=== PATIENT | female | born 1945 | race Caucasian/White ===

== ENCOUNTER → 2016-10-09 | Outpatient (CLI) | payer BC ==
[~2016-10-09] MED LIST: ALBINS NEB; ALBU1AER9 INH; ASPEC81 PO; ASPI81TA28 PO; ATEN-175 PO; ATOR-26 PO; CALC500C73 PO; CHLO10CA7 PO; CHN/1 PO; CHOL1000 PO; CLC100 PO; CLOP1TAB54 PO; DOCU100C31 PO; FLNIN/; FSM70 PO; FURO-85 PO; IPRA0.03 ND; IPRASOL4 INH; LISI-725 PO; LPT40 PO; LVQ750 PO; MCRK20 PO; METO50TA16 PO; MISC-573; MISCCAP80 PO; MOMLX PO; MRLP17X PO; NIFE1TAB55 PO; NIFE60TA57 PO; OXGN; PANT40TA PO; PLV75 PO; POTA20TA16 PO; PRD10 PO; PRED10TA PO; PRT40 PO; SIMV40TA2 PO; SYMIN/8045 INH; SYMIN8045 INH; VNTHFA/IN INH; ZNTT/150 PO
[2016-10-09 17:24] LABS: BASO % 0.1 %; BASO ABS # 0.01 K/uL (0-0.2); COMPLETE YES; EOS % 0.5 %; HEMATOCRIT 39.9 % (37-47); IG% 0.2 %; LYMPH % 18.6 %; LYMPH ABS # 2.31 K/uL (1.2-3.4); MEAN CORPUSCULAR HEMOGLOBIN 32.2 pg (25-34); MEAN CORPUSCULAR HGB CONC 32.8 g/dl (32-36); MEAN PLATELET VOLUME 10.7 fL (7.4-10.4); MONO % 6.2 %; NEUT % 74.4 %; PLATELET COUNT 282 K/uL (130-400); RED BLOOD COUNT 4.07 M/uL (4.2-5.4); WHITE BLOOD COUNT 12.44 K/uL (4.8-10.8)
[2016-10-09 17:39] LABS: ALT/SGPT 28 U/L (12-78); AST/SGOT 16 U/L (15-37); BLOOD UREA NITROGEN 20 mg/dl (7-18); BUN/CREATININE RATIO 18.4 (10-20); CALCIUM 9.7 mg/dl (8.5-10.1); CARBON DIOXIDE 24 mmol/L (21-32); CHLORIDE 102 mmol/L (98-107); CHOLESTEROL 166 mg/dl (0-200); GLUCOSE 81 mg/dl (70-99); POTASSIUM 3.9 mmol/L (3.5-5.1); SODIUM 139 mmol/L (136-145)
[2016-10-09 17:49] LABS: ALB/GLOB RATIO 1.1 (0.9-2); ALKALINE PHOSPHATASE 63 U/L (45-117); CHOLESTEROL/HDL RATIO 2.8; HDL CHOLESTEROL 59 mg/dl; LDL CHOLESTEROL CALCULATED 76 mg/dl; THYROID STIMULATING HORMONE 0.509 uIu/ml (0.300-4.500); TRIGLYCERIDES 154 mg/dl (0-150); VERY LOW DENSITY LIPOPROT CALC 31 mg/dl
[2016-10-10 06:14] LABS: ESTIMATED AVERAGE GLUCOSE 131 mg/dl; HA1C FLAG Normal (Normal)
== END | disposition home or self-care (01) ==
LOC: C.LABBFT 13:57
PROVIDERS: ATTEND Internal Medicine
DX: E78.00 Pure hypercholesterolemia, unspecified (principal); I10 Essential (primary) hypertension; J44.9 Chronic obstructive pulmonary disease, unspecified; R73.01 Impaired fasting glucose

== ENCOUNTER → 2016-11-07 | Outpatient (CLI) | payer BC ==
--- NOTE | 2016-11-07 12:15 | DIAGNOSTIC IMAGING REPORT ---
CHEST CT WITHOUT CONTRAST CT DOSE: 294.07 mGycm HISTORY: Lung nodule R91.8 Lung [id number] TECHNIQUE: Multiaxial CT images of the chest were performed without contrast. COMPARISON: 07/30/2016 FINDINGS: No change in the prior study. Groundglass nodules in the left upper lobe as well as an 11 mm nodule left lower lobe are unchanged in size or configuration. There are no new or interval findings. Considerable abscess chronic change of the thoracic aorta is again noted. There is no significant mediastinal or hilar adenopathy. IMPRESSION: Stable evaluation of the chest. No change in the parenchymal nodularity previously described Electronically signed by: Kirt Wade M.D. 11/07/2016 12:14 PM Dictated Date/Time: 11/07/2016 12:10 PM
== END | disposition home or self-care (01) ==
LOC: C.CTS 11:48
PROVIDERS: ATTEND Surgery
DX: R91.8 Other nonspecific abnormal finding of lung field (principal)

== ENCOUNTER → 2017-01-16 | Outpatient (CLI) | payer BC ==
--- NOTE | 2017-01-16 16:45 | MAMMOGRAPHY REPORT ---
BILATERAL DIGITAL SCREENING MAMMOGRAM TOMOSYNTHESIS WITH CAD: 01/16/2017 CLINICAL HISTORY: Routine screening. Patient has no complaints. TECHNIQUE: Breast tomosynthesis in addition to standard 2D mammography was performed. Current study was also evaluated with a Computer Aided Detection (CAD) system. COMPARISON: Comparison is made to exams dated: 01/12/2015 mammogram, 01/11/2014 mammogram, 01/05/2013 m ammogram, 12/31/2011 mammogram, 12/28/2010 mammogram, and 01/16/2016 mammogram - [facility]. BREAST COMPOSITION: There are scattered areas of fibroglandular density in both breasts. FINDINGS: No suspicious masses, calcifications, or areas of architectural distortion are noted in e ither breast. There has been no significant interval change compared to prior exams. There are stab le post surgical changes in the left breast from prior lumpectomy. Bilateral benign-appearing calci fications are not significantly changed. IMPRESSION: ACR BI-RADS CATEGORY 2: BENIGN There is no mammographic evidence of malignancy. A 1 year screening mammogram is recommended. The p atient will receive written notification of the results. Approximately 10% of breast cancers are not detected with mammography. A negative mammographic repor t should not delay biopsy if a clinically suggestive mass is present. Izabella Armas M.D. /:01/16/2017 15:41:21 Rn Surgery: Virginia DAVENPORT(Katy)(M), [facility] letter sent: Normal 1/2 BI-RADS Code: ACR BI-RADS Category 2: Benign
== END | disposition home or self-care (01) ==
LOC: C.MAMM 10:48
PROVIDERS: ATTEND Internal Medicine
DX: Z12.31 Encounter for screening mammogram for malignant neoplasm of breast (principal); Z85.3 Personal history of malignant neoplasm of breast

== ENCOUNTER 2017-02-08 19:58 | Inpatient (IN) | payer BC, OTHER ==
[~2017-02-08] VITALS: Ht 157.5 cm; Wt 69.8 kg
[~2017-02-08 19:58] MED LIST changes: -ASPEC81 PO; -ATOR-26 PO; -CALC500C73 PO; -CHOL1000 PO; -CLC100 PO; -DOCU100C31 PO; -FLNIN/; -FSM70 PO; -FURO-85 PO; -IPRA0.03 ND; -IPRASOL4 INH; -LISI-725 PO; -LPT40 PO; -LVQ750 PO; -MCRK20 PO; -METO50TA16 PO; -MISCCAP80 PO; -MOMLX PO; -MRLP17X PO; -NIFE1TAB55 PO; -PANT40TA PO; -PLV75 PO; -POTA20TA16 PO; -PRD10 PO; -PRED10TA PO; -PRT40 PO; -SYMIN/8045 INH; -VNTHFA/IN INH; -ZNTT/150 PO
[2017-02-08 20:41] LABS: HEMATOCRIT 44.3 % (37-47); MEAN CORPUSCULAR HEMOGLOBIN 31.2 pg (25-34); MEAN CORPUSCULAR HGB CONC 31.8 g/dl (32-36); MEAN PLATELET VOLUME 10.6 fL (7.4-10.4); PLATELET COUNT 264 K/uL (130-400); RED BLOOD COUNT 4.52 M/uL (4.2-5.4); WHITE BLOOD COUNT 13.68 K/uL (4.8-10.8)
[2017-02-08 20:51] LABS: INR 0.9 (0.9-1.1); PARTIAL THROMBOPLASTIN RATIO 0.9
[2017-02-08] MEDS ORDERED: VNTHFA/IN INH (20:56)
[2017-02-08 20:57] LABS: BUN/CREATININE RATIO 23.4 (10-20); CALCIUM 9.2 mg/dl (8.5-10.1); CREATININE 1.2 mg/dl (0.60-1.20); POTASSIUM 4.8 mmol/L (3.5-5.1)
[2017-02-08 21:02] LABS: ALB/GLOB RATIO 1.1 (0.9-2); CKMB/CK RATIO 11.2 (0-3.0)
[2017-02-08] MEDS ORDERED: ALBUT/IPRATROP 3MG/0.5MG NEB 3 ML VIAL INH STA (21:04)
[2017-02-08] MEDS ORDERED: ASPIRIN 81 MG CHEW PO STA (21:04)
--- NOTE | 2017-02-08 21:09 | EMERGENCY ROOM VISIT NOTE ---
History Report prepared by Roseline: Kyle Gilbert Under the Supervision of: Dr. Boris Trujillo D.O. First contact with patient: 20:49 Chief Complaint: CHEST PAIN Stated Complaint: FALL,SOB,CHEST PAIN,DIARRHEA Nursing Triage Summary: pt reports " I had a spell" which includes cp and dizziness and then I collapsed and my bowels let loose. denies cp or dizziness at this time pt reports hx of congested cough with mucus production History of Present Illness The patient is a 71 year old female who presents to the Emergency Room with complaints of completely resolved chest pain that began today at 1600, 5 hours prior to arrival. The patient describes her prior chest pain as a "pressure" and notes that there was associated shortness of breath. She denies any radiation of the pain, but claims that she also came significantly diaphoretic. Her pain is completely resolved at this time. The patient has had one similar episode in the past when she lost control of her bowels. She tried to juan to the restroom when her pain onset today, but she fell and lose control of her bowels once again. The pain has a history of COPD and notes that her breathing is worse than usual today. She has never had a heart catheterization in the past. 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 A total of 10 systems reviewed and were otherwise negative. Past Medical & Surgical Medical Problems: (1) Asthma (2) Bronchitis (3) COPD (chronic obstructive pulmonary disease) (4) COPD exacerbation (5) Hypertension (6) Hypoxia (7) Pneumonia (8) STEMI (ST elevation myocardial infarction) (9) Syncope Family History Cancer Diabetes mellitus FHx: gallbladder disease Heart disease Hypertension Kidney disease Kidney stones Lung disease Social History Smoking Status: Former Smoker Alcohol Use: none Drug Use: none Marital Status: Housing Status: lives alone Occupation Status: retired Current/Historical Medications Scheduled Albuterol Hfa (Ventolin Hfa), 2-4 PUFFS INH Q6H Alendronate Sodium (Alendronate Sodium), 70 MG PO WK Aspirin (Aspirin Ec), 81 MG PO QPM Atenolol (Tenormin), 100 MG PO QAM Budesonide/Formoterol Fumarate (Symbicort 80-4.5 Mcg/Act), 2 PUFFS INH BID Clopidogrel Bisulfate (Plavix), 75 MG PO QPM Fluticasone Propionate (Fluticasone Propionate), 1 SPRAY NA DIRECTED Home O2 Therapy (Oxygen), 3 LITER NA ALL TIME Nifedipine Ext Rel (Procardia Xl Ext Rel), 60 MG PO QAM Probiotic Product (Probiotic), 1 CAP PO QAM Ranitidine (Zantac), 150 MG PO BID Simvastatin (Zocor), 40 MG PO QPM Scheduled PRN Albuterol Sulf (Albuterol Sulfate), 3 ML NEB QID PRN for SOB/Wheezing Chlordiazepoxide (Librium), 10 MG PO TID PRN for PRN Durable Medical Equipment Misc. Devices (Roller Walker), UNIT Allergies Coded Allergies: Penicillins (Verified Allergy, Unknown, ANCEF OK PER DR RENDON, 02/08/17) Physical Exam Vital Signs Date Time Temp Pulse Resp B/P (MAP) Pulse Ox O2 Delivery O2 Flow Rate FiO2 02/08/17 22:04 73 28 91/53 96 Nasal Cannula 3.0 02/08/17 21:24 73 24 102/61 97 Nasal Cannula 3.0 02/08/17 20:36 98 Nasal Cannula 3.0 02/08/17 20:36 98 Nasal Cannula 3.0 02/08/17 20:26 71 22 112/67 99 Nasal Cannula 3.0 02/08/17 20:21 80 02/08/17 20:02 36.4 74 20 99/66 94 Room Air Physical Exam GENERAL: Patient is awake, alert, and in no acute distress. Patient is resting comfortably and showing no signs of anxiety EYES: The conjunctivae are clear. The pupils are round and reactive. EARS, NOSE, MOUTH AND THROAT: The nose is without any evidence of any deformity. Mucous membranes are moist tongue is midline NECK: The neck is nontender and supple. RESPIRATORY: Breath sounds are diminished throughout, with expiratory wheezing in all bishop. Tachypnea present, no conversational dyspnea to on exam. Normal respiratory effort is noted there is no evidence of wheezing rhonchi or rales CARDIOVASCULAR: Regular rate and rhythm noted there no murmurs rubs or gallops normal S1 normal S2 GASTROINTESTINAL: The abdomen is soft. Bowel sounds are present in all quadrants. Abdomen is nontender MUSCULOSKELETAL/EXTREMITIES: There is no evidence of gross deformity full range of motion is noted in the hips and shoulders SKIN: There is no obvious evidence of any rash. There are no petechiae, pallor or cyanosis noted. NEUROLOGIC: Patient is awake alert and oriented x3 Medical Decision & Procedures ER Provider Diagnostic Interpretation: Radiology results as stated below per my review and radiologist interpretation: CHEST ONE VIEW PORTABLE CLINICAL HISTORY: Chest pain, trauma, shortness of breath. Diarrhea. COMPARISON STUDY: 08/20/2016 FINDINGS: There is no pneumothorax. The heart is mildly enlarged. There is no lobar consolidation. There are no pleural effusions. Increased markings within the right infrahilar region, likely represent a summation. No mass was identified in this region on the most recent CT scan dated 11/07/2016. No pneumothorax is visualized. There are left apical fiducial markings. There is a calcified right upper lobe granuloma.[ IMPRESSION: 1. Increased right infrahilar markings, likely representing a summation as no mass was identified in this area on a recent chest CT 2. No evidence of failure 3. No evidence of lobar consolidation 4. No evidence of pneumothorax Electronically signed by: Ronald Bradley M.D. 02/08/2017 9:19 PM Dictated Date/Time: 02/08/2017 9:15 PM Laboratory Results 02/08/17 20:25 02/08/17 20:25 Test 02/08/17 20:25 02/08/17 20:36 Red Blood Count 4.52 M/uL (4.2-5.4) Mean Corpuscular Volume 98.0 fL (80-100) Mean Corpuscular Hemoglobin 31.2 pg (25-34) Mean Corpuscular Hemoglobin Concent 31.8 g/dl (32-36) RDW Standard Deviation 51.8 fL (36.4-46.3) RDW Coefficient of Variation 14.5 % (11.5-14.5) Mean Platelet Volume 10.6 fL (7.4-10.4) Prothrombin Time 10.0 SECONDS (9.0-12.0) Prothromb Time International Ratio 0.9 (0.9-1.1) Activated Partial Thromboplast Time 22.3 SECONDS (21.0-31.0) Partial Thromboplastin Ratio 0.9 Anion Gap 9.0 mmol/L (3-11) Est Creatinine Clear Calc Drug Dose 40.8 ml/min Estimated GFR () 51.9 Estimated GFR (Non- 44.8 BUN/Creatinine Ratio 23.4 (10-20) Calcium Level 9.2 mg/dl (8.5-10.1) Total Bilirubin 0.2 mg/dl (0.2-1) Aspartate Amino Transf (AST/SGOT) 52 U/L (15-37) Alanine Aminotransferase (ALT/SGPT) 60 U/L (12-78) Alkaline Phosphatase 72 U/L (45-117) Total Creatine Kinase 215 U/L (26-192) Creatine Kinase MB 24.1 ng/ml (0.5-3.6) Creatine Kinase MB Ratio 11.2 (0-3.0) Total Protein 6.8 gm/dl (6.4-8.2) Albumin 3.5 gm/dl (3.4-5.0) Globulin 3.3 gm/dl (2.5-4.0) Albumin/Globulin Ratio 1.1 (0.9-2) Bedside Troponin I 3.430 ng/ml (0-0.045) Laboratory results per my review. Medications Administered Medications (Trade) Dose Ordered Sig/Jessi Route Start Time Stop Time Status Last Admin Dose Admin Aspirin (Aspirin Chew) 324 mg NOW STAT PO 02/08/17 21:04 02/08/17 21:05 DC 02/08/17 21:12 324 MG Albuterol/ Ipratropium (Duoneb) 3 ml NOW STAT INH 02/08/17 21:04 02/08/17 21:05 DC 02/08/17 21:11 3 ML Heparin Sodium (Porcine) (Heparin Sq 5000 Unit/0.5ml) 5,000 unit STK-MED ONCE .ROUTE 02/08/17 22:09 02/08/17 22:10 DC 02/08/17 22:17 5,000 UNIT Heparin Sodium/ Dextrose (Heparin 25,000 Unit/500ml D5W) 25,000 unit STK-MED ONCE .ROUTE 02/08/17 22:10 02/08/17 22:11 DC 02/08/17 22:16 25,000 UNIT ECG Indication: chest pain Rate (beats per minute): 75 Rhythm: normal sinus Findings: RBBB, ST elevation (In apical and low lateral leads), other (ECG worrisome for acute ischemia) Comparison ECG Date: 06/13/2016 Change: Changes are present, but increased from previous. ED Course 2058: The patient was evaluated in room C12. A complete history and physical examination were performed. 2103: Ordered Duoneb 3 mL INH, Aspirin 324 mg PO. 2134: I discussed the case with Dr. Dang WILLIAMSON Hospitalist. He will evaluate the patient for further treatment. 2141: Ordered Heparin Sodium/Dextrose 1. 2202: I discussed the case with Dr. Jaylin WILLIAMSON Cardiology at this time. Medical Decision Medication Reconciliation: I attest that I have personally reviewed the patient' s current medications list. Differential diagnosis: Etiologies such as cardiac ischemia, aortic dissection, pulmonary embolism, pneumonia, pneumothorax, musculoskeletal, infections, pericarditis, myocarditis , esophageal rupture, gastrointestinal, as well as others were entertained. Nursing notes reviewed. Additional history is obtained from the patient's family members. The patient is a 71-year-old female who presented to the emergency department for an evaluation of chest discomfort. The patient had an episode earlier today where she had chest discomfort associated with diaphoresis and shortness of breath. The patient states that this time she does not have any chest pain. She continues to have shortness of breath but feels that this is consistent with her COPD. The patient's initial EKG did appear to show ST segment abnormalities in the apical and low lateral leads however she had previous EKGs that showed similar changes. She does have a bundle branch block pattern as well. Her troponin was found to be elevated. The patient was started on IV heparin in the emergency department. She was also given aspirin. I discussed the patient's laboratory and radiographic studies with her and her family member. It does appear that she's having a myocardial infarction at this time. I discussed her case with the on-call battery plate assembler. I also discussed his case with the on-call julien Alexandra hospitalist. They've agreed to evaluate the patient for further management and disposition. Consults Time Called: 2114 Consulting Physician: Dr. Dang WILLIAMSON Hospitalist Returned Call: 2134 I discussed the case with Dr. Dang WILLIAMSON Hospitalist. He will evaluate the patient for further treatment. Additional Consults: Time Called: 2114 Consulted Physician: Dr. Zoda - [facility] Returned Call: 2202 Additional Comments: I discussed the case with Dr. Mosqueda - [facility] [place] Cardiology at this time. Impression Primary Impression: NSTEMI (non-ST elevated myocardial infarction) Additional Impressions: Chest pain COPD exacerbation Abnormal EKG Critical Care I have personally spent greater than 40 minutes of critical care time in the direct management of this patient. This includes bedside care, interpretation of diagnostic studies, and testing, discussion with consultants, patient, and family members, and other required patient management activities. This 40 minutes is in excess of all separately billable procedures. Scribe Attestation The scribe's documentation has been prepared under my direction and personally reviewed by me in its entirety. I confirm that the note above accurately reflects all work, treatment, procedures, and medical decision making performed by me. Departure Information Dispostion Being Evaluated By Hospitalist Referrals Marcello Conde M.D. (PCP) Patient Instructions My [facility] Problem Qualifiers Additional Impressions: Chest pain Chest pain type: unspecified Qualified Codes: R07.9 - Chest pain, unspecified
--- NOTE | 2017-02-08 21:20 | DIAGNOSTIC IMAGING REPORT ---
CHEST ONE VIEW PORTABLE CLINICAL HISTORY: Chest pain, trauma, shortness of breath. Diarrhea. COMPARISON STUDY: 08/20/2016 FINDINGS: There is no pneumothorax. The heart is mildly enlarged. There is no lobar consolidation. There are no pleural effusions. Increased markings within the right infrahilar region, likely represent a summation. No mass was identified in this region on the most recent CT scan dated 11/07/2016. No pneumothorax is visualized. There are left apical fiducial markings. There is a calcified right upper lobe granuloma.[ IMPRESSION: 1. Increased right infrahilar markings, likely representing a summation as no mass was identified in this area on a recent chest CT 2. No evidence of failure 3. No evidence of lobar consolidation 4. No evidence of pneumothorax Electronically signed by: Ronald Bradley M.D. 02/08/2017 9:19 PM Dictated Date/Time: 02/08/2017 9:15 PM
[2017-02-08] MEDS ORDERED: HEPARIN SOD 5000 UNIT/0.5 ML CARP ONE (22:09)
[2017-02-08] MEDS ORDERED: HEPARIN 25000 UNIT/500 ML D5W ONE (22:10)
[2017-02-09] VITALS (13 sets, daily range): BP systolic 105–125; BP diastolic 55–75; PULSE 60–77; TEMP 36.4–36.8; O2SAT 91–99; Ht 157.5 cm; Wt 69.8 kg
--- NOTE | 2017-02-09 00:48 | History and Physical ---
History & Physical Date & Time of Service: Feb 09, 2017 at 00:48 Chief Complaint: Fall,Sob,Chest Pain,Diarrhea Primary Care Physician: Marcello Conde M.D. 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 Presents following an episode of severe central CP which lasted approximately 30 min. The pain was accompanied by SOB, lightheadedness and diaphoresis. At one point she was ambulating with the ongoing pain and she became light headed, collapsed on the floor without LOC and lost control of her bowels. On arrival to the ER she is asymptomatic however her troponin is markedly elevated. The pt had a troponin elevation following a syncopal episode 06/17. She had borderline ST elevations at that time but did not have echo findings consistent with acute ischemia. She did not have a cardiac catheterization as the troponin elevation was presumed due to a COPD exacerbation, volume depletion and resultant demand ischemia. Her echo prior to DC showed a normal EF without significant wall motion abnormalities. Past Medical/Surgical History PAST MEDICAL HISTORY: 1. COPD, dependent on 3 liters O2. 2. Anxiety. 3. The patient has a 13 mm pulmonary nodule in her left upper lobe which was biopsied and deemed noncancerous. She was recently placed on daily prednisone and states that her nodule has been shrinking as a result. 4. Hypertension. 5. Hyperlipidemia. 6. CAD. She has a distant history of catheterization with stent placement. 7. Admitted with syncope and a troponin elevation 06/17 Family History Cancer Diabetes mellitus FHx: gallbladder disease Heart disease Hypertension Kidney disease Kidney stones Lung disease Social History Smoking Status: Former Smoker Drug Use: none Marital Status: Housing status: lives alone Occupational Status: retired Immunizations History of Influenza Vaccine: Yes Influenza Vaccine Date: Aug 17, 2008 History of Tetanus Vaccine?: Unknown History of Pneumococcal: Yes Pneumococcal Date: Nov 20, 2009 History of Hepatitis B Vaccine: Unknown Multi-Drug Resistant Organisms History of MDRO: No Allergies Coded Allergies: Penicillins (Verified Allergy, Unknown, ANCEF OK PER DR RENDON, 02/08/17) Home Medications Scheduled Albuterol Hfa (Ventolin Hfa), 2-4 PUFFS INH Q6H Alendronate Sodium (Alendronate Sodium), 70 MG PO WK Aspirin (Aspirin Ec), 81 MG PO QPM Atenolol (Tenormin), 100 MG PO QAM Budesonide/Formoterol Fumarate (Symbicort 80-4.5 Mcg/Act), 2 PUFFS INH BID Clopidogrel Bisulfate (Plavix), 75 MG PO QPM Fluticasone Propionate (Fluticasone Propionate), 1 SPRAY NA DIRECTED Home O2 Therapy (Oxygen), 3 LITER NA ALL TIME Nifedipine Ext Rel (Procardia Xl Ext Rel), 60 MG PO QAM Probiotic Product (Probiotic), 1 CAP PO QAM Ranitidine (Zantac), 150 MG PO BID Simvastatin (Zocor), 40 MG PO QPM Scheduled PRN Albuterol Sulf (Albuterol Sulfate), 3 ML NEB QID PRN for SOB/Wheezing Chlordiazepoxide (Librium), 10 MG PO TID PRN for PRN Review of Systems Constitutional: + problem reported (diaphoresis with CP), No fever, No chills, No sweats Eyes: No worsening of vision, No eye pain ENT: No hearing loss, No unusual epistaxis, No nasal symptoms Respiratory: + wheezing, + shortness of breath (chronic - no change), No cough , No sputum Cardiovascular: + chest pain, No orthopnea, No PND, No palpitations Abdomen: No pain, No nausea Musculoskeletal: No joint pain, No muscle pain Genitourinary - Female: No dysuria, No urinary frequency, No urinary urgency Neurologic: No memory loss, No paralysis, No weakness Psychiatric: No depression symptoms Endocrine: No fatigue Hematologic / Lymphatic: No abnormal bleeding/bruising Integumentary: No rash Allergic / Immunologic: No environmental allergies Physical Exam Vital Signs Date Time Temp Pulse Resp B/P (MAP) Pulse Ox O2 Delivery O2 Flow Rate FiO2 02/09/17 00:00 67 20 106/73 96 02/08/17 22:04 73 28 91/53 96 Nasal Cannula 3.0 02/08/17 21:24 73 24 102/61 97 Nasal Cannula 3.0 02/08/17 20:36 98 Nasal Cannula 3.0 02/08/17 20:36 98 Nasal Cannula 3.0 02/08/17 20:26 71 22 112/67 99 Nasal Cannula 3.0 02/08/17 20:21 80 02/08/17 20:02 36.4 74 20 99/66 94 Room Air General Appearance: WD/WN, no apparent distress, + pertinent finding (Pleasant elderly female in good spirits - no distress) Head: normocephalic, atraumatic Eyes: normal inspection, PERRL, EOMI ENT: normal ENT inspection, pharynx normal Neck: supple, no adenopathy, thyroid normal, no JVD Respiratory/Chest: chest non-tender, + decreased breath sounds, + wheezing ( mild end expiratory) Cardiovascular: regular rate, rhythm, no edema, no gallop, no JVD, normal peripheral pulses, + systolic murmur Abdomen/GI: normal bowel sounds, non tender, soft Back: normal inspection, no CVA tenderness, no muscle spasm, normal range of motion Extremities/Musculoskelatal: normal inspection, no calf tenderness, normal capillary refill, normal range of motion, + pedal edema (minimal B/L LE edema ) Neurologic/Psych: outsole skiver II-XII nml as tested, no motor/sensory deficits, alert, normal mood/affect, normal reflexes, oriented x 3 Skin: normal color, warm/dry, no rash Diagnostics Laboratory Results Results Past 24 Hours Test 02/08/17 20:25 02/08/17 20:36 Range/Units White Blood Count 13.68 4.8-10.8 K/uL Red Blood Count 4.52 4.2-5.4 M/uL Hemoglobin 14.1 12.0-16.0 g/dL Hematocrit 44.3 37-47 % Mean Corpuscular Volume 98.0 80-100 fL Mean Corpuscular Hemoglobin 31.2 25-34 pg Mean Corpuscular Hemoglobin Concent 31.8 32-36 g/dl RDW Standard Deviation 51.8 36.4-46.3 fL RDW Coefficient of Variation 14.5 11.5-14.5 % Platelet Count 264 130-400 K/uL Mean Platelet Volume 10.6 7.4-10.4 fL Prothrombin Time 10.0 9.0-12.0 SECONDS Prothromb Time International Ratio 0.9 0.9-1.1 Activated Partial Thromboplast Time 22.3 21.0-31.0 SECONDS Partial Thromboplastin Ratio 0.9 Sodium Level 142 136-145 mmol/L Potassium Level 4.8 3.5-5.1 mmol/L Chloride Level 106 98-107 mmol/L Carbon Dioxide Level 27 21-32 mmol/L Anion Gap 9.0 3-11 mmol/L Blood Urea Nitrogen 28 7-18 mg/dl Creatinine 1.20 0.60-1.20 mg/dl Est Creatinine Clear Calc Drug Dose 40.8 ml/min Estimated GFR () 51.9 Estimated GFR (Non- 44.8 BUN/Creatinine Ratio 23.4 10-20 Random Glucose 122 70-99 mg/dl Calcium Level 9.2 8.5-10.1 mg/dl Total Bilirubin 0.2 0.2-1 mg/dl Aspartate Amino Transf (AST/SGOT) 52 15-37 U/L Alanine Aminotransferase (ALT/SGPT) 60 12-78 U/L Alkaline Phosphatase 72 45-117 U/L Total Creatine Kinase 215 26-192 U/L Creatine Kinase MB 24.1 0.5-3.6 ng/ml Creatine Kinase MB Ratio 11.2 0-3.0 Total Protein 6.8 6.4-8.2 gm/dl Albumin 3.5 3.4-5.0 gm/dl Globulin 3.3 2.5-4.0 gm/dl Albumin/Globulin Ratio 1.1 0.9-2 Bedside Troponin I 3.430 0-0.045 ng/ml EKG Sinus 75BPM, normal axis, RBBB Impression Assessment and Plan 71 y/o F 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 Presents following an episode of severe central CP which lasted approximately 30 min. The pain was accompanied by SOB, lightheadedness and diaphoresis. At one point she was ambulating with the ongoing pain and she became light headed, collapsed on the floor without LOC and lost control of her bowels. On arrival to the ER she is asymptomatic however her troponin is markedly elevated. 1) NSTEMI - pt placed on higher dose Statin, ASA, Plavix and full dose Heparin. She will be evaluated by cardiology AM - we will obtain serial enzymes and monitor on telemetry. As she does not have an alternative etiology for her troponin elevation this admission, I informed her that she may merit a catheterization and the final determination will be made by the mounter clarinets. 2) COPD - no current exacerbation - cont inhalers, prednisone, 02 protocol 3) HTN - cont Nifedipine, Atenolol Full code - Heparin prophylaxis Total time for this admit including review of labs, meds, EKG, records - discussion with pt and ER attending - 38 min Level of Care Telemetry Resuscitation Status FULL RESUSCITATION VTE Prophylaxis Given or contraindicated: Other Anticoagulation
[2017-02-09] MEDS ORDERED: ACETAMINOPHEN 325 MG TAB PO PRN (01:00)
[2017-02-09] MEDS ORDERED: MoRPHine SULFATE 2 MG/ML CARP IV PRN (01:00)
[2017-02-09] MEDS ORDERED: NITROGLYCERIN 0.4 MG SL PER TAB CHARGE SL PRN (01:30)
[2017-02-09] MEDS ORDERED: MAGNESIUM HYDROXIDE SUSP 30 ML UDC PO PRN (01:30)
[2017-02-09] MEDS ORDERED: ALUMINUM/MAGNESIUM/SIMETH (MAALOX MAX) 30 ML UDC PO PRN (01:30)
[2017-02-09] MEDS ORDERED: ONDANSETRON INJ 2 MG/ML 2 ML VIAL IV PRN (01:30)
[2017-02-09] MEDS ORDERED: POLYETHYLENE (MIRALAX) 17 GM PACK PO PRN (01:30)
[2017-02-09 04:29] LABS: HEMATOCRIT 39.9 % (37-47); MEAN CELL VOLUME 95.9 fL (80-100); MEAN CORPUSCULAR HEMOGLOBIN 30.5 pg (25-34); MEAN CORPUSCULAR HGB CONC 31.8 g/dl (32-36); PLATELET COUNT 235 K/uL (130-400); RED BLOOD COUNT 4.16 M/uL (4.2-5.4); WHITE BLOOD COUNT 11.71 K/uL (4.8-10.8)
[2017-02-09 04:49] LABS: BUN/CREATININE RATIO 27.6 (10-20); CALCIUM 8.6 mg/dl (8.5-10.1); CREATININE 1.2 mg/dl (0.60-1.20); MAGNESIUM 2.1 mg/dl (1.8-2.4); POTASSIUM 4.6 mmol/L (3.5-5.1)
[2017-02-09] MEDS: ALBUTEROL 0.083% NEBU SOLN 3 ML VIAL INH PRN ×4 (06:44→18:58)
[2017-02-09 07:49] LABS: PARTIAL THROMBOPLASTIN RATIO 3.8
[2017-02-09] MEDS ORDERED: NON-FORMULARY MEDICATION (Probiotic Product (Probiotic) 1 CAP) PO SCH (09:00)
[2017-02-09] MEDS: HEPARIN 25,000 UNIT/500ML D5W 500 ML IV PRN (09:00)
[2017-02-09] MEDS ORDERED: ATORVASTATIN 40 MG TAB PO SCH (09:00)
[2017-02-09] MEDS: RANITIDINE HCL 150 MG TAB PO SCH ×2 (12:00→20:25)
[2017-02-09] MEDS: NIFEdipine 30 MG CR TAB PO SCH (12:00)
[2017-02-09] MEDS: FLUTICASONE PROPIONATE NA SPR 16 GM BTL SCH (12:01)
[2017-02-09] MEDS: BUDESONIDE/FORMOTEROL FUMARATE 80/4.5 60 PUFFS/INHALER INH SCH ×2 (12:01→20:23)
--- NOTE | 2017-02-09 13:12 | CARDIOLOGY CONSULTATION ---
DATE OF CONSULTATION: 02/09/2017 PRIMARY PHYSICIAN: Marcello Conde MD REFERRING PHYSICIAN: Ace Leong MD CONSULTING PHYSICIAN: Ivan Mosqueda MD HISTORY OF PRESENT ILLNESS: The patient is a 71-year-old white female. She has a history of severe chronic obstructive pulmonary disease, pulmonary nodules (followed by Dr. Raheem Ch), hypertension, dyslipidemia, and peripheral arterial disease. She is status post bilateral common iliac artery stent procedures in August 2008. The procedure was performed at [facility]. She was admitted on 06/12/2016 to [facility] with a COPD exacerbation and mildly elevated troponin I. She also had evidence of intravascular volume depletion which was felt to be secondary to her chronic diuretic therapy. She had had a near syncopal episode prior to that admission. Because of her underlying severe chronic obstructive pulmonary disease a conservative medical management of her presumed underlying coronary artery disease was recommended. She underwent an echocardiogram during the admission, which revealed LV ejection fraction 65%-70%. Flattened septum consistent with RV pressure volume overload. Mild pulmonary hypertension. Moderate right ventricular dilatation. Mild to moderate right ventricular hypertrophy. Moderate right ventricular systolic dysfunction. No segmental wall motion abnormalities of the left ventricle. Mild tricuspid regurgitation. No significant mitral regurgitation noted. Mild aortic regurgitation. No significant pulmonic regurgitation. The patient was discharged on 06/18/2016. Her discharge diagnosis was COPD exacerbation. The patient states that since then she has had no further hospitalizations until this current hospitalization. She has been followed closely by Dr. Conde. She is now on steroids chronically for control of her severe COPD. She and her family stated she always wheezes. The family states that this is her baseline. She denies any dyspnea at rest. With minimal activity she has stable dyspnea. No orthopnea, sleeping with 1 pillow. She does wake up feeling short of breath and having increased wheezing. This improves with use of the nebulizer. She has a chronic cough productive of yellowish sputum. She states that since her hospitalization in June, she has had no exertionally precipitated chest pain. Approximately 1 time a week she does have a pressure like retrosternal pain that occurs independent of activity. It can last for 3-4 hours at a time. It then spontaneously resolves. She denies any such discomfort with exertion. On 02/08/2017, she developed a chest pain in her retrosternal region. She describes this as a sharp to aching pain. She had associated diaphoresis and dyspnea. No radiation of the discomfort. It lasted for approximately 3 hours and then resolved. She then felt better. Approximately 2 hours later she had an episode of diaphoresis, nausea, lightheadedness, and near syncope. Her family found her to be conscious, but slightly disoriented. They drove her to the Emergency Department for evaluation. Since the resolution of the chest discomfort yesterday afternoon at approximately 3:00 p.m. she has had no further complaints of any chest discomfort. While being monitored in the Emergency Department, she had a 5.8 second pause noted on her monitor. She does not recall feeling lightheaded or having syncope while in the Emergency Department. She was subsequently admitted to the telemetry unit. She has had no further lightheadedness, nausea, or near syncope. No further chest discomfort. She states that her respiratory status is currently at its baseline. She denies any dyspnea at rest. No lightheadedness sitting up at her bedside. She does continue to have a cough. This is her chronic cough. She denies any peripheral edema currently or recently. In the past, she has had edema with higher doses of prednisone. No complaints of any leg pain. No fevers or chills. She denies any bleeding complaints. No GI or urinary complaints. No cerebrovascular complaints. No peripheral vascular complaints suggestive of arterial insufficiency. As stated above, her activities are limited by her severe dyspnea. She does wear oxygen chronically. This is 24 hours a day. PAST MEDICAL HISTORY: 1. Severe COPD. 2. History of breast cancer. 3. Chronic respiratory failure. Chronic nasal cannula oxygen. Flow rate ranges from 3-5 liters per minute. 4. GE reflux disease. 5. Dyslipidemia. 6. Hypertension. 7. Impaired glucose tolerance. 8. Peripheral arterial disease. 9. Pulmonary nodules. Followed by Dr. Raheem Ch. She has undergone navigational bronchoscopy. Biopsy revealed no evidence of malignancy. The patient reports that her nodules are decreasing in size. PAST SURGICAL HISTORY: 1. Left breast lumpectomy in the past. Followed by external radiation therapy for breast cancer. 2. Status TOM. 3. Status post tonsillectomy. 4. Status post bilateral common iliac artery stents 2007. 5. Status post tonsillectomy. ALLERGIES: PENICILLIN. SOCIAL HISTORY: Longstanding history of cigarette smoking. She lives alone. She is a . Her children live nearby. FAMILY HISTORY: Multiple illnesses including diabetes mellitus, heart disease, hypertension, and cancer. MEDICATIONS: At time of admission include albuterol 2-4 puffs inhaler q.i.d. alendronate 70 mg weekly, aspirin 81 mg daily, atenolol 100 mg daily, Symbicort 2 puffs b.i.d., clopidogrel 75 mg daily, fluticasone 1 spray daily, nifedipine 60 mg daily, ranitidine 150 mg b.i.d., simvastatin 40 mg daily, probiotic 1 daily, chlordiazepoxide 10 mg t.i.d. p.r.n., albuterol nebulizer p.r.n., and prednisone as directed. The patient states that recently she has been taking prednisone on a daily basis. REVIEW OF SYSTEMS: As above. PHYSICAL EXAMINATION: GENERAL: The patient is sitting up at her bedside. She is in no distress. She does have audible wheezing just sitting next to her. Monitor at this time reveals sinus rhythm. Rate is in the 70s. She did have an episode of sinus bradycardia this morning with rates in the 30s. VITAL SIGNS: At 7:20 a.m. show oral temperature is 36.8, pulse 73, blood pressure 113/70, pulse oximetry 93% on 4 liters per nasal cannula oxygen. HEAD: Normal. EYES: Pupils are equal and round. Anicteric. Conjunctivae normal. No xanthelasma. NECK: No jugular venous distention. Carotids 1/2 bilaterally. No bruits. No transmitted murmur. Normal upstroke. LUNGS: Decreased breath sounds in all lung bishop. Diffuse mild rhonchi and expiratory wheezes. HEART: PMI normal. No lifts or heaves. Distant heart sounds. Regular rate and rhythm. No murmur, gallop, or rub. ABDOMEN: Soft. Normal bowel sounds. No bruits. No palpable masses or organomegaly. EXTREMITIES: No cyanosis or clubbing. No pretibial edema. No calf tenderness. PULSES: Radial pulses palpable bilaterally. Dorsalis pedis and posterior tibia pulses not palpable. NEUROLOGIC: Alert and oriented x3. Motor grossly intact. PSYCHIATRIC: Affect is normal. DATA: Electrocardiogram performed on February 08 at 20:32 revealed normal sinus rhythm with sinus arrhythmia, slight concave ST segment elevation in V3-V6. Compared to an electrocardiogram of 06/13/2016 no interval change. Electrocardiogram performed this morning and also reviewed by me shows sinus rhythm with PACs. Right bundle-branch block. Continued slight concave ST segment elevations in the anterior leads. No significant change compared to yesterday's electrocardiogram other than the presence of the premature supraventricular beats. Chest x-ray performed on February 08 and reviewed by me reveals no evidence of congestive heart failure. No infiltrate. LABS TODAY: WBC 11.71, hemoglobin 12.7, hematocrit 39.9, platelet count 235. Baseline INR yesterday was 0.9. PTT today on intravenous heparin is 99.8. Troponin I's have been 8.940 and then 7.270. Her CK and CK-MB in the Emergency Department last evening were 215/24.1. Metabolic profile today was sodium 141, potassium 4.6, chloride 106, carbon dioxide 30, BUN 33, creatinine 1.20, random glucose 124. Magnesium 2.1. ADDENDUM TO HISTORY: CURRENT MEDICATIONS: Atorvastatin 40 mg daily, aspirin 81 mg daily, clopidogrel 75 mg daily, Symbicort 2 puffs b.i.d., Flonase 2 sprays daily, ranitidine 150 mg b.i.d., prednisone 20 mg daily, nifedipine 60 mg daily, intravenous heparin by weight based protocol, and several p.r.n. medications. ASSESSMENT: 1. Prolonged episode of chest discomfort early yesterday afternoon. Duration approximately 3 hours. Her electrocardiogram on presentation to the Emergency Department last evening showed no acute changes compared to June electrocardiogram. Her CK total and CK-MB were already elevated last evening. This was on arrival to the Emergency Department. It takes several hours for CK and CK-MB to become elevated after myocardial infarction. This would be consistent with her sustaining a myocardial injury early yesterday afternoon when she had the complaints of chest pain. She has had no chest pain since approximately 3:00 p.m. yesterday. Currently, no anginal type pains. Clearly, she has risk factors for coronary artery disease. She has dyslipidemia, glucose intolerance, hypertension, prior smoking history, and peripheral arterial disease. Currently, no anginal type symptoms. 2. No evidence of congestive heart failure on chest x-ray. 3. Severe chronic obstructive pulmonary disease. Oxygen dependent. She has chronic wheezing. Her activities are markedly limited by her chronic obstructive pulmonary disease. Minimal exertion causes her to have dyspnea. 4. Peripheral arterial disease. Status post common iliac artery stents approximately 9 years ago. No claudication type symptoms. She does have diminished pulses in her ankles and feet. She also has diminished carotid pulses. No history of carotid artery disease. 5. Significant sinus pause yesterday evening. At that time, she was on beta-jalen therapy. This could certainly be contributory. Cannot exclude an effect of a myocardial infarction. Cannot exclude that she had ischemia to the sinus node. 6. Blood pressure well controlled. PLAN AND RECOMMENDATIONS: 1. From a pure cardiac standpoint cardiac catheterization would be indicated. However, the patient would clearly be at increased risk for any invasive procedures secondary to her underlying pulmonary disease. Certainly, at this time there is no indication for an urgent or emergent cardiac catheterization. She is stable. She has no current anginal symptoms. Her cardiac enzymes are decreasing. Her infarction by enzymes and her history was early yesterday afternoon. Certainly need to consider performing an elective cardiac catheterization. 2. Check echocardiogram today. Reassess left ventricular systolic function and wall motion. Compared to June 2016 echo. 3. Check carotid ultrasound. She has diminished carotid pulses. Also, she is at risk for cerebrovascular disease. 4. Continue aspirin, clopidogrel, intravenous heparin. 5. Hold atenolol. Continue to monitor her heart rhythm closely. Keep on monitor. Would not have her go off the unit. If she did go off the unit, she needs to be monitored. 6. I will discuss her sinus pause with electrophysiology mining consultant. 7. Consider adding an BRITTANY inhibitor to her medical regimen. Will await results of her echo. Continuing the nifedipine would give her some treatment for myocardial ischemia. 8. Continued maximum management of her COPD. Thank you for asking us to see this patient in cardiology consultation.
[2017-02-09] MEDS ORDERED: PERFLUTREN LIPID MICROSPHERE (DEFINITY) IV ONE (13:31)
--- NOTE | 2017-02-09 14:15 | ECHOCARDIOGRAM REPORT ---
*NOTICE TO RECEIVING [employer] This information is strictly Confidential and protected under [place] law. [place] law prohibits you from making any further disclosure of this information unless further disclosure is expressly permitted by the written consent of the person to whom it pertains or is authorized by law. A general authorization for the release of medical or other information is not sufficient for this purpose. Hospital accepts no responsibility if the information is made available to any other person, INCLUDING THE PATIENT. Interpretation Summary * Name: FIOR WILSON Study Date: 02/09/2017 01:11 PM BP: 113/70 mmHg * Patient Location: C.2T\S\E216\S\1 HR: 73 * : 1945 (M/d/yyyy) Gender: Female Height: 62 in * Age: 71 yrs Ethnicity: CA Weight: 151 lb * Ordering Physician: Ivan Mosqueda MD, [facility] * Performed By: Julieth Fuentes * * Reason For Study: AMI * BSA: 1.7 m2 * -- Conclusions -- * Left ventricular systolic function is normal. * Grade I diastolic dysfunction, (abnormal relaxation pattern). * The left ventricular wall motion is normal. * The right ventricle is mild to moderately dilated. * The right ventricular systolic function is moderately reduced. * The right atrium is mildly dilated. * Compared to a study from 06/2016, the septum is not flattened, otherwise little change. Pulmonary pressures were not measured on this study Procedure Details * A complete two-dimensional transthoracic echocardiogram was performed (2D, M-mode, Doppler and color flow Doppler). * The study was technically difficult. * There were technical limitations due to patient'sPoor acoustic windows secondary to severe lung disease. * A contrast injection of Definity was performed to improve assessment of LV function. * Contrast was injected into an intravenous site in the left arm. * One vial of Definity ultrasound contrast was diluted in normal saline to a total volume of 10 ml. A total of '3' ml of solution was administered during imaging. * Lot # [id number] of Definity utilized for procedure. * Expiration date 02/17. * The attending nurse who injected the contrast agent was ANA GIBBS RN. Left Ventricle * The left ventricle is normal in size. * There is normal left ventricular wall thickness. * Ejection Fraction = 65-70%. * Left ventricular systolic function is normal. * Grade I diastolic dysfunction, (abnormal relaxation pattern). * The left ventricular wall motion is normal. Right Ventricle * The right ventricle is mild to moderately dilated. * The right ventricular systolic function is moderately reduced. Atria * The left atrial size is normal. * The right atrium is mildly dilated. Mitral Valve * The mitral valve is grossly normal. * Significant mitral regurgitation is absent. Tricuspid Valve * The tricuspid valve is not well visualized. * There is trace tricuspid regurgitation. Aortic Valve * The aortic valve is not well visualized. * No hemodynamically significant valvular aortic stenosis. * There is no significant aortic regurgitation. Pericardium/Pleural * There is no pericardial effusion. Great Vessels * Normal inferior vena cava diameter and respiratory variation suggests normal central venous pressure. MMode 2D Measurements and Calculations IVSd 0.71 cm IVSs 1.4 cm LVIDd 3.9 cm LVIDs 2.4 cm LVPWd 1.1 cm LVPWs 1.7 cm IVS/LVPW 0.67 FS 37.0 % EDV(Teich) 65.4 ml ESV(Teich) 21.2 ml EF(Teich) 67.6 % EDV(cubed) 58.7 ml ESV(cubed) 14.7 ml EF(cubed) 75.0 % % IVS thick 94.4 % % LVPW thick 62.7 % LV mass(C)d 101.5 grams LV mass(C)dI 59.8 grams/m\S\2 LV mass(C)s 129.5 grams LV mass(C)sI 76.3 grams/m\S\2 SV(Teich) 44.2 ml SI(Teich) 26.0 ml/m\S\2 SV(cubed) 44.0 ml SI(cubed) 26.0 ml/m\S\2 ACS 1.5 cm asc Aorta Diam 3.2 cm LVAd ap4 26.1 cm\S\2 LVLd ap4 7.0 cm EDV(MOD-sp4) 81.0 ml EDV(sp4-el) 83.0 ml LVAs ap4 12.6 cm\S\2 LVLs ap4 5.4 cm ESV(MOD-sp4) 26.2 ml ESV(sp4-el) 25.1 ml EF(MOD-sp4) 67.7 % EF(sp4-el) 69.8 % LVAd ap2 20.2 cm\S\2 LVLd ap2 6.5 cm EDV(MOD-sp2) 51.9 ml EDV(sp2-el) 53.2 ml LVAs ap2 10.3 cm\S\2 LVLs ap2 5.2 cm ESV(MOD-sp2) 16.8 ml ESV(sp2-el) 17.3 ml EF(MOD-sp2) 67.7 % EF(sp2-el) 67.5 % LVLd %diff -7.12 % EDV(MOD-bp) 66.9 ml LVLs %diff -3.01 % ESV(MOD-bp) 20.8 ml EF(MOD-bp) 68.9 % SV(MOD-sp4) 54.9 ml SI(MOD-sp4) 32.3 ml/m\S\2 SV(MOD-sp2) 35.1 ml SI(MOD-sp2) 20.7 ml/m\S\2 SV(MOD-bp) 46.1 ml SI(MOD-bp) 27.2 ml/m\S\2 SV(sp4-el) 57.9 ml SI(sp4-el) 34.1 ml/m\S\2 SV(sp2-el) 36.0 ml SI(sp2-el) 21.2 ml/m\S\2 Doppler Measurements and Calculations MV E max arelis 64.2 cm/sec MV A max arelis 95.9 cm/sec MV E/A 0.67 MV dec time 0.19 sec Ao V2 max 124.8 cm/sec Ao max PG 6.2 mmHg Ao max PG (full) 3.6 mmHg AI max arelis 271.8 cm/sec AI max PG 29.5 mmHg AI dec slope 167.3 cm/sec\S\2 AI P1/2t 475.7 msec LV V1 max PG 2.7 mmHg LV V1 max 81.5 cm/sec PA V2 max 76.0 cm/sec PA max PG 2.3 mmHg
--- NOTE | 2017-02-09 14:51 | Progress Note ---
Subjective Date of Service: Feb 09, 2017. Subjective Pt evaluation today including: conversation w/ patient, conversation w/ family , physical exam, chart review, lab review, review of studies, conversation w/ merchandising consultant, review of inpatient medication list Pain: no pain reported PO Intake: excellent Po intake Voiding: no voiding problems pt is seen and examined by me. pt denies chest pain since yesterday 3pm. Pt denies SOB at rest, palpitation , dizziness and LOC. Pt denies any syncope episode. Pt denies blurry vision and headache. Problem List Medical Problems: (1) Abnormal EKG Status: Acute (2) Abnormal EKG Status: Acute (3) Chest pain Status: Acute (4) COPD exacerbation Status: Acute (5) Diarrhea Status: Acute (6) Elevated troponin Status: Acute (7) Hypokalemia Status: Acute (8) Hypotension Status: Acute (9) Hypoxemia Status: Acute (10) NSTEMI (non-ST elevated myocardial infarction) Status: Acute (11) Precordial chest pain Status: Acute Review of Systems All Other Systems: Reviewed and Negative Medications Medications (Trade) Dose Ordered Sig/Jessi Route Start Time Stop Time Status Last Admin Dose Admin Aspirin (Aspirin Chew) 324 mg NOW STAT PO 02/08/17 21:04 02/08/17 21:05 DC 02/08/17 21:12 324 MG Albuterol/ Ipratropium (Duoneb) 3 ml NOW STAT INH 02/08/17 21:04 02/08/17 21:05 DC 02/08/17 21:11 3 ML Heparin Sodium (Porcine) (Heparin Sq 5000 Unit/0.5ml) 5,000 unit STK-MED ONCE .ROUTE 02/08/17 22:09 02/08/17 22:10 DC 02/08/17 22:17 5,000 UNIT Heparin Sodium/ Dextrose (Heparin 25,000 Unit/500ml D5W) 25,000 unit STK-MED ONCE .ROUTE 02/08/17 22:10 02/08/17 22:11 DC 02/08/17 22:16 25,000 UNIT Budesonide/ Formoterol Fumarate (Symbicort 80/ 4.5 Inh) 2 puffs BID INH 02/09/17 09:00 03/11/17 08:59 02/09/17 12:01 2 PUFFS Fluticasone Propionate (Flonase Nasal Sharon) 2 sprays DAILY NA 02/09/17 09:00 03/11/17 08:59 02/09/17 12:01 2 SPRAYS Ranitidine HCl (zANTac TAB) 150 mg BID PO 02/09/17 09:00 03/11/17 08:59 02/09/17 12:00 150 MG Prednisone (PredniSONE TAB) 20 mg DAILY PO 02/09/17 09:00 03/11/17 08:59 02/09/17 12:00 20 MG Albuterol Sulfate (Ventolin 0.083% 2.5MG/3ML Neb) 2.5 mg Q4H PRN INH 02/09/17 01:00 03/11/17 00:59 02/09/17 11:10 2.5 MG Nifedipine (Procardia Xl Tab) 60 mg QAM PO 02/09/17 09:00 03/11/17 08:59 02/09/17 12:00 60 MG Perflutren Lipid Microsphere (Definity) 2 ml ONE ONCE IV 02/09/17 13:31 02/09/17 13:32 DC 02/09/17 13:31 2 ML Objective Vital Signs Date Time Temp Pulse Resp B/P (MAP) Pulse Ox O2 Delivery O2 Flow Rate FiO2 02/09/17 12:00 Nasal Cannula 4.0 02/09/17 11:36 36.8 60 16 110/64 (79) 97 Nasal Cannula 3.0 02/09/17 11:10 64 22 99 Nasal Cannula 4.0 02/09/17 08:00 Nasal Cannula 4.0 02/09/17 07:20 36.8 73 24 113/70 (84) 93 Nasal Cannula 4.0 02/09/17 06:44 73 22 93 Nasal Cannula 4.0 02/09/17 04:00 Nasal Cannula 4.0 02/09/17 04:00 36.4 65 20 106/63 (77) 97 Nasal Cannula 3.0 02/09/17 02:31 36.4 71 26 125/75 Nasal Cannula 4.0 02/09/17 01:45 68 20 122/71 94 Nasal Cannula 3.0 02/09/17 01:02 79 20 118/69 98 02/09/17 00:00 67 20 106/73 96 02/08/17 22:04 73 28 91/53 96 Nasal Cannula 3.0 02/08/17 21:24 73 24 102/61 97 Nasal Cannula 3.0 02/08/17 20:36 98 Nasal Cannula 3.0 02/08/17 20:36 98 Nasal Cannula 3.0 02/08/17 20:26 71 22 112/67 99 Nasal Cannula 3.0 02/08/17 20:21 80 02/08/17 20:02 36.4 74 20 99/66 94 Room Air Physical Exam General Appearance: WD/WN, no apparent distress Respiratory/Chest: chest non-tender, no respiratory distress, no accessory muscle use, + wheezing Cardiovascular: regular rate, rhythm, no edema, no JVD, no murmur Abdomen: normal bowel sounds, non tender, soft Extremities: normal range of motion, non-tender, normal inspection, no pedal edema, no calf tenderness Neurologic/Psychiatric: 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 nml as tested, alert, normal mood/affect, oriented x 3 Skin: no rash Lymphatic: no adenopathy Laboratory Results Last 24 Hours Test 02/08/17 20:25 02/08/17 20:36 02/09/17 04:18 02/09/17 07:20 White Blood Count 13.68 K/uL 11.71 K/uL Red Blood Count 4.52 M/uL 4.16 M/uL Hemoglobin 14.1 g/dL 12.7 g/dL Hematocrit 44.3 % 39.9 % Mean Corpuscular Volume 98.0 fL 95.9 fL Mean Corpuscular Hemoglobin 31.2 pg 30.5 pg Mean Corpuscular Hemoglobin Concent 31.8 g/dl 31.8 g/dl RDW Standard Deviation 51.8 fL 50.5 fL RDW Coefficient of Variation 14.5 % 14.4 % Platelet Count 264 K/uL 235 K/uL Mean Platelet Volume 10.6 fL 10.0 fL Prothrombin Time 10.0 SECONDS Prothromb Time International Ratio 0.9 Activated Partial Thromboplast Time 22.3 SECONDS 99.8 SECONDS Partial Thromboplastin Ratio 0.9 3.8 Sodium Level 142 mmol/L 141 mmol/L Potassium Level 4.8 mmol/L 4.6 mmol/L Chloride Level 106 mmol/L 106 mmol/L Carbon Dioxide Level 27 mmol/L 30 mmol/L Anion Gap 9.0 mmol/L 5.0 mmol/L Blood Urea Nitrogen 28 mg/dl 33 mg/dl Creatinine 1.20 mg/dl 1.20 mg/dl Est Creatinine Clear Calc Drug Dose 40.8 ml/min 38.0 ml/min Estimated GFR () 51.9 51.9 Estimated GFR (Non- 44.8 44.8 BUN/Creatinine Ratio 23.4 27.6 Random Glucose 122 mg/dl 124 mg/dl Calcium Level 9.2 mg/dl 8.6 mg/dl Total Bilirubin 0.2 mg/dl Aspartate Amino Transf (AST/SGOT) 52 U/L Alanine Aminotransferase (ALT/SGPT) 60 U/L Alkaline Phosphatase 72 U/L Total Creatine Kinase 215 U/L Creatine Kinase MB 24.1 ng/ml Creatine Kinase MB Ratio 11.2 Total Protein 6.8 gm/dl Albumin 3.5 gm/dl Globulin 3.3 gm/dl Albumin/Globulin Ratio 1.1 Bedside Troponin I 3.430 ng/ml Magnesium Level 2.1 mg/dl Troponin I 8.940 ng/ml Test 02/09/17 09:11 Troponin I 7.270 ng/ml Assessment and Plan 71 y/o F 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 Presents following an episode of severe central CP which lasted approximately 30 min. The pain was accompanied by SOB, lightheadedness and diaphoresis. At one point she was ambulating with the ongoing pain and she became light headed, collapsed on the floor without LOC and lost control of her bowels. On arrival to the ER she is asymptomatic however her troponin is markedly elevated. 1) NSTEMI - - cardiology Dr Mosqueda on case, No need for emergent cardiac cath, cont to monitor for now, Cont IV heparin, aspirin, plavix and statins. - Echo 02/09/17. * Left ventricular systolic function is normal. * Grade I diastolic dysfunction, (abnormal relaxation pattern). * The left ventricular wall motion is normal. * The right ventricle is mild to moderately dilated. * The right ventricular systolic function is moderately reduced. * The right atrium is mildly dilated. - Per Cardiology, Pt is stable. She has no current anginal symptoms. Her cardiac enzymes are decreasing. Her infarction by enzymes and her history was early yesterday afternoon. Certainly need to consider performing an elective cardiac catheterization. 2) COPD - no current exacerbation - cont inhalers, prednisone, 02 sat% 97 on 3LNC. 3) HTN - cont Nifedipine, Atenolol held as per cardio 4) Pulmonary nodules. Followed by Dr. Raheem Ch. She has undergone navigational bronchoscopy. Biopsy revealed no evidence of malignancy. The patient reports that her nodules are decreasing in size. Full code - Heparin prophylaxis Continued [facility] stay due to: multiple IV medications needed Discharge planning: uncertain
[2017-02-09 15:42] LABS: PARTIAL THROMBOPLASTIN RATIO 2.2
[2017-02-09] MEDS: ASPIRIN 81 MG ECTAB PO SCH (20:24)
[2017-02-09] MEDS: CLOPIDOGREL BISULFATE 75 MG TAB PO SCH (20:24)
[2017-02-09] MEDS: ACETAMINOPHEN 325 MG TAB PO PRN (20:35)
[2017-02-09] MEDS ORDERED: SIMVASTATIN 40 MG TAB PO SCH (21:00)
[2017-02-10] VITALS (14 sets, daily range): BP systolic 114–137; BP diastolic 56–76; PULSE 72–102; TEMP 36.4–36.6; O2SAT 91–97
[2017-02-10] MEDS: ALBUTEROL 0.083% NEBU SOLN 3 ML VIAL INH PRN ×5 (03:25→18:57)
[2017-02-10 06:12] LABS: HEMATOCRIT 36.4 % (37-47); MEAN CELL VOLUME 97.3 fL (80-100); MEAN CORPUSCULAR HEMOGLOBIN 31.8 pg (25-34); MEAN CORPUSCULAR HGB CONC 32.7 g/dl (32-36); MEAN PLATELET VOLUME 10.8 fL (7.4-10.4); PLATELET COUNT 218 K/uL (130-400); RED BLOOD COUNT 3.74 M/uL (4.2-5.4); WHITE BLOOD COUNT 9.94 K/uL (4.8-10.8)
[2017-02-10 06:38] LABS: PARTIAL THROMBOPLASTIN RATIO 2.6
[2017-02-10 06:50] LABS: BUN/CREATININE RATIO 42.4 (10-20); CALCIUM 8.1 mg/dl (8.5-10.1); POTASSIUM 3.8 mmol/L (3.5-5.1)
--- NOTE | 2017-02-10 07:47 | DIAGNOSTIC IMAGING REPORT ---
ULTRASOUND OF THE CAROTID ARTERIES CLINICAL HISTORY: Peripheral arterial disease, coronary artery disease. COMPARISON STUDY: None. TECHNIQUE: Real-time, grayscale, and color Doppler sonography of the carotid arteries was performed. Imaging reviewed in the transverse and longitudinal planes. NASCET criteria was utilized for stenosis calcification. FINDINGS: There is moderate shadowing atherosclerotic plaque present at the right carotid bulb. The peak systolic velocity within the right internal carotid artery is 107 cm/sec. The systolic velocity ratio of right internal to common carotid artery is 1.6. The peak systolic velocity within the left internal carotid artery is 129 cm/sec. The systolic velocity ratio left internal to common carotid artery is 1.2. Antegrade flow is seen in the vertebral arteries. The external carotid arteries are patent. IMPRESSION: Atheromatous changes. No evidence of hemodynamically significant carotid stenosis Electronically signed by: Ronald Bradley M.D. 02/10/2017 7:46 AM Dictated Date/Time: 02/10/2017 7:45 AM
[2017-02-10] MEDS: RANITIDINE HCL 150 MG TAB PO SCH ×2 (08:10→20:08)
[2017-02-10] MEDS: ATORVASTATIN 40 MG TAB PO SCH (08:10)
[2017-02-10] MEDS: BUDESONIDE/FORMOTEROL FUMARATE 80/4.5 60 PUFFS/INHALER INH SCH ×2 (08:11→20:07)
[2017-02-10] MEDS: NIFEdipine 30 MG CR TAB PO SCH (08:11)
[2017-02-10] MEDS: FLUTICASONE PROPIONATE NA SPR 16 GM BTL SCH (08:11)
--- NOTE | 2017-02-10 12:07 | PROGRESS NOTE ---
DATE: 02/10/2017 HISTORY OF PRESENT ILLNESS: The patient was seen by me this morning in her telemetry unit room. She denies any chest pain or other anginal type pains. No dyspnea at rest. No orthopnea or PND overnight. No palpitations, lightheadedness, or syncope. No abdominal pain or nausea. No weakness. This morning, she did develop hemorrhagic appearing lesions on her lower legs. These are nontender. They are slightly raised. Nonpruritic. She denies any fevers or chills. She is agreeable to undergo a cardiac catheterization procedure. She would like me to perform it. It would tentatively be scheduled to be performed on Saturday02/12/2017 by me. CURRENT MEDICATIONS: Intravenous heparin by weight base protocol (was on hold this morning). It has now been restarted. Monitor history over the past 24 hours were reviewed by me. No further pauses or bradycardias. She did have a 13 beat run of a regular supraventricular rhythm at a rate of 187 beats per minute. Etiology cannot be determined on the rhythm strip. No well-defined P waves or flutter waves. PHYSICAL EXAMINATION: VITAL SIGNS: Oral temperature is 36.6, pulse 72, blood pressure 129/70, pulse oximetry on 4 liters per minute nasal cannula, oxygen 97%. GENERAL APPEARANCE: Shows her to be sitting at her bedside. No distress. NECK: No jugular venous distention. LUNGS: Decreased breath sounds posteriorly. No rales or wheezes posteriorly. Anteriorly expiratory wheezing is heard. HEART: Regular rate and rhythm. S1, S2 normal. No S3, or S4. Distant heart sounds. No murmur, gallop or rub. ABDOMEN: Soft. Nontender. No palpable masses or organomegaly. EXTREMITIES: Trace pretibial edema bilaterally. Scattered, nontender, small hemorrhagic lesions on the lower legs. No surrounding erythema. NEUROLOGICAL: Alert and oriented x3. Motor is grossly intact. PSYCHIATRIC: Affect is normal. DATA: Carotid ultrasound performed earlier today revealed no hemodynamically significant carotid artery disease. LABORATORY DATA: Today with hemoglobin 11.9, hematocrit 36.4, platelet count 218. PTT this morning was 53.2. Metabolic profile with sodium 141, potassium 3.8, chloride 105, carbon dioxide 27, BUN 42, creatinine 1.00, random glucose 134. Troponin I is 2.380. Peak troponin I was on February 09 when it was 8.940. Repeat troponin I later on February 09 was 7.270. CURRENT MEDICATIONS: Atorvastatin 80 mg daily, aspirin 81 mg daily, clopidogrel 75 mg daily, Symbicort 2 puffs b.i.d., Flonase 2 sprays daily, ranitidine 160 mg b.i.d., prednisone 20 mg daily, nifedipine 60 mg daily, intravenous heparin by weight based protocol and p.r.n. medications. IMAGING: Echocardiogram performed yesterday with normal left ventricular systolic function and wall motion. Moderate right ventricular dilatation with moderately reduced right ventricular systolic function. LV ejection fraction was 65-70%. The echocardiogram was reviewed by me. An electrocardiogram for today is still pending. ASSESSMENT: 1. Status post non-ST elevation myocardial infarction. No anginal type symptoms since admission. 2. Normal overall left ventricular systolic function and wall motion on echocardiogram. 3. Severe and chronic underlying pulmonary disease. Today, she has no dyspnea. Her oxygen saturation is good at rest. On exam, she has improvement compared to yesterday. There is no significant wheezing on exam today. Scant anterior wheezing. 4. Prerenal azotemia. She is not receiving diuretic therapy. 5. Rash on legs. Nonpruritic. Nontender. Her platelet count is normal. Suspect related to the heparin therapy. 6. No further sinus pauses or abnormal bradyarrhythmias. 7. A 13 beat run of a narrow complex tachycardia. A supraventricular tachycardia versus atrial flutter. It was nonsustained. It was asymptomatic. She is now off beta jalne therapy secondary to the significant pauses noted when she was in the Emergency Department on February 08. RECOMMENDATIONS: 1. Monitor rash. 2. Continue current medications. 3. Continue to monitor rhythm. Now monitoring for both the tachyarrhythmia as well as any reoccurrence of the bradycardia and sinus pauses. If she continues without any sinus pauses off of the atenolol, she may not need a permanent pacemaker. 4. Cardiac catheterization timely schedule to be performed on February 12. We will start intravenous hydration tomorrow to help decrease risk of contrast dye nephrotoxicity. [facility]
--- NOTE | 2017-02-10 12:43 | Progress Note ---
Subjective Date of Service: Feb 10, 2017. Subjective Pt evaluation today including: conversation w/ patient, physical exam, chart review, lab review, review of studies, conversation w/ health analytics consultant, review of inpatient medication list Pain: no pain reported PO Intake: good Voiding: no voiding problems, no incontinence Pt is seen and examined by me. pt denies Cp, Sob, dizziness, palpitation and LOC. Pt denies abd pain and urinary symptoms. Pt has a new rash appear on bilateral lower extremity. Rash is non itching. Problem List Medical Problems: (1) Abnormal EKG Status: Acute (2) Abnormal EKG Status: Acute (3) Chest pain Status: Acute (4) COPD exacerbation Status: Acute (5) Diarrhea Status: Acute (6) Elevated troponin Status: Acute (7) Hypokalemia Status: Acute (8) Hypotension Status: Acute (9) Hypoxemia Status: Acute (10) NSTEMI (non-ST elevated myocardial infarction) Status: Acute (11) Precordial chest pain Status: Acute Review of Systems Skin: + rash (new rash bilateral lower extre) All Other Systems: Reviewed and Negative Medications Medications (Trade) Dose Ordered Sig/Jessi Route Start Time Stop Time Status Last Admin Dose Admin Aspirin (Ecotrin Tab) 81 mg QPM PO 02/09/17 21:00 03/11/17 20:59 02/09/17 20:24 81 MG Clopidogrel Bisulfate (plAVix TAB) 75 mg QPM PO 02/09/17 21:00 03/11/17 20:59 02/09/17 20:24 75 MG Atorvastatin Calcium (Lipitor Tab) 80 mg QAM PO 02/10/17 09:00 03/11/17 08:59 02/10/17 08:10 80 MG Perflutren Lipid Microsphere (Definity) 2 ml ONE ONCE IV 02/09/17 13:31 02/09/17 13:32 DC 02/09/17 13:31 2 ML Objective Vital Signs Date Time Temp Pulse Resp B/P (MAP) Pulse Ox O2 Delivery O2 Flow Rate FiO2 02/10/17 11:35 36.6 102 16 130/68 (88) 97 4.0 02/10/17 11:16 77 20 94 Nasal Cannula 4.0 02/10/17 08:00 95 Nasal Cannula 3.0 02/10/17 07:34 36.6 72 18 129/70 (89) 97 4.0 02/10/17 06:48 78 20 93 Nasal Cannula 3.0 02/10/17 04:36 36.4 77 24 132/63 (86) 94 Nasal Cannula 3.0 02/10/17 04:00 95 Nasal Cannula 3.0 02/10/17 03:25 80 26 95 Nasal Cannula 3.0 02/09/17 23:59 95 Nasal Cannula 3.0 02/09/17 23:47 36.8 74 20 105/55 (72) 95 Nasal Cannula 2.0 02/09/17 20:00 95 Nasal Cannula 3.0 02/09/17 19:35 36.6 77 18 122/70 (87) 91 3.0 02/09/17 18:58 76 16 95 Nasal Cannula 4.0 02/09/17 16:00 Nasal Cannula 4.0 02/09/17 15:55 70 20 97 Nasal Cannula 4.0 02/09/17 15:26 36.4 69 18 122/72 (89) 95 4.0 Physical Exam General Appearance: no apparent distress Neck: supple, no adenopathy, no JVD Respiratory/Chest: chest non-tender, no respiratory distress, no accessory muscle use Cardiovascular: regular rate, rhythm, no edema, no gallop, no murmur Abdomen: normal bowel sounds, soft Extremities: normal range of motion, non-tender, normal inspection, no pedal edema, no calf tenderness Neurologic/Psychiatric: alert, normal mood/affect, oriented x 3 Skin: + pertinent finding (bilateral petechiae rash on bilateral lower extre) Laboratory Results Last Resulted CBC 02/10/17 05:35 Last Resulted BMP 02/10/17 05:35 Last 24 Hours Test 02/09/17 15:12 02/10/17 05:35 02/10/17 10:15 Activated Partial Thromboplast Time 57.1 SECONDS 66.4 SECONDS 53.2 SECONDS Partial Thromboplastin Ratio 2.2 2.6 2.0 White Blood Count 9.94 K/uL Red Blood Count 3.74 M/uL Hemoglobin 11.9 g/dL Hematocrit 36.4 % Mean Corpuscular Volume 97.3 fL Mean Corpuscular Hemoglobin 31.8 pg Mean Corpuscular Hemoglobin Concent 32.7 g/dl RDW Standard Deviation 52.0 fL RDW Coefficient of Variation 14.5 % Platelet Count 218 K/uL Mean Platelet Volume 10.8 fL Sodium Level 141 mmol/L Potassium Level 3.8 mmol/L Chloride Level 105 mmol/L Carbon Dioxide Level 27 mmol/L Anion Gap 9.0 mmol/L Blood Urea Nitrogen 42 mg/dl Creatinine 1.00 mg/dl Est Creatinine Clear Calc Drug Dose 46.1 ml/min Estimated GFR () 64.7 Estimated GFR (Non- 55.8 BUN/Creatinine Ratio 42.4 Random Glucose 134 mg/dl Calcium Level 8.1 mg/dl Troponin I 2.380 ng/ml Assessment and Plan 71 y/o F 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 Presents following an episode of severe central CP which lasted approximately 30 min. The pain was accompanied by SOB, lightheadedness and diaphoresis. At one point she was ambulating with the ongoing pain and she became light headed, collapsed on the floor without LOC and lost control of her bowels. On arrival to the ER she is asymptomatic however her troponin is markedly elevated. 1) NSTEMI - - cardiology Dr Mosqueda on case, No need for emergent cardiac cath, cont to monitor for now, Cont IV heparin, aspirin, plavix and statins. - Card cath schedule for Saturday. - Echo 02/09/17. * Left ventricular systolic function is normal. * Grade I diastolic dysfunction, (abnormal relaxation pattern). * The left ventricular wall motion is normal. * The right ventricle is mild to moderately dilated. * The right ventricular systolic function is moderately reduced. * The right atrium is mildly dilated. - Petechiae rash- appear bilateral lower extremities could be secondary to heparin, plt counts are stable. we held heparin for 1 hour, rash did not worsen and restarted.monitor closely. 2) COPD - no current exacerbation - cont inhalers, prednisone, 02 sat% 97 on 4LNC. 3) HTN - cont Nifedipine, Atenolol held as per cardio 4) Pulmonary nodules. Followed by Dr. Raheem Ch. She has undergone navigational bronchoscopy. Biopsy revealed no evidence of malignancy. The patient reports that her nodules are decreasing in size. Full code - Heparin prophylaxis Continued [facility] stay due to: multiple IV medications needed Discharge planning: home with home health
[2017-02-10 13:33] LABS: BASO % 0.2 %; BASO ABS # 0.02 K/uL (0-0.2); COMPLETE YES; EOS % 0.3 %; HEMATOCRIT 35.8 % (37-47); IG% 0.4 %; LYMPH % 6.7 %; LYMPH ABS # 0.74 K/uL (1.2-3.4); MEAN CELL VOLUME 96.2 fL (80-100); MEAN CORPUSCULAR HEMOGLOBIN 30.6 pg (25-34); MEAN CORPUSCULAR HGB CONC 31.8 g/dl (32-36); MEAN PLATELET VOLUME 10.4 fL (7.4-10.4); MONO % 1.3 %; NEUT % 91.1 %; PLATELET COUNT 241 K/uL (130-400); RED BLOOD COUNT 3.72 M/uL (4.2-5.4); WHITE BLOOD COUNT 11.01 K/uL (4.8-10.8)
[2017-02-10 13:59] LABS: BUN/CREATININE RATIO 33.3 (10-20); CREATININE 1.2 mg/dl (0.60-1.20)
[2017-02-10 18:24] LABS: PARTIAL THROMBOPLASTIN RATIO 2.1
[2017-02-10] MEDS: ASPIRIN 81 MG ECTAB PO SCH (20:07)
[2017-02-10] MEDS: CLOPIDOGREL BISULFATE 75 MG TAB PO SCH (20:08)
[2017-02-10] MEDS: ACETAMINOPHEN 325 MG TAB PO PRN (20:13)
[2017-02-11] VITALS (13 sets, daily range): BP systolic 124–158; BP diastolic 66–84; PULSE 78–93; TEMP 36.5–36.8; O2SAT 91–98
[2017-02-11] MEDS: ALBUTEROL 0.083% NEBU SOLN 3 ML VIAL INH PRN ×6 (01:31→23:20)
[2017-02-11 07:25] LABS: PARTIAL THROMBOPLASTIN RATIO 2.5
[2017-02-11] MEDS: FLUTICASONE PROPIONATE NA SPR 16 GM BTL SCH (09:01)
[2017-02-11] MEDS: BUDESONIDE/FORMOTEROL FUMARATE 80/4.5 60 PUFFS/INHALER INH SCH ×2 (09:01→20:18)
[2017-02-11] MEDS: NIFEdipine 30 MG CR TAB PO SCH (09:02)
[2017-02-11] MEDS: RANITIDINE HCL 150 MG TAB PO SCH ×2 (09:02→20:18)
[2017-02-11] MEDS: ATORVASTATIN 40 MG TAB PO SCH (09:02)
--- NOTE | 2017-02-11 09:36 | CARDIOLOGY PROGRESS NOTE ---
DATE: 02/11/2017 SUBJECTIVE: The patient was seen by me this morning in her telemetry unit room. No significant changes in her condition since I saw her yesterday. No chest pain or other anginal type pains. Dyspnea with minimal activity such as getting out of her bed and walking to the bathroom. No dyspnea at rest. No orthopnea or PND. No palpitations, lightheadedness, syncope, fevers, or chills. Her appetite is good. No bleeding complaints other than 1 episode of a small amount of bleeding from her nose overnight. This has since resolved. She states that her oxygen delivery system in the hospital did not have a humidifier bottle until yesterday. Normally, she does not have any nosebleeds despite using continuous nasal cannula oxygen at home. She does use a humidifier bottle at home. The rash in her legs has not progressed. No new lesions compared to yesterday morning. They continue to be nontender and nonpruritic. CURRENT MEDICATIONS: Intravenous heparin by weight based protocol, Symbicort 2 puffs b.i.d., ranitidine 150 mg b.i.d., Flonase 2 sprays daily, prednisone 20 mg daily, nifedipine 60 mg daily, atorvastatin 80 mg daily, aspirin 81 mg daily, clopidogrel 75 mg daily, albuterol nebulizer 2.5 mg q. 4 hours p.r.n., and several other p.r.n. medications. ALLERGIES AND ADVERSE DRUG REACTIONS: PENICILLIN. Monitor history over the past 24 hours reviewed by me. Sinus rhythm with PACs. No abnormal bradycardias. No sinus pauses. No further supraventricular arrhythmias. PHYSICAL EXAMINATION: VITAL SIGNS: This morning with oral temperature 36.6, pulse 80, blood pressure 141/66, and pulse oximetry on 3 liters per minute nasal cannula oxygen 97%. NECK: No jugular venous distention. LUNGS: Normal respiratory effort. Anterior wheezes. Posteriorly decreased breath sounds in all lung bishop. No wheezes or rhonchi heard posteriorly. HEART: Distant heart sounds. Regular rate and rhythm. No murmur, gallop, or rub. ABDOMEN: Soft. Nontender. No palpable masses or organomegaly. EXTREMITIES: Trace pretibial edema. Small hemorrhagic type lesions on the legs. Nontender. These are on the lower legs. PULSES: Radial pulses palpable bilaterally. Dorsalis pedis pulses not palpable. Posterior tibial pulses appear actually palpable. NEUROLOGICAL: Alert and oriented x3. Motor grossly intact. PSYCHIATRIC: Affect is normal. DATA: Electrocardiogram performed today with normal sinus rhythm at a rate of 81 beats per minute. Right bundle branch block. Normal ST segments and T waves. LABS TODAY: PTT of 65.5. ASSESSMENT: 1. Status post non-ST elevation myocardial infarction. She continues without anginal symptoms since admission. 2. Significant sinus pause in the Emergency Department. Since then, she has had no significant pauses in her rhythm. Her atenolol was discontinued. No significantly elevated heart rates off of the atenolol. 3. Nonsustained supraventricular rhythm yesterday. None since then. 4. Severe chronic obstructive pulmonary disease. Stable respiratory status. Oxygen saturation stable. Stable wheezing anteriorly on exam. 5. Normal LV systolic function and wall motion on echocardiogram this admission. She does have right ventricular dysfunction. 6. Prerenal azotemia yesterday. 7. Rash lower legs yesterday. This may have been related to heparin therapy. Heparin was held, but has since been restarted. There has been no worsening or increase in the rash. The lesions continue to be nonpainful. They are nonpruritic. PLAN: 1. Elective cardiac catheterization on 02/12/2017. Timely scheduled to be performed at 11:00 a.m. by pr. 2. Continue intravenous heparin. Monitor rash. 3. N.p.o. after 12:00 midnight. 4. We will start intravenous fluids this evening. 5. Check CBC and PRP in the morning. 6. Continue nebulizer treatments for her bronchospasm. She still has active bronchospasm. This is evidenced by wheezing on exam. 7. We will give a nebulizer treatment prior to her going to the optical laboratory technician for the catheterization procedure tomorrow morning. 8. Continue intravenous heparin. This can be continued until she goes down to the cardiac catheterization lab in the morning. 9. The catheterization findings will help determine whether there is a coronary predisposing factor for her to have sinus pauses. This would likely involve the right coronary artery or a dominant left circumflex coronary artery. It is also possible that the patient sinus pauses were secondary to her beta jalen therapy. Following the acquisition of results in the catheterization, we will again discuss her case with one of the beef tagger to have their opinion regarding whether she should have a permanent pacemaker implanted. Certainly if it is felt that the medications were causing the sinus pauses, then would likely hold off on implanting a permanent pacemaker. 10. The procedure, risks, benefits, and alternatives of cardiac catheterization and coronary intervention were extensively discussed with the patient. She is aware of the nature of the [facility] PCI program with ____ of cardiac surgery backup. She desires to have the procedure performed at [facility]. YAMILET
--- NOTE | 2017-02-11 09:50 | Clinical Documentation Query ---
KYUNG Moseley : CLINICAL DOCUMENTATION QUERY Patient is a 71 year old female admitted for NSTEMI. H&P documentation includes notation of chronic continuous utilization of supplemental oxygen at 3 liters/minute via nasal cannula in the setting of COPD. As appropriate, consider capture of the severity of illness as suggested below as this directly impacts DRG assignment. In your clinical opinion is this patient being managed for: ( x ) Chronic hypoxic respiratory failure ( ) Other explanation of clinical findings (Please Explain) ( ) Unable to determine (Please Define) ( ) Need to Discuss ( ) Not Agree The medical record reflects the following clinical findings, treatment, and risk factors. Clinical Indicators: As above Treatment: Ongoing oxygen supplementation Risk Factors: Age, smoking history Please clarify and document your clinical opinion in the progress notes and discharge summary. Terms such as "probable", "suspected", "likely", "questionable", "possible", or "still to be ruled out" are acceptable. IF IN AGREEMENT, YOU MUST DOCUMENT ABOVE DIAGNOSTIC STATEMENT IN DAILY PROGRESS NOTES AND DISCHARGE SUMMARY. This document is not part of the patient's record. Thank You, Nestor Hylton, JORGE ALBERTO [phone]
--- NOTE | 2017-02-11 16:44 | Progress Note ---
Subjective Date of Service: Feb 11, 2017. Subjective Pt evaluation today including: conversation w/ patient, physical exam, lab review, conversation w/ travel sales consultant, review of inpatient medication list Pain: no chest pain PO Intake: adequate Voiding: no voiding problems patient's breathing continues to be an issue, no dyspnea at rest but immediately after walking to the bathroom she gets winded no further chest pain, planning on left heart cath tomorrow per Dr. Mosqueda vitals and labs stable some occasional wheezing, responds to bronchodilators Problem List Medical Problems: (1) Abnormal EKG Status: Acute (2) Abnormal EKG Status: Acute (3) Chest pain Status: Acute (4) COPD exacerbation Status: Acute (5) Diarrhea Status: Acute (6) Elevated troponin Status: Acute (7) Hypokalemia Status: Acute (8) Hypotension Status: Acute (9) Hypoxemia Status: Acute (10) NSTEMI (non-ST elevated myocardial infarction) Status: Acute (11) Precordial chest pain Status: Acute Review of Systems Constitutional: + weakness, + fatigue Respiratory: + cough, + dyspnea on exertion Cardiac: + edema (improved) All Other Systems: Reviewed and Negative Medications Current Inpatient Medications Medications (Trade) Dose Ordered Sig/Jessi Route Start Time Stop Time Status Last Admin Dose Admin Aspirin (Ecotrin Tab) 81 mg QPM PO 02/09/17 21:00 03/11/17 20:59 02/10/17 20:07 81 MG Budesonide/ Formoterol Fumarate (Symbicort 80/ 4.5 Inh) 2 puffs BID INH 02/09/17 09:00 03/11/17 08:59 02/11/17 09:01 2 PUFFS Chlordiazepoxide (Librium Cap) 10 mg TID PRN PO 02/09/17 01:00 03/11/17 00:59 Clopidogrel Bisulfate (plAVix TAB) 75 mg QPM PO 02/09/17 21:00 03/11/17 20:59 02/10/17 20:08 75 MG Fluticasone Propionate (Flonase Nasal [place]) 2 sprays DAILY NA 02/09/17 09:00 03/11/17 08:59 02/11/17 09:01 2 SPRAYS Ranitidine HCl (zANTac TAB) 150 mg BID PO 02/09/17 09:00 7/10/17 08:59 02/11/17 09:02 150 MG Prednisone (PredniSONE TAB) 20 mg DAILY PO 02/09/17 09:00 03/11/17 08:59 02/11/17 09:02 20 MG Albuterol Sulfate (Ventolin 0.083% 2.5MG/3ML Neb) 2.5 mg Q4H PRN INH 02/09/17 01:00 03/11/17 00:59 02/11/17 15:28 2.5 MG Atenolol (Tenormin Tab) 100 mg QAM PO 02/09/17 09:00 03/11/17 08:59 Future Hold Nifedipine (Procardia Xl Tab) 60 mg QAM PO 02/09/17 09:00 03/11/17 08:59 02/11/17 09:02 60 MG Acetaminophen (Tylenol Tab) 650 mg Q4H PRN PO 02/09/17 01:30 03/11/17 01:29 02/10/17 20:13 650 MG Al Hydrox/Mg Hydrox/Simethicone (Maalox Max Susp) 15 ml Q4H PRN PO 02/09/17 01:30 03/11/17 01:29 Magnesium Hydroxide (Milk Of Magnesia Susp) 30 ml Q12H PRN PO 02/09/17 01:30 03/11/17 01:29 Ondansetron HCl (Zofran Inj) 4 mg Q6H PRN IV 02/09/17 01:30 03/11/17 01:29 Nitroglycerin (Nitrostat Tab) 0.4 mg UD PRN SL 02/09/17 01:30 03/11/17 01:29 Morphine Sulfate (MoRPHine SULFATE INJ) 2 mg Q30M PRN IV 02/09/17 01:30 02/23/17 01:29 Polyethylene (Miralax Powder Packet) 17 gm DAILY PRN PO 02/09/17 01:30 03/11/17 01:29 Heparin Sodium/ Dextrose 500 ml @ 20 mls/hr Q24H PRN IV 02/09/17 01:30 03/11/17 01:29 02/09/17 09:00 20 MLS/HR Atorvastatin Calcium (Lipitor Tab) 80 mg QAM PO 02/10/17 09:00 03/11/17 08:59 02/11/17 09:02 80 MG Sodium Chloride 1,000 ml @ 75 mls/hr [id number] IV 02/11/17 20:00 03/13/17 19:59 Objective Vital Signs Date Time Temp Pulse Resp B/P (MAP) Pulse Ox O2 Delivery O2 Flow Rate FiO2 02/11/17 15:29 80 18 95 Nasal Cannula 3.0 02/11/17 15:19 36.8 93 20 136/76 (96) 95 Nasal Cannula 3.0 Humidified Oxygen 02/11/17 12:00 Nasal Cannula 3.0 02/11/17 11:17 36.8 85 18 147/84 (105) 97 3.0 02/11/17 11:01 83 20 96 Nasal Cannula 3.0 02/11/17 08:00 Nasal Cannula 3.0 02/11/17 07:14 36.6 80 20 141/66 (91) 97 Nasal Cannula 3.0 02/11/17 06:09 78 20 96 Nasal Cannula 4.0 02/11/17 04:00 Nasal Cannula 3.0 02/11/17 03:38 36.7 91 24 158/66 (96) 97 Nasal Cannula 4.0 Humidified Oxygen 02/11/17 01:31 82 24 91 Nasal Cannula 4.0 02/11/17 00:05 36.5 83 18 129/76 (93) 91 Nasal Cannula 4.0 Humidified Oxygen 02/10/17 23:59 Nasal Cannula 3.0 02/10/17 20:10 36.5 93 20 137/76 (96) 92 Nasal Cannula 4.0 02/10/17 20:00 Nasal Cannula 3.0 02/10/17 18:57 90 20 91 Nasal Cannula 4.0 Physical Exam General Appearance: WD/WN, no apparent distress Eyes: normal inspection, EOMI ENT: normal ENT inspection, hearing grossly normal, pharynx normal Neck: supple, no adenopathy, no JVD, trachea midline Respiratory/Chest: chest non-tender, no respiratory distress, no accessory muscle use, + wheezing (more on right, posterior) Cardiovascular: regular rate, rhythm, no gallop, no JVD, no murmur Abdomen: normal bowel sounds, non tender, soft, no organomegaly Extremities: normal range of motion, non-tender, normal inspection, no calf tenderness, + pedal edema Neurologic/Psychiatric: 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 Presents following an episode of severe central CP which lasted approximately 30 min. The pain was accompanied by SOB, lightheadedness and diaphoresis. At one point she was ambulating with the ongoing pain and she became light headed, collapsed on the floor without LOC and lost control of her bowels. On arrival to the ER she is asymptomatic however her troponin is markedly elevated. 1) NSTEMI - stable currently, no chest pain, troponin trending down continue heparin, aspirin, Plavix, statin plan for [facility] tomorrow echo: EF was normal lower extremity rash - no petechiae or purpura Sinus pause: occurred once in the ED, none since, continue to hold Atenolol Non-sustained SVT: keep on tele, likely due to ischemia, holding Atenolol 2) COPD - no current exacerbation - cont inhalers, prednisone, 02 sat% 97 on 4LNC. 3) HTN - cont Nifedipine, Atenolol held as per cardio 4) Pulmonary nodules. Followed by Dr. Raheem Ch. She has undergone navigational bronchoscopy. Biopsy revealed no evidence of malignancy. The patient reports that her nodules are decreasing in size. 5) chronic respiratory failure with hypoxia: currently stable on 3L, dyspnea on exertion likely due to NSTEMI Full code - Heparin prophylaxis Continued [facility] stay due to: multiple IV medications needed Discharge planning: home with home health
[2017-02-11] MEDS: ASPIRIN 81 MG ECTAB PO SCH (20:18)
[2017-02-11] MEDS: CLOPIDOGREL BISULFATE 75 MG TAB PO SCH (20:18)
[2017-02-11] MEDS: SODIUM CHLORIDE 0.9% 1000ML 1,000 ML IV SCH (20:19)
[2017-02-11] MEDS: ACETAMINOPHEN 325 MG TAB PO PRN (23:49)
[2017-02-12] VITALS (44 sets, daily range): BP systolic 71–165; BP diastolic 44–90; PULSE 71–120; TEMP 36.3–36.6; O2SAT 69–100
[2017-02-12] MEDS: HEPARIN 25,000 UNIT/500ML D5W 500 ML IV PRN ×2 (05:03→08:17)
[2017-02-12] MEDS: ALBUTEROL 0.083% NEBU SOLN 3 ML VIAL INH PRN ×2 (06:00→11:15)
[2017-02-12 06:46] LABS: HEMATOCRIT 35.8 % (37-47); MEAN CELL VOLUME 98.4 fL (80-100); MEAN CORPUSCULAR HEMOGLOBIN 31.6 pg (25-34); MEAN CORPUSCULAR HGB CONC 32.1 g/dl (32-36); MEAN PLATELET VOLUME 10.4 fL (7.4-10.4); PLATELET COUNT 219 K/uL (130-400); RED BLOOD COUNT 3.64 M/uL (4.2-5.4); WHITE BLOOD COUNT 10.12 K/uL (4.8-10.8)
[2017-02-12 07:07] LABS: PARTIAL THROMBOPLASTIN RATIO 2.7
[2017-02-12 07:24] LABS: CREATININE 0.77 mg/dl (0.60-1.20)
[2017-02-12 07:25] LABS: BUN/CREATININE RATIO 29.2 (10-20); CALCIUM 7.8 mg/dl (8.5-10.1); POTASSIUM 4.4 mmol/L (3.5-5.1)
[2017-02-12] MEDS: NIFEdipine 30 MG CR TAB PO SCH (08:17)
[2017-02-12] MEDS: RANITIDINE HCL 150 MG TAB PO SCH ×2 (08:17→20:51)
[2017-02-12] MEDS: ATORVASTATIN 40 MG TAB PO SCH (08:17)
[2017-02-12] MEDS: FLUTICASONE PROPIONATE NA SPR 16 GM BTL SCH (08:18)
[2017-02-12] MEDS: BUDESONIDE/FORMOTEROL FUMARATE 80/4.5 60 PUFFS/INHALER INH SCH ×2 (08:18→20:44)
[2017-02-12] MEDS: SODIUM CHLORIDE 0.9% 1000ML 1,000 ML IV SCH ×3 (09:57→20:13)
[2017-02-12] MEDS ORDERED: NiCARDipine HCL INJ 2.5 MG/ML 10 ML AMP ONE (11:25)
[2017-02-12] MEDS ORDERED: HEPARIN SOD (PORCINE) 1000 UNIT/ML 10 ML VIAL ONE (11:26)
[2017-02-12] MEDS ORDERED: MIDAZOLAM HCL 1 MG/ML 2ML VIAL ONE ×3 (11:27→13:09)
[2017-02-12] MEDS ORDERED: FENTANYL CITRATE INJ 50 MCG/1 ML 2 ML VIAL ONE ×2 (11:27→13:24)
[2017-02-12] MEDS ORDERED: NITROGLYCERIN/D5W 100MCG/ML 20ML SYR ONE (11:27)
--- NOTE | 2017-02-12 11:40 | Procedure Note ---
Pre-Mod Sedation Assessment General Date of Moderate Sedation: Feb 12, 2017. Vital Signs: Vital Signs Past 12 Hours Date Time Temp Pulse Resp B/P (MAP) Pulse Ox O2 Delivery O2 Flow Rate FiO2 02/12/17 08:00 Nasal Cannula 3.0 02/12/17 07:54 36.4 79 22 155/77 (103) 99 Nasal Cannula 3.0 02/12/17 06:00 85 20 98 Nasal Cannula 3.0 02/12/17 04:00 Nasal Cannula 3.0 02/12/17 03:41 36.4 75 22 124/51 (75) 98 Nasal Cannula 3.0 02/12/17 00:00 Nasal Cannula 3.0 02/11/17 23:46 36.6 80 20 124/69 (87) 98 Nasal Cannula 3.0 Review Cardiovascular: regular rate, rhythm, no edema, no JVD, no murmur Abdomen: normal bowel sounds, non tender, soft Lungs: lungs clear Pre-Sedation Airway Assessment Oral Cavity: Dentures Able to Visualize Vocal Cords: No Short Thick Neck: No Hx of Sleep Apnea: No Smoking Status: Former Smoker Mallampati Classification: Class III Procedure Planning Contraindications-for Mod Sed: None Yes Notes The planned sedation has been discussed with the patient and consent obtained. I have identified the patient, determined the appropriateness of sedation and have assessed the patient immediately prior to the procedure. All medicine(s) and interventions are by my order.
[2017-02-12] MEDS ORDERED: EPTIFIBATIDE 0.75 MG/ML 75MG VIAL IV ONE (12:36)
[2017-02-12] MEDS ORDERED: EPTIFIBATIDE 2 MG/ML 10 ML VIAL IV ONE (12:36)
--- NOTE | 2017-02-12 13:54 | Procedure Note ---
Post-Mod Sedation Assessment General Date of Moderate Sedation Feb 12, 2017. Vital Signs: Vital Signs Past 12 Hours Date Time Temp Pulse Resp B/P (MAP) Pulse Ox O2 Delivery O2 Flow Rate FiO2 02/12/17 11:57 36.5 85 24 165/90 (115) 98 Nasal Cannula 3.0 02/12/17 11:16 83 20 97 Nasal Cannula 3.0 02/12/17 08:00 Nasal Cannula 3.0 02/12/17 07:54 36.4 79 22 155/77 (103) 99 Nasal Cannula 3.0 02/12/17 06:00 85 20 98 Nasal Cannula 3.0 02/12/17 04:00 Nasal Cannula 3.0 02/12/17 03:41 36.4 75 22 124/51 (75) 98 Nasal Cannula 3.0 Review - Discharge Criteria Vital Signs Stable: Yes Alert/Oriented/Conversant: Yes Returned to Baseline Mental St: Yes Nausea Absent/Minimal: Yes Pain/Discomfort/Absent/Minimal: No Normal/Baseline Respirations: Yes Active Bleeding?: No Pt Received D/C Instructions: N/A Specific Proced. D/C Criteria Distal Pulses Present (Cardiac: Yes Groin site assessed-Card Cath: N/A Voided Prior To Discharge: N/A Discharged Patients Adult Escort/Transportation: Yes
[2017-02-12] MEDS ORDERED: ONDANSETRON INJ 2 MG/ML 2 ML VIAL IV PRN (14:00)
[2017-02-12] MEDS: ACETAMINOPHEN 325 MG TAB PO PRN (14:34)
[2017-02-12] MEDS ORDERED: MoRPHine SULFATE 2 MG/ML CARP IV STA (14:43)
[2017-02-12] MEDS ORDERED: NITROGLYCERIN/D5W 100 MCG/ML 250 ML IV PRN (15:00)
[2017-02-12] MEDS ORDERED: ALBUT/IPRATROP 3MG/0.5MG NEB 3 ML VIAL INH STA (15:01)
[2017-02-12 15:33] LABS: ISTAT ALLEN TEST Pass; ISTAT ARTERIAL BLOOD GAS HCO3 25 meq/L (19-24); ISTAT ARTERIAL BLOOD GAS PCO2 48 mmHg (35-46); ISTAT ARTERIAL BLOOD GAS PO2 81 mmHg (80-95); ISTAT ARTERIAL BLOOD GAS pH 7.33 (7.35-7.45); ISTAT CARBON DIOXIDE 27 mEq/l (24-31); ISTAT DELIVERY SYSTEM Cannula; ISTAT SITE L Radial
--- NOTE | 2017-02-12 16:11 | Progress Note ---
Subjective Date of Service: Feb 12, 2017. Subjective Pt evaluation today including: conversation w/ patient, physical exam, lab review, conversation w/ beverage sales consultant, review of inpatient medication list Pain: no pain PO Intake: NPO for heart cath Voiding: no voiding problems patient breathing better, on home dose of oxygen at 3L plans for heart cath today, received nebulizer prior Problem List Medical Problems: (1) Abnormal EKG Status: Acute (2) Abnormal EKG Status: Acute (3) Chest pain Status: Acute (4) COPD exacerbation Status: Acute (5) Diarrhea Status: Acute (6) Elevated troponin Status: Acute (7) Hypokalemia Status: Acute (8) Hypotension Status: Acute (9) Hypoxemia Status: Acute (10) NSTEMI (non-ST elevated myocardial infarction) Status: Acute (11) Precordial chest pain Status: Acute Review of Systems Respiratory: + shortness of breath, + dyspnea on exertion All Other Systems: Reviewed and Negative Medications Current Inpatient Medications Medications (Trade) Dose Ordered Sig/Jessi Route Start Time Stop Time Status Last Admin Dose Admin Aspirin (Ecotrin Tab) 81 mg QPM PO 02/09/17 21:00 03/11/17 20:59 02/11/17 20:18 81 MG Budesonide/ Formoterol Fumarate (Symbicort 80/ 4.5 Inh) 2 puffs BID INH 02/09/17 09:00 03/11/17 08:59 02/12/17 08:18 2 PUFFS Chlordiazepoxide (Librium Cap) 10 mg TID PRN PO 02/09/17 01:00 03/11/17 00:59 Clopidogrel Bisulfate (plAVix TAB) 75 mg QPM PO 02/09/17 21:00 03/11/17 20:59 02/11/17 20:18 75 MG Fluticasone Propionate (Flonase Nasal [place]) 2 sprays DAILY NA 02/09/17 09:00 03/11/17 08:59 02/12/17 08:18 2 SPRAYS Ranitidine HCl (zANTac TAB) 150 mg BID PO 02/09/17 09:00 03/11/17 08:59 02/12/17 08:17 150 MG Prednisone (PredniSONE TAB) 20 mg DAILY PO 02/09/17 09:00 03/11/17 08:59 02/12/17 08:17 20 MG Albuterol Sulfate (Ventolin 0.083% 2.5MG/3ML Neb) 2.5 mg Q4H PRN INH 02/09/17 01:00 03/11/17 00:59 02/12/17 11:15 2.5 MG Atenolol (Tenormin Tab) 100 mg QAM PO 02/09/17 09:00 03/11/17 08:59 Future Hold Nifedipine (Procardia Xl Tab) 60 mg QAM PO 02/09/17 09:00 03/11/17 08:59 02/12/17 08:17 60 MG Acetaminophen (Tylenol Tab) 650 mg Q4H PRN PO 02/09/17 01:30 03/11/17 01:29 02/12/17 14:34 650 MG Al Hydrox/Mg Hydrox/Simethicone (Maalox Max Susp) 15 ml Q4H PRN PO 02/09/17 01:30 03/11/17 01:29 Magnesium Hydroxide (Milk Of Magnesia Susp) 30 ml Q12H PRN PO 02/09/17 01:30 03/11/17 01:29 Ondansetron HCl (Zofran Inj) 4 mg Q6H PRN IV 02/09/17 01:30 03/11/17 01:29 Nitroglycerin (Nitrostat Tab) 0.4 mg UD PRN SL 02/09/17 01:30 03/11/17 01:29 Morphine Sulfate (MoRPHine SULFATE INJ) 2 mg Q30M PRN IV 02/09/17 01:30 02/23/17 01:29 Polyethylene (Miralax Powder Packet) 17 gm DAILY PRN PO 02/09/17 01:30 03/11/17 01:29 Heparin Sodium/ Dextrose 500 ml @ 19 mls/hr Q24H PRN IV 02/09/17 01:30 03/11/17 01:29 Future Hold 02/12/17 08:17 19 MLS/HR Atorvastatin Calcium (Lipitor Tab) 80 mg QAM PO 02/10/17 09:00 03/11/17 08:59 02/12/17 08:17 80 MG Ondansetron HCl (Zofran Inj) 4 mg Q6H PRN IV 02/12/17 14:00 03/14/17 13:59 Sodium Chloride 1,000 ml @ 75 mls/hr [id number] IV 02/12/17 14:00 02/12/17 20:39 02/12/17 14:34 75 MLS/HR Nitroglycerin/ Dextrose 250 ml @ 0 mls/hr Q0M PRN IV 02/12/17 15:00 03/14/17 14:59 02/12/17 15:23 6 MLS/HR Objective Vital Signs Date Time Temp Pulse Resp B/P (MAP) Pulse Ox O2 Delivery O2 Flow Rate FiO2 02/12/17 15:34 36.6 84 25 95/68 (77) 94 Nasal Cannula 3.0 02/12/17 15:26 84 20 94 Nasal Cannula 3.0 02/12/17 15:16 80 30 127/82 (97) 100 02/12/17 15:01 75 20 129/69 (89) 94 Nasal Cannula 3.0 02/12/17 14:46 76 27 139/84 (102) 95 Nasal Cannula 3.0 02/12/17 14:40 87 26 108/76 (87) 92 Nasal Cannula 3.0 02/12/17 14:22 74 22 133/75 (94) 02/12/17 14:00 80 16 130/65 (86) 96 Nasal Cannula 4 02/12/17 13:45 99 16 143/75 (97) 96 Nasal Cannula 4 02/12/17 11:57 36.5 85 24 165/90 (115) 98 Nasal Cannula 3.0 02/12/17 11:16 83 20 97 Nasal Cannula 3.0 02/12/17 08:00 Nasal Cannula 3.0 02/12/17 07:54 36.4 79 22 155/77 (103) 99 Nasal Cannula 3.0 02/12/17 06:00 85 20 98 Nasal Cannula 3.0 02/12/17 04:00 Nasal Cannula 3.0 02/12/17 03:41 36.4 75 22 124/51 (75) 98 Nasal Cannula 3.0 02/12/17 00:00 Nasal Cannula 3.0 02/11/17 23:46 36.6 80 20 124/69 (87) 98 Nasal Cannula 3.0 02/11/17 23:20 91 20 98 Nasal Cannula 3.0 02/11/17 20:18 Nasal Cannula 3.0 02/11/17 19:36 78 18 98 Nasal Cannula 3.0 02/11/17 19:26 36.7 87 22 149/71 (97) 97 Nasal Cannula 3.0 Humidified Oxygen Physical Exam General Appearance: WD/WN, no apparent distress Eyes: normal inspection, EOMI, sclerae normal ENT: normal ENT inspection, hearing grossly normal, pharynx normal Neck: supple, no adenopathy, no JVD, trachea midline Respiratory/Chest: chest non-tender, no respiratory distress, no accessory muscle use, + decreased breath sounds, + wheezing (very faint) Cardiovascular: regular rate, rhythm, no edema, no gallop, no JVD, no murmur Abdomen: normal bowel sounds, non tender, soft, no organomegaly Extremities: normal range of motion, non-tender, normal inspection, no pedal edema, no calf tenderness Neurologic/Psychiatric: 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, no motor/sensory deficits, alert, normal mood/affect, oriented x 3 Laboratory Results Last 24 Hours Test 02/12/17 06:30 02/12/17 12:22 02/12/17 13:39 02/12/17 15:23 White Blood Count 10.12 K/uL Red Blood Count 3.64 M/uL Hemoglobin 11.5 g/dL Hematocrit 35.8 % Mean Corpuscular Volume 98.4 fL Mean Corpuscular Hemoglobin 31.6 pg Mean Corpuscular Hemoglobin Concent 32.1 g/dl RDW Standard Deviation 53.0 fL RDW Coefficient of Variation 14.8 % Platelet Count 219 K/uL Mean Platelet Volume 10.4 fL Activated Partial Thromboplast Time 70.0 SECONDS Partial Thromboplastin Ratio 2.7 Sodium Level 145 mmol/L Potassium Level 4.4 mmol/L Chloride Level 107 mmol/L Carbon Dioxide Level 30 mmol/L Anion Gap 8.0 mmol/L Blood Urea Nitrogen 22 mg/dl Creatinine 0.77 mg/dl Est Creatinine Clear Calc Drug Dose 60.0 ml/min Estimated GFR () 88.8 Estimated GFR (Non- 76.6 BUN/Creatinine Ratio 29.2 Random Glucose 87 mg/dl Calcium Level 7.8 mg/dl Kaolin Activated Coagulation Time 252 SECONDS 318 SECONDS Blood Gas Sample Site L Radial Bedside Blood Gas pH (LAB) 7.33 Bedside Blood Gas pCO2 (LAB) 48 mmHg Bedside Blood Gas pO2 (LAB) 81 mmHg Bedside Blood Gas HCO3 (LAB) 25 meq/L Bedside Blood Gas Total CO2 27 mEq/l Bedside Blood Gas Base Excess (LAB) -1.0 meq/L Bedside Blood Gas O2 Saturation 95.0 % Turner Test Pass Oxygen Delivery Device Cannula Assessment and Plan 71 y/o F 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 Presents following an episode of severe central CP which lasted approximately 30 min. The pain was accompanied by SOB, lightheadedness and diaphoresis. At one point she was ambulating with the ongoing pain and she became light headed, collapsed on the floor without LOC and lost control of her bowels. On arrival to the ER she is asymptomatic however her troponin is markedly elevated. 1) NSTEMI - stable currently, no chest pain, troponin trending down continue heparin, aspirin, Plavix, statin [facility] today, still awaiting report echo: EF was normal lower extremity rash - no petechiae or purpura Sinus pause: occurred once in the ED, none since, continue to hold Atenolol Non-sustained SVT: keep on tele, likely due to ischemia, holding Atenolol 2) COPD - no current exacerbation - cont inhalers, prednisone, 02 sat% 97 on 4LNC. 3) HTN - cont Nifedipine, Atenolol held as per cardio 4) Pulmonary nodules. Followed by Dr. Raheem Ch. She has undergone navigational bronchoscopy. Biopsy revealed no evidence of malignancy. The patient reports that her nodules are decreasing in size. 5) chronic respiratory failure with hypoxia: currently stable on 3L, dyspnea on exertion likely due to NSTEMI Full code - Heparin prophylaxis keep on tele, follow up results of LHC and cardiology recommendations Continued [facility] stay due to: multiple IV medications needed Discharge planning: home with home health
--- NOTE | 2017-02-12 16:38 | Critical Care Consultation ---
Critical Care Consultation Date of Consultation: Feb 12, 2017. Attending Physician: Cody Hawkins D.O. Reason for Consultation: STEMI History of Present Illness This is a very pleasant 71 year old female who presents to the ED for chest pain on 02/09/2017. She did have elevated troponin of 7 at that time. She did have diffuse ST elevation on admission, though these were unchanged compared to a previous EKG from 2016. Cardiology was consulted who evaluated the patient and felt a non- urgent cardiac catheterization would be indicated. Given her tenuous cardiopulmonary status, she was evaluated by carotid ultrasound, which did not reveal any significant lesions. An echocardiogram done on this admission did show a preserved EF 65-70% with grade I diastolic dysfunction and no acute RWMA. At cardiac catheterization today, there was reported difficulty retrieving the catheter wire with a retained broken fragment in the RCA. It is my understanding that the broken fragment was fixed in place with 2 overlapping stents. There was also some concern for downstream aneurysmal dilatation secondary. An echocardiogram in the cardiac laborer wrecking and salvaging was negative for pericardial effusion or tamponade. The patient was also noted to be getting more restless and not tolerating the prolonged duration of the procedure in a supine position. As such the catheterization procedure was completed and the patient was transferred to the ICU for further monitoring. It is to be noted that she did have some post-procedure chest discomfort and was brought to the ICU on a nitroglycerin infusion. However, due to systolic BPs going into the 70s, sthe nitroglycerine infusion was discontinued. It is to be noted that post-procedure EKG is remarkable for ST elevation in the inferior leads, though the patient has no active complaints of chest pain. At this time, the patient states that she is doing well. She denies chest pain, SOB, coughing, or wheezing. She does state mild orthopnea but this is her baseline. She does not leg pain or lower extremity swelling. She denies nausea , vomiting or abdominal pain. Past Medical/Surgical History Coronary Artery Disease Peripheral Arterial Disease COPD Chronic respiratory failure, 3L NC by oxygen at all times HTN Hyperlipidemia Left lower lobe, ground glass opacity Surgical History - Stents to lower extremity arteries, otherwise unspecified - EBUS 08/2016 - Navigational Bronchoscopy 08/2016 Family History Cancer Diabetes mellitus FHx: gallbladder disease Heart disease Hypertension Kidney disease Kidney stones Lung disease Social History Smoking Status: Former Smoker (20 pack year) Smokeless Tobacco Use: No Alcohol Use: none Drug Use: none Marital Status: Housing Status: lives alone Occupation Status: retired Allergies Coded Allergies: Penicillins (Verified Allergy, Unknown, ANCEF OK PER DR RENDON, 02/08/17) Home Medications Scheduled Albuterol Hfa (Ventolin Hfa), 2-4 PUFFS INH Q6H Alendronate Sodium (Alendronate Sodium), 70 MG PO WK Aspirin (Aspirin Ec), 81 MG PO QPM Atenolol (Tenormin), 100 MG PO QAM Budesonide/Formoterol Fumarate (Symbicort 80-4.5 Mcg/Act), 2 PUFFS INH BID Clopidogrel Bisulfate (Plavix), 75 MG PO QPM Fluticasone Propionate (Fluticasone Propionate), 1 SPRAY NA DIRECTED Home O2 Therapy (Oxygen), 3 LITER NA ALL TIME Nifedipine Ext Rel (Procardia Xl Ext Rel), 60 MG PO QAM Probiotic Product (Probiotic), 1 CAP PO QAM Ranitidine (Zantac), 150 MG PO BID Simvastatin (Zocor), 40 MG PO QPM Scheduled PRN Albuterol Sulf (Albuterol Sulfate), 3 ML NEB QID PRN for SOB/Wheezing Chlordiazepoxide (Librium), 10 MG PO TID PRN for PRN Current Inpatient Medications Current Inpatient Medications Medications (Trade) Dose Ordered Sig/Jessi Route Start Time Stop Time Status Last Admin Dose Admin Aspirin (Ecotrin Tab) 81 mg QPM PO 02/09/17 21:00 03/11/17 20:59 02/11/17 20:18 81 MG Budesonide/ Formoterol Fumarate (Symbicort 80/ 4.5 Inh) 2 puffs BID INH 02/09/17 09:00 03/11/17 08:59 02/12/17 08:18 2 PUFFS Chlordiazepoxide (Librium Cap) 10 mg TID PRN PO 02/09/17 01:00 03/11/17 00:59 Clopidogrel Bisulfate (plAVix TAB) 75 mg QPM PO 02/09/17 21:00 03/11/17 20:59 02/11/17 20:18 75 MG Fluticasone Propionate (Flonase Nasal [place]) 2 sprays DAILY NA 02/09/17 09:00 03/11/17 08:59 02/12/17 08:18 2 SPRAYS Ranitidine HCl (zANTac TAB) 150 mg BID PO 02/09/17 09:00 03/11/17 08:59 02/12/17 08:17 150 MG Prednisone (PredniSONE TAB) 20 mg DAILY PO 02/09/17 09:00 03/11/17 08:59 02/12/17 08:17 20 MG Albuterol Sulfate (Ventolin 0.083% 2.5MG/3ML Neb) 2.5 mg Q4H PRN INH 02/09/17 01:00 03/11/17 00:59 02/12/17 11:15 2.5 MG Atenolol (Tenormin Tab) 100 mg QAM PO 02/09/17 09:00 03/11/17 08:59 Future Hold Nifedipine (Procardia Xl Tab) 60 mg QAM PO 02/09/17 09:00 03/11/17 08:59 02/12/17 08:17 60 MG Acetaminophen (Tylenol Tab) 650 mg Q4H PRN PO 02/09/17 01:30 03/11/17 01:29 02/12/17 14:34 650 MG Al Hydrox/Mg Hydrox/Simethicone (Maalox Max Susp) 15 ml Q4H PRN PO 02/09/17 01:30 03/11/17 01:29 Magnesium Hydroxide (Milk Of Magnesia Susp) 30 ml Q12H PRN PO 02/09/17 01:30 03/11/17 01:29 Ondansetron HCl (Zofran Inj) 4 mg Q6H PRN IV 02/09/17 01:30 03/11/17 01:29 Nitroglycerin (Nitrostat Tab) 0.4 mg UD PRN SL 02/09/17 01:30 03/11/17 01:29 Morphine Sulfate (MoRPHine SULFATE INJ) 2 mg Q30M PRN IV 02/09/17 01:30 02/23/17 01:29 Polyethylene (Miralax Powder Packet) 17 gm DAILY PRN PO 02/09/17 01:30 03/11/17 01:29 Heparin Sodium/ Dextrose 500 ml @ 19 mls/hr Q24H PRN IV 02/09/17 01:30 03/11/17 01:29 Future Hold 02/12/17 08:17 19 MLS/HR Atorvastatin Calcium (Lipitor Tab) 80 mg QAM PO 02/10/17 09:00 03/11/17 08:59 02/12/17 08:17 80 MG Ondansetron HCl (Zofran Inj) 4 mg Q6H PRN IV 02/12/17 14:00 03/14/17 13:59 Sodium Chloride 1,000 ml @ 75 mls/hr [id number] IV 02/12/17 14:00 02/12/17 20:39 02/12/17 14:34 75 MLS/HR Nitroglycerin/ Dextrose 250 ml @ 0 mls/hr Q0M PRN IV 02/12/17 15:00 03/14/17 14:59 02/12/17 15:23 6 MLS/HR Review of Systems A 10 point review of systems was negative unless stated above. Physical Exam Date Time Temp Pulse Resp B/P (MAP) Pulse Ox O2 Delivery O2 Flow Rate FiO2 02/12/17 15:34 36.6 84 25 95/68 (77) 94 Nasal Cannula 3.0 02/12/17 15:26 84 20 94 Nasal Cannula 3.0 02/12/17 15:16 80 30 127/82 (97) 100 02/12/17 15:01 75 20 129/69 (89) 94 Nasal Cannula 3.0 02/12/17 14:46 76 27 139/84 (102) 95 Nasal Cannula 3.0 02/12/17 14:40 87 26 108/76 (87) 92 Nasal Cannula 3.0 02/12/17 14:22 74 22 133/75 (94) 02/12/17 14:00 80 16 130/65 (86) 96 Nasal Cannula 4 02/12/17 13:45 99 16 143/75 (97) 96 Nasal Cannula 4 02/12/17 11:57 36.5 85 24 165/90 (115) 98 Nasal Cannula 3.0 02/12/17 11:16 83 20 97 Nasal Cannula 3.0 02/12/17 08:00 Nasal Cannula 3.0 02/12/17 07:54 36.4 79 22 155/77 (103) 99 Nasal Cannula 3.0 02/12/17 06:00 85 20 98 Nasal Cannula 3.0 02/12/17 04:00 Nasal Cannula 3.0 02/12/17 03:41 36.4 75 22 124/51 (75) 98 Nasal Cannula 3.0 02/12/17 00:00 Nasal Cannula 3.0 02/11/17 23:46 36.6 80 20 124/69 (87) 98 Nasal Cannula 3.0 02/11/17 23:20 91 20 98 Nasal Cannula 3.0 02/11/17 20:18 Nasal Cannula 3.0 02/11/17 19:36 78 18 98 Nasal Cannula 3.0 02/11/17 19:26 36.7 87 22 149/71 (97) 97 Nasal Cannula 3.0 Humidified Oxygen General Appearance: well-appearing, mild distress Eyes: PERRLA, no discharge ENT: normal mouth exam, normal throat exam Neck: no tenderness, trachea midline, supple Respiratory: other (diminished bilaterally; mild expiratory wheezing, stated to be her baseline) Cardiovasular: regular rate/rhythm, normal S1S2, no murmur Abdomen: non tender, normal bowel sounds, no rebound Back: no midline tenderness, no CVA tenderness Lower Extremities: no edema, no deformity, other (petechiae bilatearlly) Neuro: alert, oriented x 3 Psychiatric: normal affect Laboratory Results Last 24 Hours Test 02/12/17 06:30 02/12/17 12:22 02/12/17 13:39 02/12/17 15:23 White Blood Count 10.12 K/uL Red Blood Count 3.64 M/uL Hemoglobin 11.5 g/dL Hematocrit 35.8 % Mean Corpuscular Volume 98.4 fL Mean Corpuscular Hemoglobin 31.6 pg Mean Corpuscular Hemoglobin Concent 32.1 g/dl RDW Standard Deviation 53.0 fL RDW Coefficient of Variation 14.8 % Platelet Count 219 K/uL Mean Platelet Volume 10.4 fL Activated Partial Thromboplast Time 70.0 SECONDS Partial Thromboplastin Ratio 2.7 Sodium Level 145 mmol/L Potassium Level 4.4 mmol/L Chloride Level 107 mmol/L Carbon Dioxide Level 30 mmol/L Anion Gap 8.0 mmol/L Blood Urea Nitrogen 22 mg/dl Creatinine 0.77 mg/dl Est Creatinine Clear Calc Drug Dose 60.0 ml/min Estimated GFR () 88.8 Estimated GFR (Non- 76.6 BUN/Creatinine Ratio 29.2 Random Glucose 87 mg/dl Calcium Level 7.8 mg/dl Kaolin Activated Coagulation Time 252 SECONDS 318 SECONDS Blood Gas Sample Site L Radial Bedside Blood Gas pH (LAB) 7.33 Bedside Blood Gas pCO2 (LAB) 48 mmHg Bedside Blood Gas pO2 (LAB) 81 mmHg Bedside Blood Gas HCO3 (LAB) 25 meq/L Bedside Blood Gas Total CO2 27 mEq/l Bedside Blood Gas Base Excess (LAB) -1.0 meq/L Bedside Blood Gas O2 Saturation 95.0 % Turner Test Pass Oxygen Delivery Device Cannula Diagnostic Results Normal sinus rhythm Right bundle branch block ST elevation consider inferior injury or acute infarct ACUTE VA / STEMI Abnormal ECG When compared with ECG of 12-FEB-2017 06:33, ST elevation now present in Inferior leads ST now depressed in Anterior leads Confirmed by MARK ALLEN ([id number]) on 02/12/2017 3:42:20 PM Assessment & Plan (1) STEMI (ST elevation myocardial infarction) (2) Coronary artery disease (3) Hyperlipidemia (4) Hypertension (5) Chronic use of steroids (6) Anxiety (7) COPD (chronic obstructive pulmonary disease) Our plan for her is as follows: NEUROLOGICAL - GCS: 15 - CAM-ICU negative - Pain regimen: Morphine 2 mg q30 minutes for pain - Anxiety: Librium CARDIOVASCULAR - BP: 120-130 systolic on arrival to the ED; Noted to drop to 70s systolic on Nitroglycerine infusion MAP: Goal MAP > 65 - Vasopressor support: Not indicated currently Will administer 500 ml NSS challenge and re-assess - IV Fluids: 500 ml NSS bolus, then NSS at 75 ml/hr Coronary Disease with Inferior Wall STEMI - Post-cath EKG showing ST elevation inferiorly possible embolization, distal to catheter fragment entrapment site - Patient denies chest pain - Continue Telemetry monitoring - Echocardiogram tomorrow - Trend troponins 8 hours until peak - Serial AM EKGs - Nitroglycerine infusion as BP tolerates - Morphine PRN for chest pain - Secondary prevention Start daily DAPT: ASA and Plavix, Atorvatatin 80 Hold Beta Maurice and ACEi due to hypotension - Cardiology following; recommendation appreciated Hypertension - Hold Atenolol and Nicardipine due to low BP RESPIRATORY - RR: 16-16 Maintaining sats on 3 L by nasal cannula Baseline home O2 need, 3 L continuous COPD - Continue Albuterol QID - Continue Symbicort - Continue Prednisone 20 mg daily - Chronically O2 dependent GASTROINTESTINAL - Diet: AHA Health Health Diet - GI Prophylaxis: Ranitidine PO BID - Bowel regimen: Most recent BM 02/11 Miralax PRN RENAL//ENDOCRINE - Cr: 0.77 - Electrolytes: No gross abnormalities - IV Fluids: NSS @ 75 ml/hr - BSG: AC/HS checks No known hx of diabetes HbA1c with morning labs - Chronic Prednisone use Continue 20 mg Prednisone HEMATOLOGY/INFECTIOUS DISEASE - Stable, no evidence of infection at this time DVT Prophylaxis - Heparin 5000 s.c TID - SCD LINES/IV ACCESS - Right forearm 18 G - Needs 2nd IV site, will attempt to insert today CODE STATUS - Full Code without intubation/ventilation DISPOSITION - OT/PT: Ordered - ICU monitoring for post-cardiac cath complications Resident Physician Supervision Note/Attending Process Architect I interviewed and examined the patient. Chart reviewed and I have been in her room multiple times since she arrive from the lab[facility] and [facility]. Care discussed with Dr. Mosqueda and Dr. Monreal. I agree with findings and plan as documented in the note. Any exceptions or clarifications are listed here: She is having an acute inferior wall myocardial infarction s/p RCA stent x2 today. Recent BP's in 70-80's and nearly finished with 1L IVF bolus. Informal bedside echo this evening with Dr. Mosqueda at bedside shows no tamponade/effusion and LV function looks ok. She has chest discomfort treated initially with morphine and nitro infusion which was stopped secondary to hypotension. SBP now 90, adequate u/o. May require vasopressor support tonight. She has significant COPD with dyspnea on exertion at baseline. ABG obtained earlier was reviewed. Continue bronchodilators and prednisone. No wheezing. She also just had a maroon bowel movement and labs are being drawn shortly. Will begin protonix BID IV, serial H/H and type transfuse as needed. Hold ASA and plavix. Critical care time 60 minutes. Documented By: Olga Dubose
[2017-02-12] MEDS ORDERED: POLYETHYLENE (MIRALAX) 17 GM PACK PO PRN (17:00)
--- NOTE | 2017-02-12 17:10 | Cardiac Catheterization ---
Procedure Note Procedure Date Feb 12, 2017. Pre-Procedure Diagnosis Non STEMI AUC Score 8 Post-Procedure Diagnosis Severe CAD, Unsuccessful PCI, Elevated Intracardiac Pressures (Mildly elevated LVEDP of 13 mm Hg) Procedure(s) Performed Coronary Angiography, Left Heart Cath, PTCA, Drug Eluting Stent, procedure ( Attempted removal of wire fracture with a snare) Serging Machine Operator Dr. Mosqueda Director Of Career Resources(s) Portia Llanes,RTR Estimated Blood Loss 35 ml Medication(s) Fentanyl, Heparin, Integrilin, Nicardipine (Intra-arterial and intracoronary1), Versed, Lidocaine 1% Intravenous Zofran Summary of Findings Clinical indications: Non ST elevation myocardial infarction in patient with severe underlying COPD, hypertension, dyslipidemia, and prior longstanding smoking history. Resting echocardiogram with normal LV systolic function. Sinus pauses of up to 6 seconds noted at the time of admission. Resolution with discontinuation of beta-jalen therapy. Catheterization site: 6 Cuban Slender glide sheath right radial artery. Diagnostic catheter: 5 Cuban brachial 3.5 diagnostic catheter. A 6 Cuban JR4 guide catheter was used to perform left heart catheterization. Interventional equipment: Initially a 6 Cuban JR4 guide catheter was used. Provided inadequate backup to advance a guidewire through the RCA. Was exchanged for a 6 Cuban a ALR 1-2 guide catheter. This did not adequately cannulate the RCA. This was then exchanged for a 6 Cuban AR 2 guide catheter which provided excellent engagement of the right coronary ostia and backup. [place] and Whisper guidewires. Medtronic Sprinter 2 x 12 millimeter balloon dilatation catheter. Medtronic Resolute 2.5 x 22 millimeter and 2.5 x 30 millimeter drug-eluting stents.Merit En Snare 2-4 mm catheter and snare wire. Protocol: Intravenous heparin and Integrilin were administered. Therapeutic activated clotting time was documented. The 6 Cuban JR4 guide catheter was 1st used in attempts at advancing the [place] guidewire into the distal LAD. It would not traverse the severe mid RCA stenosis. This was despite use of the balloon dilatation catheter for backup. There was inadequate coronary guide catheter backup. this system was 1 withdrawn. Ultimately good backup was obtained with the AR2 guide catheter. Despite this improved backup the [place] wire would still not advance past the mid RCA stenosis. The wire was then exchanged for the Whisper guidewire. With great difficulty this wire was advanced across the mid RCA stenosis. When the wire tip entered the distal RCA it formed a long loop. The loop tip was advanced into the proximal PDA. For balloon inflations were then performed throughout the mid and early distal RCA with the sprinter balloon to maximum pressure of 14 atmospheres and maximum duration of 20 seconds. Following these balloon inflations there was reduced flow into the PDA and posterolateral branches arising from the distal RCA. FIDELINA 1 flow into the PDA. FIDELINA 1 flow into the posterolateral. the balloon dilatation catheter was removed. The 2.5 x 22 millimeter stent was then advanced into the distal RCA. However, the guidewire still had an extensive loop. Its tip extended back into the early distal RCA at the site of the stent. the stent delivery catheter was advanced further into the distal RCA. Was then attempted to withdrawal the guidewire to straighten out the loop. There was marked resistance to this. The loop could not be withdrawn. The stent delivery balloon catheter was then withdrawn with its tip into the mid RCA. The guidewire was then again freely mobile. the guidewire was able to be withdrawn with the loop until it reached the early distal RCA. The opaque portion of the distal wire which is of 30 millimeters length then fractured from the remainder of the wire. This wire tip fracture was present in the mid RCA. There was also then evidence of an extensive dissection in the distal RCA and PDA. The patient was hemodynamically stable. The stent delivery catheter and stent had already been withdrawn. A [place] wire was able to be advanced into the distal RCA. This wire also performed a large loop. The loop would not advanced past the origin of the PDA. The snare catheter was then advanced over the guidewire into the distal RCA. The snare wire was then exchanged for the [place] wire. It briefly grasped the fractured wire tip. It straightened out the wire tip fracture. However, the fractured wire tip could not be withdrawn into the snare catheter. the patient remained hemodynamically stable. Her rhythm was stable. She had developed ST segment elevations on the monitored leads. She was also complaining of increased dyspnea. She complains of a burning chest pain. She was becoming more agitated despite sedation. An echocardiogram was then performed to assess for evidence of a pericardial effusion. No pericardial effusion was evident. The overall left ventricular systolic function was normal. There was only mild inferior and posterior lateral hypokinesis. It was felt best to then proceed with deployment of stents in the mid to early distal RCA. The plan was to trap the fractured wire tip with the stents. The 2.5 x 22 millimeter stent was deployed in the mid to early distal RCA at a pressure of 16 atmospheres for duration of 30 seconds. The 2.5 by 30 millimeter stent was then deployed proximal to the 1st stent in an overlapping fashion. Deployed at 16 atmospheres for 30 seconds. It was then attempted to advance the guidewire tip into the PDA. These attempts were unsuccessful. The patient was continuing to become more agitated. Developed nausea treated with intravenous Zofran. She was alert and oriented x3. She remained hemodynamically stable. During the procedure she had transient 2-1 AV block. This spontaneously resolved. She had no ventricular arrhythmias. Was felt that further attempts at advancing a guidewire into the PDA would be of greater risk than benefit. There was already evidence of an extensive dissection at this site. This dissection was caused by a wire loop and not the tip of the guidewire. Was felt best to discontinue the Integrilin infusion and to give no further heparin. The procedure was then terminated. The patient was transferred following the procedure to the intensive care unit. Hemostasis: Terumo TR band. Complications: Guidewire tip fracture with retained fragment in mid RCA. Acute closure of right posterior descending and posterolateral arteries. Mediated by coronary artery dissection . Findings and results: Fluoroscopy revealed extensive coronary calcifications in both the right and left coronary arteries. The left main coronary artery was a large caliber vessel without obstructive disease. It gave rise to medium to large caliber left anterior descending and a medium caliber left circumflex coronary artery. The proximal LAD had a 20 percent stenosis. The LAD then gave rise to a small caliber 1st diagonal artery which had a 20 percent mid segment stenosis. The mid LAD had a 30 percent stenosis. The distal LAD wrapped around the apex of the left ventricle. It supplies the distal inferior apical aspect of the left ventricle. Ostial left circumflex in the proximal left circumflex had 30 percent stenoses. The mid circumflex had a 30 percent stenosis. The mid circumflex gave rise to a long small caliber marginal artery. Marginal had a 10 percent proximal stenosis and 20 percent mid stenosis. Distal circumflex gave rise to a small caliber 2nd marginal artery which had a 10 percent proximal stenosis. Distal circumflex had a 20 percent stenosis. The distal circumflex gave rise to 2 very small caliber and short posterolateral branches. The right coronary artery was extensively calcified small to medium caliber vessel. The early mid RCA had an eccentric 90 percent stenosis. The mid RCA then had a 30 percent stenosis followed by an eccentric subtotal 95-99 percent stenosis. The early distal RCA had an eccentric 90 percent stenosis. The distal RCA gave rise to a very small caliber posterior descending artery and a small-caliber posterolateral artery. The mid PDA had diffuse atherosclerotic disease with 30-50 percent luminal diameter narrowing. FIDELINA 2 flow was present into the PDA and posterior lateral branches. Following PTCA to the mid and early distal RCA FIDELINA 1 flow was present in the posterior descending and posterior lateral arteries. There is then evidence of an extensive dissection at the bifurcation of the distal RCA into the PDA and posterolateral branches. There was the presence of the fractured wire tip in the mid RCA. FIDELINA 1 flow remained into the PDA and posterolateral branches. This then progressed to FIDELINA 0 flow. Following deployment of the stents in the mid RCA in early distal RCA residual stenosis at the more proximal stent was 0- 10 percent. In the 2nd more distal stent the residual stenosis was diffusely 10 -30 percent. There remained FIDELINA 0 flow into the PDA and posterior lateral branches of the distal RCA. There remained evidence of extensive dissection at this site. Plan: The patient has severe underlying pulmonary disease. She has oxygen- dependent severe COPD. She would be a very poor candidate for CABG surgery because of her severe underlying lung disease. Transfer to a tertiary institution for emergency CABG surgery would likely be of little benefit to her overall cardiac status. It would clearly be complicated by increased risk of pulmonary complications. The plan is for the patient to be admitted to the intensive care unit. She will be closely monitored for arrhythmia, heart failure, or mechanical complications. She will receive analgesics and intravenous nitroglycerin for anginal discomfort. She will remain on aspirin and clopidogrel. Intravenous Integrilin was discontinued at the completion of the procedure. Afterload reduction with an BRITTANY inhibitor or angiotensin receptor jalen is indicated. Beta-jalen therapy is contraindicated because of her significant florina dysrhythmias during this admission. An echocardiogram will be repeated on February 13. Serial electrocardiograms, cardiac enzymes, and labs post procedure. The results of the procedure and the complications during the procedure were extensively discussed by me with the patient, her 2 sons, and the intensivists covering the ICU. The patient and her 2 sons express a clear understanding of the events which have occurred. Hemodynamics Rest Ao: 178/82/127 mm Hg Final Ao: 145/69/106 mm Hg LV: 120/13 mm Hg Recommendations Medical therapy and/or Counseling, PCI without planned CABG Specimens None Radiation Exposure (mGy) 3324 Contrast (mls) 240 ml Visipaque Fluids (cc crystalloids) 225 Drains None Anesthesia Intravenous Versed and fentanyl. Lidocaine 1 percent for local anesthesia. Procedural Complication(s) Guidewire tip fracture in right coronary artery. Acute closure of right posterior descending and posterolateral arteries. Disposition ICU ACC Data Cardiac Status Clinical evaluation leading to the procedure CAD Presntation: Non STEMI Anginal Classification: CCS IV Heart Failure: No Cardiogenic Shock w/in 24Hrs: No Cardiac Arrest w/in 24Hrs: Yes Imaging studies past 6 months: No Stress studies past 6 months: No Standard Exercise Stress Test: No Stress Echocardiogram: No Stress Testing w/SPECT MPI: No Cardiac CTA: No Coronary Anatomy Dominant: Right Left Main (% Stenosis): Normal LAD (% Stenosis): Proximal (20), Mid (30) D1 (% Stenosis): Mid (20) Circumflex (% Stenosis): Ostial (30), Proximal (30), Mid (30) OM1 (% Stenosis): Proximal (10), Mid (20) OM2 (% Stenosis): Proximal (10) RCA (% Stenosis): Mid (90,30,95-99), Distal (90) R PDA (% Stenosis): Mid (30-50) R PL1 (% Stenosis): Mid (20) Left Ventricular Angiography EF (%): NA Diagnostic Physician's Name: Ivan Mosqueda M.D. Status: Elective Closure Device Percutaneous Entry Location: Radial Closure Device: Radial Band Recommendations: Medical therapy and/or Counseling, PCI without planned CABG PCI Indication: PCI for high risk Non-STEMI Lesion Segment Name: Mid and distal RCA Culprit Artery: Yes Stenosis Prior to Rx (%): 90,99,90 Chronic Total Occlusion: No IVUS: No FFR: No Pre-Procedure FIDELINA Flow: 3 Previously Treated Lesion: No Lesion Complexity: High/C Lesion Length (mm): 43( measured digitally) Thrombus Present: No Bifurcation Lesion: No Guidewire Across Lesion: Yes Guidewire: Stenosis Post-Procedure (%): 0-10,10-30 Post-Procedure FIDELINA Flow: 0 (FIDELINA 0 into very distal RCA,PDA,PL) Type of Device(s): Medtronic Resolute 2.5 x 22 millimeter and 2.5 x 30 millimeter drug-eluting stents Intraprocedure Events Significant Dissection: Yes Perforation: No
[2017-02-12 18:46] LABS: HEMATOCRIT 30.1 % (37-47); MEAN CELL VOLUME 98.4 fL (80-100); MEAN CORPUSCULAR HEMOGLOBIN 31.7 pg (25-34); MEAN CORPUSCULAR HGB CONC 32.2 g/dl (32-36); MEAN PLATELET VOLUME 10.2 fL (7.4-10.4); PLATELET COUNT 212 K/uL (130-400); RED BLOOD COUNT 3.06 M/uL (4.2-5.4); WHITE BLOOD COUNT 14.22 K/uL (4.8-10.8)
--- NOTE | 2017-02-12 18:51 | ECHOCARDIOGRAM REPORT ---
*NOTICE TO RECEIVING CONSTITUTION PARTY AGENCY This information is strictly Confidential and protected under [place] law. [place] law prohibits you from making any further disclosure of this information unless further disclosure is expressly permitted by the written consent of the person to whom it pertains or is authorized by law. A general authorization for the release of medical or other information is not sufficient for this purpose. Hospital accepts no responsibility if the information is made available to any other person, INCLUDING THE PATIENT. Interpretation Summary * Name: FIOR WILSON Study Date: 02/12/2017 01:30 PM BP: 95/68 mmHg * Patient Location: [facility] HR: 84 * : 1945 (M/d/yyyy) Gender: Female * Age: 71 yrs Ethnicity: [place] * Ordering Physician: Ivan Mosqueda MD, [facility] * Performed By: Julieth Fuentes * * Reason For Study: CHEST PAIN * This was a very limited 2 D study. * Normal overall left ventricular systolic function. * Normal wall motion of left ventricle on the limited views obtained. * No evidence of cardiac tamponade. * No pericardial effusion. * Normal right ventricular systolic function. Procedure Details * Left Ventricle The left ventricle is normal in size. There is mild concentric left ventricular hypertrophy. Left ventricular systolic function is normal. Ejection Fraction = 60-65%. Normal wall motion on the limited views obtained. * Right Ventricle The right ventricle is normal in size and function. * Pericardium/Pleural There is no pericardial effusion. There are no echocardiographic indications of cardiac tamponade. *
--- NOTE | 2017-02-12 19:48 | Procedure Note ---
Procedure Note Date of Service Feb 12, 2017. (Yordan Monreal MD) Procedure Note Procedure: Central Venous Catheter Placement Pre-Procedure Diagnosis: STEMI, Hypotension, GI Bleeding Post-Procedure Diagnosis: Same Performing Physician: Dr. Yordan Monreal MD PGY2 Family Medicine Attending/Supervising Physician: Dr. Olga Dubose MD Critical Care Indication: Need for Vasoactive Medications Consent: Detailed explanation of the procedure, treatment options, risks including but not limited to infection and bleeding, and benefits were explained to the patient. A verbal consent was obtained as the procedure needed to be done under semi-urgent conditions. The patient retrospectively signed consent forms and placed the chart. Technique: The right neck was prepped with 2% chlorhexidine and draped with a full length sterile sheet in the usual fashion. 1% lidocaine was administered subcutaneously for local anesthesia. The right internal jugular vein was accessed under ultrasound guidance with an 18 gauge thin wall needle. Flash of blood return was achieved and a guidewire was inserted into the IJ at a depth of 30 cm. The needle was removed and the position of the guidewire in the right IJ was confirmed by ultrasound. A triple lumen catheter was inserted via the Seldinger technique. Blood was withdrawn from all lumens and flushed with normal saline. The catheter was sutured in place and a sterile dressing was applied over the site prior to removal of drapes. The patient tolerated the procedure well and there were no complications. Chest x ray is pending at this time. EBL: 2 cc Complication: None (Yordan Monreal MD) Attending Garage Door Hanger Addendum: I was present and at the bedside for the entire procedure from start to finish. No complications. Patient tolerated the procedure well. (Olga Dubose MD)
[2017-02-12 19:59] LABS: HEMATOCRIT 28.8 % (37-47)
[2017-02-12] MEDS: ALBUT/IPRATROP 3MG/0.5MG NEB 3 ML VIAL INH SCH ×2 (20:00→22:29)
--- NOTE | 2017-02-12 20:03 | PROGRESS NOTE ---
DATE: 02/12/2017 HISTORY OF PRESENT ILLNESS: The patient was initially seen by me this morning in our telemetry unit room. She was then seen by me extensively while she was in the cardiac catheterization lab and before, during and following her cardiac catheterization/PCI procedure. She was then evaluated by me twice in the intensive care unit. This morning, she was feeling well. She denied any chest pain. She states that her pulmonary status was actually better yesterday and today than usual. No complaints of wheezing this morning. No dyspnea at rest. She had no orthopnea or PND overnight. No palpitations, lightheadedness or syncope. No abdominal pain. Good appetite. No leg pain. The patient was then brought to the cardiac catheterization laboratory for diagnostic coronary angiography and intervention if indicated. The procedure was performed via a 6-Angolan sheath in the right radial artery. Fluoroscopy revealed extensive right and left coronary artery calcifications. The coronary circulation was right dominant. The LAD, left circumflex and left circumflex marginals had only mild atherosclerotic disease. The right coronary artery was a small diffusely calcified vessel. There was an early mid, eccentric 90% stenosis. The mid RCA then had an eccentric 95-99% subtotal occlusion. The early distal RCA had a 90% eccentric stenosis. The distal RCA gave rise to small caliber and short posterior descending artery and a small caliber posterolateral artery. FIDELINA 2 flow into these vessels. Intervention was then performed to the RCA. It was first attempted to pass a [place] guidewire past the mid RCA stenoses. It would not cross the subtotal mid RCA stenosis. A Whisper guidewire was then able to be advanced through a balloon dilatation catheter across the mid RCA stenosis. In the distal segment, a loop at the tip of the guidewire formed. This loop was able to be advanced into the proximal PDA. Balloon intervention was then performed to the mid and early distal RCA. Following balloon inflations, there was FIDELINA 1 flow into the PDA and posterolateral branches. It was then planned to deploy stents in the mid and early distal RCA. A stent was advanced into the distal RCA. However, the loop of the guidewire extended past the stent. It was then attempted to withdraw the guidewire. There was resistance. The guidewire would not withdraw into the stent delivery balloon catheter. The stent was withdrawn into the mid segment of the RCA. The guidewire was then freely mobile. As it was being withdrawn into the mid RCA, the distal segment of the guidewire fractured. The fractured tip was located in the mid RCA into early distal RCA. The length of this fractured segment was approximately 35 mm. The stent delivery system was then withdrawn. A snare wire was then inserted into the RCA. The fractured wire was able to be grasped by the snare wire. However, it could not be completely withdrawn from the RCA. The snare wire then lost the guidewire. Meanwhile, angiography had revealed an extensive dissection in the distal RCA involving the bifurcation into the PDA and posterolateral branches. It was felt best then to abandon the attempt to withdrawing the fractured wire tip. It was planned to deploy stents in the mid to early distal RCA and trap the fractured wire tip. A 2.5 x 22 mm and 2.5 x 30 mm drug-eluting stents were then deployed from the mid into early distal RCA. This trapped the fractured guidewire fragment. Despite the stent deployment, there is now FIDELINA 0 flow into the PDA and posterolateral branches. It was attempted to advance the guidewire tip into the PDA. There was marked resistance. The area of dissection appeared to be extensive. During the procedure, the patient had developed ST segment elevations. She remained hemodynamically stable. She had an episode of 2:1 atrioventricular block, this spontaneously resolved. No further bradycardias. There were no ventricular arrhythmias. Despite receiving sedation, she was becoming agitated lying on the catheterization table. It was felt best to terminate the procedure and to not attempt further guidewire manipulation into the PDA. Prior to intervention, the patient had received intravenous heparin and Integrilin. A therapeutic activated clotting time was documented. At the completion of procedure, the Integrilin infusion was discontinued. During the procedure, an echocardiogram was performed to exclude the presence of a pericardial effusion in the event the coronary dissection had caused a perforation. The echo performed in the gold leaf laborer revealed no evidence of pericardial effusion or cardiac tamponade. There was normal overall left ventricular systolic function, normal right ventricular systolic function, mild inferior and posterolateral hypokinesis. The patient was then transferred from the cardiac catheterization lab to the intensive care unit. The findings, results and complication of the procedure were extensively discussed by me with the patient's 2 sons and her [id number]. They expressed understanding of the events. The findings were also discussed with the patient in the gold leaf laborer. In the gold leaf laborer, she acknowledged understanding of the events. However, later in the ICU she did not remember what I had told her. It was again discussed with her the findings, results and the complications of the procedure. It was felt that this memory loss was secondary to administration of benzodiazepines during the procedure. In the intensive care unit, she initially had dyspnea and sensation of chest burning. After receiving nebulizer therapy, her dyspnea resolved. When she was seen again later by me, she had no further complaints of chest burning. However, it was seen that her systolic blood pressures were in the 70s. She was given a bolus of normal saline. Her blood pressure remained low. She had been treated with intravenous nitroglycerin earlier this afternoon. This had been discontinued approximately 1 hour prior to my visit with her. It was discontinued because of hypotension. Another echocardiogram was performed at her bedside. This again revealed no evidence of the pericardial effusion. There was no evidence of cardiac tamponade. Normal overall left ventricular systolic function and normal right ventricular systolic function. It was felt that her hypotension was secondary to increased parasympathetic tone. In addition to the low blood pressure, her heart rate was in the 70s-80s. This morning, her heart rate had been in the 90s to low 100s. The patient's case was extensively discussed with Dr. Olga Dubose and Dr. Yordan Monreal. CURRENT MEDICATIONS: SubQ heparin 5000 units q. 8 hours, nitroglycerin as tolerated by blood pressure, intravenous Zofran, normal saline, atorvastatin 80 mg daily, aspirin 81 mg daily, clopidogrel 75 mg daily, Symbicort 2 puffs b.i.d., Flonase 2 sprays daily, ranitidine 150 mg b.i.d., prednisone 20 mg daily and several p.r.n. medications. ALLERGIES AND ADVERSE DRUG REACTIONS: PENICILLIN. PHYSICAL EXAMINATION: GENERAL: This afternoon, the patient is lying in her bed. She does not appear to be in any distress. VITAL SIGNS: Current heart rate is 76, systolic blood pressures ranging from the upper 70s to mid 80s. At 5:01 p.m., her blood pressure was 91/51. This is with the blood pressure taken on her right leg. Pulse oximetry at 5:01 p.m. was 95% on 3 liters per minute nasal cannula oxygen. NECK: No jugular venous distention. LUNGS: Normal respiratory effort. No rales, rhonchi or wheezes anterolaterally. HEART: Regular rate and rhythm. Distant heart sounds. No murmur, rub or S3 heard. ABDOMEN: Soft. Nontender. No palpable masses or organomegaly. EXTREMITIES: She persists with hemorrhagic type lesions on her legs. These are the same as those present yesterday. They are nontender. Trace pretibial edema. NEUROLOGIC: Alert and oriented x3. Motor grossly intact. In the ICU this afternoon, there was some small amount of bleeding under her Terumo TR band. An additional 4 mL of air was introduced into the band. With this there is no evidence of any active bleeding from the radial arterial site. Electrocardiogram post-procedure shows normal sinus rhythm; right bundle branch block; ST segment elevations in leads 2, 3, and aVF; ST depressions in leads V1-V3. Electrocardiogram consistent with acute inferior and posterior injury. Labs this afternoon are pending. ASSESSMENT: 1. Admission with non-ST elevation myocardial infarction. 2. Severe mid right coronary artery and early distal right coronary artery stenoses noted on diagnostic angiography today. 3. Unsuccessful attempts at coronary intervention to the right coronary artery. Despite deployment of 2 stents in the mid and early distal right coronary artery, she developed FIDELINA 0 flow into the posterior descending artery and posterolateral branches of the right coronary artery. This was likely secondary to a combination of embolization of either thrombus or plaque into the branches and the creation of significant dissection. The dissection was caused by a guidewire loop. The procedure was also complicated by fracture of guidewire tip in the right coronary artery. Unsuccessful attempts at removing this guidewire fracture. The fractured wire was "trapped" by the stents. 4. Hypotension post-procedure. Likely secondary to increased parasympathetic tone from her inferior myocardial infarction. Of note is that her heart rate is also less than it had been this morning. There was no evidence of significant left ventricular systolic dysfunction on echocardiogram just performed. The overall left ventricular systolic function was actually normal. Normal right ventricular systolic function. No evidence of cardiac tamponade. No evidence of pericardial effusion. 5. No ventricular arrhythmias noted thus far. 6. Bradyarrhythmias; she was noted to have a 6-second pause on initial evaluation in the Emergency Department on February 08. She had sinus bradycardia on the morning of February 09. A 2:1 atrioventricular block noted today. I suspect that her bradyarrhythmias were secondary to ischemia. Her beta jalen was discontinued 3 days ago. PLAN AND RECOMMENDATIONS: 1. Intravenous fluids. 2. Alpha agonist as needed to maintain adequate blood pressure. 3. Serial electrocardiograms, cardiac enzymes, CBCs and PRPs. 4. Repeat echocardiogram in the morning. 5. Once her blood pressure improves, institute in afterload reduction therapy with BRITTANY inhibitor or angiotensin receptor jalen. 6. Discontinue Procardia. She had been on this preprocedure. 7. We ultimately may be able to reinstitute beta jalen therapy. At this time, would hold off on any beta jalen therapy. The assessment and recommendations have been discussed by me with the ICU physician and staff. The results, findings and complications of the catheterization and PCI procedure were extensively discussed by me with the patient's 2 sons, her [id number] and the patient herself. YAMILET
--- NOTE | 2017-02-12 20:07 | DIAGNOSTIC IMAGING REPORT ---
CHEST ONE VIEW PORTABLE CLINICAL HISTORY: right triple lumen IJ catheter insertion, confirm position COMPARISON STUDY: 02/08/2017 FINDINGS: The heart remains enlarged. There is been interval insertion of a right internal jugular central venous catheter. The tip projects at superior vena cava. There is no pneumothorax. Fiducial markings are visualized in left upper lobe. There is mild central vascular prominence. There is no lobar consolidation.[ IMPRESSION: 1. No evidence of pneumothorax status post placement of a right internal jugular central venous catheter. The tip projects over the superior vena cava. Electronically signed by: Ronald Bradley M.D. 02/12/2017 8:06 PM Dictated Date/Time: 02/12/2017 8:05 PM
[2017-02-12 20:11] LABS: PARTIAL THROMBOPLASTIN RATIO 1.1; PROTHROMBIN TIME (PATIENT) 10.4 SECONDS (9.0-12.0)
[2017-02-12 20:22] LABS: BUN/CREATININE RATIO 26.8 (10-20); CREATININE 0.84 mg/dl (0.60-1.20); MAGNESIUM 1.7 mg/dl (1.8-2.4); PHOSPHORUS 3.2 mg/dl (2.5-4.9)
[2017-02-12 20:38] LABS: CALCIUM 6.5 mg/dl (8.5-10.1); POTASSIUM 5.2 mmol/L (3.5-5.1)
[2017-02-12] MEDS: PANTOprazole INJ 40 MG in DEXTROSE 5% 100ML IV SCH (20:44)
[2017-02-12] MEDS ORDERED: PANTOprazole INJ 80 MG in DEXTROSE 5% 100ML IV SCH (20:45)
[2017-02-12] MEDS: MAGNESIUM SULFATE 1GM / D5W 1 GM in PREMIXED IN D5W 100 ML IV SCH ×2 (21:00→21:01)
[2017-02-12] MEDS ORDERED: HEPARIN SOD 5000 UNIT/0.5 ML CARP SQ SCH (22:00)
[2017-02-12] MEDS: MoRPHine SULFATE 2 MG/ML CARP IV PRN (22:12)
[2017-02-13] VITALS (29 sets, daily range): BP systolic 80–157; BP diastolic 63–88; PULSE 76–103; TEMP 36.3–36.9; O2SAT 91–100
[2017-02-13] MEDS ORDERED: NURSING DECISION MEDICATION ORDER SCH
[2017-02-13] MEDS ORDERED: ACETAMINOPHEN IV 1000MG/100ML IV STA (00:07)
[2017-02-13] MEDS: CHLORDIAZEPOXIDE 10 MG CAP PO PRN (00:09)
[2017-02-13] MEDS: CALCIUM CARBONATE 500 MG CHEWABLE PO PRN ×3 (00:12→06:02)
[2017-02-13] MEDS: PANTOprazole INJ 40 MG in DEXTROSE 5% 100ML IV SCH ×5 (00:13→22:17)
[2017-02-13] MEDS: ALBUT/IPRATROP 3MG/0.5MG NEB 3 ML VIAL INH SCH ×6 (03:00→22:45)
[2017-02-13 05:38] LABS: BASO % 0.2 %; BASO ABS # 0.02 K/uL (0-0.2); COMPLETE YES; EOS % 0.2 %; HEMATOCRIT 35.2 % (37-47); IG% 0.4 %; LYMPH ABS # 1.47 K/uL (1.2-3.4); MEAN CELL VOLUME 95.9 fL (80-100); MEAN CORPUSCULAR HEMOGLOBIN 32.2 pg (25-34); MEAN CORPUSCULAR HGB CONC 33.5 g/dl (32-36); MEAN PLATELET VOLUME 10.5 fL (7.4-10.4); MONO % 10.1 %; NEUT % 77.1 %; PLATELET COUNT 174 K/uL (130-400); RED BLOOD COUNT 3.67 M/uL (4.2-5.4); WHITE BLOOD COUNT 12.21 K/uL (4.8-10.8)
[2017-02-13 05:51] LABS: PARTIAL THROMBOPLASTIN RATIO 0.9
[2017-02-13 06:10] LABS: BUN/CREATININE RATIO 25.6 (10-20); CALCIUM 6.7 mg/dl (8.5-10.1); CREATININE 1.1 mg/dl (0.60-1.20); MAGNESIUM 2.8 mg/dl (1.8-2.4); POTASSIUM 5.4 mmol/L (3.5-5.1)
[2017-02-13 06:19] LABS: PHOSPHORUS 3.5 mg/dl (2.5-4.9)
[2017-02-13 07:00] LABS: ESTIMATED AVERAGE GLUCOSE 123 mg/dl; HA1C FLAG Normal (Normal)
[2017-02-13] MEDS ORDERED: SODIUM POLYST. SULF SUSP 15G/60ML PO STA (07:33)
--- NOTE | 2017-02-13 07:44 | DIAGNOSTIC IMAGING REPORT ---
CHEST ONE VIEW PORTABLE CLINICAL HISTORY: COPD, s/p cath, IJ triple lumen insertion, COMPARISON STUDY: Chest radiograph February 12, 2017. FINDINGS: There is no pneumothorax. The tip of the right internal jugular catheter projects over the superior vena cava. There is no evidence of pulmonary edema. There is no consolidation to suggest pneumonia. Borderline enlargement of the cardiac silhouette is unchanged. Linear right basilar opacity is suggestive of atelectasis. IMPRESSION: No acute cardiopulmonary findings. No pneumothorax. Electronically signed by: Brandan Moses M.D. 02/13/2017 7:43 AM Dictated Date/Time: 02/13/2017 7:41 AM
[2017-02-13] MEDS: ATORVASTATIN 40 MG TAB PO SCH (09:12)
[2017-02-13] MEDS: BUDESONIDE/FORMOTEROL FUMARATE 80/4.5 60 PUFFS/INHALER INH SCH ×2 (09:13→21:25)
[2017-02-13] MEDS: FLUTICASONE PROPIONATE NA SPR 16 GM BTL SCH (09:13)
[2017-02-13] MEDS: MoRPHine SULFATE 2 MG/ML CARP IV PRN (09:13)
[2017-02-13] MEDS ORDERED: NURSING VERBAL MED ORDER ONE ×3 (09:15→14:15)
[2017-02-13] MEDS ORDERED: GI COCKTAIL PO PRN (09:30)
[2017-02-13 10:13] LABS: HEMATOCRIT 35.8 % (37-47)
[2017-02-13 10:57] LABS: POTASSIUM 4.9 mmol/L (3.5-5.1)
[2017-02-13] MEDS: ALUMINUM/MAGNESIUM SUSP 72 ML, LIDOCAINE HCL 2% VISCOUS SOLN 24 ML, BARCODE IDENTIFIER ... PO PRN ×4 (11:09→18:20)
--- NOTE | 2017-02-13 11:35 | Critical Care Progress Note ---
Critical Care Progress Note Date of Service Feb 13, 2017. ICU Day ICU Day Number: [address] Olga Dubose Subjective Complains of chest burning today that is persistent. No radiation to jaw or arms. Notes that she get it at home, relieved with Zantac As interval history fo my last noted: Patient did have an episode of alex colored stool x 2. Denied any history of previous GI bleed. Cardiology was in ICU and aware. All antiplatelets and anticoagulation was held Patient had acute Hb drop to 9, hypotension. Coag and type and screen done Central line was placed urgently Patient was transfused 2 units overnight. Ultimately, BP recovered without vasopressor support No BM since yesterday; no abdominal pain, nausea or vomiting. Objective Constitutional: Vital signs as above were reviewed. Patient has somewhat dusky complexion but this is noted to be her baseline Eyes: Pupils equal, round, and reactive to light. Extraocular muscles are intact. No proptosis. No photophobia. ENT: Mucous membranes are moist. Oropharynx is clear. No sinus tenderness. TMs are clear bilaterally. Central Venous Catheter Placement Cardiovascular: Heart with a regular rate and rhythm. Pulses are palpable and symmetric in all 4 extremities. No pedal edema appreciated. Audible but reduced heart sounds; same as prior examination No JVD No chest wall tenderness Respiratory: Lungs clear to auscultation bilaterally. No wheezes, rales, or rhonchi appreciated. No accessory muscle use. No retractions. No increased work of breathing. Diminished breath sounds with faint end-expiratory wheezing GI: Abdomen soft, nontender, nondistended. Normal active bowel sounds. No abdominal hernias appreciated. No rebound. No guarding. : No CVA tenderness appreciated. Musculoskeletal: No midline cervical or vertebral tenderness. No gross deformities. No bony tenderness. No calf swelling or tenderness. Integumentary: Warm, dry Bruising on upper extremity Right radial artery catheter size clean, without bleeding; dressing in place Neurological: Patient awake, alert, and oriented x 3. Cranial nerves two through 12 grossly intact. CAM-ICU negative Lymph: No cervical lymphadenopathy appreciated. Current SOFA Score SOFA Score Response (Comments) Value Platelets (x10) > 150 0 Bilirubin (mg/dL) < 1.2 0 [place]ima Coma Score 15 0 Level of Hypotension No Hypotension 0 Creatinine (mg/dL) < 1.2 0 Total 0 Assessment & Plan (1) Acute GI bleeding (2) STEMI (ST elevation myocardial infarction) (3) NSTEMI (non-ST elevated myocardial infarction) (4) Coronary artery disease (5) Hyperlipidemia (6) Hypertension (7) Chronic use of steroids (8) Anxiety (9) COPD (chronic obstructive pulmonary disease) Our plan for her is as follows: NEUROLOGICAL - GCS: 15 - CAM-ICU negative - Pain regimen: Morphine 2 mg q30 minutes for pain - Anxiety: Continue Librium TID, which is a chronic home regimen CARDIOVASCULAR Hypotension - BP: 120-130 systolic on arrival to the ED; Noted to drop to 70s systolic on arrival to the ICU from cardiac cath tech; could not tolerate Nitroglycerine infusion Minimal improvement with 500 ml fluid bolus challenges x 2 Concern for possible tamponade but bedside echocardiogram was negative Right IJ triple lumen with anticipated need for vasopressors - Currently maintaining MAP 80-90 Admitted for NSTEMI; currently evolving STEMI - Inferior ST elevation post-catheterization; consistent with sit of catheter fragmentation, with likely distal plaque embolization - EKG shows persistent but improving ST elevations - Patient does not describe classic anginal or cardiac chest pain ssx - Continue Telemetry monitoring - Complete echo today - Most recent troponin 35; continue to trend until peak - Serial AM EKGs - Nitroglycerine infusion as tolerated for chest pain OR Morphine PRN for chest pain if concerns for hypotension - Secondary prevention DAPT on hold due to acute GI bleed Atorvastatin 80 mg daily Continue to hold Beta-Maurice and ACEi - Cardiology following; recommendation appreciated Hypertension - Hold Atenolol; may be changed over to alternative beta maurice - Per cardiology, Nifedipine can be stopped permanently at this point RESPIRATORY - RR: 20-22 Maintaining sats on 3 L by nasal cannula (her baseline) COPD - Continue Albuterol QID - Continue Symbicort - Continue Prednisone 20 mg daily; she is on this dose chronically - Chronically O2 dependent GASTROINTESTINAL - Diet: Do not anticipate intervention at this time Will do clear liquid diet today - GI Prophylaxis: Protonix Infusion due to acute GI bleeding Given complaints of heartburn, will order GI cocktail - Bowel regimen: Most recent BM 02/11 Miralax PRN Acute GI bleeding - Monitoring H&H q 6 - 4 units on hold; 2 units already transfused - Protonix infusion - Goal to transfuse in the setting of STEMI; < 9.0 RENAL//ENDOCRINE Mild ESTEFANIA - Cr: Increased to 1.1 Possibly mild ESTEFANIA due to period of hypotension yesterday - Hold ACEi initiation for now - Electrolytes: Borderline hyperkalemia: K 5.4 this morning Continue to monitor; no acute EKG changes related to hyperkalemia - BSG: AC/HS checks, q6h when fasting No known hx of diabetes HbA1c 5.9 - Chronic Prednisone use for COPD Continue 20 mg Prednisone HEMATOLOGY/INFECTIOUS DISEASE - Afebrile with mild resolving leukocytosis: No evidence of infection at this time Acute Blood Loss Anemia - Hb prior to ICU arrival was 11 - 2 episode of alex colored stool; Hb drop to 6 - Trend Hb/Hct q6 hours - Hold all anticoagulants/antiplatelets - Goal to transfuse is Hb < 9 (due to concurrent STEMI); 2 units on hold in blood bank DVT Prophylaxis - SCD - Pharmacological anticoagulation contra-indicated LINES/IV ACCESS - Right forearm 18 G - Right IJ CVC inserted 02/12/2017 CODE STATUS - Full Code without intubation/ventilation DISPOSITION - OT/PT: Ordered - ICU monitoring for post-cardiac cath complications Resident Physician Supervision Note/Sample Collector I interviewed and examined the patient. I have reviewed the VS, I/O, notes, meds , labs, imaging and other reports. Her care was discussed in detail on multidisciplinary rounds and I also discussed with Dr. Monreal. I agree with his exam and plan as documented in the note. Any exceptions or clarifications are listed here: She has done relatively well overnight and is s/p 2 units PRBC's after Hb dropped to 9.0. No further GI bleeding and she remains on Protonix infusion. Consider starting clear liquids later today. EGD would be high risk for EGD in face of severity of COPD and AMI. Chest burning was relieved by GI cocktail. No hypotension since last night just before midnight - has recently become hypertensive. Had some NSVT last night - none noted today so far. EKG's reviewed - acute inferior wall myocardial infarction is evolving. Holding on any beta maurice due to pauses earlier in admission and IWMI. Potassium has been mildly elevated - no gordo inhibitor for now. COPD is likely still at baseline but she is at risk for volume overload. Echo from today is pending. Continue supportive care. Discussed with Dr. Mosqueda and family updated at bedside. Documented By: Olga Dubose Consults & Procedures Consultants: Cardiology Intensive Care Unit Procedures: Triple Lumen CVC placement in the right IJ Data Medications: Current Inpatient Medications Medications (Trade) Dose Ordered Sig/Jessi Route Start Time Stop Time Status Last Admin Dose Admin Aspirin (Ecotrin Tab) 81 mg QPM PO 02/09/17 21:00 03/11/17 20:59 Future Hold 02/11/17 20:18 81 MG Budesonide/ Formoterol Fumarate (Symbicort 80/ 4.5 Inh) 2 puffs BID INH 02/09/17 09:00 03/11/17 08:59 02/13/17 09:13 2 PUFFS Chlordiazepoxide (Librium Cap) 10 mg TID PRN PO 02/09/17 01:00 03/11/17 00:59 02/13/17 00:09 10 MG Clopidogrel Bisulfate (plAVix TAB) 75 mg QPM PO 02/09/17 21:00 03/11/17 20:59 Future Hold 02/11/17 20:18 75 MG Fluticasone Propionate (Flonase Nasal [place]) 2 sprays DAILY NA 02/09/17 09:00 03/11/17 08:59 02/13/17 09:13 2 SPRAYS Ranitidine HCl (zANTac TAB) 150 mg BID PO 02/09/17 09:00 03/11/17 08:59 Future Hold 02/12/17 20:51 150 MG Prednisone (PredniSONE TAB) 20 mg DAILY PO 02/09/17 09:00 03/11/17 08:59 02/13/17 09:12 20 MG Atenolol (Tenormin Tab) 100 mg QAM PO 02/09/17 09:00 03/11/17 08:59 Future Hold Nifedipine (Procardia Xl Tab) 60 mg QAM PO 02/09/17 09:00 03/11/17 08:59 Future Hold 02/12/17 08:17 60 MG Acetaminophen (Tylenol Tab) 650 mg Q4H PRN PO 02/09/17 01:30 03/11/17 01:29 02/12/17 14:34 650 MG Al Hydrox/Mg Hydrox/Simethicone (Maalox Max Susp) 15 ml Q4H PRN PO 02/09/17 01:30 03/11/17 01:29 Magnesium Hydroxide (Milk Of Magnesia Susp) 30 ml Q12H PRN PO 02/09/17 01:30 03/11/17 01:29 Ondansetron HCl (Zofran Inj) 4 mg Q6H PRN IV 02/09/17 01:30 03/11/17 01:29 02/12/17 19:31 4 MG Nitroglycerin (Nitrostat Tab) 0.4 mg UD PRN SL 02/09/17 01:30 03/11/17 01:29 Morphine Sulfate (MoRPHine SULFATE INJ) 2 mg Q30M PRN IV 02/09/17 01:30 02/23/17 01:29 02/13/17 09:13 2 MG Polyethylene (Miralax Powder Packet) 17 gm DAILY PRN PO 02/09/17 01:30 03/11/17 01:29 Heparin Sodium/ Dextrose 500 ml @ 19 mls/hr Q24H PRN IV 02/09/17 01:30 03/11/17 01:29 Future Hold 02/12/17 08:17 19 MLS/HR Atorvastatin Calcium (Lipitor Tab) 80 mg QAM PO 02/10/17 09:00 03/11/17 08:59 02/13/17 09:12 80 MG Ondansetron HCl (Zofran Inj) 4 mg Q6H PRN IV 02/12/17 14:00 03/14/17 13:59 Albuterol/ Ipratropium (Duoneb) 3 ml Q4R INH 02/12/17 20:00 03/14/17 19:59 02/13/17 07:33 3 ML Pantoprazole Sodium 40 mg/ Dextrose 100 ml @ 20 mls/hr Q5H IV 02/12/17 21:00 03/14/17 20:59 02/13/17 06:02 20 MLS/HR Calcium Carbonate (Tums Chew Tab) 500 mg PRN PRN PO 02/13/17 00:15 03/15/17 00:14 02/13/17 06:02 500 MG Heparin Sodium (Porcine) (Heparin 10 Unit/ ml 5 ml Flush) 5 ml PRN PRN FLUSH 02/13/17 01:30 03/15/17 01:29 Al Hydroxide/Mg Hydroxide/ Lidocaine HCl/ Barcode BID PRN PO 02/13/17 09:45 03/15/17 09:44 Vital Signs: Date Time Temp Pulse Resp B/P (MAP) Pulse Ox O2 Delivery O2 Flow Rate FiO2 02/13/17 10:00 94 18 133/83 (100) 96 Nasal Cannula 4.0 02/13/17 08:00 Nasal Cannula 4.0 02/13/17 08:00 87 18 142/73 (96) 93 Nasal Cannula 4.0 02/13/17 07:33 85 18 93 Nasal Cannula 3.0 02/13/17 06:16 82 20 132/78 (96) 91 02/13/17 06:01 87 22 120/81 (94) 92 02/13/17 05:31 88 22 114/79 (91) 93 02/13/17 05:16 85 32 126/64 (84) 92 02/13/17 05:01 36.9 86 20 117/74 (88) 92 02/13/17 04:00 36.6 83 19 127/68 92 02/13/17 04:00 96 Nasal Cannula 4.0 02/13/17 03:30 36.6 83 19 122/66 93 3.0 02/13/17 03:00 82 18 96 Nasal Cannula 4.0 02/13/17 03:00 36.3 89 26 118/75 93 3.0 02/13/17 02:30 36.9 88 25 85/70 97 4.0 02/13/17 02:15 36.9 85 20 122/79 (93) 98 Nasal Cannula 4.0 02/13/17 01:30 36.6 82 19 136/79 98 4.0 02/13/17 01:00 36.6 82 25 107/86 100 4.0 02/13/17 00:30 36.6 79 20 97/72 98 4.0 02/13/17 00:01 36.6 76 24 97/66 96 4.0 02/12/17 23:59 96 Nasal Cannula 4.0 02/12/17 23:45 36.6 84 26 96/57 95 4.0 02/12/17 23:30 36.6 82 22 82/61 96 02/12/17 22:29 80 18 90 Nasal Cannula 4.0 02/12/17 21:46 90 30 104/84 (91) 95 02/12/17 21:31 88 29 121/73 (89) 94 02/12/17 21:16 84 24 106/73 (84) 94 02/12/17 21:01 89 31 104/62 (76) 94 02/12/17 20:46 90 26 118/60 (79) 94 02/12/17 20:31 85 24 95/54 (68) 92 02/12/17 20:17 90 24 92/58 (69) 89 02/12/17 20:01 100 33 109/83 (92) 93 02/12/17 20:00 96 Nasal Cannula 4.0 02/12/17 19:46 113 36 100/64 (76) 69 02/12/17 19:42 36.3 104 36 120/82 (95) 94 02/12/17 19:36 110 34 95/84 (88) 94 02/12/17 19:31 120 40 130/82 (98) 96 02/12/17 19:26 86 24 91/60 (70) 95 02/12/17 19:23 89 25 92/72 (79) 96 02/12/17 19:01 76 23 93/44 (60) 93 02/12/17 18:21 78 27 71/62 (65) 95 3.0 02/12/17 18:11 73 23 78/66 (70) 93 3.0 02/12/17 18:08 76 22 90/49 (63) 96 3.0 02/12/17 17:51 71 25 90/52 (65) 02/12/17 17:36 74 25 78/49 (59) 92 3.0 02/12/17 17:32 71 25 84/48 (60) 93 3.0 02/12/17 17:22 72 23 80/48 (59) 95 3.0 02/12/17 17:17 76 26 77/52 (60) 95 3.0 02/12/17 17:01 73 23 91/51 (64) 95 Nasal Cannula 3.0 02/12/17 16:31 76 20 98/62 (74) 91 Nasal Cannula 3.0 02/12/17 16:16 75 20 78/61 (67) 91 Nasal Cannula 3.0 02/12/17 16:05 74 21 86/56 (66) 91 Nasal Cannula 3.0 02/12/17 16:00 Nasal Cannula 3.0 02/12/17 15:34 36.6 84 25 95/68 (77) 94 Nasal Cannula 3.0 02/12/17 15:26 84 20 94 Nasal Cannula 3.0 02/12/17 15:16 80 30 127/82 (97) 100 02/12/17 15:01 75 20 129/69 (89) 94 Nasal Cannula 3.0 02/12/17 14:46 76 27 139/84 (102) 95 Nasal Cannula 3.0 02/12/17 14:40 87 26 108/76 (87) 92 Nasal Cannula 3.0 02/12/17 14:22 74 22 133/75 (94) 02/12/17 14:00 80 16 130/65 (86) 96 Nasal Cannula 4 02/12/17 13:45 99 16 143/75 (97) 96 Nasal Cannula 4 02/12/17 11:57 36.5 85 24 165/90 (115) 98 Nasal Cannula 3.0 02/12/17 11:16 83 20 97 Nasal Cannula 3.0 Laboratory Results: Last 24 Hours Test 02/12/17 12:22 02/12/17 13:39 02/12/17 15:23 02/12/17 17:25 Kaolin Activated Coagulation Time 252 SECONDS 318 SECONDS Blood Gas Sample Site L Radial Bedside Blood Gas pH (LAB) 7.33 Bedside Blood Gas pCO2 (LAB) 48 mmHg Bedside Blood Gas pO2 (LAB) 81 mmHg Bedside Blood Gas HCO3 (LAB) 25 meq/L Bedside Blood Gas Total CO2 27 mEq/l Bedside Blood Gas Base Excess (LAB) -1.0 meq/L Bedside Blood Gas O2 Saturation 95.0 % Turner Test Pass Oxygen Delivery Device Cannula Bedside Glucose 157 mg/dl Test 02/12/17 18:33 02/12/17 19:50 02/12/17 22:00 02/13/17 05:24 White Blood Count 14.22 K/uL 12.21 K/uL Red Blood Count 3.06 M/uL 3.67 M/uL Hemoglobin 9.7 g/dL 9.5 g/dL 9.0 g/dL 11.8 g/dL Hematocrit 30.1 % 28.8 % 28.0 % 35.2 % Mean Corpuscular Volume 98.4 fL 95.9 fL Mean Corpuscular Hemoglobin 31.7 pg 32.2 pg Mean Corpuscular Hemoglobin Concent 32.2 g/dl 33.5 g/dl RDW Standard Deviation 54.7 fL 59.4 fL RDW Coefficient of Variation 15.3 % 16.9 % Platelet Count 212 K/uL 174 K/uL Mean Platelet Volume 10.2 fL 10.5 fL Prothrombin Time 10.4 SECONDS Prothromb Time International Ratio 1.0 Activated Partial Thromboplast Time 27.5 SECONDS 22.4 SECONDS Partial Thromboplastin Ratio 1.1 0.9 Sodium Level 144 mmol/L 141 mmol/L Potassium Level 5.2 mmol/L 5.2 mmol/L 5.4 mmol/L Chloride Level 114 mmol/L 109 mmol/L Carbon Dioxide Level 23 mmol/L 24 mmol/L Anion Gap 7.0 mmol/L 8.0 mmol/L Blood Urea Nitrogen 23 mg/dl 28 mg/dl Creatinine 0.84 mg/dl 1.10 mg/dl Est Creatinine Clear Calc Drug Dose 55.0 ml/min 42.0 ml/min Estimated GFR () 79.9 57.7 Estimated GFR (Non- 69.0 49.8 BUN/Creatinine Ratio 26.8 25.6 Random Glucose 133 mg/dl 117 mg/dl Lactic Acid Level 2.3 mmol/L 1.0 mmol/L Calcium Level 6.5 mg/dl 6.7 mg/dl Phosphorus Level 3.2 mg/dl 3.5 mg/dl Magnesium Level 1.7 mg/dl 2.8 mg/dl Troponin I 5.310 ng/ml 37.400 ng/ml Neutrophils (%) (Auto) 77.1 % Lymphocytes (%) (Auto) 12.0 % Monocytes (%) (Auto) 10.1 % Eosinophils (%) (Auto) 0.2 % Basophils (%) (Auto) 0.2 % Neutrophils # (Auto) 9.41 K/uL Lymphocytes # (Auto) 1.47 K/uL Monocytes # (Auto) 1.23 K/uL Eosinophils # (Auto) 0.03 K/uL Basophils # (Auto) 0.02 K/uL Immature Granulocyte % (Auto) 0.4 % Immature Granulocyte # (Auto) 0.05 K/uL Estimated Average Glucose 123 mg/dl Hemoglobin A1c 5.9 % Total Bilirubin 0.7 mg/dl Aspartate Amino Transf (AST/SGOT) 163 U/L Alanine Aminotransferase (ALT/SGPT) 60 U/L Alkaline Phosphatase 49 U/L Total Protein 5.5 gm/dl Albumin 2.8 gm/dl Globulin 2.7 gm/dl Albumin/Globulin Ratio 1.0 Test 02/13/17 10:02 Hemoglobin 11.6 g/dL Hematocrit 35.8 %
--- NOTE | 2017-02-13 11:42 | CARDIOLOGY PROGRESS NOTE ---
DATE: 02/13/2017 SUBJECTIVE: The patient was seen by me this morning in her ICU room. Since yesterday evening, she complains of a persist lower retrosternal burning discomfort. No change with movement. No change with inspiration. She had drunk several sips of cold water while I was examining her. She states that drinking water helped decrease the discomfort. No lower abdominal pain. No nausea. She has had no further episodes of bloody bowel movement since last evening. She has no dyspnea lying in bed. No orthopnea or PND overnight. She denies palpitations, lightheadedness, syncope, or leg pain. No cerebrovascular complaints. No urinary complaints. She has a Rodrigez catheter in place. CURRENT MEDICATIONS: Calcium carbonate 500 mg p.o. p.r.n., pantoprazole 40 mg IV q. 5 hours, DuoNeb 3 mL q. 4 hours, Zofran 4 mg IV q. 6 hours p.r.n., atorvastatin 80 mg daily, Symbicort 2 puffs b.i.d., Flonase 2 sprays daily, prednisone 20 mg daily, and several p.r.n. medications. Nifedipine, atenolol, ranitidine, clopidogrel, and aspirin are on hold. Last evening, after I had visited with the patient, she had a bloody bowel movement. She was promptly evaluated by Dr. Dubose and Dr. Monreal. She subsequently received transfusion of 2 units of packed red blood cells. After the transfusion, her blood pressure has improved. Monitor history overnight reveals an 8-beat run of nonsustained ventricular tachycardia. Rare ventricular couplets. One ventricular triplet. Currently, on monitor, she is in sinus rhythm without ectopy. Intake and output yesterday 3822/1575. This has been in the intensive care unit. Today 1180/200. OBJECTIVE: VITAL SIGNS: Most recent vital signs with blood pressure 133/83, pulse 93, and pulse oximetry 95%. GENERAL APPEARANCE: Shows her to be in no distress. She does have a better color today than last evening. NECK: No jugular venous distention. LUNGS: Normal respiratory effort. Diffuse mild end expiratory wheezing throughout the posterior lung bishop. HEART: Distant heart sounds. Regular rate and rhythm. No murmur, S3, or rub. ABDOMEN: Normal bowel sounds. Soft. Nontender. No palpable masses or organomegaly. No bruits. EXTREMITIES: No pretibial edema. Right radial catheterization site without bleeding or tenderness. Right radial pulse strongly palpable. No evidence of arterial insufficiency in the right hand. NEUROLOGIC: Alert and oriented x3. Motor grossly intact. PSYCHIATRIC: Affect is normal. DATA: Electrocardiogram performed this morning reveals normal sinus rhythm, right bundle branch block, and evolving inferior WI. Compared to the electrocardiogram performed last night, the inferior ST segment elevations are decreasing. ST segment elevations are not present in leads V3 through V6. The electrocardiogram last night at 11:35 p.m. revealed sinus rhythm, inferior ST segment elevations, ST depression in V1 and V2, and ST elevations in V3-V5. Electrocardiogram yesterday at 02:35 p.m. revealed sinus rhythm, right bundle branch block, inferior ST elevations, and ST depressions in V1 and V2. Also, slight in V3. LABORATORY DATA: Today with WBC 12.21, hemoglobin 11.8, hematocrit 35.3, and platelet count 174. Metabolic profile with sodium 141, potassium 5.4, chloride 109, carbon dioxide 24, BUN 28, creatinine 1.10, and random glucose 117. Troponin I is 137.400. ALT 60 and AST 163. Magnesium 2.8. Total bilirubin 0.7. ASSESSMENT: 1. Admission originally with non-ST elevation myocardial infarction. This has been appreciated by a prolonged episode of chest discomfort. CK and CK total were elevated on arrival to the Emergency Department. In the Emergency Department, she had a significant sinus pause of over 6 second duration. It was asymptomatic. Since then, she has had no further such pauses. Her atenolol was discontinued after I saw her in initial consultation on February 09. 2. Echocardiogram performed on February 09 revealed no segmental wall motion abnormalities of the left ventricle. Normal LV ejection fraction of approximately 65%-70%. 3. Status post cardiac catheterization on February 12. Performed via right radial artery. This revealed only mild atherosclerotic disease in the LAD and left circumflex coronary arteries. No left main disease. The right coronary artery had severe stenoses in its mid and early LAD distal segment. 90%, 99%, and 90% stenoses. The vessel was heavily calcified. Intervention was performed to the mid and early distal RCA stenoses with balloon angioplasty followed by deployment of 2 long 2.5-mm diameter drug-eluting stents. The procedure was complicated by a fracture of the guidewire tip in the right coronary artery. Unsuccessful attempts at removal of the guidewire with a snare wire. The stents were deployed over the fractured wire tip. It is located in the mid RCA. The procedure was also complicated by initially no reflow in the PDA and posterolateral branches arising from the distal RCA. There was then evidence of significant dissection in the distal RCA, where bifurcated into the PDA and posterolateral branches. Unsuccessful attempts at passing a guidewire across this site. 4. Acute inferolateral myocardial infarction secondary to the acute closure of the distal RCA and its PDA and posterolateral branches. 5. Echocardiogram performed in the laboratory phlebotomist and also last evening revealed normal overall LV systolic function. No evidence of pericardial effusion. No evidence of cardiac tamponade. Normal right ventricular systolic function. On the limited views obtained last evening, there were no segmental wall motion abnormalities noted. 6. Significant GI bleed yesterday evening. She had markedly bloody stools last evening. Suspect esophagitis, gastritis, or upper GI ulceration as a bleeding source. She has been on oral prednisone. She is clearly under increased physical stress over the past several days. No further bloody bowel movements since last evening. Her hemoglobin has improved with transfusion of 2 units of packed red blood cells. 7. Hypertension last evening. Initially this was felt to be related to her acute myocardial infarction. However, in light of the significant GI bleeding and anemia, it was likely secondary to intravascular volume depletion from the acute bleed. 8. Persistent burning discomfort. It improved after she drank cold water. Suspect it could be secondary to an esophageal source. She states that she has had difficulty in swallowing her oral medications recently. 9. Severe chronic obstructive pulmonary disease. Today, she again has wheezing. Yesterday was actually the only day that I did not hear any significant wheezing on her during this admission. Her oxygen saturation is normal with supplemental nasal cannula oxygen. The patient at baseline usually has chronic wheezing. 10. No evidence of vascular complications at the right radial catheterization site. 11. Creatinine stable. BUN is mildly elevated. Elevated BUN is likely secondary to combination of intravascular volume depletion as well as the blood in the GI tract. 12. Nonsustained ventricular tachycardia last night. This would not be unexpected. This is in light of the myocardial injury occurring yesterday. RECOMMENDATIONS: 1. Agree with holding antiplatelet agents. Although, she had stents deployed in the RCA yesterday, there was no significant outflow into the PDA and posterolateral branches of the RCA. The risk of antiplatelet therapy at this time outweighs any benefit. 2. Continue to monitor for any further GI bleeding. Monitor hemoglobin. 3. Treat for upper GI source of bleeding with pantoprazole. This is being done. 4. She would not be a good candidate for EGD secondary to her recent WI as well as her severe underlying chronic obstructive pulmonary disease. Would reserve performing an EGD unless she had evidence of life threatening upper GI bleeding. 5. Echocardiogram today to reassess ventricular function, intracardiac pressures, and valvular function. 6. Continue to get serial daily a.m. electrocardiograms. 7. Continue trending troponin I until peak has been observed. 8. Ultimately, may consider afterload reduction with an angiotensin receptor jalen or an BRITTANY inhibitor. However, use now would be contraindicated because of her hyperkalemia and recent hemodynamic instability. 9. At this time, we will continue to hold beta jalen in light of the significant pauses noted at time of evaluation in the Emergency Department. May consider restarting beta jalen at a low dose. This could be initiated with metoprolol succinate ER 12.5 mg daily. At the time of admission, she was on Atenolol 100 mg daily. 10. Keep in ICU today for continued monitoring. 11. Trial of GI cocktail to see if it helps decrease her chest burning. This is based upon the fact that drinking ice cold water help to decrease the intensity of discomfort. The above assessment and recommendations have been discussed with the intensive care unit physician and nursing staff. Discussed with the patient and her family. The events of yesterday including the catheterization findings, procedure results, and procedure complications were again extensively discussed by me with the patient and her family today. This discussion including the fractured wire tip as well as the dissection in the right coronary artery.
--- NOTE | 2017-02-13 12:16 | Progress Note ---
Subjective Date of Service: Feb 13, 2017. Subjective Pt evaluation today including: conversation w/ patient, physical exam, lab review, review of studies, conversation w/ energy sales consultant, review of inpatient medication list Pain: no pain currently PO Intake: improving Voiding: del castillo catheter in place patient doing reasonably well after yesterday's events reviewed the notes from the cardiac catheterization discussed the case with Dr. Mosqueda and Dr. Dubose in the ICU patient had LHC yesterday, complicated by guide wire loop becoming dislodged in RCA stents placed in the region experienced distal emboli, possible dissection in distal branch of RCA troponin elevated today, EKG changes consistent with NSTEMI was hypotensive after procedure, echo showed no tamponade, normal EF, normal RV function patient then developed melena, was transfused 2 units and BP normalized, Hb up to 11.6 today Problem List Medical Problems: (1) Abnormal EKG Status: Acute (2) Abnormal EKG Status: Acute (3) Chest pain Status: Acute (4) COPD exacerbation Status: Acute (5) Diarrhea Status: Acute (6) Elevated troponin Status: Acute (7) Hypokalemia Status: Acute (8) Hypotension Status: Acute (9) Hypoxemia Status: Acute (10) NSTEMI (non-ST elevated myocardial infarction) Status: Acute (11) Precordial chest pain Status: Acute Review of Systems Constitutional: + weakness, + fatigue Respiratory: + cough, + dyspnea on exertion Abdomen: + GI bleeding (melena last night, none since) Neurologic: + weakness All Other Systems: Reviewed and Negative Medications Current Inpatient Medications Medications (Trade) Dose Ordered Sig/Jessi Route Start Time Stop Time Status Last Admin Dose Admin Aspirin (Ecotrin Tab) 81 mg QPM PO 02/09/17 21:00 03/11/17 20:59 Future Hold 02/11/17 20:18 81 MG Budesonide/ Formoterol Fumarate (Symbicort 80/ 4.5 Inh) 2 puffs BID INH 02/09/17 09:00 03/11/17 08:59 02/13/17 09:13 2 PUFFS Chlordiazepoxide (Librium Cap) 10 mg TID PRN PO 02/09/17 01:00 03/11/17 00:59 02/13/17 00:09 10 MG Clopidogrel Bisulfate (plAVix TAB) 75 mg QPM PO 02/09/17 21:00 03/11/17 20:59 Future Hold 02/11/17 20:18 75 MG Fluticasone Propionate (Flonase Nasal [place]) 2 sprays DAILY NA 02/09/17 09:00 03/11/17 08:59 02/13/17 09:13 2 SPRAYS Ranitidine HCl (zANTac TAB) 150 mg BID PO 02/09/17 09:00 03/11/17 08:59 Future Hold 02/12/17 20:51 150 MG Prednisone (PredniSONE TAB) 20 mg DAILY PO 02/09/17 09:00 03/11/17 08:59 02/13/17 09:12 20 MG Atenolol (Tenormin Tab) 100 mg QAM PO 02/09/17 09:00 03/11/17 08:59 Future Hold Nifedipine (Procardia Xl Tab) 60 mg QAM PO 02/09/17 09:00 03/11/17 08:59 Future Hold 02/12/17 08:17 60 MG Acetaminophen (Tylenol Tab) 650 mg Q4H PRN PO 02/09/17 01:30 03/11/17 01:29 02/12/17 14:34 650 MG Al Hydrox/Mg Hydrox/Simethicone (Maalox Max Susp) 15 ml Q4H PRN PO 02/09/17 01:30 03/11/17 01:29 Magnesium Hydroxide (Milk Of Magnesia Susp) 30 ml Q12H PRN PO 02/09/17 01:30 03/11/17 01:29 Ondansetron HCl (Zofran Inj) 4 mg Q6H PRN IV 02/09/17 01:30 03/11/17 01:29 02/12/17 19:31 4 MG Nitroglycerin (Nitrostat Tab) 0.4 mg UD PRN SL 02/09/17 01:30 03/11/17 01:29 Morphine Sulfate (MoRPHine SULFATE INJ) 2 mg Q30M PRN IV 02/09/17 01:30 02/23/17 01:29 02/13/17 09:13 2 MG Polyethylene (Miralax Powder Packet) 17 gm DAILY PRN PO 02/09/17 01:30 03/11/17 01:29 Heparin Sodium/ Dextrose 500 ml @ 19 mls/hr Q24H PRN IV 02/09/17 01:30 03/11/17 01:29 Future Hold 02/12/17 08:17 19 MLS/HR Atorvastatin Calcium (Lipitor Tab) 80 mg QAM PO 02/10/17 09:00 03/11/17 08:59 02/13/17 09:12 80 MG Ondansetron HCl (Zofran Inj) 4 mg Q6H PRN IV 02/12/17 14:00 03/14/17 13:59 Albuterol/ Ipratropium (Duoneb) 3 ml Q4R INH 02/12/17 20:00 03/14/17 19:59 02/13/17 11:19 3 ML Pantoprazole Sodium 40 mg/ Dextrose 100 ml @ 20 mls/hr Q5H IV 02/12/17 21:00 03/14/17 20:59 02/13/17 06:02 20 MLS/HR Calcium Carbonate (Tums Chew Tab) 500 mg PRN PRN PO 02/13/17 00:15 03/15/17 00:14 02/13/17 06:02 500 MG Heparin Sodium (Porcine) (Heparin 10 Unit/ ml 5 ml Flush) 5 ml PRN PRN FLUSH 02/13/17 01:30 03/15/17 01:29 Al Hydroxide/Mg Hydroxide/ Lidocaine HCl/ Barcode BID PRN PO 02/13/17 09:45 03/15/17 09:44 02/13/17 11:09 24 ML Objective Vital Signs Date Time Temp Pulse Resp B/P (MAP) Pulse Ox O2 Delivery O2 Flow Rate FiO2 02/13/17 12:00 103 20 150/87 (108) 95 Nasal Cannula 4.0 02/13/17 12:00 Nasal Cannula 4.0 02/13/17 11:20 88 18 97 Nasal Cannula 3.0 02/13/17 10:00 94 18 133/83 (100) 96 Nasal Cannula 4.0 02/13/17 08:00 Nasal Cannula 4.0 02/13/17 08:00 87 18 142/73 (96) 93 Nasal Cannula 4.0 02/13/17 07:33 85 18 93 Nasal Cannula 3.0 02/13/17 06:16 82 20 132/78 (96) 91 02/13/17 06:01 87 22 120/81 (94) 92 02/13/17 05:31 88 22 114/79 (91) 93 02/13/17 05:16 85 32 126/64 (84) 92 02/13/17 05:01 36.9 86 20 117/74 (88) 92 02/13/17 04:00 36.6 83 19 127/68 92 02/13/17 04:00 96 Nasal Cannula 4.0 02/13/17 03:30 36.6 83 19 122/66 93 3.0 02/13/17 03:00 82 18 96 Nasal Cannula 4.0 02/13/17 03:00 36.3 89 26 118/75 93 3.0 02/13/17 02:30 36.9 88 25 85/70 97 4.0 02/13/17 02:15 36.9 85 20 122/79 (93) 98 Nasal Cannula 4.0 02/13/17 01:30 36.6 82 19 136/79 98 4.0 02/13/17 01:00 36.6 82 25 107/86 100 4.0 02/13/17 00:30 36.6 79 20 97/72 98 4.0 02/13/17 00:01 36.6 76 24 97/66 96 4.0 02/12/17 23:59 96 Nasal Cannula 4.0 02/12/17 23:45 36.6 84 26 96/57 95 4.0 02/12/17 23:30 36.6 82 22 82/61 96 02/12/17 22:29 80 18 90 Nasal Cannula 4.0 02/12/17 21:46 90 30 104/84 (91) 95 02/12/17 21:31 88 29 121/73 (89) 94 02/12/17 21:16 84 24 106/73 (84) 94 02/12/17 21:01 89 31 104/62 (76) 94 02/12/17 20:46 90 26 118/60 (79) 94 02/12/17 20:31 85 24 95/54 (68) 92 02/12/17 20:17 90 24 92/58 (69) 89 02/12/17 20:01 100 33 109/83 (92) 93 02/12/17 20:00 96 Nasal Cannula 4.0 02/12/17 19:46 113 36 100/64 (76) 69 02/12/17 19:42 36.3 104 36 120/82 (95) 94 02/12/17 19:36 110 34 95/84 (88) 94 02/12/17 19:31 120 40 130/82 (98) 96 02/12/17 19:26 86 24 91/60 (70) 95 02/12/17 19:23 89 25 92/72 (79) 96 02/12/17 19:01 76 23 93/44 (60) 93 02/12/17 18:21 78 27 71/62 (65) 95 3.0 02/12/17 18:11 73 23 78/66 (70) 93 3.0 02/12/17 18:08 76 22 90/49 (63) 96 3.0 02/12/17 17:51 71 25 90/52 (65) 02/12/17 17:36 74 25 78/49 (59) 92 3.0 02/12/17 17:32 71 25 84/48 (60) 93 3.0 02/12/17 17:22 72 23 80/48 (59) 95 3.0 02/12/17 17:17 76 26 77/52 (60) 95 3.0 02/12/17 17:01 73 23 91/51 (64) 95 Nasal Cannula 3.0 02/12/17 16:31 76 20 98/62 (74) 91 Nasal Cannula 3.0 02/12/17 16:16 75 20 78/61 (67) 91 Nasal Cannula 3.0 02/12/17 16:05 74 21 86/56 (66) 91 Nasal Cannula 3.0 02/12/17 16:00 Nasal Cannula 3.0 02/12/17 15:34 36.6 84 25 95/68 (77) 94 Nasal Cannula 3.0 02/12/17 15:26 84 20 94 Nasal Cannula 3.0 02/12/17 15:16 80 30 127/82 (97) 100 02/12/17 15:01 75 20 129/69 (89) 94 Nasal Cannula 3.0 02/12/17 14:46 76 27 139/84 (102) 95 Nasal Cannula 3.0 02/12/17 14:40 87 26 108/76 (87) 92 Nasal Cannula 3.0 02/12/17 14:22 74 22 133/75 (94) 02/12/17 14:00 80 16 130/65 (86) 96 Nasal Cannula 4 02/12/17 13:45 99 16 143/75 (97) 96 Nasal Cannula 4 Physical Exam General Appearance: WD/WN, no apparent distress Neck: supple, no adenopathy, no JVD, trachea midline Respiratory/Chest: chest non-tender, no respiratory distress, no accessory muscle use, + decreased breath sounds, + wheezing Cardiovascular: regular rate, rhythm, no edema, no gallop, no JVD, no murmur Abdomen: normal bowel sounds, non tender, soft, no organomegaly Extremities: normal range of motion, non-tender, normal inspection, no pedal edema, no calf tenderness Neurologic/Psychiatric: tile sprayer II-XII nml as tested, no motor/sensory deficits, alert, normal mood/affect, oriented x 3 Skin: normal color, warm/dry, no rash Laboratory Results Last 24 Hours Test 02/12/17 12:22 02/12/17 13:39 02/12/17 15:23 02/12/17 17:25 Kaolin Activated Coagulation Time 252 SECONDS 318 SECONDS Blood Gas Sample Site L Radial Bedside Blood Gas pH (LAB) 7.33 Bedside Blood Gas pCO2 (LAB) 48 mmHg Bedside Blood Gas pO2 (LAB) 81 mmHg Bedside Blood Gas HCO3 (LAB) 25 meq/L Bedside Blood Gas Total CO2 27 mEq/l Bedside Blood Gas Base Excess (LAB) -1.0 meq/L Bedside Blood Gas O2 Saturation 95.0 % Turner Test Pass Oxygen Delivery Device Cannula Bedside Glucose 157 mg/dl Test 02/12/17 18:33 02/12/17 19:50 02/12/17 22:00 02/13/17 05:24 White Blood Count 14.22 K/uL 12.21 K/uL Red Blood Count 3.06 M/uL 3.67 M/uL Hemoglobin 9.7 g/dL 9.5 g/dL 9.0 g/dL 11.8 g/dL Hematocrit 30.1 % 28.8 % 28.0 % 35.2 % Mean Corpuscular Volume 98.4 fL 95.9 fL Mean Corpuscular Hemoglobin 31.7 pg 32.2 pg Mean Corpuscular Hemoglobin Concent 32.2 g/dl 33.5 g/dl RDW Standard Deviation 54.7 fL 59.4 fL RDW Coefficient of Variation 15.3 % 16.9 % Platelet Count 212 K/uL 174 K/uL Mean Platelet Volume 10.2 fL 10.5 fL Prothrombin Time 10.4 SECONDS Prothromb Time International Ratio 1.0 Activated Partial Thromboplast Time 27.5 SECONDS 22.4 SECONDS Partial Thromboplastin Ratio 1.1 0.9 Sodium Level 144 mmol/L 141 mmol/L Potassium Level 5.2 mmol/L 5.2 mmol/L 5.4 mmol/L Chloride Level 114 mmol/L 109 mmol/L Carbon Dioxide Level 23 mmol/L 24 mmol/L Anion Gap 7.0 mmol/L 8.0 mmol/L Blood Urea Nitrogen 23 mg/dl 28 mg/dl Creatinine 0.84 mg/dl 1.10 mg/dl Est Creatinine Clear Calc Drug Dose 55.0 ml/min 42.0 ml/min Estimated GFR () 79.9 57.7 Estimated GFR (Non- 69.0 49.8 BUN/Creatinine Ratio 26.8 25.6 Random Glucose 133 mg/dl 117 mg/dl Lactic Acid Level 2.3 mmol/L 1.0 mmol/L Calcium Level 6.5 mg/dl 6.7 mg/dl Phosphorus Level 3.2 mg/dl 3.5 mg/dl Magnesium Level 1.7 mg/dl 2.8 mg/dl Troponin I 5.310 ng/ml 37.400 ng/ml Neutrophils (%) (Auto) 77.1 % Lymphocytes (%) (Auto) 12.0 % Monocytes (%) (Auto) 10.1 % Eosinophils (%) (Auto) 0.2 % Basophils (%) (Auto) 0.2 % Neutrophils # (Auto) 9.41 K/uL Lymphocytes # (Auto) 1.47 K/uL Monocytes # (Auto) 1.23 K/uL Eosinophils # (Auto) 0.03 K/uL Basophils # (Auto) 0.02 K/uL Immature Granulocyte % (Auto) 0.4 % Immature Granulocyte # (Auto) 0.05 K/uL Estimated Average Glucose 123 mg/dl Hemoglobin A1c 5.9 % Total Bilirubin 0.7 mg/dl Aspartate Amino Transf (AST/SGOT) 163 U/L Alanine Aminotransferase (ALT/SGPT) 60 U/L Alkaline Phosphatase 49 U/L Total Protein 5.5 gm/dl Albumin 2.8 gm/dl Globulin 2.7 gm/dl Albumin/Globulin Ratio 1.0 Test 02/13/17 10:02 Hemoglobin 11.6 g/dL Hematocrit 35.8 % Potassium Level 4.9 mmol/L Troponin I 42.700 ng/ml Assessment and Plan 71 y/o F 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 Presents following an episode of severe central CP which lasted approximately 30 min. The pain was accompanied by SOB, lightheadedness and diaphoresis. At one point she was ambulating with the ongoing pain and she became light headed, collapsed on the floor without LOC and lost control of her bowels. On arrival to the ER she is asymptomatic however her troponin is markedly elevated. - NSTEMI: rise and fall in troponin, chest pain, EKG consistent with ischemia treated conservatively with heparin gtt, Plavix, aspirin, statin, Atenolol held due to sinus pauses in the ED [facility] on 02/12, severe disease in RCA, complicated by guidewire loop becoming dislodged in RCA, stents placed now with a new NSTEMI, troponin up to 37 and then 42, no current chest pain conservative management, however, holding heparin, aspirin and Plavix due to GI bleed, see below discussed with Dr. Mosqueda in the ICU - Acute GI bleed: melena on 02/12 with hypotension, was on aspirin and Plavix and heparin gtt with exacerbated the issue BP improved with 2 units of PRBC, Protonix added holding antiplatelets and heparin products no need for GI consult at this point because EGD would be contraindicated with acute NV - Hypotension: was due to GI bleed, hemorrhagic shock resolved with 2 units of PRBC - Sinus pause: witnessed in the ED at time of admission, Atenolol held since admission will continue to hold, likely indefinitely d/w Dr. Mosqueda, cause of the pause was likely ischemia - Non-sustained V tach: no further episodes, likely caused by the ischemia - COPD - no current exacerbation - cont inhalers, prednisone, 02 sat% 97 on 4LNC. - HTN - holding BP medications due to bleeding and hypotension - Chronic respiratory failure with hypoxia: currently stable on 3-4L, dyspnea on exertion likely due to NSTEMI Full code keep in ICU today for close monitoring Continued [facility] stay due to: multiple IV medications needed Discharge planning: home with home health
[2017-02-13] MEDS ORDERED: NURSING VERBAL MED ORDER STA (13:39)
[2017-02-13] MEDS ORDERED: LABETALOL HCL IV 5 MG/ML 20ML IV PRN ×2 (13:45→14:15)
[2017-02-13] MEDS ORDERED: LABETALOL HCL IV 5 MG/ML 20ML IV ONE (13:45)
[2017-02-13] MEDS ORDERED: PERFLUTREN LIPID MICROSPHERE (DEFINITY) IV ONE (15:27)
[2017-02-13 16:14] LABS: HEMATOCRIT 35.5 % (37-47)
--- NOTE | 2017-02-13 18:16 | ECHOCARDIOGRAM REPORT ---
*NOTICE TO RECEIVING DEMOCRAT AGENCY This information is strictly Confidential and protected under [place] law. [place] law prohibits you from making any further disclosure of this information unless further disclosure is expressly permitted by the written consent of the person to whom it pertains or is authorized by law. A general authorization for the release of medical or other information is not sufficient for this purpose. Hospital accepts no responsibility if the information is made available to any other person, INCLUDING THE PATIENT. Interpretation Summary * Name: FIOR WILSON Study Date: 02/13/2017 03:02 PM BP: 150/87 mmHg * [facility] HR: 80 * : 1945 (M/d/yyyy) Gender: Female Height: 62 in * Age: 71 yrs Ethnicity: [place] Weight: 160 lb * Ordering Physician: Yordan Monreal * Referring Physician: Self, Referred * Performed By: Kasandra Nance, [facility] * * Reason For Study: AMI * BSA: 1.7 m2 * Normal overall left ventricular systolic function. * Mild concentric left ventricular hypertrophy. * Class I left ventricular diastolic dysfunction. * Mild right atrial and right ventricular dilatation. * Basal inferior hypokinesis of the left ventricle. * Right ventricular systolic dysfunction. * Trace aortic, mitral, and tricuspid regurgitation. * Compared to echo of 02/09/17 small area of basal inferior hypokinesis is now present. * -- Conclusions -- * Aortic valve sclerosis mild, without significant aortic valvular stenosis. Procedure Details * A complete two-dimensional transthoracic echocardiogram was performed (2D, M-mode, Doppler and color flow Doppler). * A contrast injection of Definity was performed to improve assessment of LV function. * Contrast was injected into an intravenous site in the central line. * One vial of Definity ultrasound contrast was diluted in normal saline to a total volume of 10 ml. A total of '2' ml of solution was administered during imaging. * Lot # [id number] of Definity utilized for procedure. * Expiration date APR 19. * The attending nurse who injected the contrast agent was JERMAIN DOLL, RN. Left Ventricle * The left ventricle is normal in size. * There is no thrombus. * There is mild concentric left ventricular hypertrophy. * A full diastolic examination was done with clinical findings of Class I diastolic dysfunction. * Ejection Fraction = 60-65%. * Left ventricular systolic function is normal. * Very localized basal inferior hypokinesis. Right Ventricle * The right ventricle is mildly dilated. * The right ventricular systolic function is moderately reduced. Atria * The left atrial size is normal. * The right atrium is mildly dilated. * No ASD detected; PFO is not assessed. Mitral Valve * The mitral valve is normal. * There is mild mitral annular calcification. * There is trace mitral regurgitation. Tricuspid Valve * The tricuspid valve is normal. * There is trace tricuspid regurgitation. * Right ventricular systolic pressure is normal. Aortic Valve * The aortic valve is trileaflet. * The aortic valve opens well. * Aortic valve sclerosis mild, without significant aortic valvular stenosis. * Trace aortic regurgitation. Pulmonic Valve * The pulmonic valve is not well visualized. * The pulmonary valve is inadequately visualized, but the Doppler data is adequate for interpretation. * There is no pulmonic valvular stenosis. * There is no significant pulmonary regurgitation. Great Vessels * The aortic root is normal size. Pericardium/Pleural * There is no pericardial effusion. Great Vessels * The inferior vena cava is mildly dilated. MMode 2D Measurements and Calculations IVSd 1.2 cm IVSs 1.2 cm LVIDd 4.4 cm LVIDs 3.1 cm LVPWd 1.2 cm LVPWs 1.1 cm IVS/LVPW 1.0 FS 30.3 % EDV(Teich) 88.0 ml ESV(Teich) 37.1 ml EF(Teich) 57.9 % EDV(cubed) 85.6 ml ESV(cubed) 29.0 ml EF(cubed) 66.2 % % IVS thick -1.83 % % LVPW thick -1.45 % LV mass(C)d 184.5 grams LV mass(C)dI 106.1 grams/m\S\2 LV mass(C)s 105.2 grams LV mass(C)sI 60.5 grams/m\S\2 SV(Teich) 51.0 ml SI(Teich) 29.3 ml/m\S\2 SV(cubed) 56.6 ml SI(cubed) 32.6 ml/m\S\2 Ao root diam 3.0 cm Ao root area 7.0 cm\S\2 LA dimension 3.5 cm LA/Ao 1.2 LVOT diam 1.9 cm LVOT area 2.8 cm\S\2 Doppler Measurements and Calculations MV E max arelis 76.0 cm/sec MV A max arelis 98.7 cm/sec MV E/A 0.77 MV P1/2t max arelis 83.6 cm/sec MV P1/2t 73.2 msec MVA(P1/2t) 3.0 cm\S\2 MV dec slope 334.3 cm/sec\S\2 MV dec time 0.20 sec Ao V2 max 120.1 cm/sec Ao max PG 5.8 mmHg Ao max PG (full) 3.3 mmHg EDEN(V,A) 1.8 cm\S\2 EDEN(V,D) 1.8 cm\S\2 LV V1 max PG 2.5 mmHg LV V1 max 78.7 cm/sec
[2017-02-13 22:27] LABS: HEMATOCRIT 34.9 % (37-47)
[2017-02-13 22:44] LABS: POTASSIUM 4.9 mmol/L (3.5-5.1)
[2017-02-14] VITALS (23 sets, daily range): BP systolic 119–174; BP diastolic 62–90; PULSE 79–120; TEMP 36.7–37.3; O2SAT 86–95
[2017-02-14] MEDS: ALBUT/IPRATROP 3MG/0.5MG NEB 3 ML VIAL INH SCH ×6 (02:15→23:24)
[2017-02-14] MEDS: ALUMINUM/MAGNESIUM SUSP 72 ML, LIDOCAINE HCL 2% VISCOUS SOLN 24 ML, BARCODE IDENTIFIER ... PO PRN ×2 (02:35)
[2017-02-14] MEDS: MoRPHine SULFATE 2 MG/ML CARP IV PRN ×5 (02:36→21:29)
[2017-02-14] MEDS: PANTOprazole INJ 40 MG in DEXTROSE 5% 100ML IV SCH ×5 (04:04→22:54)
[2017-02-14 05:27] LABS: HEMATOCRIT 34.1 % (37-47); MEAN CELL VOLUME 95.5 fL (80-100); MEAN CORPUSCULAR HEMOGLOBIN 31.4 pg (25-34); MEAN CORPUSCULAR HGB CONC 32.8 g/dl (32-36); MEAN PLATELET VOLUME 10.2 fL (7.4-10.4); PLATELET COUNT 165 K/uL (130-400); RED BLOOD COUNT 3.57 M/uL (4.2-5.4); WHITE BLOOD COUNT 13.92 K/uL (4.8-10.8)
[2017-02-14 05:58] LABS: BUN/CREATININE RATIO 33.3 (10-20); CALCIUM 7.3 mg/dl (8.5-10.1); CREATININE 0.77 mg/dl (0.60-1.20); MAGNESIUM 2.3 mg/dl (1.8-2.4); POTASSIUM 4.8 mmol/L (3.5-5.1)
[2017-02-14 06:04] LABS: BASO % 0.1 %; BASO ABS # 0.01 K/uL (0-0.2); COMPLETE YES; IG% 0.4 %; LYMPH % 6.2 %; LYMPH ABS # 0.86 K/uL (1.2-3.4); MONO % 9.8 %; NEUT % 83.5 %
[2017-02-14] MEDS ORDERED: METOPROLOL TARTRATE 1 MG/ML VIAL ONE (06:42)
[2017-02-14] MEDS ORDERED: METOPROLOL TARTRATE 1 MG/ML VIAL IV STA (06:57)
[2017-02-14] MEDS ORDERED: FUROSEMIDE 40 MG/4 ML VIAL ONE (06:58)
[2017-02-14] MEDS ORDERED: FUROSEMIDE INJ 20 MG in SYRINGE 0 ML IV STA (06:59)
[2017-02-14] MEDS ORDERED: NURSING VERBAL MED ORDER STA ×2 (07:59→16:35)
[2017-02-14] MEDS ORDERED: DILTIAZEM HCL INJ 5 MG in SYRINGE 0 ML IV STA (08:09)
--- NOTE | 2017-02-14 08:21 | DIAGNOSTIC IMAGING REPORT ---
CHEST ONE VIEW PORTABLE HISTORY: Monitoring for pulmonary edema COMPARISON: Chest 02/13/2017. FINDINGS: Right jugular central venous catheter terminates in the SVC/right brachiocephalic junction. This remains unchanged. Calcified granuloma within the right upper lobe. Right basilar interstitial thickening, unchanged. The heart is top normal in size. No evidence for pulmonary edema. No pleural effusions. No pneumothorax. IMPRESSION: No significant change compared to the prior study. No acute process. Electronically signed by: Bernard Griffith M.D. 02/14/2017 8:20 AM Dictated Date/Time: 02/14/2017 8:19 AM
[2017-02-14] MEDS: FLUTICASONE PROPIONATE NA SPR 16 GM BTL SCH (08:46)
[2017-02-14] MEDS: ATORVASTATIN 40 MG TAB PO SCH (08:46)
[2017-02-14] MEDS: BUDESONIDE/FORMOTEROL FUMARATE 80/4.5 60 PUFFS/INHALER INH SCH ×2 (08:46→20:55)
[2017-02-14] MEDS ORDERED: AMIODARONE IV BOLUS / DRIP IV STA (08:55)
[2017-02-14] MEDS ORDERED: AMIODARONE 360MG / 200ML D5W ONE (08:59)
[2017-02-14] MEDS ORDERED: AMIODARONE 150MG / 100ML D5W ONE (08:59)
[2017-02-14] MEDS ORDERED: AMIODARONE / D5W 100 ML IV ONE (09:00)
[2017-02-14] MEDS ORDERED: AMIODARONE / D5W 200 ML IV SCH (09:10)
--- NOTE | 2017-02-14 09:23 | Critical Care Progress Note ---
Critical Care Progress Note Date of Service Feb 14, 2017. ICU Day ICU Day Number: [address] Olga Dubose Subjective Converted to atrial fibrillation this morning at 06:26 Noted to nursing that she was having chest pain No episodes of GI bleeding yesterday No other acute issues overnight. I arrived at the bedside, patient states that she is short of breath and having chest pain Chest pain described as burning that helps with sitting up. States that she also feels it in her back. No radiation to jaw or arms Objective Constitutional: Vital signs as above were reviewed. Patient has somewhat dusky complexion but this is noted to be her baseline Eyes: Pupils equal, round, and reactive to light. Extraocular muscles are intact. No proptosis. No photophobia. ENT: Mucous membranes are moist. Oropharynx is clear. No sinus tenderness. Central Venous Catheter Placement Cardiovascular: Heart with a regular rate and rhythm. Pulses are palpable and symmetric in all 4 extremities. No pedal edema appreciated. Audible but reduced heart sounds; same as prior examination No JVD No chest wall tenderness Respiratory: Bilateral expiratory wheezing and bilateral coarse breath sounds GI: Abdomen soft, nontender, nondistended. Normal active bowel sounds. No abdominal hernias appreciated. No rebound. No guarding. : No CVA tenderness appreciated. Musculoskeletal: No midline cervical or vertebral tenderness. No gross deformities. No bony tenderness. No calf swelling or tenderness. Integumentary: Warm, dry Bruising on upper extremities Neurological: Patient awake, alert, and oriented x 3. Cranial nerves two through 12 grossly intact. CAM-ICU negative Lymph: No cervical lymphadenopathy appreciated. Current SOFA Score SOFA Score Response (Comments) Value Platelets (x10) > 150 0 Bilirubin (mg/dL) < 1.2 0 Sanger Coma Score 15 0 Level of Hypotension No Hypotension 0 Creatinine (mg/dL) < 1.2 0 Total 0 Assessment & Plan (1) Atrial fibrillation with rapid ventricular response (2) Acute on chronic respiratory failure with hypoxemia (3) Acute GI bleeding (4) STEMI (ST elevation myocardial infarction) (5) NSTEMI (non-ST elevated myocardial infarction) (6) Coronary artery disease (7) Hyperlipidemia (8) Hypertension (9) Chronic use of steroids (10) Anxiety (11) COPD (chronic obstructive pulmonary disease) Our plan for her is as follows: NEUROLOGICAL - GCS: 15 - CAM-ICU negative - Pain regimen: Morphine 2 mg q30 minutes for pain Only required 1 dose overnight - Anxiety: Continue Librium TID, which is a chronic home regimen CARDIOVASCULAR Atrial Fibrillation with RVR - 2.5 mg Lopressor IV given this morning, sBP went from 130 --> transiently then recovered - 5 Cardizem IV given --> patient converted to rate controlled flutter - Discussed with cardiology, start Amiodarone infusion - Hold on therapeutic anticoagulation at this stage in case patient converts; with possible GI bleed, if we need to start heparin infusion, she should have q6 hour H&H checks NSTEMI; currently evolving STEMI - Inferior ST elevation post-catheterization; consistent with sit of catheter fragmentation, with likely distal plaque embolization - No new EKG changes noted - Continue Telemetry monitoring - Repeat echo does show a new inferior wall hypokinesis, consistent with territory of infarct on EKG - Troponins trending 42 -->39 --> 44 --> 36 Continue to trend q8 hours - Continue with AM EKGs - Nitroglycerine infusion as tolerated for chest pain OR Morphine PRN for chest pain if concerns for hypotension - Secondary prevention: DAPT on hold due to acute GI bleed Continue Atorvastatin Addition of oral Beta Maurice may help with HR control - Cardiology following; recommendation appreciated Hypertension - When tolerated, starting new Beta-maurice with post-PR benefits should be substituted in instead of home Atenolol - ACEi RESPIRATORY Acute on Chronic Hypoxemic Respiratory Failure - RR: 25-30 - Acute respiratory distress as noted by increased O2 requirements from 3 --> 4.5 L this morning - Globally + 5.5 L from admission; wheezing on examination - 20 mg IV Lasix - 1 DuoNeb treatment COPD - Continue Albuterol QID and Q2h PRN for SOB - Continue Symbicort - Continue Prednisone 20 mg daily; she is on this dose chronically - Chronically O2 dependent GASTROINTESTINAL - Diet: Advance diet as tolerated - GI Prophylaxis: Continue Protonix infusion for additional 24 hours - Bowel regimen: Most recent BM 02/11 Miralax PRN Acute GI bleeding - Space H&H to q 12 hours - 2 units already transfused; 2 additional units on hold - Protonix infusion for 24 hours; scale down to Protonix BID in 24 hours if stable - Goal to transfuse in the setting of STEMI; < 9.0 RENAL//ENDOCRINE Mild ESTEFANIA - Resolved - Cr improved to 0.77 - Electrolytes: Borderline hyperkalemia: Improved to 4.8 this morning - BSG: AC/HS checks, q6h when fasting No known hx of diabetes HbA1c 5.9 Within range from 90-160 - Chronic Prednisone use for COPD Continue 20 mg Prednisone HEMATOLOGY/INFECTIOUS DISEASE - Afebrile with mild leukocytosis 13: No evidence of infection at this time Acute Blood Loss Anemia - Hb prior to ICU arrival was 14 - 2 episode of alex colored stool 2 days prior; Hb drop to 9s --> 2 units given --> Hb recovered to > 11 - H&H stable today at 11.2/34.1 - H&H q 12 hours - Hold antiplatelets; will start prophylactic anticoagulation for DVT prophylaxis today - Goal to transfuse is Hb < 9 (due to concurrent STEMI); 2 units on hold in blood bank DVT Prophylaxis - SCD - No evidence of GI bleeding in 24 hours - We will start Prophylactic heparin 5000 TID today LINES/IV ACCESS - Right forearm 20 G - Right IJ CVC inserted 02/12/2017 CODE STATUS - Full Code without intubation/ventilation DISPOSITION - OT/PT: Ordered - ICU monitoring for post-cardiac cath complications Resident Physician Supervision Note/Track Oiler I interviewed and examined the patient. Discussed with Dr. Monreal and agree with findings and plan as documented in the note. Any exceptions or clarifications can be found in my dictated addendum. Documented By: Olga Dubose Consults & Procedures Consultants: Cardiology Intensive Care Unit Procedures: Triple Lumen CVC placement in the right IJ Data Medications: Current Inpatient Medications Medications (Trade) Dose Ordered Sig/Jessi Route Start Time Stop Time Status Last Admin Dose Admin Aspirin (Ecotrin Tab) 81 mg QPM PO 02/09/17 21:00 03/11/17 20:59 Future Hold 02/11/17 20:18 81 MG Budesonide/ Formoterol Fumarate (Symbicort 80/ 4.5 Inh) 2 puffs BID INH 02/09/17 09:00 03/11/17 08:59 02/14/17 08:46 2 PUFFS Chlordiazepoxide (Librium Cap) 10 mg TID PRN PO 02/09/17 01:00 03/11/17 00:59 02/13/17 00:09 10 MG Clopidogrel Bisulfate (plAVix TAB) 75 mg QPM PO 02/09/17 21:00 03/11/17 20:59 Future Hold 02/11/17 20:18 75 MG Fluticasone Propionate (Flonase Nasal [place]) 2 sprays DAILY NA 02/09/17 09:00 03/11/17 08:59 02/14/17 08:46 2 SPRAYS Prednisone (PredniSONE TAB) 20 mg DAILY PO 02/09/17 09:00 03/11/17 08:59 02/14/17 08:46 20 MG Atenolol (Tenormin Tab) 100 mg QAM PO 02/09/17 09:00 03/11/17 08:59 Future Hold Acetaminophen (Tylenol Tab) 650 mg Q4H PRN PO 02/09/17 01:30 03/11/17 01:29 02/12/17 14:34 650 MG Al Hydrox/Mg Hydrox/Simethicone (Maalox Max Susp) 15 ml Q4H PRN PO 02/09/17 01:30 03/11/17 01:29 Magnesium Hydroxide (Milk Of Magnesia Susp) 30 ml Q12H PRN PO 02/09/17 01:30 03/11/17 01:29 Ondansetron HCl (Zofran Inj) 4 mg Q6H PRN IV 02/09/17 01:30 03/11/17 01:29 02/12/17 19:31 4 MG Nitroglycerin (Nitrostat Tab) 0.4 mg UD PRN SL 02/09/17 01:30 03/11/17 01:29 Morphine Sulfate (MoRPHine SULFATE INJ) 2 mg Q30M PRN IV 02/09/17 01:30 02/23/17 01:29 02/14/17 02:36 2 MG Polyethylene (Miralax Powder Packet) 17 gm DAILY PRN PO 02/09/17 01:30 03/11/17 01:29 Heparin Sodium/ Dextrose 500 ml @ 19 mls/hr Q24H PRN IV 02/09/17 01:30 03/11/17 01:29 Future Hold 02/12/17 08:17 19 MLS/HR Atorvastatin Calcium (Lipitor Tab) 80 mg QAM PO 02/10/17 09:00 03/11/17 08:59 02/14/17 08:46 80 MG Albuterol/ Ipratropium (Duoneb) 3 ml Q4R INH 02/12/17 20:00 7/13/17 19:59 02/14/17 07:00 3 ML Pantoprazole Sodium 40 mg/ Dextrose 100 ml @ 20 mls/hr Q5H IV 02/12/17 21:00 03/14/17 20:59 02/14/17 08:16 20 MLS/HR Calcium Carbonate (Tums Chew Tab) 500 mg PRN PRN PO 02/13/17 00:15 03/15/17 00:14 02/13/17 06:02 500 MG Heparin Sodium (Porcine) (Heparin 10 Unit/ ml 5 ml Flush) 5 ml PRN PRN FLUSH 02/13/17 01:30 03/15/17 01:29 Al Hydroxide/Mg Hydroxide/ Lidocaine HCl/ Barcode BID PRN PO 02/13/17 09:45 03/15/17 09:44 02/14/17 02:35 24 ML Labetalol HCl (Normodyne IV) 10 mg Q6H PRN IV 02/13/17 14:15 03/15/17 14:14 02/13/17 21:26 10 MG Vital Signs: Date Time Temp Pulse Resp B/P (MAP) Pulse Ox O2 Delivery O2 Flow Rate FiO2 02/14/17 08:00 112 20 140/62 (88) 93 Nasal Cannula 4.0 02/14/17 08:00 Nasal Cannula 4.0 02/14/17 07:00 120 30 86 Nasal Cannula 4.0 02/14/17 06:42 145 134/76 02/14/17 06:01 106 28 134/86 (102) 88 Nasal Cannula 4.5 02/14/17 04:01 37.3 105 27 159/79 (105) 93 02/14/17 04:00 95 Nasal Cannula 4.0 02/14/17 03:01 99 27 140/79 (99) 92 02/14/17 02:15 108 30 94 Mask 4.0 02/14/17 02:01 110 34 163/83 (109) 92 02/14/17 00:11 100 27 154/86 (108) 94 02/14/17 00:01 36.7 97 25 174/90 (118) 95 Nasal Cannula 4.0 02/14/17 00:00 95 Nasal Cannula 4.0 02/13/17 23:51 95 23 148/88 (108) 95 02/13/17 22:45 90 18 97 Nasal Cannula 3.0 02/13/17 22:00 95 24 145/80 (101) 96 Nasal Cannula 4.0 02/13/17 20:00 94 Nasal Cannula 4.0 02/13/17 20:00 36.6 96 20 157/84 (108) 96 Nasal Cannula 4.0 02/13/17 19:04 87 20 94 Nasal Cannula 3.0 02/13/17 18:15 103 20 152/84 (106) 93 Nasal Cannula 4.0 02/13/17 16:00 92 20 139/87 (104) 93 Nasal Cannula 4.0 02/13/17 16:00 Nasal Cannula 4.0 02/13/17 15:07 79 18 93 Nasal Cannula 3.0 02/13/17 14:17 86 20 106/75 (85) 93 Nasal Cannula 4.0 02/13/17 14:08 79 20 80/63 (69) 92 Nasal Cannula 4.0 02/13/17 12:00 103 20 150/87 (108) 95 Nasal Cannula 4.0 02/13/17 12:00 Nasal Cannula 4.0 02/13/17 11:20 88 18 97 Nasal Cannula 3.0 02/13/17 10:00 94 18 133/83 (100) 96 Nasal Cannula 4.0 Laboratory Results: Last 24 Hours Test 02/13/17 10:02 02/13/17 11:20 02/13/17 16:00 02/13/17 16:04 Hemoglobin 11.6 g/dL 11.6 g/dL Hematocrit 35.8 % 35.5 % Potassium Level 4.9 mmol/L Troponin I 42.700 ng/ml 39.500 ng/ml Bedside Glucose 106 mg/dl Lactic Acid Level 2.6 mmol/L Test 02/13/17 22:08 02/13/17 22:14 02/14/17 05:13 02/14/17 05:58 Bedside Glucose 98 mg/dl 93 mg/dl Hemoglobin 11.1 g/dL 11.2 g/dL Hematocrit 34.9 % 34.1 % Potassium Level 4.9 mmol/L 4.8 mmol/L Troponin I 44.600 ng/ml 36.100 ng/ml White Blood Count 13.92 K/uL Red Blood Count 3.57 M/uL Mean Corpuscular Volume 95.5 fL Mean Corpuscular Hemoglobin 31.4 pg Mean Corpuscular Hemoglobin Concent 32.8 g/dl Platelet Count 165 K/uL Mean Platelet Volume 10.2 fL Neutrophils (%) (Auto) 83.5 % Lymphocytes (%) (Auto) 6.2 % Monocytes (%) (Auto) 9.8 % Eosinophils (%) (Auto) 0.0 % Basophils (%) (Auto) 0.1 % Neutrophils # (Auto) 11.63 K/uL Lymphocytes # (Auto) 0.86 K/uL Monocytes # (Auto) 1.36 K/uL Eosinophils # (Auto) 0.00 K/uL Basophils # (Auto) 0.01 K/uL RDW Standard Deviation 59.3 fL RDW Coefficient of Variation 16.9 % Immature Granulocyte % (Auto) 0.4 % Immature Granulocyte # (Auto) 0.06 K/uL Red Blood Cell Morphology Unremarkable Sodium Level 139 mmol/L Chloride Level 108 mmol/L Carbon Dioxide Level 26 mmol/L Anion Gap 5.0 mmol/L Blood Urea Nitrogen 26 mg/dl Creatinine 0.77 mg/dl Est Creatinine Clear Calc Drug Dose 60.7 ml/min Estimated GFR () 88.8 Estimated GFR (Non- 76.6 BUN/Creatinine Ratio 33.3 Random Glucose 102 mg/dl Calcium Level 7.3 mg/dl Magnesium Level 2.3 mg/dl Test 02/14/17 07:19 Lactic Acid Level 1.1 mmol/L Pro-B-Type Natriuretic Peptide 1774 pg/ml Procalcitonin 0.08 ng/ml
[2017-02-14] MEDS: HEPARIN SOD 5000 UNIT/0.5 ML CARP SQ SCH ×2 (13:57→22:00)
--- NOTE | 2017-02-14 14:23 | CRITICAL CARE PROGRESS NOTE ---
DATE: 02/14/2017 ADDENDUM Please accept this as an addendum to the critical care progress note done by Dr. Monreal earlier today. The patient's care was discussed in detail on multidisciplinary rounds. I have reviewed the vital signs, I's and O's, notes, medications, labs, microbiology, imaging and other reports. I have also discussed the patient's care with Dr. Monreal. I have personally interviewed and examined the patient. She was short of breath earlier today and went into atrial fibrillation. She also had chest discomfort which was different from her pain yesterday. I saw her before rounds. At that time she had very decreased breath sounds bilaterally but was not really wheezing all that much. Her heart rate was around 120. She was given 2.5 mg of Lopressor. lasix 20mg and eventually 5 mg of Cardizem. EKG was reviewed and after discussion with Dr. Vu she has been placed on an amiodarone infusion. Her chest discomfort has improved. She has not had any further bloody bowel movements and remains on a Protonix infusion. She is taking a clear liquid diet and tolerating that. She has not required any further blood transfusions after the 2 units she received [address] Monreal's note has been reviewed. I agree with his impression and plan. Overall, she continues to complete her acute inferior wall myocardial infarction. Echocardiogram report from yesterday was reviewed and is without much change. I agree with Lasix and Lopressor. Hopefully she will return to sinus rhythm with the amiodarone. Continue to follow blood counts q12 h for her acute anemia of blood loss, and plan to change the Protonix to 40 mg IV b.i.d. tomorrow. Her diet can be advanced. Consider adding back baby aspirin tomorrow. Continue physical therapy and occupational therapy. Please call me with any questions or concerns. Her family was updated in detail yesterday. I have not had a chance to talk to them today yet, but will do so when I see them. YAMILET
[2017-02-14] MEDS: AMIODARONE / D5W 200 ML IV SCH (14:33)
--- NOTE | 2017-02-14 14:53 | Progress Note ---
Subjective Date of Service: Feb 14, 2017. Subjective Pt evaluation today including: conversation w/ patient, physical exam, lab review, conversation w/ bank consultant, review of inpatient medication list Pain: had some chest pain this AM, resolved PO Intake: adequate Voiding: del castillo catheter in place patient went into afib with some RVR this AM HR controlled with Lopressor, Cardizem and Amiodarone gtt started patient developed some respiratory distress with pulmonary edema, responded well to Lasix when I saw patient, she was breathing more comfortably, but was still having more dyspnea than yesterday no more chest pain appetite slightly diminished discussed plan to control HR and rest in the ICU I reviewed the labs I discussed the case with Dr. Monreal and Dr. Dubose and appreciate cardiology recommendations Problem List Medical Problems: (1) Abnormal EKG Status: Acute (2) Abnormal EKG Status: Acute (3) Chest pain Status: Acute (4) COPD exacerbation Status: Acute (5) Diarrhea Status: Acute (6) Elevated troponin Status: Acute (7) Hypokalemia Status: Acute (8) Hypotension Status: Acute (9) Hypoxemia Status: Acute (10) NSTEMI (non-ST elevated myocardial infarction) Status: Acute (11) Precordial chest pain Status: Acute Review of Systems Constitutional: + weakness, + fatigue Respiratory: + cough, + shortness of breath Cardiac: + chest pain Neurologic: + weakness All Other Systems: Reviewed and Negative Medications Current Inpatient Medications Medications (Trade) Dose Ordered Sig/Jessi Route Start Time Stop Time Status Last Admin Dose Admin Aspirin (Ecotrin Tab) 81 mg QPM PO 02/09/17 21:00 03/11/17 20:59 Future Hold 02/11/17 20:18 81 MG Budesonide/ Formoterol Fumarate (Symbicort 80/ 4.5 Inh) 2 puffs BID INH 02/09/17 09:00 03/11/17 08:59 02/14/17 08:46 2 PUFFS Chlordiazepoxide (Librium Cap) 10 mg TID PRN PO 02/09/17 01:00 03/11/17 00:59 02/13/17 00:09 10 MG Clopidogrel Bisulfate (plAVix TAB) 75 mg QPM PO 02/09/17 21:00 03/11/17 20:59 Future Hold 02/11/17 20:18 75 MG Fluticasone Propionate (Flonase Nasal [place]) 2 sprays DAILY NA 02/09/17 09:00 03/11/17 08:59 02/14/17 08:46 2 SPRAYS Prednisone (PredniSONE TAB) 20 mg DAILY PO 02/09/17 09:00 03/11/17 08:59 02/14/17 08:46 20 MG Atenolol (Tenormin Tab) 100 mg QAM PO 02/09/17 09:00 03/11/17 08:59 Future Hold Acetaminophen (Tylenol Tab) 650 mg Q4H PRN PO 02/09/17 01:30 03/11/17 01:29 02/12/17 14:34 650 MG Al Hydrox/Mg Hydrox/Simethicone (Maalox Max Susp) 15 ml Q4H PRN PO 02/09/17 01:30 03/11/17 01:29 Magnesium Hydroxide (Milk Of Magnesia Susp) 30 ml Q12H PRN PO 02/09/17 01:30 03/11/17 01:29 Ondansetron HCl (Zofran Inj) 4 mg Q6H PRN IV 02/09/17 01:30 03/11/17 01:29 02/12/17 19:31 4 MG Nitroglycerin (Nitrostat Tab) 0.4 mg UD PRN SL 02/09/17 01:30 03/11/17 01:29 Morphine Sulfate (MoRPHine SULFATE INJ) 2 mg Q30M PRN IV 02/09/17 01:30 02/23/17 01:29 02/14/17 09:02 2 MG Polyethylene (Miralax Powder Packet) 17 gm DAILY PRN PO 02/09/17 01:30 03/11/17 01:29 Atorvastatin Calcium (Lipitor Tab) 80 mg QAM PO 02/10/17 09:00 03/11/17 08:59 02/14/17 08:46 80 MG Albuterol/ Ipratropium (Duoneb) 3 ml Q4R INH 02/12/17 20:00 03/14/17 19:59 02/14/17 07:00 3 ML Pantoprazole Sodium 40 mg/ Dextrose 100 ml @ 20 mls/hr Q5H IV 02/12/17 21:00 03/14/17 20:59 02/14/17 13:27 20 MLS/HR Calcium Carbonate (Tums Chew Tab) 500 mg PRN PRN PO 02/13/17 00:15 03/15/17 00:14 02/13/17 06:02 500 MG Heparin Sodium (Porcine) (Heparin 10 Unit/ ml 5 ml Flush) 5 ml PRN PRN FLUSH 02/13/17 01:30 03/15/17 01:29 Al Hydroxide/Mg Hydroxide/ Lidocaine HCl/ Barcode BID PRN PO 02/13/17 09:45 03/15/17 09:44 02/14/17 02:35 24 ML Labetalol HCl (Normodyne IV) 10 mg Q6H PRN IV 02/13/17 14:15 03/15/17 14:14 02/13/17 21:26 10 MG Amiodarone HCL/ Dextrose 200 ml @ 33.3 mls/hr Q6H1M IV 02/14/17 09:10 02/14/17 15:10 02/14/17 09:04 33.3 MLS/HR Amiodarone HCL/ Dextrose 200 ml @ 16.7 mls/hr [id number] IV 02/14/17 15:10 03/16/17 15:09 02/14/17 14:33 16.7 MLS/HR Heparin Sodium (Porcine) (Heparin Sq 5000 Unit/0.5ml) 5,000 unit Q8 SQ 02/14/17 14:00 03/16/17 13:59 02/14/17 13:57 5,000 UNIT Objective Vital Signs Date Time Temp Pulse Resp B/P (MAP) Pulse Ox O2 Delivery O2 Flow Rate FiO2 02/14/17 14:04 84 28 138/73 (94) 93 Nasal Cannula 4.0 02/14/17 12:00 Nasal Cannula 4.0 02/14/17 12:00 91 20 129/75 (93) 95 Nasal Cannula 4.0 02/14/17 10:25 92 20 119/75 (90) 92 Nasal Cannula 4.0 02/14/17 08:00 112 20 140/62 (88) 93 Nasal Cannula 4.0 02/14/17 08:00 Nasal Cannula 4.0 02/14/17 07:00 120 30 86 Nasal Cannula 4.0 02/14/17 06:42 145 134/76 02/14/17 06:01 106 28 134/86 (102) 88 Nasal Cannula 4.5 02/14/17 04:01 37.3 105 27 159/79 (105) 93 02/14/17 04:00 95 Nasal Cannula 4.0 02/14/17 03:01 99 27 140/79 (99) 92 02/14/17 02:15 108 30 94 Mask 4.0 02/14/17 02:01 110 34 163/83 (109) 92 02/14/17 00:11 100 27 154/86 (108) 94 02/14/17 00:01 36.7 97 25 174/90 (118) 95 Nasal Cannula 4.0 02/14/17 00:00 95 Nasal Cannula 4.0 02/13/17 23:51 95 23 148/88 (108) 95 02/13/17 22:45 90 18 97 Nasal Cannula 3.0 02/13/17 22:00 95 24 145/80 (101) 96 Nasal Cannula 4.0 02/13/17 20:00 94 Nasal Cannula 4.0 02/13/17 20:00 36.6 96 20 157/84 (108) 96 Nasal Cannula 4.0 02/13/17 19:04 87 20 94 Nasal Cannula 3.0 02/13/17 18:15 103 20 152/84 (106) 93 Nasal Cannula 4.0 02/13/17 16:00 92 20 139/87 (104) 93 Nasal Cannula 4.0 02/13/17 16:00 Nasal Cannula 4.0 02/13/17 15:07 79 18 93 Nasal Cannula 3.0 Physical Exam General Appearance: WD/WN, no apparent distress Eyes: normal inspection, EOMI, sclerae normal Neck: supple, no adenopathy, no JVD, trachea midline Respiratory/Chest: chest non-tender, no respiratory distress, no accessory muscle use, + decreased breath sounds, + crackles (bases) Cardiovascular: no edema, no gallop, no JVD, no murmur, + irregularly irregular Abdomen: normal bowel sounds, non tender, soft, no organomegaly Extremities: normal range of motion, non-tender, normal inspection, no pedal edema, no calf tenderness Neurologic/Psychiatric: photograph mounter II-XII nml as tested, alert, normal mood/affect, oriented x 3, + motor weakness (generalized) Skin: normal color, warm/dry, no rash Laboratory Results Last 24 Hours Test 6/14/17 16:00 02/13/17 16:04 02/13/17 22:08 02/13/17 22:14 Hemoglobin 11.6 g/dL 11.1 g/dL Hematocrit 35.5 % 34.9 % Lactic Acid Level 2.6 mmol/L Troponin I 39.500 ng/ml 44.600 ng/ml Bedside Glucose 98 mg/dl Potassium Level 4.9 mmol/L Test 02/14/17 05:13 02/14/17 05:58 02/14/17 07:19 02/14/17 11:18 White Blood Count 13.92 K/uL Red Blood Count 3.57 M/uL Hemoglobin 11.2 g/dL Hematocrit 34.1 % Mean Corpuscular Volume 95.5 fL Mean Corpuscular Hemoglobin 31.4 pg Mean Corpuscular Hemoglobin Concent 32.8 g/dl Platelet Count 165 K/uL Mean Platelet Volume 10.2 fL Neutrophils (%) (Auto) 83.5 % Lymphocytes (%) (Auto) 6.2 % Monocytes (%) (Auto) 9.8 % Eosinophils (%) (Auto) 0.0 % Basophils (%) (Auto) 0.1 % Neutrophils # (Auto) 11.63 K/uL Lymphocytes # (Auto) 0.86 K/uL Monocytes # (Auto) 1.36 K/uL Eosinophils # (Auto) 0.00 K/uL Basophils # (Auto) 0.01 K/uL RDW Standard Deviation 59.3 fL RDW Coefficient of Variation 16.9 % Immature Granulocyte % (Auto) 0.4 % Immature Granulocyte # (Auto) 0.06 K/uL Red Blood Cell Morphology Unremarkable Sodium Level 139 mmol/L Potassium Level 4.8 mmol/L Chloride Level 108 mmol/L Carbon Dioxide Level 26 mmol/L Anion Gap 5.0 mmol/L Blood Urea Nitrogen 26 mg/dl Creatinine 0.77 mg/dl Est Creatinine Clear Calc Drug Dose 60.7 ml/min Estimated GFR () 88.8 Estimated GFR (Non- 76.6 BUN/Creatinine Ratio 33.3 Random Glucose 102 mg/dl Calcium Level 7.3 mg/dl Magnesium Level 2.3 mg/dl Troponin I 36.100 ng/ml Bedside Glucose 93 mg/dl 145 mg/dl Lactic Acid Level 1.1 mmol/L Pro-B-Type Natriuretic Peptide 1774 pg/ml Procalcitonin 0.08 ng/ml Test 02/14/17 14:00 Assessment and Plan 71 y/o F 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 Presents following an episode of severe central CP which lasted approximately 30 min. The pain was accompanied by SOB, lightheadedness and diaphoresis. At one point she was ambulating with the ongoing pain and she became light headed, collapsed on the floor without LOC and lost control of her bowels. On arrival to the ER she is asymptomatic however her troponin is markedly elevated. - NSTEMI: rise and fall in troponin, chest pain, EKG consistent with ischemia treated conservatively with heparin gtt, Plavix, aspirin, statin, Atenolol held due to sinus pauses in the ED [facility] on 02/12, severe disease in RCA, complicated by guidewire loop becoming dislodged in RCA, stents placed now with a new NSTEMI, troponin up to 37 and then 42, trending back down more chest pain this AM with afib RVR conservative management, however, holding heparin, aspirin and Plavix due to GI bleed, see below - Acute GI bleed: melena on 02/12 with hypotension, was on aspirin and Plavix and heparin gtt which exacerbated the issue BP improved with 2 units of PRBC, Protonix added holding antiplatelets and heparin products Hb stable for over 36 hours now, no further signs of bleeding - New atrial fibrillation, with RVR likely due to ischemia/AZ, HR controlled with Lopressor and Cardizem Amiodarone gtt added to try to convert to sinus rhythm hold on AC due to GI bleed - Hypotension: was due to GI bleed, hemorrhagic shock resolved with 2 units of PRBC - Sinus pause: witnessed in the ED at time of admission, Atenolol held since admission will continue to hold, likely indefinitely d/w Dr. Mosqueda, cause of the pause was likely ischemia - Non-sustained V tach: no further episodes, likely caused by the ischemia - COPD - no current exacerbation - cont inhalers, prednisone, 02 sat% 97 on 4LNC. - HTN - holding BP medications due to bleeding and hypotension - Chronic respiratory failure with hypoxia: currently stable on 3-4L, dyspnea on exertion likely due to NSTEMI - Acute diastolic HF: likely due to afib RVR, responded well to Lasix IV excellent diuresis, breathing better Full code keep in ICU today for close monitoring Continued [facility] stay due to: multiple IV medications needed Discharge planning: home with home health
[2017-02-14] MEDS ORDERED: FUROSEMIDE INJ 20 MG in SYRINGE 0 ML IV SCH (15:30)
[2017-02-14 16:18] LABS: HEMATOCRIT 36.3 % (37-47)
[2017-02-14] MEDS ORDERED: DILTIAZEM HCL 5 MG/ML 5 ML VIAL IV ONE (17:00)
[2017-02-14 21:07] LABS: ISTAT ALLEN TEST Pass; ISTAT ARTERIAL BLOOD GAS HCO3 23 meq/L (19-24); ISTAT ARTERIAL BLOOD GAS PCO2 41 mmHg (35-46); ISTAT ARTERIAL BLOOD GAS PO2 58 mmHg (80-95); ISTAT ARTERIAL BLOOD GAS pH 7.36 (7.35-7.45); ISTAT CARBON DIOXIDE 25 mEq/l (24-31); ISTAT DELIVERY SYSTEM Cannula; ISTAT SITE R Brachial
[2017-02-14] MEDS: CHLORDIAZEPOXIDE 10 MG CAP PO PRN (21:24)
[2017-02-14] MEDS ORDERED: NURSING VERBAL MED ORDER ONE (21:45)
[2017-02-14] MEDS ORDERED: LEVOFLOXACIN 500MG / D5W IV SCH (22:30)
[2017-02-15] VITALS (38 sets, daily range): BP systolic 103–169; BP diastolic 55–99; PULSE 74–132; TEMP 36.4–37.2; O2SAT 89–95
[2017-02-15] MEDS: AMIODARONE / D5W 200 ML IV SCH ×3 (01:23→23:51)
[2017-02-15] MEDS: ALBUT/IPRATROP 3MG/0.5MG NEB 3 ML VIAL INH SCH ×6 (03:48→23:15)
[2017-02-15] MEDS: PANTOprazole INJ 40 MG in DEXTROSE 5% 100ML IV SCH ×2 (03:58→08:14)
[2017-02-15] MEDS: MoRPHine SULFATE 2 MG/ML CARP IV PRN ×2 (05:07→11:41)
[2017-02-15] MEDS: HEPARIN SOD 5000 UNIT/0.5 ML CARP SQ SCH (05:47)
[2017-02-15 05:57] LABS: COMPLETE YES; EOS % 0.1 %; HEMATOCRIT 34.8 % (37-47); IG% 0.4 %; LYMPH % 7.3 %; LYMPH ABS # 1.04 K/uL (1.2-3.4); MEAN CELL VOLUME 94.3 fL (80-100); MEAN CORPUSCULAR HEMOGLOBIN 30.6 pg (25-34); MEAN CORPUSCULAR HGB CONC 32.5 g/dl (32-36); MEAN PLATELET VOLUME 10.2 fL (7.4-10.4); MONO % 10.6 %; NEUT % 81.6 %; PLATELET COUNT 190 K/uL (130-400); RED BLOOD COUNT 3.69 M/uL (4.2-5.4); WHITE BLOOD COUNT 14.17 K/uL (4.8-10.8)
[2017-02-15 06:34] LABS: BUN/CREATININE RATIO 34.3 (10-20); CALCIUM 7.5 mg/dl (8.5-10.1); CREATININE 0.84 mg/dl (0.60-1.20); MAGNESIUM 2.3 mg/dl (1.8-2.4); POTASSIUM 4.1 mmol/L (3.5-5.1)
[2017-02-15 07:26] LABS: PHOSPHORUS 1.8 mg/dl (2.5-4.9)
--- NOTE | 2017-02-15 07:42 | DIAGNOSTIC IMAGING REPORT ---
CHEST ONE VIEW PORTABLE CLINICAL HISTORY: chest pain, COPD, pulmonary congestion dyspnea COMPARISON STUDY: 02/14/2017 FINDINGS: Small developing parenchymal infiltrate right base. Lungs otherwise remain clear. Mild stable cardiomegaly. IMPRESSION: Small developing parenchymal infiltrate right base. Electronically signed by: Kirt Wade M.D. 02/15/2017 7:41 AM Dictated Date/Time: 02/15/2017 7:38 AM
[2017-02-15] MEDS ORDERED: SODIUM PHOSPHATE 3 MMOL/1 ML INFUSION IV STA (07:49)
[2017-02-15] MEDS: FLUTICASONE PROPIONATE NA SPR 16 GM BTL SCH (08:14)
[2017-02-15] MEDS: ATORVASTATIN 40 MG TAB PO SCH (08:14)
[2017-02-15] MEDS: BUDESONIDE/FORMOTEROL FUMARATE 80/4.5 60 PUFFS/INHALER INH SCH ×2 (08:14→21:15)
[2017-02-15] MEDS ORDERED: SODIUM PHOSPHATE INJ 24 MMOL in SODIUM CHLORIDE 0.9% 500ML 500 ML IV SCH (08:30)
[2017-02-15] MEDS: CHLORDIAZEPOXIDE 10 MG CAP PO PRN (11:40)
[2017-02-15 12:10] LABS: BASO % 0.1 %; BASO ABS # 0.01 K/uL (0-0.2); EOS % 0.1 %; HEMATOCRIT 35.5 % (37-47); IG% 0.4 %; LYMPH % 3.3 %; LYMPH ABS # 0.49 K/uL (1.2-3.4); MEAN CELL VOLUME 94.7 fL (80-100); MEAN CORPUSCULAR HEMOGLOBIN 31.7 pg (25-34); MEAN PLATELET VOLUME 10.2 fL (7.4-10.4); MONO % 6.4 %; NEUT % 89.7 %; PLATELET COUNT 197 K/uL (130-400); RED BLOOD COUNT 3.75 M/uL (4.2-5.4); WHITE BLOOD COUNT 14.98 K/uL (4.8-10.8)
[2017-02-15 12:18] LABS: PARTIAL THROMBOPLASTIN RATIO 1.1; PROTHROMBIN TIME (PATIENT) 10.6 SECONDS (9.0-12.0)
[2017-02-15] MEDS: HEPARIN 25,000 UNIT/500ML D5W 500 ML IV PRN (12:19)
[2017-02-15 12:39] LABS: COMPLETE YES; MEAN CORPUSCULAR HGB CONC 33.5 g/dl (32-36)
--- NOTE | 2017-02-15 13:22 | Critical Care Progress Note ---
Critical Care Progress Note Date of Service Feb 15, 2017. ICU Day ICU Day Number: [address] Olga Dubose Subjective Notes that she feels well overall Confirms that breathing is at her baseline currently; does state slight shortness of breath just after having had PT. No other issues overnight Remains Afib on Amiodarone infusion with Rate 130. Objective Constitutional: Vital signs as above were reviewed. Patient has somewhat dusky complexion but this is noted to be her baseline Eyes: Pupils equal, round, and reactive to light. Extraocular muscles are intact. No proptosis. No photophobia. ENT: Mucous membranes are moist. Oropharynx is clear. No sinus tenderness. Central Venous Catheter Placement Cardiovascular: Heart with a regular rate and rhythm. Pulses are palpable and symmetric in all 4 extremities. No pedal edema appreciated. Audible but reduced heart sounds, at baseline No JVD; No chest wall tenderness Respiratory: Bilateral expiratory wheezing and bilateral coarse breath sounds. Diminished breath sounds due to COPD GI: Abdomen soft, nontender, nondistended. Normal active bowel sounds. No abdominal hernias appreciated. No rebound. No guarding. : No CVA tenderness appreciated. Musculoskeletal: No midline cervical or vertebral tenderness. No gross deformities. No bony tenderness. No calf swelling or tenderness. Integumentary: Warm, dry Bruising on upper extremities Neurological: Patient awake, alert, and oriented x 3. Cranial nerves two through 12 grossly intact. CAM-ICU negative Lymph: No cervical lymphadenopathy appreciated. Current SOFA Score SOFA Score Response (Comments) Value Platelets (x10) > 150 0 Bilirubin (mg/dL) < 1.2 0 Bryan Coma Score 15 0 Level of Hypotension No Hypotension 0 Creatinine (mg/dL) < 1.2 0 Total 0 Previous SOFA Scores 0 on 02/14/2017 Assessment & Plan (1) Pneumonia (2) Atrial fibrillation with rapid ventricular response (3) Acute on chronic respiratory failure with hypoxemia (4) Acute GI bleeding (5) STEMI (ST elevation myocardial infarction) (6) NSTEMI (non-ST elevated myocardial infarction) (7) Coronary artery disease (8) Hyperlipidemia (9) Hypertension (10) Chronic use of steroids (11) Anxiety (12) COPD (chronic obstructive pulmonary disease) Our plan for her is as follows: NEUROLOGICAL - Patient is mentating at baseline. GCS is 15 and AO x 3 - Anxiety: Continue Librium TID, which is a chronic home regimen - Pain regimen: Morphine 2 mg q30 minutes for pain CARDIOVASCULAR Atrial Fibrillation with RVR - Remains on Amiodarone infusion; HR overnight raging 90-100 Can consider 5 mg Cardizem boluses for HR > 110 - Was kept off therapeutic anticoagulation yesterday; H&H stable to today; will start therapeutic IV heparin and monitor H&H for recurrence of bleeding NSTEMI; currently evolving STEMI - Inferior ST elevation post-catheterization; consistent with sit of catheter fragmentation, with likely distal plaque embolization - Repeat echo does show a new inferior wall hypokinesis, consistent with territory of infarct on EKG - 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 - H&H stable, can introduce ASA today to regimen; will monitor H&H for recurrence of bleeding - Continue to hold Plavix - Nitro PRN for chest pain - Continue Atorvastatin - May tolerate addition of ACEi and Beta-jalen, will discuss with cardiology - Cardiology following; recommendation appreciated Hypertension - BP 120-140 systolic RESPIRATORY Acute on Chronic Hypoxemic Respiratory Failure - RR 20-30; 94% on 4L basal cannula - 5L +; may benefit from diuresis to reduce pulmonary congestion Pneumonia: Right base; Levaquin started; will check procalcitonin with afternoons labs COPD - Continue Albuterol QID and Q2h PRN for SOB; Continue Symbicort; Chronic Prednisone 20 mg daily - Baseline O2 requirement, 3L by [facility] GASTROINTESTINAL - Diet: Tolerating AHA diet - GI Prophylaxis: Protonix 40 mg IV BID - Bowel regimen: Most recent BM 02/12 Miralax PRN No BM since GI bleeding noted; H&H stable which is reassuring, but need to watch for blood in stool with next BM Acute GI bleeding on 02/11 - No BM since; HB dropped to 9 - Hb improved to 11 after 2 units PRBCs; has remained stable - Hb Stable at 11.3 today - Will be starting heparin today for Afib above; will trend H&H q 6 RENAL//ENDOCRINE - Globally 5L positive, still some increased O2 demands; will diurese with 40 mg IV Lasix today - Cr 0.84 today, ESTEFANIA resolved; could tolerate ACEi but will defer to cardiology - Electrolytes: K 4.1 today; will get diuresis with Lasix; will give 20 mEq KCl to avoid hypokalemia Hypophosphatemia: Phos 1.8; NaPhos repleted - BSG: AC/HS checks, stable in range of 100-150; HbA1c 5.9 - Chronic Prednisone use for COPD; Continue 20 mg Prednisone HEMATOLOGY/INFECTIOUS DISEASE - Afebrile with mild leukocytosis 14, overall stable: No evidence of infection at this time - Pneumonia: persistent hypoxia, new infiltrate at right base. Levaquin started today; check procalcitonin Acute Blood Loss Anemia - Hb on arrival 14 - Hb decreased to 9 after 2 mahoganny stools 02/12; 2 units transfused, Hb recovered to 11, has remained stable - Need to start anticoagulation due to Afib; will re-initiate H&H monitoring today DVT Prophylaxis - SCD - Hold prophylactic heparin - Start therapeutic IV heparin with no bolus LINES/IV ACCESS - Right forearm 20 G - Right IJ CVC inserted 02/12/2017 CODE STATUS - Full Code without intubation/ventilation DISPOSITION - OT/PT: Ordered - ICU monitoring for post-cardiac cath complications Resident Physician Supervision Note/Supervisory Air Intercept Controller I interviewed and examined the patient. Discussed with Dr. Monreal and agree with findings and plan as documented in the note. Any exceptions or clarifications are listed here: I have also reviewed the VS, I/O, notes, meds, labs, micro, imaging and other reports. Her care was discussed on multidisciplinary rounds. She is very SOB with any exertion and was unable to get out of bed and into a chair due to severe dyspnea. Her HR is variable and is partially driven by her lack of pulmonary reserve. She remains in aflutter and on amio gtt. Enteral B jalen started today. Levaquin added last night as patient felt like she was producing more sputum. CXR today with developing RLL infiltrate. Consider broadening abx to include azactam and ? Zyvox if she worsens. Sputum gram stain and cx pending. Heparin gtt without bolus started along with ASA 81mg daily. Watch for any bleeding. Family updated at length last night. Documented By: Olga Dubose Consults & Procedures Consultants: Cardiology Intensive Care Unit Procedures: Triple Lumen CVC placement in the right IJ Data Medications: Current Inpatient Medications Medications (Trade) Dose Ordered Sig/Jessi Route Start Time Stop Time Status Last Admin Dose Admin Aspirin (Ecotrin Tab) 81 mg QPM PO 02/09/17 21:00 03/11/17 20:59 Future hold 02/11/17 20:18 81 MG Budesonide/ Formoterol Fumarate (Symbicort 80/ 4.5 Inh) 2 puffs BID INH 02/09/17 09:00 03/11/17 08:59 02/15/17 08:14 2 PUFFS Chlordiazepoxide (Librium Cap) 10 mg TID PRN PO 02/09/17 01:00 03/11/17 00:59 02/15/17 11:40 10 MG Clopidogrel Bisulfate (plAVix TAB) 75 mg QPM PO 02/09/17 21:00 03/11/17 20:59 Future Hold 02/11/17 20:18 75 MG Fluticasone Propionate (Flonase Nasal [place]) 2 sprays DAILY NA 02/09/17 09:00 03/11/17 08:59 02/15/17 08:14 2 SPRAYS Prednisone (PredniSONE TAB) 20 mg DAILY PO 02/09/17 09:00 03/11/17 08:59 02/15/17 08:14 20 MG Atenolol (Tenormin Tab) 100 mg QAM PO 02/09/17 09:00 03/11/17 08:59 Future Hold Acetaminophen (Tylenol Tab) 650 mg Q4H PRN PO 02/09/17 01:30 03/11/17 01:29 02/12/17 14:34 650 MG Al Hydrox/Mg Hydrox/Simethicone (Maalox Max Susp) 15 ml Q4H PRN PO 02/09/17 01:30 03/11/17 01:29 Magnesium Hydroxide (Milk Of Magnesia Susp) 30 ml Q12H PRN PO 02/09/17 01:30 03/11/17 01:29 Ondansetron HCl (Zofran Inj) 4 mg Q6H PRN IV 02/09/17 01:30 03/11/17 01:29 02/12/17 19:31 4 MG Nitroglycerin (Nitrostat Tab) 0.4 mg UD PRN SL 02/09/17 01:30 03/11/17 01:29 Morphine Sulfate (MoRPHine SULFATE INJ) 2 mg Q30M PRN IV 02/09/17 01:30 02/23/17 01:29 02/15/17 11:41 2 MG Polyethylene (Miralax Powder Packet) 17 gm DAILY PRN PO 02/09/17 01:30 03/11/17 01:29 Atorvastatin Calcium (Lipitor Tab) 80 mg QAM PO 02/10/17 09:00 03/11/17 08:59 02/15/17 08:14 80 MG Albuterol/ Ipratropium (Duoneb) 3 ml Q4R INH 02/12/17 20:00 03/14/17 19:59 02/15/17 11:21 3 ML Calcium Carbonate (Tums Chew Tab) 500 mg PRN PRN PO 02/13/17 00:15 03/15/17 00:14 02/13/17 06:02 500 MG Heparin Sodium (Porcine) (Heparin 10 Unit/ ml 5 ml Flush) 5 ml PRN PRN FLUSH 02/13/17 01:30 03/15/17 01:29 Al Hydroxide/Mg Hydroxide/ Lidocaine HCl/ Barcode BID PRN PO 02/13/17 09:45 03/15/17 09:44 02/14/17 02:35 24 ML Labetalol HCl (Normodyne IV) 10 mg Q6H PRN IV 02/13/17 14:15 03/15/17 14:14 02/13/17 21:26 10 MG Amiodarone HCL/ Dextrose 200 ml @ 16.7 mls/hr [id number] IV 02/14/17 15:10 03/16/17 15:09 02/15/17 01:23 16.7 MLS/HR Levofloxacin 750 mg/Prmx 150 ml @ 100 mls/hr Q24H IV 02/15/17 22:00 02/21/17 21:59 Pantoprazole Sodium 40 mg/ Syringe 10 ml @ 5 mls/min Q12@0900,2100 IV 02/15/17 21:00 03/17/17 20:59 Heparin Sodium/ Dextrose 500 ml @ 21 mls/hr [id number] PRN IV 02/15/17 12:00 03/17/17 11:59 02/15/17 12:19 21 MLS/HR Vital Signs: Date Time Temp Pulse Resp B/P (MAP) Pulse Ox O2 Delivery O2 Flow Rate FiO2 02/15/17 11:21 99 22 92 Nasal Cannula 4.0 02/15/17 10:14 112 93 02/15/17 09:02 112 24 103/85 (91) 94 Nasal Cannula 4.0 02/15/17 08:02 36.8 120 20 169/68 (101) 91 Nasal Cannula 4.0 02/15/17 08:00 Nasal Cannula 4.0 02/15/17 07:18 106 22 93 Nasal Cannula 4.0 02/15/17 07:02 102 17 151/99 (116) 95 Nasal Cannula 4.0 02/15/17 06:00 92 23 135/76 (95) 94 Nasal Cannula 4.0 02/15/17 04:00 36.4 97 26 142/70 (94) 95 Nasal Cannula 4.0 02/15/17 04:00 92 Nasal Cannula 4.0 02/15/17 03:48 109 30 91 Nasal Cannula 4.0 02/15/17 02:00 100 20 126/71 (89) 95 Nasal Cannula 4.0 02/15/17 00:00 36.4 94 21 127/55 (79) 94 Nasal Cannula 4.0 02/14/17 23:59 95 Nasal Cannula 4.0 02/14/17 23:24 105 30 93 Nasal Cannula 4.0 02/14/17 22:00 104 24 141/73 (95) 93 Nasal Cannula 4.0 02/14/17 20:00 93 Nasal Cannula 4.0 02/14/17 20:00 37.1 96 34 151/83 (105) 94 Nasal Cannula 4.0 02/14/17 19:50 102 26 92 Nasal Cannula 4.0 02/14/17 18:08 37.3 79 22 155/78 (103) 93 Nasal Cannula 4.0 02/14/17 16:00 85 30 144/77 (99) 90 Nasal Cannula 4.0 02/14/17 16:00 Nasal Cannula 4.0 02/14/17 14:57 99 26 93 Nasal Cannula 4.0 02/14/17 14:04 84 28 138/73 (94) 93 Nasal Cannula 4.0 Laboratory Results: Last 24 Hours Test 02/14/17 14:00 02/14/17 16:13 02/14/17 20:55 02/14/17 22:10 Troponin I 23.600 ng/ml 24.200 ng/ml Hemoglobin 11.5 g/dL Hematocrit 36.3 % Blood Gas Sample Site R Brachial Bedside Blood Gas pH (LAB) 7.36 Bedside Blood Gas pCO2 (LAB) 41 mmHg Bedside Blood Gas pO2 (LAB) 58 mmHg Bedside Blood Gas HCO3 (LAB) 23 meq/L Bedside Blood Gas Total CO2 25 mEq/l Bedside Blood Gas Base Excess (LAB) -2.0 meq/L Bedside Blood Gas O2 Saturation 88.0 % Turner Test Pass Oxygen Delivery Device Cannula Test 02/15/17 05:23 02/15/17 11:53 02/15/17 12:00 White Blood Count 14.17 K/uL 14.98 K/uL Red Blood Count 3.69 M/uL 3.75 M/uL Hemoglobin 11.3 g/dL 11.9 g/dL Hematocrit 34.8 % 35.5 % Mean Corpuscular Volume 94.3 fL 94.7 fL Mean Corpuscular Hemoglobin 30.6 pg 31.7 pg Mean Corpuscular Hemoglobin Concent 32.5 g/dl 33.5 g/dl Platelet Count 190 K/uL 197 K/uL Mean Platelet Volume 10.2 fL 10.2 fL Neutrophils (%) (Auto) 81.6 % 89.7 % Lymphocytes (%) (Auto) 7.3 % 3.3 % Monocytes (%) (Auto) 10.6 % 6.4 % Eosinophils (%) (Auto) 0.1 % 0.1 % Basophils (%) (Auto) 0.0 % 0.1 % Neutrophils # (Auto) 11.56 K/uL 13.44 K/uL Lymphocytes # (Auto) 1.04 K/uL 0.49 K/uL Monocytes # (Auto) 1.50 K/uL 0.96 K/uL Eosinophils # (Auto) 0.01 K/uL 0.02 K/uL Basophils # (Auto) 0.00 K/uL 0.01 K/uL RDW Standard Deviation 56.4 fL 56.2 fL RDW Coefficient of Variation 16.3 % 16.2 % Immature Granulocyte % (Auto) 0.4 % 0.4 % Immature Granulocyte # (Auto) 0.06 K/uL 0.06 K/uL Sodium Level 138 mmol/L Potassium Level 4.1 mmol/L Chloride Level 104 mmol/L Carbon Dioxide Level 26 mmol/L Anion Gap 8.0 mmol/L Blood Urea Nitrogen 29 mg/dl Creatinine 0.84 mg/dl Est Creatinine Clear Calc Drug Dose 55.7 ml/min Estimated GFR () 79.4 Estimated GFR (Non- 68.5 BUN/Creatinine Ratio 34.3 Random Glucose 110 mg/dl Calcium Level 7.5 mg/dl Phosphorus Level 1.8 mg/dl Magnesium Level 2.3 mg/dl Troponin I 20.000 ng/ml Prothrombin Time 10.6 SECONDS Prothromb Time International Ratio 1.0 Activated Partial Thromboplast Time 29.2 SECONDS Partial Thromboplastin Ratio 1.1
[2017-02-15] MEDS ORDERED: METOPROLOL TARTRATE 25 MG TAB PO ONE (14:00)
[2017-02-15] MEDS ORDERED: POTASSIUM CHLR 20 MEQ / WTR 20 MEQ in PREMIXED WATER 100 ML IV ONE (14:00)
[2017-02-15] MEDS ORDERED: FUROSEMIDE INJ 40 MG in SYRINGE 0 ML IV ONE (14:00)
[2017-02-15 16:26] LABS: HEMATOCRIT 36.1 % (37-47)
--- NOTE | 2017-02-15 16:43 | Progress Note ---
Subjective Date of Service: Feb 15, 2017. Subjective Pt evaluation today including: conversation w/ patient, physical exam, lab review, conversation w/ clinical documentation consultant, review of inpatient medication list Pain: no pain PO Intake: adequate Voiding: del castillo catheter in place continues to be stable but has bouts of dyspnea troponin trending down, no chest pain d/w ICU and appreciate cardiology input starting heparin gtt and aspirin, watch for further bleeding Hb stable, no further melena Problem List Medical Problems: (1) Abnormal EKG Status: Acute (2) Abnormal EKG Status: Acute (3) Chest pain Status: Acute (4) COPD exacerbation Status: Acute (5) Diarrhea Status: Acute (6) Elevated troponin Status: Acute (7) Hypokalemia Status: Acute (8) Hypotension Status: Acute (9) Hypoxemia Status: Acute (10) NSTEMI (non-ST elevated myocardial infarction) Status: Acute (11) Precordial chest pain Status: Acute Review of Systems Constitutional: + weakness, + fatigue Respiratory: + cough, + shortness of breath, + dyspnea on exertion Neurologic: + weakness, + balance problems All Other Systems: Reviewed and Negative Medications Current Inpatient Medications Medications (Trade) Dose Ordered Sig/Jessi Route Start Time Stop Time Status Last Admin Dose Admin Aspirin (Ecotrin Tab) 81 mg QPM PO 02/09/17 21:00 03/11/17 20:59 Future hold 02/11/17 20:18 81 MG Budesonide/ Formoterol Fumarate (Symbicort 80/ 4.5 Inh) 2 puffs BID INH 02/09/17 09:00 03/11/17 08:59 02/15/17 08:14 2 PUFFS Chlordiazepoxide (Librium Cap) 10 mg TID PRN PO 02/09/17 01:00 03/11/17 00:59 02/15/17 11:40 10 MG Clopidogrel Bisulfate (plAVix TAB) 75 mg QPM PO 02/09/17 21:00 03/11/17 20:59 Future Hold 02/11/17 20:18 75 MG Fluticasone Propionate (Flonase Nasal [place]) 2 sprays DAILY NA 02/09/17 09:00 03/11/17 08:59 02/15/17 08:14 2 SPRAYS Prednisone (PredniSONE TAB) 20 mg DAILY PO 02/09/17 09:00 03/11/17 08:59 02/15/17 08:14 20 MG Atenolol (Tenormin Tab) 100 mg QAM PO 02/09/17 09:00 03/11/17 08:59 Future Hold Acetaminophen (Tylenol Tab) 650 mg Q4H PRN PO 02/09/17 01:30 03/11/17 01:29 02/12/17 14:34 650 MG Al Hydrox/Mg Hydrox/Simethicone (Maalox Max Susp) 15 ml Q4H PRN PO 02/09/17 01:30 03/11/17 01:29 Magnesium Hydroxide (Milk Of Magnesia Susp) 30 ml Q12H PRN PO 02/09/17 01:30 03/11/17 01:29 Ondansetron HCl (Zofran Inj) 4 mg Q6H PRN IV 02/09/17 01:30 03/11/17 01:29 02/12/17 19:31 4 MG Nitroglycerin (Nitrostat Tab) 0.4 mg UD PRN SL 02/09/17 01:30 03/11/17 01:29 Morphine Sulfate (MoRPHine SULFATE INJ) 2 mg Q30M PRN IV 02/09/17 01:30 02/23/17 01:29 02/15/17 11:41 2 MG Polyethylene (Miralax Powder Packet) 17 gm DAILY PRN PO 02/09/17 01:30 03/11/17 01:29 Atorvastatin Calcium (Lipitor Tab) 80 mg QAM PO 02/10/17 09:00 03/11/17 08:59 02/15/17 08:14 80 MG Albuterol/ Ipratropium (Duoneb) 3 ml Q4R INH 02/12/17 20:00 03/14/17 19:59 02/15/17 15:28 3 ML Calcium Carbonate (Tums Chew Tab) 500 mg PRN PRN PO 02/13/17 00:15 03/15/17 00:14 02/13/17 06:02 500 MG Heparin Sodium (Porcine) (Heparin 10 Unit/ ml 5 ml Flush) 5 ml PRN PRN FLUSH 02/13/17 01:30 03/15/17 01:29 Al Hydroxide/Mg Hydroxide/ Lidocaine HCl/ Barcode BID PRN PO 02/13/17 09:45 03/15/17 09:44 02/14/17 02:35 24 ML Labetalol HCl (Normodyne IV) 10 mg Q6H PRN IV 02/13/17 14:15 03/15/17 14:14 02/13/17 21:26 10 MG Amiodarone HCL/ Dextrose 200 ml @ 16.7 mls/hr [id number] IV 02/14/17 15:10 03/16/17 15:09 02/15/17 13:16 16.7 MLS/HR Levofloxacin 750 mg/Prmx 150 ml @ 100 mls/hr Q24H IV 02/15/17 22:00 02/21/17 21:59 Pantoprazole Sodium 40 mg/ Syringe 10 ml @ 5 mls/min Q12@0900,2100 IV 02/15/17 21:00 03/17/17 20:59 Heparin Sodium/ Dextrose 500 ml @ 21 mls/hr [id number] PRN IV 02/15/17 12:00 03/17/17 11:59 02/15/17 12:19 21 MLS/HR Metoprolol Tartrate (Lopressor Tab) 12.5 mg BID PO 02/15/17 21:00 03/17/17 20:59 Objective Vital Signs Date Time Temp Pulse Resp B/P (MAP) Pulse Ox O2 Delivery O2 Flow Rate FiO2 02/15/17 15:30 Nasal Cannula 4.0 02/15/17 15:30 37.1 116 32 151/80 (103) 91 Nasal Cannula 4.0 02/15/17 15:28 108 22 93 Nasal Cannula 4.0 02/15/17 14:01 116 21 141/72 (95) 89 Nasal Cannula 4.0 02/15/17 12:02 36.7 128 36 120/81 (94) 89 Nasal Cannula 4.0 02/15/17 12:00 Nasal Cannula 4.0 02/15/17 11:21 99 22 92 Nasal Cannula 4.0 02/15/17 10:14 112 93 02/15/17 10:01 130 30 157/87 (110) 91 Nasal Cannula 4.0 02/15/17 09:02 112 24 103/85 (91) 94 Nasal Cannula 4.0 02/15/17 08:02 36.8 120 20 169/68 (101) 91 Nasal Cannula 4.0 02/15/17 08:00 Nasal Cannula 4.0 02/15/17 07:18 106 22 93 Nasal Cannula 4.0 02/15/17 07:02 102 17 151/99 (116) 95 Nasal Cannula 4.0 02/15/17 06:00 92 23 135/76 (95) 94 Nasal Cannula 4.0 02/15/17 04:00 36.4 97 26 142/70 (94) 95 Nasal Cannula 4.0 02/15/17 04:00 92 Nasal Cannula 4.0 02/15/17 03:48 109 30 91 Nasal Cannula 4.0 02/15/17 02:00 100 20 126/71 (89) 95 Nasal Cannula 4.0 02/15/17 00:00 36.4 94 21 127/55 (79) 94 Nasal Cannula 4.0 02/14/17 23:59 95 Nasal Cannula 4.0 02/14/17 23:24 105 30 93 Nasal Cannula 4.0 02/14/17 22:00 104 24 141/73 (95) 93 Nasal Cannula 4.0 02/14/17 20:00 93 Nasal Cannula 4.0 02/14/17 20:00 37.1 96 34 151/83 (105) 94 Nasal Cannula 4.0 02/14/17 19:50 102 26 92 Nasal Cannula 4.0 02/14/17 18:08 37.3 79 22 155/78 (103) 93 Nasal Cannula 4.0 Physical Exam General Appearance: WD/WN, + mild distress Eyes: normal inspection, EOMI, sclerae normal Neck: supple, no adenopathy, no JVD, trachea midline Respiratory/Chest: chest non-tender, no respiratory distress, no accessory muscle use, + decreased breath sounds, + wheezing Cardiovascular: no gallop, no JVD, no murmur, + tachycardia, + irregularly irregular Abdomen: normal bowel sounds, non tender, soft, no organomegaly Extremities: normal range of motion, non-tender, normal inspection, no pedal edema, no calf tenderness, pelvis stable Neurologic/Psychiatric: 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200 ng/ml 20.000 ng/ml White Blood Count 14.17 K/uL Red Blood Count 3.69 M/uL Hemoglobin 11.3 g/dL Hematocrit 34.8 % Mean Corpuscular Volume 94.3 fL Mean Corpuscular Hemoglobin 30.6 pg Mean Corpuscular Hemoglobin Concent 32.5 g/dl Platelet Count 190 K/uL Mean Platelet Volume 10.2 fL Neutrophils (%) (Auto) 81.6 % Lymphocytes (%) (Auto) 7.3 % Monocytes (%) (Auto) 10.6 % Eosinophils (%) (Auto) 0.1 % Basophils (%) (Auto) 0.0 % Neutrophils # (Auto) 11.56 K/uL Lymphocytes # (Auto) 1.04 K/uL Monocytes # (Auto) 1.50 K/uL Eosinophils # (Auto) 0.01 K/uL Basophils # (Auto) 0.00 K/uL RDW Standard Deviation 56.4 fL RDW Coefficient of Variation 16.3 % Immature Granulocyte % (Auto) 0.4 % Immature Granulocyte # (Auto) 0.06 K/uL Sodium Level 138 mmol/L Potassium Level 4.1 mmol/L Chloride Level 104 mmol/L Carbon Dioxide Level 26 mmol/L Anion Gap 8.0 mmol/L Blood Urea Nitrogen 29 mg/dl Creatinine 0.84 mg/dl Est Creatinine Clear Calc Drug Dose 55.7 ml/min Estimated GFR () 79.4 Estimated GFR (Non- 68.5 BUN/Creatinine Ratio 34.3 Random Glucose 110 mg/dl Calcium Level 7.5 mg/dl Phosphorus Level 1.8 mg/dl Magnesium Level 2.3 mg/dl Bedside Glucose 127 mg/dl Test 02/15/17 11:53 02/15/17 12:00 02/15/17 16:06 02/15/17 16:19 White Blood Count 14.98 K/uL Red Blood Count 3.75 M/uL Hemoglobin 11.9 g/dL 12.1 g/dL Hematocrit 35.5 % 36.1 % Mean Corpuscular Volume 94.7 fL Mean Corpuscular Hemoglobin 31.7 pg Mean Corpuscular Hemoglobin Concent 33.5 g/dl Platelet Count 197 K/uL Mean Platelet Volume 10.2 fL Neutrophils (%) (Auto) 89.7 % Lymphocytes (%) (Auto) 3.3 % Monocytes (%) (Auto) 6.4 % Eosinophils (%) (Auto) 0.1 % Basophils (%) (Auto) 0.1 % Neutrophils # (Auto) 13.44 K/uL Lymphocytes # (Auto) 0.49 K/uL Monocytes # (Auto) 0.96 K/uL Eosinophils # (Auto) 0.02 K/uL Basophils # (Auto) 0.01 K/uL RDW Standard Deviation 56.2 fL RDW Coefficient of Variation 16.2 % Immature Granulocyte % (Auto) 0.4 % Immature Granulocyte # (Auto) 0.06 K/uL Prothrombin Time 10.6 SECONDS Prothromb Time International Ratio 1.0 Activated Partial Thromboplast Time 29.2 SECONDS Partial Thromboplastin Ratio 1.1 Bedside Glucose 173 mg/dl Assessment and Plan 71 y/o F 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 Presents following an episode of severe central CP which lasted approximately 30 min. The pain was accompanied by SOB, lightheadedness and diaphoresis. At one point she was ambulating with the ongoing pain and she became light headed, collapsed on the floor without LOC and lost control of her bowels. On arrival to the ER she is asymptomatic however her troponin is markedly elevated. - NSTEMI: rise and fall in troponin, chest pain, EKG consistent with ischemia treated conservatively with heparin gtt, Plavix, aspirin, statin, Atenolol held due to sinus pauses in the ED [facility] on 02/12, severe disease in RCA, complicated by guidewire loop becoming dislodged in RCA, stents placed now with a new NSTEMI, troponin up to 37 and then 42, trending back down, 20 today no chest pain today heparin gtt and aspirin started, watch for bleeding - Acute GI bleed: melena on 02/12 with hypotension, was on aspirin and Plavix and heparin gtt which exacerbated the issue BP improved with 2 units of PRBC, Protonix added Hb stable for over 48 hours, cautiously resuming heparin and aspirin out of necessity with her NSTEMI - New atrial fibrillation, with RVR likely due to ischemia/MD, HR poorly controlled, continue metoprolol and amiodarone some acute diastolic failure, will give Lasix 40mg IV - Hypotension: was due to GI bleed, hemorrhagic shock resolved with 2 units of PRBC - Sinus pause: witnessed in the ED at time of admission, Atenolol held since admission will continue to hold, likely indefinitely d/w Dr. Mosqueda, cause of the pause was likely ischemia - Non-sustained V tach: no further episodes, likely caused by the ischemia - COPD - no current exacerbation - cont inhalers, prednisone, 02 sat% 97 on 4LNC. - HTN - holding BP medications due to bleeding and hypotension - Chronic respiratory failure with hypoxia: currently stable on 3-4L, dyspnea on exertion likely due to NSTEMI - Acute diastolic HF: likely due to afib RVR, responded well to Lasix IV will give an additional 40mg IV today due to more wheezing, rales today on exam Full code keep in ICU today for close monitoring Continued [facility] stay due to: multiple IV medications needed Discharge planning: home with home health
[2017-02-15 18:45] LABS: HEMATOCRIT 35.3 % (37-47)
[2017-02-15] MEDS ORDERED: FUROSEMIDE 40 MG/4 ML VIAL IV STA (18:52)
[2017-02-15 19:02] LABS: PARTIAL THROMBOPLASTIN RATIO 2.1
[2017-02-15] MEDS: METOPROLOL TARTRATE 25 MG TAB PO SCH (21:14)
[2017-02-15] MEDS: PANTOprazole INJ 40 MG in SYRINGE 0 ML IV SCH (21:14)
[2017-02-15] MEDS: ASPIRIN 81 MG ECTAB PO SCH (21:14)
[2017-02-15] MEDS: LEVOFLOXACIN 750MG / D5W IV SCH (21:15)
[2017-02-16] VITALS (19 sets, daily range): BP systolic 111–145; BP diastolic 63–79; PULSE 90–117; TEMP 36.5–36.9; O2SAT 90–95
[2017-02-16 00:25] LABS: HEMATOCRIT 33.2 % (37-47)
[2017-02-16] MEDS: ALBUT/IPRATROP 3MG/0.5MG NEB 3 ML VIAL INH SCH ×6 (04:00→23:03)
[2017-02-16 06:27] LABS: BASO % 0.1 %; BASO ABS # 0.01 K/uL (0-0.2); COMPLETE YES; EOS % 0.3 %; HEMATOCRIT 34.1 % (37-47); IG% 0.6 %; LYMPH % 8.1 %; LYMPH ABS # 1.16 K/uL (1.2-3.4); MEAN CELL VOLUME 92.9 fL (80-100); MEAN CORPUSCULAR HEMOGLOBIN 30.8 pg (25-34); MEAN CORPUSCULAR HGB CONC 33.1 g/dl (32-36); MEAN PLATELET VOLUME 9.8 fL (7.4-10.4); NEUT % 82.9 %; PLATELET COUNT 221 K/uL (130-400); RED BLOOD COUNT 3.67 M/uL (4.2-5.4); WHITE BLOOD COUNT 14.33 K/uL (4.8-10.8)
[2017-02-16 07:09] LABS: BUN/CREATININE RATIO 24.8 (10-20); CALCIUM 7.6 mg/dl (8.5-10.1); CREATININE 0.84 mg/dl (0.60-1.20); MAGNESIUM 1.9 mg/dl (1.8-2.4); PHOSPHORUS 2.2 mg/dl (2.5-4.9); POTASSIUM 3.7 mmol/L (3.5-5.1)
--- NOTE | 2017-02-16 07:25 | DIAGNOSTIC IMAGING REPORT ---
CHEST ONE VIEW PORTABLE CLINICAL HISTORY: pulmonary congestion dyspnea COMPARISON STUDY: 02/15/2017 FINDINGS: Unchanging parenchymal infiltrate right base. Moderate cardiomegaly. Lungs otherwise remain clear. Central catheter is in the superior vena cava. IMPRESSION: Unchanging parenchymal infiltrate right base. Mild stable cardia megaly. Electronically signed by: Kirt Wade M.D. 02/16/2017 7:23 AM Dictated Date/Time: 02/16/2017 7:23 AM
[2017-02-16] MEDS: PANTOprazole INJ 40 MG in SYRINGE 0 ML IV SCH ×2 (09:05→21:15)
[2017-02-16] MEDS: FUROSEMIDE INJ 20 MG in SYRINGE 0 ML IV SCH ×2 (09:06→21:15)
[2017-02-16] MEDS: BUDESONIDE/FORMOTEROL FUMARATE 80/4.5 60 PUFFS/INHALER INH SCH ×2 (09:06→21:16)
[2017-02-16] MEDS: METOPROLOL TARTRATE 25 MG TAB PO SCH ×2 (09:11→21:16)
[2017-02-16] MEDS: POTASSIUM CHLORIDE 20 MEQ TABCR PO SCH ×2 (09:11→21:17)
[2017-02-16] MEDS: FLUTICASONE PROPIONATE NA SPR 16 GM BTL SCH (09:11)
[2017-02-16] MEDS: ATORVASTATIN 40 MG TAB PO SCH (09:12)
[2017-02-16] MEDS: AMIODARONE / D5W 200 ML IV SCH (11:55)
[2017-02-16] MEDS: HEPARIN 25,000 UNIT/500ML D5W 500 ML IV PRN (11:56)
--- NOTE | 2017-02-16 13:37 | Cardiology Follow-Up ---
Subjective Subjective Date of Service: Feb 14, 2017. Pt evaluation today including: conversation w/ patient, physical exam, chart review, lab review, review of studies, review of inpatient medication list Additional Details: Aflutter new this AM with HRs to 120s, received IV lopressor x 1 with mild hypotension and IV diltiazem 5 mg x 1 with improved rate control now in 80s. Endorses persistent substernal/right sided chest pain. CP slightly increased from yesterday. Partially improved with GI cocktail SOB mildly increased, this AM. Chest xray with some worsened congestion --> received IV lasix this AM with appropriate diuresis. Problem List Medical Problems: (1) Abnormal EKG Status: Acute (2) Abnormal EKG Status: Acute (3) Chest pain Status: Acute (4) COPD exacerbation Status: Acute (5) Diarrhea Status: Acute (6) Elevated troponin Status: Acute (7) Hypokalemia Status: Acute (8) Hypotension Status: Acute (9) Hypoxemia Status: Acute (10) NSTEMI (non-ST elevated myocardial infarction) Status: Acute (11) Precordial chest pain Status: Acute Review of Systems Constitutional: + weakness, + fatigue Respiratory: + dyspnea on exertion Cardiac: + chest pain, + edema (improved) Abdomen: No pain, No vomiting, No diarrhea Neurologic: + weakness, No memory loss Heme: + abnormal bleeding/bruising Skin: + rash Objective Vital Signs Last Vital Signs Documentation Date Time Temp Pulse Resp B/P (MAP) Pulse Ox O2 Delivery O2 Flow Rate FiO2 02/14/17 08:00 112 20 140/62 (88) 93 Nasal Cannula 4.0 02/14/17 04:01 37.3 Physical Exam: General Appearance: no apparent distress ENT: hearing grossly normal, pharynx normal Neck: no JVD (unable to assess), trachea midline Respiratory/Chest: chest non-tender, + decreased breath sounds, + rales (few), + wheezing, + pertinent finding (increased work of breathing) Cardiovascular: regular rate, rhythm, no edema, no murmur Abdomen: non tender, soft Extremities: no pedal edema, no calf tenderness Neurologic/Psychiatric: alert, normal mood/affect, oriented x 3 Skin: normal color, warm/dry, no rash Lymphatic: no adenopathy Assessment and Plan 1. NSTEMI 2. RCA PCI with DESx2 complicated by distal PDA/PLB dissection/no-reflow 3. Aflutter with RVR 4. Acute diastolic heart failure 5. Anemia/suspected GI bleed 6. COPD on 4L baseline New aflutter this AM with RVR, improved rate control with diltiazem but increased symptoms/congestion today. In the setting of tenuous BPs recommend starting amiodarone bolus/infusion. Additional intermittent diltiazem if remains poorly rate controlled. PRN diuretics, hold on further diuretics at present Anticoagulation on hold for now, blood counts stable. If converts hopefully able to avoid systemic anticoagulation Potentially restart ASA tomorrow Continue high-intensity statin Continued [facility] stay due to: multiple IV medications needed Discharge planning: home with home health Medications: Current Inpatient Medications Medications (Trade) Dose Ordered Sig/Jessi Route Start Time Stop Time Status Last Admin Dose Admin Aspirin (Ecotrin Tab) 81 mg QPM PO 02/09/17 21:00 03/11/17 20:59 Future Hold 02/11/17 20:18 81 MG Budesonide/ Formoterol Fumarate (Symbicort 80/ 4.5 Inh) 2 puffs BID INH 02/09/17 09:00 03/11/17 08:59 02/14/17 08:46 2 PUFFS Chlordiazepoxide (Librium Cap) 10 mg TID PRN PO 02/09/17 01:00 03/11/17 00:59 02/13/17 00:09 10 MG Clopidogrel Bisulfate (plAVix TAB) 75 mg QPM PO 02/09/17 21:00 03/11/17 20:59 Future Hold 02/11/17 20:18 75 MG Fluticasone Propionate (Flonase Nasal [place]) 2 sprays DAILY NA 02/09/17 09:00 03/11/17 08:59 02/14/17 08:46 2 SPRAYS Prednisone (PredniSONE TAB) 20 mg DAILY PO 02/09/17 09:00 03/11/17 08:59 02/14/17 08:46 20 MG Atenolol (Tenormin Tab) 100 mg QAM PO 02/09/17 09:00 03/11/17 08:59 Future Hold Acetaminophen (Tylenol Tab) 650 mg Q4H PRN PO 02/09/17 01:30 03/11/17 01:29 02/12/17 14:34 650 MG Al Hydrox/Mg Hydrox/Simethicone (Maalox Max Susp) 15 ml Q4H PRN PO 02/09/17 01:30 03/11/17 01:29 Magnesium Hydroxide (Milk Of Magnesia Susp) 30 ml Q12H PRN PO 02/09/17 01:30 03/11/17 01:29 Ondansetron HCl (Zofran Inj) 4 mg Q6H PRN IV 02/09/17 01:30 03/11/17 01:29 02/12/17 19:31 4 MG Nitroglycerin (Nitrostat Tab) 0.4 mg UD PRN SL 02/09/17 01:30 03/11/17 01:29 Morphine Sulfate (MoRPHine SULFATE INJ) 2 mg Q30M PRN IV 02/09/17 01:30 02/23/17 01:29 02/14/17 09:02 2 MG Polyethylene (Miralax Powder Packet) 17 gm DAILY PRN PO 02/09/17 01:30 03/11/17 01:29 Atorvastatin Calcium (Lipitor Tab) 80 mg QAM PO 02/10/17 09:00 03/11/17 08:59 02/14/17 08:46 80 MG Albuterol/ Ipratropium (Duoneb) 3 ml Q4R INH 02/12/17 20:00 03/14/17 19:59 02/14/17 07:00 3 ML Pantoprazole Sodium 40 mg/ Dextrose 100 ml @ 20 mls/hr Q5H IV 02/12/17 21:00 03/14/17 20:59 02/14/17 08:16 20 MLS/HR Calcium Carbonate (Tums Chew Tab) 500 mg PRN PRN PO 02/13/17 00:15 03/15/17 00:14 02/13/17 06:02 500 MG Heparin Sodium (Porcine) (Heparin 10 Unit/ ml 5 ml Flush) 5 ml PRN PRN FLUSH 02/13/17 01:30 03/15/17 01:29 Al Hydroxide/Mg Hydroxide/ Lidocaine HCl/ Barcode BID PRN PO 02/13/17 09:45 03/15/17 09:44 02/14/17 02:35 24 ML Labetalol HCl (Normodyne IV) 10 mg Q6H PRN IV 02/13/17 14:15 03/15/17 14:14 02/13/17 21:26 10 MG Amiodarone HCL/ Dextrose 200 ml @ 33.3 mls/hr Q6H1M IV 02/14/17 09:10 02/14/17 15:10 02/14/17 09:04 33.3 MLS/HR Amiodarone HCL/ Dextrose 200 ml @ 16.7 mls/hr [id number] IV 02/14/17 15:10 03/16/17 15:09 Heparin Sodium (Porcine) (Heparin Sq 5000 Unit/0.5ml) 5,000 unit Q8 SQ 02/14/17 14:00 03/16/17 13:59 Lab Results: 02/14/17 05:13 Red Blood Count 3.57, Mean Corpuscular Volume 95.5, Mean Corpuscular Hemoglobin 31.4, Mean Corpuscular Hemoglobin Concent 32.8, Mean Platelet Volume 10.2, Neutrophils (%) (Auto) 83.5, Lymphocytes (%) (Auto) 6.2, Monocytes (%) (Auto) 9.8, Eosinophils (%) (Auto) 0.0, Basophils (%) (Auto) 0.1, Neutrophils # (Auto) 11.63, Lymphocytes # (Auto) 0.86, Monocytes # (Auto) 1.36, Eosinophils # (Auto) 0.00, Basophils # (Auto) 0.01 02/14/17 05:13 Test 02/14/17 05:13 02/14/17 05:58 02/14/17 07:19 White Blood Count 13.92 K/uL (4.8-10.8) Red Blood Count 3.57 M/uL (4.2-5.4) Hemoglobin 11.2 g/dL (12.0-16.0) Hematocrit 34.1 % (37-47) Mean Corpuscular Volume 95.5 fL (80-100) Mean Corpuscular Hemoglobin 31.4 pg (25-34) Mean Corpuscular Hemoglobin Concent 32.8 g/dl (32-36) Platelet Count 165 K/uL (130-400) Mean Platelet Volume 10.2 fL (7.4-10.4) Neutrophils (%) (Auto) 83.5 % Lymphocytes (%) (Auto) 6.2 % Monocytes (%) (Auto) 9.8 % Eosinophils (%) (Auto) 0.0 % Basophils (%) (Auto) 0.1 % Neutrophils # (Auto) 11.63 K/uL (1.4-6.5) Lymphocytes # (Auto) 0.86 K/uL (1.2-3.4) Monocytes # (Auto) 1.36 K/uL (0.11-0.59) Eosinophils # (Auto) 0.00 K/uL (0-0.5) Basophils # (Auto) 0.01 K/uL (0-0.2) RDW Standard Deviation 59.3 fL (36.4-46.3) RDW Coefficient of Variation 16.9 % (11.5-14.5) Immature Granulocyte % (Auto) 0.4 % Immature Granulocyte # (Auto) 0.06 K/uL (0.00-0.02) Red Blood Cell Morphology Unremarkable Anion Gap 5.0 mmol/L (3-11) Est Creatinine Clear Calc Drug Dose 60.7 ml/min Estimated GFR () 88.8 Estimated GFR (Non- 76.6 BUN/Creatinine Ratio 33.3 (10-20) Calcium Level 7.3 mg/dl (8.5-10.1) Magnesium Level 2.3 mg/dl (1.8-2.4) Troponin I 36.100 ng/ml (0-0.045) Bedside Glucose 93 mg/dl (70-90) Lactic Acid Level 1.1 mmol/L (0.4-2.0) Pro-B-Type Natriuretic Peptide 1774 pg/ml (0-900) Procalcitonin 0.08 ng/ml (0-0.5)
--- NOTE | 2017-02-16 13:47 | Cardiology Follow-Up ---
Subjective Subjective Date of Service: Feb 16, 2017. Pt evaluation today including: conversation w/ patient, physical exam, chart review, lab review, review of studies, conversation w/ aviation consultant, review of inpatient medication list Additional Details: No chest pain this AM. Breathing stable, near baseline. Up into chair this AM. No other new complaints. Tele Reviewed -- remains in aflutter with HRs 90-110s Problem List Medical Problems: (1) Abnormal EKG Status: Acute (2) Abnormal EKG Status: Acute (3) Chest pain Status: Acute (4) COPD exacerbation Status: Acute (5) Diarrhea Status: Acute (6) Elevated troponin Status: Acute (7) Hypokalemia Status: Acute (8) Hypotension Status: Acute (9) Hypoxemia Status: Acute (10) NSTEMI (non-ST elevated myocardial infarction) Status: Acute (11) Precordial chest pain Status: Acute Review of Systems Constitutional: + weakness, + fatigue ENT: + problem reported Respiratory: + cough, + shortness of breath, + dyspnea on exertion Cardiac: No chest pain Abdomen: + GI bleeding (melena last night, none since), No pain, No nausea, No diarrhea Neurologic: + weakness, + balance problems Heme: No abnormal bleeding/bruising Endo: + fatigue Objective Vital Signs Last Vital Signs Documentation Date Time Temp Pulse Resp B/P (MAP) Pulse Ox O2 Delivery O2 Flow Rate FiO2 02/16/17 12:03 114 25 111/78 (89) 91 Nasal Cannula 4.0 02/16/17 08:01 36.7 Physical Exam: General Appearance: no apparent distress ENT: hearing grossly normal Neck: no JVD Respiratory/Chest: chest non-tender, no respiratory distress, no accessory muscle use, + decreased breath sounds, + wheezing (few scattered) Cardiovascular: no JVD, no murmur, + tachycardia, + irregularly irregular Abdomen: non tender, soft Extremities: no pedal edema, no calf tenderness Neurologic/Psychiatric: alert, normal mood/affect, oriented x 3 Skin: normal color, warm/dry Lymphatic: no adenopathy Assessment and Plan 1. NSTEMI 2. RCA PCI with DESx2 complicated by distal PDA/PLB dissection/no-reflow 3. Aflutter with RVR 4. Acute diastolic heart failure 5. Anemia/suspected GI bleed 6. COPD on 4L baseline Well perfused with minimal congestion on exam. Continue daily PO diuretics. Remains in Aflutter despite amiodarone. Reasonably rate controlled and tolerating metoprolol Plan to titrate up metoprolol as BP allows As seems to be asymptomatic from AF would plan to discontinue amiodarone and plan for rate control alone. May need second agent (diltiazem/digoxin). Tolerating heparin/ASA without bleeding --> assuming blood counts remain stable intermediate designer would prefer to have on dual therapy with plavix/coumadin as opposed triple therapy --> will consider switching to plavix tomorrow. Continue high-intensity statin Continued [facility] stay due to: multiple IV medications needed Discharge planning: home with home health Medications: Current Inpatient Medications Medications (Trade) Dose Ordered Sig/Jessi Route Start Time Stop Time Status Last Admin Dose Admin Aspirin (Ecotrin Tab) 81 mg QPM PO 02/09/17 21:00 03/11/17 20:59 Future hold 02/15/17 21:14 81 MG Budesonide/ Formoterol Fumarate (Symbicort 80/ 4.5 Inh) 2 puffs BID INH 02/09/17 09:00 03/11/17 08:59 02/16/17 09:06 2 PUFFS Chlordiazepoxide (Librium Cap) 10 mg TID PRN PO 02/09/17 01:00 03/11/17 00:59 02/15/17 11:40 10 MG Clopidogrel Bisulfate (plAVix TAB) 75 mg QPM PO 02/09/17 21:00 03/11/17 20:59 Future Hold 02/11/17 20:18 75 MG Fluticasone Propionate (Flonase Nasal [place]) 2 sprays DAILY NA 02/09/17 09:00 03/11/17 08:59 02/16/17 09:11 2 SPRAYS Prednisone (PredniSONE TAB) 20 mg DAILY PO 02/09/17 09:00 03/11/17 08:59 02/16/17 09:42 20 MG Atenolol (Tenormin Tab) 100 mg QAM PO 02/09/17 09:00 03/11/17 08:59 Future Hold Acetaminophen (Tylenol Tab) 650 mg Q4H PRN PO 02/09/17 01:30 03/11/17 01:29 02/12/17 14:34 650 MG Al Hydrox/Mg Hydrox/Simethicone (Maalox Max Susp) 15 ml Q4H PRN PO 02/09/17 01:30 03/11/17 01:29 Magnesium Hydroxide (Milk Of Magnesia Susp) 30 ml Q12H PRN PO 02/09/17 01:30 03/11/17 01:29 Ondansetron HCl (Zofran Inj) 4 mg Q6H PRN IV 02/09/17 01:30 03/11/17 01:29 02/12/17 19:31 4 MG Nitroglycerin (Nitrostat Tab) 0.4 mg UD PRN SL 02/09/17 01:30 03/11/17 01:29 Morphine Sulfate (MoRPHine SULFATE INJ) 2 mg Q30M PRN IV 02/09/17 01:30 02/23/17 01:29 02/15/17 11:41 2 MG Polyethylene (Miralax Powder Packet) 17 gm DAILY PRN PO 02/09/17 01:30 03/11/17 01:29 Atorvastatin Calcium (Lipitor Tab) 80 mg QAM PO 02/10/17 09:00 03/11/17 08:59 02/16/17 09:12 80 MG Albuterol/ Ipratropium (Duoneb) 3 ml Q4R INH 02/12/17 20:00 03/14/17 19:59 02/16/17 11:12 3 ML Calcium Carbonate (Tums Chew Tab) 500 mg PRN PRN PO 02/13/17 00:15 03/15/17 00:14 02/13/17 06:02 500 MG Heparin Sodium (Porcine) (Heparin 10 Unit/ ml 5 ml Flush) 5 ml PRN PRN FLUSH 02/13/17 01:30 03/15/17 01:29 Al Hydroxide/Mg Hydroxide/ Lidocaine HCl/ Barcode BID PRN PO 02/13/17 09:45 03/15/17 09:44 02/14/17 02:35 24 ML Labetalol HCl (Normodyne IV) 10 mg Q6H PRN IV 02/13/17 14:15 03/15/17 14:14 02/13/17 21:26 10 MG Amiodarone HCL/ Dextrose 200 ml @ 16.7 mls/hr [id number] IV 02/14/17 15:10 03/16/17 15:09 02/16/17 11:55 16.7 MLS/HR Levofloxacin 750 mg/Prmx 150 ml @ 100 mls/hr Q24H IV 02/15/17 22:00 02/21/17 21:59 02/15/17 21:15 100 MLS/HR Pantoprazole Sodium 40 mg/ Syringe 10 ml @ 5 mls/min Q12@0900,2100 IV 02/15/17 21:00 03/17/17 20:59 02/16/17 09:05 5 MLS/MIN Heparin Sodium/ Dextrose 500 ml @ 19 mls/hr Q24H PRN IV 02/15/17 12:00 03/17/17 11:59 02/16/17 11:56 19 MLS/HR Metoprolol Tartrate (Lopressor Tab) 12.5 mg BID PO 02/15/17 21:00 03/17/17 20:59 02/16/17 09:11 12.5 MG Furosemide 20 mg/ Syringe 2 ml @ 4 mls/min Q12 IV 02/16/17 09:00 03/18/17 08:59 02/16/17 09:06 4 MLS/MIN Potassium Chloride (Klor-Con Tab) 20 meq BID PO 02/16/17 09:00 03/18/17 08:59 02/16/17 09:11 20 MEQ Lab Results: 02/16/17 06:20 Red Blood Count 3.67, Mean Corpuscular Volume 92.9, Mean Corpuscular Hemoglobin 30.8, Mean Corpuscular Hemoglobin Concent 33.1, Mean Platelet Volume 9.8, Neutrophils (%) (Auto) 82.9, Lymphocytes (%) (Auto) 8.1, Monocytes (%) (Auto) 8.0, Eosinophils (%) (Auto) 0.3, Basophils (%) (Auto) 0.1, Neutrophils # (Auto) 11.89, Lymphocytes # (Auto) 1.16, Monocytes # (Auto) 1.15, Eosinophils # (Auto) 0.04, Basophils # (Auto) 0.01 02/16/17 06:20 Test 02/15/17 16:06 02/16/17 06:20 02/16/17 12:57 Bedside Glucose 173 mg/dl (70-90) White Blood Count 14.33 K/uL (4.8-10.8) Red Blood Count 3.67 M/uL (4.2-5.4) Hemoglobin 11.3 g/dL (12.0-16.0) Hematocrit 34.1 % (37-47) Mean Corpuscular Volume 92.9 fL (80-100) Mean Corpuscular Hemoglobin 30.8 pg (25-34) Mean Corpuscular Hemoglobin Concent 33.1 g/dl (32-36) Platelet Count 221 K/uL (130-400) Mean Platelet Volume 9.8 fL (7.4-10.4) Neutrophils (%) (Auto) 82.9 % Lymphocytes (%) (Auto) 8.1 % Monocytes (%) (Auto) 8.0 % Eosinophils (%) (Auto) 0.3 % Basophils (%) (Auto) 0.1 % Neutrophils # (Auto) 11.89 K/uL (1.4-6.5) Lymphocytes # (Auto) 1.16 K/uL (1.2-3.4) Monocytes # (Auto) 1.15 K/uL (0.11-0.59) Eosinophils # (Auto) 0.04 K/uL (0-0.5) Basophils # (Auto) 0.01 K/uL (0-0.2) RDW Standard Deviation 53.7 fL (36.4-46.3) RDW Coefficient of Variation 15.8 % (11.5-14.5) Immature Granulocyte % (Auto) 0.6 % Immature Granulocyte # (Auto) 0.08 K/uL (0.00-0.02) Anion Gap 10.0 mmol/L (3-11) Est Creatinine Clear Calc Drug Dose 56.2 ml/min Estimated GFR () 79.4 Estimated GFR (Non- 68.5 BUN/Creatinine Ratio 24.8 (10-20) Calcium Level 7.6 mg/dl (8.5-10.1) Phosphorus Level 2.2 mg/dl (2.5-4.9) Magnesium Level 1.9 mg/dl (1.8-2.4) Procalcitonin 0.11 ng/ml (0-0.5) Activated Partial Thromboplast Time 52.2 SECONDS (21.0-31.0) Partial Thromboplastin Ratio 2.0
--- NOTE | 2017-02-16 14:50 | Progress Note ---
Subjective Date of Service: Feb 16, 2017. Subjective Pt evaluation today including: conversation w/ patient, physical exam, lab review, review of studies, conversation w/ fashion consultant selling, review of inpatient medication list Pain: no pain PO Intake: adequate Voiding: del castillo catheter in place discussed case personally with Dr. Dubose and Dr. Vu - Dr. Vu: recommends stopping Amiodarone and increasing metoprolol as BP allows - Dr. Dubose: discussed antibiotic coverage, seems to be responding to Levaquin, keep in ICU one more day patient continues to have dyspnea at rest, slightly worse than her baseline, still only requiring 4L no chest pain no GI bleeding on heparin and aspirin Problem List Medical Problems: (1) Abnormal EKG Status: Acute (2) Abnormal EKG Status: Acute (3) Chest pain Status: Acute (4) COPD exacerbation Status: Acute (5) Diarrhea Status: Acute (6) Elevated troponin Status: Acute (7) Hypokalemia Status: Acute (8) Hypotension Status: Acute (9) Hypoxemia Status: Acute (10) NSTEMI (non-ST elevated myocardial infarction) Status: Acute (11) Precordial chest pain Status: Acute Review of Systems Constitutional: + weakness, + fatigue Respiratory: + cough, + sputum, + wheezing, + shortness of breath, + dyspnea on exertion, + dyspnea at rest Cardiac: + edema Neurologic: + weakness All Other Systems: Reviewed and Negative Medications Current Inpatient Medications Medications (Trade) Dose Ordered Sig/Jessi Route Start Time Stop Time Status Last Admin Dose Admin Aspirin (Ecotrin Tab) 81 mg QPM PO 02/09/17 21:00 03/11/17 20:59 Future hold 02/15/17 21:14 81 MG Budesonide/ Formoterol Fumarate (Symbicort 80/ 4.5 Inh) 2 puffs BID INH 02/09/17 09:00 03/11/17 08:59 02/16/17 09:06 2 PUFFS Chlordiazepoxide (Librium Cap) 10 mg TID PRN PO 02/09/17 01:00 03/11/17 00:59 02/15/17 11:40 10 MG Clopidogrel Bisulfate (plAVix TAB) 75 mg QPM PO 02/09/17 21:00 03/11/17 20:59 Future Hold 02/11/17 20:18 75 MG Fluticasone Propionate (Flonase Nasal [place]) 2 sprays DAILY NA 02/09/17 09:00 03/11/17 08:59 02/16/17 09:11 2 SPRAYS Prednisone (PredniSONE TAB) 20 mg DAILY PO 02/09/17 09:00 03/11/17 08:59 02/16/17 09:42 20 MG Atenolol (Tenormin Tab) 100 mg QAM PO 02/09/17 09:00 03/11/17 08:59 Future Hold Acetaminophen (Tylenol Tab) 650 mg Q4H PRN PO 02/09/17 01:30 03/11/17 01:29 02/12/17 14:34 650 MG Al Hydrox/Mg Hydrox/Simethicone (Maalox Max Susp) 15 ml Q4H PRN PO 02/09/17 01:30 03/11/17 01:29 Magnesium Hydroxide (Milk Of Magnesia Susp) 30 ml Q12H PRN PO 02/09/17 01:30 03/11/17 01:29 Ondansetron HCl (Zofran Inj) 4 mg Q6H PRN IV 02/09/17 01:30 03/11/17 01:29 02/12/17 19:31 4 MG Nitroglycerin (Nitrostat Tab) 0.4 mg UD PRN SL 02/09/17 01:30 03/11/17 01:29 Morphine Sulfate (MoRPHine SULFATE INJ) 2 mg Q30M PRN IV 02/09/17 01:30 02/23/17 01:29 02/15/17 11:41 2 MG Polyethylene (Miralax Powder Packet) 17 gm DAILY PRN PO 02/09/17 01:30 03/11/17 01:29 Atorvastatin Calcium (Lipitor Tab) 80 mg QAM PO 02/10/17 09:00 03/11/17 08:59 02/16/17 09:12 80 MG Albuterol/ Ipratropium (Duoneb) 3 ml Q4R INH 02/12/17 20:00 03/14/17 19:59 02/16/17 11:12 3 ML Calcium Carbonate (Tums Chew Tab) 500 mg PRN PRN PO 02/13/17 00:15 03/15/17 00:14 02/13/17 06:02 500 MG Heparin Sodium (Porcine) (Heparin 10 Unit/ ml 5 ml Flush) 5 ml PRN PRN FLUSH 02/13/17 01:30 03/15/17 01:29 Al Hydroxide/Mg Hydroxide/ Lidocaine HCl/ Barcode BID PRN PO 02/13/17 09:45 03/15/17 09:44 02/14/17 02:35 24 ML Labetalol HCl (Normodyne IV) 10 mg Q6H PRN IV 02/13/17 14:15 03/15/17 14:14 02/13/17 21:26 10 MG Amiodarone HCL/ Dextrose 200 ml @ 16.7 mls/hr [id number] IV 02/14/17 15:10 03/16/17 15:09 02/16/17 11:55 16.7 MLS/HR Levofloxacin 750 mg/Prmx 150 ml @ 100 mls/hr Q24H IV 02/15/17 22:00 02/21/17 21:59 02/15/17 21:15 100 MLS/HR Pantoprazole Sodium 40 mg/ Syringe 10 ml @ 5 mls/min Q12@0900,2100 IV 02/15/17 21:00 03/17/17 20:59 02/16/17 09:05 5 MLS/MIN Heparin Sodium/ Dextrose 500 ml @ 19 mls/hr Q24H PRN IV 02/15/17 12:00 03/17/17 11:59 02/16/17 11:56 19 MLS/HR Metoprolol Tartrate (Lopressor Tab) 12.5 mg BID PO 02/15/17 21:00 03/17/17 20:59 02/16/17 09:11 12.5 MG Furosemide 20 mg/ Syringe 2 ml @ 4 mls/min Q12 IV 02/16/17 09:00 03/18/17 08:59 02/16/17 09:06 4 MLS/MIN Potassium Chloride (Klor-Con Tab) 20 meq BID PO 02/16/17 09:00 03/18/17 08:59 02/16/17 09:11 20 MEQ Objective Vital Signs Date Time Temp Pulse Resp B/P (MAP) Pulse Ox O2 Delivery O2 Flow Rate FiO2 02/16/17 14:01 113 26 112/77 (89) 91 Nasal Cannula 4.0 02/16/17 12:03 36.6 114 25 111/78 (89) 91 Nasal Cannula 4.0 02/16/17 12:00 Nasal Cannula 4.0 02/16/17 11:12 90 26 94 Nasal Cannula 4.0 02/16/17 10:01 99 26 122/75 (91) 94 Nasal Cannula 4.0 02/16/17 08:05 103 30 92 Nasal Cannula 5.0 02/16/17 08:01 36.7 103 24 111/68 (82) 93 Nasal Cannula 4.0 02/16/17 08:00 Nasal Cannula 4.0 02/16/17 07:02 113 26 140/75 (96) 91 Nasal Cannula 4.0 02/16/17 06:00 99 31 137/78 (97) 90 Nasal Cannula 4.0 02/16/17 04:00 98 26 93 Nasal Cannula 4.0 02/16/17 04:00 92 Nasal Cannula 4.0 02/16/17 04:00 36.9 97 35 137/77 (97) 92 Nasal Cannula 4.0 02/16/17 02:00 93 30 121/63 (82) 92 Nasal Cannula 3.0 02/16/17 00:01 36.9 95 29 121/72 (88) 93 Nasal Cannula 3.0 02/15/17 23:59 93 Nasal Cannula 3.0 02/15/17 23:15 74 22 95 Nasal Cannula 4.0 02/15/17 22:01 86 26 118/65 (82) 93 02/15/17 22:00 102 25 93 02/15/17 21:25 37.2 109 36 127/93 (104) 90 Nasal Cannula 4.0 02/15/17 21:01 104 27 127/93 (104) 90 02/15/17 21:00 107 24 89 02/15/17 20:01 116 39 141/83 (102) 92 02/15/17 20:00 105 36 92 02/15/17 19:45 37.2 102 36 146/85 (105) 91 Nasal Cannula 4.0 02/15/17 19:43 Nasal Cannula 4.0 02/15/17 19:37 113 34 146/85 (105) 91 02/15/17 19:12 100 24 95 Nasal Cannula 5.0 02/15/17 19:01 80 29 123/62 (82) 95 02/15/17 19:00 76 28 95 02/15/17 18:01 75 34 116/79 (91) 92 02/15/17 18:00 75 31 92 02/15/17 17:10 113 37 136/78 (97) 89 02/15/17 17:00 100 33 93 02/15/17 16:01 116 38 153/81 (105) 90 02/15/17 16:00 132 34 90 02/15/17 15:30 Nasal Cannula 4.0 02/15/17 15:30 37.1 116 32 151/80 (103) 91 Nasal Cannula 4.0 02/15/17 15:28 108 22 93 Nasal Cannula 4.0 02/15/17 15:20 111 39 151/80 (103) 91 02/15/17 15:00 105 29 92 Physical Exam General Appearance: WD/WN, + mild distress Eyes: normal inspection, EOMI, sclerae normal Neck: supple, no adenopathy, no JVD, trachea midline Respiratory/Chest: chest non-tender, no respiratory distress, no accessory muscle use, + rales, + wheezing Cardiovascular: no gallop, no JVD, no murmur, + tachycardia, + irregularly irregular Abdomen: normal bowel sounds, non tender, soft, no organomegaly Extremities: normal range of motion, non-tender, normal inspection, no calf tenderness, + pedal edema (trace) Neurologic/Psychiatric: basic acoustic analyst II-XII nml as tested, alert, normal mood/affect, oriented x 3, + motor weakness (generalized) Skin: normal color, warm/dry, no rash Laboratory Results Last 24 Hours Test 02/15/17 16:06 02/15/17 16:19 02/15/17 17:46 02/15/17 18:26 Bedside Glucose 173 mg/dl Hemoglobin 12.1 g/dL 11.7 g/dL Hematocrit 36.1 % 35.3 % Procalcitonin 0.19 ng/ml Test 02/15/17 18:39 02/16/17 00:18 02/16/17 06:20 02/16/17 12:57 Activated Partial Thromboplast Time 55.8 SECONDS 78.1 SECONDS 52.2 SECONDS Partial Thromboplastin Ratio 2.1 3.0 2.0 Hemoglobin 11.3 g/dL 11.3 g/dL Hematocrit 33.2 % 34.1 % White Blood Count 14.33 K/uL Red Blood Count 3.67 M/uL Mean Corpuscular Volume 92.9 fL Mean Corpuscular Hemoglobin 30.8 pg Mean Corpuscular Hemoglobin Concent 33.1 g/dl Platelet Count 221 K/uL Mean Platelet Volume 9.8 fL Neutrophils (%) (Auto) 82.9 % Lymphocytes (%) (Auto) 8.1 % Monocytes (%) (Auto) 8.0 % Eosinophils (%) (Auto) 0.3 % Basophils (%) (Auto) 0.1 % Neutrophils # (Auto) 11.89 K/uL Lymphocytes # (Auto) 1.16 K/uL Monocytes # (Auto) 1.15 K/uL Eosinophils # (Auto) 0.04 K/uL Basophils # (Auto) 0.01 K/uL RDW Standard Deviation 53.7 fL RDW Coefficient of Variation 15.8 % Immature Granulocyte % (Auto) 0.6 % Immature Granulocyte # (Auto) 0.08 K/uL Sodium Level 138 mmol/L Potassium Level 3.7 mmol/L Chloride Level 100 mmol/L Carbon Dioxide Level 28 mmol/L Anion Gap 10.0 mmol/L Blood Urea Nitrogen 21 mg/dl Creatinine 0.84 mg/dl Est Creatinine Clear Calc Drug Dose 56.2 ml/min Estimated GFR () 79.4 Estimated GFR (Non- 68.5 BUN/Creatinine Ratio 24.8 Random Glucose 102 mg/dl Calcium Level 7.6 mg/dl Phosphorus Level 2.2 mg/dl Magnesium Level 1.9 mg/dl Procalcitonin 0.11 ng/ml Assessment and Plan 71 y/o F 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 Presents following an episode of severe central CP which lasted approximately 30 min. The pain was accompanied by SOB, lightheadedness and diaphoresis. At one point she was ambulating with the ongoing pain and she became light headed, collapsed on the floor without LOC and lost control of her bowels. On arrival to the ER she is asymptomatic however her troponin is markedly elevated. - NSTEMI: inital rise and fall in troponin, chest pain, EKG consistent with ischemia treated conservatively with heparin gtt, Plavix, aspirin, statin [facility] on 02/12, severe disease in RCA, complicated by guidewire loop becoming dislodged in RCA, stents placed suffered a second NSTEMI, troponin up to 37 and then 42, trending back down slowly, no further chest pain heparin gtt and aspirin started, watch for bleeding which there has been none thus far - Acute GI bleed: melena on 02/12 with hypotension, was on aspirin and Plavix and heparin gtt which exacerbated the issue BP improved with 2 units of PRBC, Protonix added Hb stable for over 72 hours, cautiously resuming heparin and aspirin out of necessity with her NSTEMI no signsf of bleeding thus far - New atrial fibrillation, with RVR likely due to ischemia/GA, HR poorly controlled, will increase Metoprolol to 25mg BID, PRN IV Lopressor stop amiodarone per Dr. Vu, likely not helping - Acute diastolic HF: likely due to afib RVR, responded well to Lasix IV yesterday still 4 liters positive with some edema and rales/wheezing on exam, will start Lasix 20mg IV q12, follow response add KCl 20 BID with the lasix follow I/O and UO - Hypotension: was due to GI bleed, hemorrhagic shock resolved with 2 units of PRBC - Sinus pause: witnessed in the ED at time of admission, Atenolol held since admission will continue to hold, likely indefinitely d/w Dr. Mosqueda, cause of the pause was likely ischemia - Non-sustained V tach: no further episodes, likely caused by the ischemia - COPD - mild exacerbation with increased sputum production - cont inhalers, prednisone, 02 sat% 97 on 4LNC. Levaquin IV per ICU, cough improving, more sputum clearance per patient - Chronic respiratory failure with hypoxia: currently stable 4L but with more distress than normal Full code keep in ICU today for close monitoring Continued [facility] stay due to: multiple IV medications needed Discharge planning: home with home health
[2017-02-16] MEDS ORDERED: BISACODYL 10 MG SUPP PR PRN (16:00)
[2017-02-16] MEDS ORDERED: DOCUSATE SODIUM 100 MG CAP PO SCH (16:00)
[2017-02-16] MEDS ORDERED: BISACODYL 10 MG SUPP PR SCH (16:00)
[2017-02-16] MEDS: BOOST VANILLA PUDDING CUP PO SCH (17:29)
--- NOTE | 2017-02-16 19:05 | CRITICAL CARE PROGRESS NOTE ---
DATE: 02/16/2017 SUBJECTIVE: There were no acute events overnight. The patient's care was discussed in detail with her bedside nurse, Julieth. She complains that she is constipated. She had less shortness of breath when getting up to the commode today. She is eating a little bit better and was out of bed. Her heart rate seems to be under better control and the amiodarone was stopped today. She remains on a heparin infusion. She has not had any stools in several days. She feels her sputum is looser and it easier to cough up. PHYSICAL EXAMINATION: VITAL SIGNS: Maximum temperature 37.2, heart rate 99-109, respiratory rate 22-30, blood pressure 121-137/65-93, oxygen saturation 92% on 4 liters nasal cannula. 24-hour fluid balance -247 mL. GENERAL: She is awake, alert and short of breath with exertion. NEUROLOGIC: She follows commands and can carry on a conversation. LUNGS: Bilateral expiratory wheezes with some bibasilar rales. No rhonchi. HEART: Tachycardic, regular, no murmurs. ABDOMEN: A bit firm, mildly distended, diffusely mildly tender. No rebound or guarding. Hypoactive bowel sounds. EXTREMITIES: Warm, trace pretibial edema. LABORATORY DATA: White blood cell count 14.3, hemoglobin 11.3, hematocrit 34.1, platelets 221. Sodium 138, potassium 3.7, chloride 100, CO2 of 28, BUN 21, creatinine 0.84, blood sugar 102, phosphorous 2.2, calcium 7.6. PTT 52.2. MEDICATIONS AND INFUSIONS: Tylenol, Maalox, DuoNeb, aspirin, Lipitor, Dulcolax, Symbicort, Tums, Librium, Colace, Flonase, Lasix, heparin infusion, labetalol, Levaquin day 3, milk of magnesia, Lopressor, morphine, Nitrostat, Zofran, Protonix, MiraLax, potassium chloride, prednisone. IMAGING: Portable chest x-ray from this morning was reviewed and shows an unchanged right basilar infiltrate. Sputum culture shows moderate normal [place]. IMPRESSION: 1. Acute inferior wall ST segment elevation myocardial infarction, status post cardiac catheterization and stenting to the RCA. 2. Atrial flutter with rapid ventricular response. 3. Gastrointestinal bleed on the day of her cardiac catheterization. 4. Severe chronic obstructive pulmonary disease. 5. Constipation. 6. Hypotension, resolved. 7. History of hypertension. 8. Right lower lobe infiltrate, treating for pneumonia. 9. Acute blood loss anemia, presently hemoglobin and hematocrit are stable. S/P 2 units PRBC's on the day of cardiac cath secondary to GIB. 10. Acute kidney injury, resolved. PLAN: NEUROLOGIC: Continue Librium for anxiety. Morphine for pain. PULMONARY: Continue bronchodilators and add a vibration vest. Continue Levaquin and consider a pulse dose of Solu-Medrol. I have been reluctant to do that secondary to her recent myocardial infarction. CARDIOVASCULAR: The amiodarone has been stopped today. Increase the Lopressor and continue diuresis. Consider resuming Plavix soon. Continue statin. GASTROINTESTINAL: She is still on Protonix 40 mg IV b.i.d. If her blood counts remain stable, I would change that to p.o. tomorrow. Dietary supplements have been added today. I have also added Colace and scheduled MiraLax. She is getting a Dulcolax suppository today. RENAL: She probably will require more aggressive diuresis. Now that she is several days out from the myocardial infarction, I think we can be more aggressive with that. HEMATOLOGY: Continue heparin infusion and check H&H daily. MISCELLANEOUS: Continue physical therapy and occupational therapy. Overall throughout the week she has had very slow but relatively steady progress. Addendum: Shortly after this note was dictated she had a alex stool. Heparin infusion was stopped and serial h/h's starter. YAMILET
[2017-02-16 19:23] LABS: HEMATOCRIT 32.8 % (37-47)
[2017-02-16 21:10] LABS: HEMATOCRIT 33.6 % (37-47)
[2017-02-16] MEDS: LEVOFLOXACIN 750MG / D5W IV SCH (21:15)
[2017-02-16] MEDS: ASPIRIN 81 MG ECTAB PO SCH (21:16)
[2017-02-16] MEDS: DOCUSATE SODIUM 100 MG CAP PO SCH (21:17)
[2017-02-17] VITALS (18 sets, daily range): BP systolic 107–129; BP diastolic 59–82; PULSE 88–112; TEMP 36.4–36.7; O2SAT 91–97
[2017-02-17] MEDS: ALBUT/IPRATROP 3MG/0.5MG NEB 3 ML VIAL INH SCH ×6 (03:13→23:30)
[2017-02-17 05:37] LABS: BASO % 0.1 %; BASO ABS # 0.01 K/uL (0-0.2); COMPLETE YES; EOS % 0.5 %; HEMATOCRIT 31.3 % (37-47); IG% 0.5 %; LYMPH % 13.2 %; LYMPH ABS # 1.58 K/uL (1.2-3.4); MEAN CELL VOLUME 93.4 fL (80-100); MEAN CORPUSCULAR HEMOGLOBIN 30.7 pg (25-34); MEAN CORPUSCULAR HGB CONC 32.9 g/dl (32-36); MONO % 7.3 %; NEUT % 78.4 %; PLATELET COUNT 247 K/uL (130-400); RED BLOOD COUNT 3.35 M/uL (4.2-5.4); WHITE BLOOD COUNT 12.01 K/uL (4.8-10.8)
[2017-02-17 05:50] LABS: PARTIAL THROMBOPLASTIN RATIO 1.1
[2017-02-17 06:02] LABS: BUN/CREATININE RATIO 27.6 (10-20); CALCIUM 7.5 mg/dl (8.5-10.1); CREATININE 0.9 mg/dl (0.60-1.20); MAGNESIUM 1.9 mg/dl (1.8-2.4)
[2017-02-17 06:03] LABS: PHOSPHORUS 2.3 mg/dl (2.5-4.9)
[2017-02-17] MEDS: BOOST VANILLA PUDDING CUP PO SCH ×3 (07:50→15:53)
[2017-02-17] MEDS: PANTOprazole INJ 40 MG in SYRINGE 0 ML IV SCH ×2 (07:51→21:13)
[2017-02-17] MEDS: BUDESONIDE/FORMOTEROL FUMARATE 80/4.5 60 PUFFS/INHALER INH SCH ×2 (07:51→21:12)
[2017-02-17] MEDS: FLUTICASONE PROPIONATE NA SPR 16 GM BTL SCH (07:51)
[2017-02-17] MEDS: FUROSEMIDE INJ 20 MG in SYRINGE 0 ML IV SCH ×2 (07:51→21:14)
[2017-02-17] MEDS: POTASSIUM CHLORIDE 20 MEQ TABCR PO SCH (07:52)
[2017-02-17] MEDS: ATORVASTATIN 40 MG TAB PO SCH (07:52)
[2017-02-17] MEDS: DOCUSATE SODIUM 100 MG CAP PO SCH ×2 (07:52→21:00)
[2017-02-17] MEDS: METOPROLOL TARTRATE 25 MG TAB PO SCH ×2 (07:53→21:14)
--- NOTE | 2017-02-17 09:09 | DIAGNOSTIC IMAGING REPORT ---
CHEST ONE VIEW PORTABLE HISTORY: f/u RLL infiltrate, COPD COMPARISON: Chest 02/16/2017. FINDINGS: Stable calcified granuloma within the right lung apex. Right jugular central venous catheter is unchanged in position. The heart remains mildly enlarged. Right basilar airspace opacity has improved. Mild diffuse interstitial thickening. Trace right pleural effusion. IMPRESSION: 1. Improvement in the right base airspace opacity. 2. Trace right pleural effusion. 3. Stable mild cardiomegaly. Electronically signed by: Bernard Griffith M.D. 02/17/2017 9:07 AM Dictated Date/Time: 02/17/2017 9:06 AM
[2017-02-17] MEDS ORDERED: POTASSIUM PHOS 3 MMOL/1 ML INFUSION IV STA (10:32)
[2017-02-17] MEDS ORDERED: POTASSIUM PHOSPHATE INJ 15 MMOL in SODIUM CHLORIDE 0.9% 250ML 250 ML IV ONE (11:00)
--- NOTE | 2017-02-17 11:04 | Cardiology Follow-Up ---
Subjective Subjective Date of Service: Feb 17, 2017. Pt evaluation today including: conversation w/ patient, physical exam, chart review, lab review, review of studies, review of inpatient medication list Additional Details: 2 dark BMs yesterday concerning for GI Bleeding. Heparin/ASA held. This AM feeling discouraged still in ICU. Breathing at baseline. No chest pain. Remains in AF/flutter HR 90-110s. Problem List Medical Problems: (1) Abnormal EKG Status: Acute (2) Abnormal EKG Status: Acute (3) Chest pain Status: Acute (4) COPD exacerbation Status: Acute (5) Diarrhea Status: Acute (6) Elevated troponin Status: Acute (7) Hypokalemia Status: Acute (8) Hypotension Status: Acute (9) Hypoxemia Status: Acute (10) NSTEMI (non-ST elevated myocardial infarction) Status: Acute (11) Precordial chest pain Status: Acute Review of Systems Constitutional: + weakness, + fatigue ENT: + problem reported Respiratory: + wheezing, + shortness of breath, + dyspnea on exertion Cardiac: No chest pain Abdomen: No pain, No nausea, No diarrhea Neurologic: No numbness/tingling Heme: + problem reported (Melanotic stools) Endo: No fatigue Skin: + problem reported (diffuse ecchymosis) Objective Vital Signs Last Vital Signs Documentation Date Time Temp Pulse Resp B/P (MAP) Pulse Ox O2 Delivery O2 Flow Rate FiO2 02/17/17 08:02 36.4 104 26 126/65 (85) 92 Nasal Cannula 4.0 Physical Exam: General Appearance: no apparent distress ENT: hearing grossly normal Neck: supple, no JVD, trachea midline Respiratory/Chest: chest non-tender, no respiratory distress, no accessory muscle use, + wheezing (scattered) Cardiovascular: no gallop, no JVD, no murmur, + tachycardia, + irregularly irregular Abdomen: normal bowel sounds, non tender, soft Extremities: no calf tenderness Neurologic/Psychiatric: alert, normal mood/affect, + motor weakness ( generalized) Skin: normal color, warm/dry, + pertinent finding (diffuse ecchymosis) Lymphatic: no adenopathy Assessment and Plan 1. NSTEMI -- severe RCA disease 2. RCA PCI with DESx2 complicated by distal PDA/PLB dissection/no-reflow 3. AF/flutter with RVR -- reasonably rate controlled on metoprolol 4. Acute diastolic heart failure -- improved congestion 5. Anemia/suspected GI bleed -- recurrent dark BMs yesterday concerning for GI bleed; Hb down from 11-->10 6. COPD on 4L baseline Well perfused with minimal congestion on exam. Remains in Aflutter now off amiodarone with HRs reasonably controlled on current metoprolol. Heparin/ASA now on hold after concern for recurrent GI bleed. -- Agree with holding ASA/heparin for now. FPC may not be a candidate for systemic anticoagulation. Plan for retrial of antiplatelet therapy if blood counts stable. -- Continue diuresis -- > consider switching to daily dosing. -- Continue current metoprolol -- continue current statin. Will follow Continued [facility] stay due to: multiple IV medications needed Discharge planning: home with home health Medications: Current Inpatient Medications Medications (Trade) Dose Ordered Sig/Jessi Route Start Time Stop Time Status Last Admin Dose Admin Aspirin (Ecotrin Tab) 81 mg QPM PO 02/09/17 21:00 03/11/17 20:59 Future Hold 02/16/17 21:16 81 MG Budesonide/ Formoterol Fumarate (Symbicort 80/ 4.5 Inh) 2 puffs BID INH 02/09/17 09:00 03/11/17 08:59 02/17/17 07:51 2 PUFFS Chlordiazepoxide (Librium Cap) 10 mg TID PRN PO 02/09/17 01:00 03/11/17 00:59 02/15/17 11:40 10 MG Clopidogrel Bisulfate (plAVix TAB) 75 mg QPM PO 02/09/17 21:00 03/11/17 20:59 Future Hold 02/11/17 20:18 75 MG Fluticasone Propionate (Flonase Nasal [place]) 2 sprays DAILY NA 02/09/17 09:00 03/11/17 08:59 02/17/17 07:51 2 SPRAYS Prednisone (PredniSONE TAB) 20 mg DAILY PO 02/09/17 09:00 03/11/17 08:59 02/17/17 07:52 20 MG Acetaminophen (Tylenol Tab) 650 mg Q4H PRN PO 02/09/17 01:30 03/11/17 01:29 02/12/17 14:34 650 MG Al Hydrox/Mg Hydrox/Simethicone (Maalox Max Susp) 15 ml Q4H PRN PO 02/09/17 01:30 03/11/17 01:29 Magnesium Hydroxide (Milk Of Magnesia Susp) 30 ml Q12H PRN PO 02/09/17 01:30 03/11/17 01:29 Ondansetron HCl (Zofran Inj) 4 mg Q6H PRN IV 02/09/17 01:30 03/11/17 01:29 02/12/17 19:31 4 MG Nitroglycerin (Nitrostat Tab) 0.4 mg UD PRN SL 02/09/17 01:30 03/11/17 01:29 Morphine Sulfate (MoRPHine SULFATE INJ) 2 mg Q30M PRN IV 02/09/17 01:30 02/23/17 01:29 02/15/17 11:41 2 MG Polyethylene (Miralax Powder Packet) 17 gm DAILY PRN PO 02/09/17 01:30 03/11/17 01:29 Atorvastatin Calcium (Lipitor Tab) 80 mg QAM PO 02/10/17 09:00 03/11/17 08:59 02/17/17 07:52 80 MG Albuterol/ Ipratropium (Duoneb) 3 ml Q4R INH 02/12/17 20:00 03/14/17 19:59 02/17/17 07:25 3 ML Calcium Carbonate (Tums Chew Tab) 500 mg PRN PRN PO 02/13/17 00:15 03/15/17 00:14 02/13/17 06:02 500 MG Heparin Sodium (Porcine) (Heparin 10 Unit/ ml 5 ml Flush) 5 ml PRN PRN FLUSH 02/13/17 01:30 03/15/17 01:29 Al Hydroxide/Mg Hydroxide/ Lidocaine HCl/ Barcode BID PRN PO 02/13/17 09:45 03/15/17 09:44 02/14/17 02:35 24 ML Labetalol HCl (Normodyne IV) 10 mg Q6H PRN IV 02/13/17 14:15 03/15/17 14:14 02/13/17 21:26 10 MG Levofloxacin 750 mg/Prmx 150 ml @ 100 mls/hr Q24H IV 02/15/17 22:00 02/21/17 21:59 02/16/17 21:15 100 MLS/HR Pantoprazole Sodium 40 mg/ Syringe 10 ml @ 5 mls/min Q12@0900,2100 IV 02/15/17 21:00 03/17/17 20:59 02/17/17 07:51 5 MLS/MIN Heparin Sodium/ Dextrose 500 ml @ 19 mls/hr Q24H PRN IV 02/15/17 12:00 03/17/17 11:59 Future Hold 02/16/17 11:56 19 MLS/HR Furosemide 20 mg/ Syringe 2 ml @ 4 mls/min Q12 IV 02/16/17 09:00 03/18/17 08:59 02/17/17 07:51 4 MLS/MIN Metoprolol Tartrate (Lopressor Tab) 25 mg BID PO 02/16/17 21:00 03/17/17 20:59 02/17/17 07:53 25 MG Enteral Nutritional Formula (Boost Pudding) 1 cup TIDM PO 02/16/17 16:30 03/18/17 16:29 02/17/17 07:50 1 CUP Bisacodyl (Dulcolax Supp) 10 mg DAILY PRN HI 02/16/17 16:00 03/18/17 15:59 Docusate Sodium (coLACE CAP) 100 mg BID PO 02/16/17 21:00 03/18/17 20:59 02/17/17 07:52 100 MG Potassium Chloride (Klor-Con Tab) 20 meq DAILY PO 02/18/17 09:00 03/20/17 08:59 Potassium Phosphate (Potassium Phosphate Replacement) 15 mmol NOW STAT IV 02/17/17 10:32 02/17/17 10:33 UNV Lab Results: 02/17/17 05:12 Red Blood Count 3.35, Mean Corpuscular Volume 93.4, Mean Corpuscular Hemoglobin 30.7, Mean Corpuscular Hemoglobin Concent 32.9, Mean Platelet Volume 10.0, Neutrophils (%) (Auto) 78.4, Lymphocytes (%) (Auto) 13.2, Monocytes (%) (Auto) 7.3, Eosinophils (%) (Auto) 0.5, Basophils (%) (Auto) 0.1, Neutrophils # (Auto) 9.42, Lymphocytes # (Auto) 1.58, Monocytes # (Auto) 0.88, Eosinophils # (Auto) 0.06, Basophils # (Auto) 0.01 02/17/17 05:12 Test 02/16/17 21:08 02/17/17 05:12 Bedside Glucose 232 mg/dl (70-90) White Blood Count 12.01 K/uL (4.8-10.8) Red Blood Count 3.35 M/uL (4.2-5.4) Hemoglobin 10.3 g/dL (12.0-16.0) Hematocrit 31.3 % (37-47) Mean Corpuscular Volume 93.4 fL (80-100) Mean Corpuscular Hemoglobin 30.7 pg (25-34) Mean Corpuscular Hemoglobin Concent 32.9 g/dl (32-36) Platelet Count 247 K/uL (130-400) Mean Platelet Volume 10.0 fL (7.4-10.4) Neutrophils (%) (Auto) 78.4 % Lymphocytes (%) (Auto) 13.2 % Monocytes (%) (Auto) 7.3 % Eosinophils (%) (Auto) 0.5 % Basophils (%) (Auto) 0.1 % Neutrophils # (Auto) 9.42 K/uL (1.4-6.5) Lymphocytes # (Auto) 1.58 K/uL (1.2-3.4) Monocytes # (Auto) 0.88 K/uL (0.11-0.59) Eosinophils # (Auto) 0.06 K/uL (0-0.5) Basophils # (Auto) 0.01 K/uL (0-0.2) RDW Standard Deviation 53.2 fL (36.4-46.3) RDW Coefficient of Variation 15.6 % (11.5-14.5) Immature Granulocyte % (Auto) 0.5 % Immature Granulocyte # (Auto) 0.06 K/uL (0.00-0.02) Activated Partial Thromboplast Time 29.1 SECONDS (21.0-31.0) Partial Thromboplastin Ratio 1.1 Anion Gap 9.0 mmol/L (3-11) Est Creatinine Clear Calc Drug Dose 52.5 ml/min Estimated GFR () 73.0 Estimated GFR (Non- 63.0 BUN/Creatinine Ratio 27.6 (10-20) Calcium Level 7.5 mg/dl (8.5-10.1) Phosphorus Level 2.3 mg/dl (2.5-4.9) Magnesium Level 1.9 mg/dl (1.8-2.4)
--- NOTE | 2017-02-17 12:05 | Progress Note ---
Subjective Date of Service: Feb 17, 2017. Subjective Pt evaluation today including: conversation w/ patient, physical exam Pain: no pain PO Intake: poor appetite Voiding: del castillo catheter in place unfortunately patient had some bloody stools yesterday and over night, Hb dropped slightly to 10.3 this AM heparin and aspirin stopped no chest pain, breathing is stable patient frustrated with re-bleeding discussed case with Dr. Dubose reviewed recommendations from Dr. Vu Problem List Medical Problems: (1) Abnormal EKG Status: Acute (2) Abnormal EKG Status: Acute (3) Chest pain Status: Acute (4) COPD exacerbation Status: Acute (5) Diarrhea Status: Acute (6) Elevated troponin Status: Acute (7) Hypokalemia Status: Acute (8) Hypotension Status: Acute (9) Hypoxemia Status: Acute (10) NSTEMI (non-ST elevated myocardial infarction) Status: Acute (11) Precordial chest pain Status: Acute Review of Systems Constitutional: + weakness, + fatigue Respiratory: + cough, + sputum (thinnning out), + shortness of breath, + dyspnea on exertion, + dyspnea at rest Abdomen: + GI bleeding Neurologic: + weakness All Other Systems: Reviewed and Negative Medications Current Inpatient Medications Medications (Trade) Dose Ordered Sig/Jessi Route Start Time Stop Time Status Last Admin Dose Admin Aspirin (Ecotrin Tab) 81 mg QPM PO 02/09/17 21:00 03/11/17 20:59 Future Hold 02/16/17 21:16 81 MG Budesonide/ Formoterol Fumarate (Symbicort 80/ 4.5 Inh) 2 puffs BID INH 02/09/17 09:00 03/11/17 08:59 02/17/17 07:51 2 PUFFS Chlordiazepoxide (Librium Cap) 10 mg TID PRN PO 02/09/17 01:00 03/11/17 00:59 02/15/17 11:40 10 MG Clopidogrel Bisulfate (plAVix TAB) 75 mg QPM PO 02/09/17 21:00 03/11/17 20:59 Future Hold 02/11/17 20:18 75 MG Fluticasone Propionate (Flonase Nasal [place]) 2 sprays DAILY NA 02/09/17 09:00 03/11/17 08:59 02/17/17 07:51 2 SPRAYS Prednisone (PredniSONE TAB) 20 mg DAILY PO 02/09/17 09:00 03/11/17 08:59 02/17/17 07:52 20 MG Acetaminophen (Tylenol Tab) 650 mg Q4H PRN PO 02/09/17 01:30 03/11/17 01:29 02/12/17 14:34 650 MG Al Hydrox/Mg Hydrox/Simethicone (Maalox Max Susp) 15 ml Q4H PRN PO 02/09/17 01:30 03/11/17 01:29 Magnesium Hydroxide (Milk Of Magnesia Susp) 30 ml Q12H PRN PO 02/09/17 01:30 03/11/17 01:29 Ondansetron HCl (Zofran Inj) 4 mg Q6H PRN IV 02/09/17 01:30 03/11/17 01:29 02/12/17 19:31 4 MG Nitroglycerin (Nitrostat Tab) 0.4 mg UD PRN SL 02/09/17 01:30 03/11/17 01:29 Morphine Sulfate (MoRPHine SULFATE INJ) 2 mg Q30M PRN IV 02/09/17 01:30 02/23/17 01:29 02/15/17 11:41 2 MG Polyethylene (Miralax Powder Packet) 17 gm DAILY PRN PO 02/09/17 01:30 03/11/17 01:29 Atorvastatin Calcium (Lipitor Tab) 80 mg QAM PO 02/10/17 09:00 03/11/17 08:59 02/17/17 07:52 80 MG Albuterol/ Ipratropium (Duoneb) 3 ml Q4R INH 02/12/17 20:00 03/14/17 19:59 02/17/17 11:17 3 ML Calcium Carbonate (Tums Chew Tab) 500 mg PRN PRN PO 02/13/17 00:15 03/15/17 00:14 02/13/17 06:02 500 MG Heparin Sodium (Porcine) (Heparin 10 Unit/ ml 5 ml Flush) 5 ml PRN PRN FLUSH 02/13/17 01:30 03/15/17 01:29 Al Hydroxide/Mg Hydroxide/ Lidocaine HCl/ Barcode BID PRN PO 02/13/17 09:45 03/15/17 09:44 02/14/17 02:35 24 ML Labetalol HCl (Normodyne IV) 10 mg Q6H PRN IV 02/13/17 14:15 03/15/17 14:14 02/13/17 21:26 10 MG Levofloxacin 750 mg/Prmx 150 ml @ 100 mls/hr Q24H IV 02/15/17 22:00 02/21/17 21:59 02/16/17 21:15 100 MLS/HR Pantoprazole Sodium 40 mg/ Syringe 10 ml @ 5 mls/min Q12@0900,2100 IV 02/15/17 21:00 03/17/17 20:59 02/17/17 07:51 5 MLS/MIN Heparin Sodium/ Dextrose 500 ml @ 19 mls/hr Q24H PRN IV 02/15/17 12:00 03/17/17 11:59 Future Hold 02/16/17 11:56 19 MLS/HR Furosemide 20 mg/ Syringe 2 ml @ 4 mls/min Q12 IV 02/16/17 09:00 03/18/17 08:59 02/17/17 07:51 4 MLS/MIN Metoprolol Tartrate (Lopressor Tab) 25 mg BID PO 02/16/17 21:00 03/17/17 20:59 02/17/17 07:53 25 MG Enteral Nutritional Formula (Boost Pudding) 1 cup TIDM PO 02/16/17 16:30 03/18/17 16:29 02/17/17 07:50 1 CUP Bisacodyl (Dulcolax Supp) 10 mg DAILY PRN [place] 02/16/17 16:00 03/18/17 15:59 Docusate Sodium (coLACE CAP) 100 mg BID PO 02/16/17 21:00 03/18/17 20:59 02/17/17 07:52 100 MG Potassium Chloride (Klor-Con Tab) 20 meq DAILY PO 02/18/17 09:00 03/20/17 08:59 Potassium Phosphate 15 mmol/ Sodium Chloride 255 ml @ 127.5 mls/ hr TODAY@1100 ONCE IV 02/17/17 11:00 02/17/17 12:59 02/17/17 11:48 127.5 MLS/HR Objective Vital Signs Date Time Temp Pulse Resp B/P (MAP) Pulse Ox O2 Delivery O2 Flow Rate FiO2 02/17/17 11:17 102 20 93 Nasal Cannula 4.0 02/17/17 10:01 93 30 118/59 (78) 94 Nasal Cannula 4.0 02/17/17 08:02 36.4 104 26 126/65 (85) 92 Nasal Cannula 4.0 02/17/17 08:00 Nasal Cannula 4.0 02/17/17 07:25 96 20 95 Nasal Cannula 4.0 02/17/17 06:01 88 24 118/62 (80) 97 Nasal Cannula 4.0 02/17/17 04:01 36.5 92 25 116/71 (86) 96 Nasal Cannula 4.0 02/17/17 04:00 Nasal Cannula 4.0 02/17/17 03:14 92 20 94 Nasal Cannula 4.0 02/17/17 02:01 93 25 118/82 (94) 96 Nasal Cannula 4.0 02/17/17 00:01 36.7 101 29 107/71 (83) 94 Nasal Cannula 4.0 02/17/17 00:01 Nasal Cannula 4.0 02/16/17 23:03 96 20 95 Nasal Cannula 4.0 02/16/17 22:01 100 28 129/79 (96) 95 Nasal Cannula 4.0 02/16/17 20:02 36.7 107 35 130/72 (91) 92 Nasal Cannula 4.0 02/16/17 20:00 Nasal Cannula 4.0 02/16/17 19:55 105 34 138/70 (92) 90 Nasal Cannula 4.0 02/16/17 19:30 108 24 91 Nasal Cannula 4.0 02/16/17 18:01 36.5 117 30 145/79 (101) 91 Nasal Cannula 4.0 02/16/17 16:01 106 28 127/71 (89) 91 Nasal Cannula 4.0 02/16/17 16:00 Nasal Cannula 4.0 02/16/17 15:11 91 24 94 Nasal Cannula 4.0 02/16/17 14:01 113 26 112/77 (89) 91 Nasal Cannula 4.0 02/16/17 12:03 36.6 114 25 111/78 (89) 91 Nasal Cannula 4.0 02/16/17 12:00 Nasal Cannula 4.0 Physical Exam General Appearance: WD/WN, + mild distress Eyes: normal inspection, EOMI, sclerae normal Neck: supple, no adenopathy, no JVD, trachea midline Respiratory/Chest: chest non-tender, no respiratory distress, no accessory muscle use, + rales, + wheezing Cardiovascular: no edema, no gallop, no JVD, no murmur, + tachycardia, + irregularly irregular Abdomen: normal bowel sounds, non tender, soft, no organomegaly Extremities: normal range of motion, non-tender, normal inspection, no pedal edema, no calf tenderness, pelvis stable 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, no motor/sensory deficits, alert, normal mood/affect, oriented x 3 Skin: normal color, warm/dry, no rash Laboratory Results Last 24 Hours Test 02/16/17 12:57 02/16/17 18:26 02/16/17 21:02 02/16/17 21:08 Activated Partial Thromboplast Time 52.2 SECONDS Partial Thromboplastin Ratio 2.0 Hemoglobin 11.2 g/dL 11.0 g/dL Hematocrit 32.8 % 33.6 % Bedside Glucose 232 mg/dl Test 02/17/17 05:12 White Blood Count 12.01 K/uL Red Blood Count 3.35 M/uL Hemoglobin 10.3 g/dL Hematocrit 31.3 % Mean Corpuscular Volume 93.4 fL Mean Corpuscular Hemoglobin 30.7 pg Mean Corpuscular Hemoglobin Concent 32.9 g/dl Platelet Count 247 K/uL Mean Platelet Volume 10.0 fL Neutrophils (%) (Auto) 78.4 % Lymphocytes (%) (Auto) 13.2 % Monocytes (%) (Auto) 7.3 % Eosinophils (%) (Auto) 0.5 % Basophils (%) (Auto) 0.1 % Neutrophils # (Auto) 9.42 K/uL Lymphocytes # (Auto) 1.58 K/uL Monocytes # (Auto) 0.88 K/uL Eosinophils # (Auto) 0.06 K/uL Basophils # (Auto) 0.01 K/uL RDW Standard Deviation 53.2 fL RDW Coefficient of Variation 15.6 % Immature Granulocyte % (Auto) 0.5 % Immature Granulocyte # (Auto) 0.06 K/uL Activated Partial Thromboplast Time 29.1 SECONDS Partial Thromboplastin Ratio 1.1 Sodium Level 141 mmol/L Potassium Level 4.0 mmol/L Chloride Level 101 mmol/L Carbon Dioxide Level 31 mmol/L Anion Gap 9.0 mmol/L Blood Urea Nitrogen 25 mg/dl Creatinine 0.90 mg/dl Est Creatinine Clear Calc Drug Dose 52.5 ml/min Estimated GFR () 73.0 Estimated GFR (Non- 63.0 BUN/Creatinine Ratio 27.6 Random Glucose 87 mg/dl Calcium Level 7.5 mg/dl Phosphorus Level 2.3 mg/dl Magnesium Level 1.9 mg/dl Assessment and Plan 71 y/o F 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 Presents following an episode of severe central CP which lasted approximately 30 min. The pain was accompanied by SOB, lightheadedness and diaphoresis. At one point she was ambulating with the ongoing pain and she became light headed, collapsed on the floor without LOC and lost control of her bowels. On arrival to the ER she is asymptomatic however her troponin is markedly elevated. - NSTEMI: inital rise and fall in troponin, chest pain, EKG consistent with ischemia treated conservatively with heparin gtt, Plavix, aspirin, statin [facility] on 02/12, severe disease in RCA, complicated by guidewire loop becoming dislodged in RCA, stents placed suffered a second NSTEMI, troponin up to 37 and then 42, trending back down slowly, no further chest pain heparin gtt and aspirin started, now back on hold due to repeat GI bleeding cardiology following, will try to resume antiplatelets alone once no further signs of bleeding - Acute GI bleed: melena on 02/12 with hypotension, was on aspirin and Plavix and heparin gtt which exacerbated the issue BP improved with 2 units of PRBC, Protonix added Hb was stable for over 72 hours resumed heparin gtt and aspirin, unfortunately rebled last night, Hb down to 10.3 this AM from 11.0 heparin and aspirin stopped, repeat H/H this afternoon, transfuse if <10 due to [place] - New atrial fibrillation, with RVR likely due to ischemia/[place], HR in 90-110's, continue Metoprolol 25mg BID, PRN IV Lopressor stop amiodarone per Dr. Vu, likely not helping try to titrate up on Metoprolol as blood pressure allows, currently 110's systolic - Acute diastolic HF: likely due to afib RVR, responded well to Lasix IV at the onset still 3.7 liters positive with some edema and rales/wheezing on exam, will continue Lasix 20mg IV q12, follow response add KCl 20 BID with the lasix follow I/O and UO - Hypotension: was due to GI bleed, hemorrhagic shock resolved with 2 units of PRBC - Sinus pause: witnessed in the ED at time of admission, Atenolol held since admission will continue to hold, likely indefinitely d/w Dr. Mosqueda, cause of the pause was likely ischemia - Non-sustained V tach: no further episodes, likely caused by the ischemia - COPD - mild exacerbation with increased sputum production - cont inhalers, prednisone, 02 sat% 97 on 4LNC. Levaquin IV per ICU, cough improving, more sputum clearance per patient, would treat 7 days, last day would be 02/21 - Chronic respiratory failure with hypoxia: currently stable 4L but with more distress than normal Full code keep in ICU this AM, may consider transfer this afternoon after discussing with Dr. Dubose Continued [facility] stay due to: multiple IV medications needed Discharge planning: home with home health
[2017-02-17 14:33] LABS: HEMATOCRIT 34.5 % (37-47)
--- NOTE | 2017-02-17 15:35 | CRITICAL CARE PROGRESS NOTE ---
DATE: 02/17/2017 SUBJECTIVE: Yesterday afternoon, shortly after I completed my note, she started to have GI bleeding with alex stools. Her heparin infusion was stopped and her aspirin has been held. She is getting serial blood counts. She reports feeling better and her cough is improved. She still gets short of breath with any activity, but that is close to her baseline. She is eating well and enjoying the Boost pudding. She is now in atrial fibrillation, rather than atrial flutter. Her care was discussed in detail with her bedside nurse, Julieth. PHYSICAL EXAMINATION: VITAL SIGNS: Maximum temperature 37.2, heart rate 88-114, respiratory rate 20-26, blood pressure 116-145/60s-70s, oxygen saturation 92% on 4 liters nasal cannula. 24-hour fluid balance is -533 mL. GENERAL: She is awake, alert and sitting in a chair. We had a nice conversation. NEUROLOGIC: She moves all 4 extremities. LUNGS: Decreased breath sounds throughout with occasional expiratory wheeze anteriorly. HEART: Irregularly irregular. I do not hear any murmurs. ABDOMEN: Limited due to her seated position. It is mildly distended but nontender, nondistended, active bowel sounds. EXTREMITIES: Warm. No edema. LABORATORY DATA: White blood cell count 12.1, hemoglobin 10.3, hematocrit 31.3, platelets 247. Followup hemoglobin 11.5, sodium 141, potassium 40, chloride 101, CO2 31, BUN 25, creatinine 0.9, phosphorus 2.3. Portable chest x-ray from this morning shows improving right basilar infiltrate. MEDICATIONS: Tylenol, Maalox, DuoNeb, Lipitor, Dulcolax, Symbicort, calcium carbonate, Librium, Colace, Boost, Flonase, Lasix, labetalol, Levaquin day 3, milk of magnesia, Lopressor, morphine, Nitrostat, Zofran, Protonix, MiraLax, potassium, prednisone. Sputum culture shows heavy normal [place]. IMPRESSION: 1. Recurrent gastrointestinal bleed when she is getting systemic anticoagulant. She initially bled on the day of her cardiac catheterization. Heparin was started 2 days ago secondary to her atrial flutter and now she had gastrointestinal bleeding last night. She is hemodynamically stable and has not required blood transfusion for the second gastrointestinal bleed. 2. Status post acute inferior wall ST segment elevation myocardial infarction and stenting to the RCA. 3. Severe chronic obstructive pulmonary disease, steroid dependent. 4. Right basilar pneumonia, Levaquin day 3. 5. Atrial fibrillation/flutter with rapid ventricular response, her rate control is definitely improved compared to yesterday on increased dose of beta jalen. 6. Acute anemia of blood loss. 7. Acute kidney injury on admission, resolved. 8. History of hypertension. PLAN: GASTROINTESTINAL: Continue Protonix IV b.i.d. Continue serial blood counts. Hold aspirin as well. Continue diet. CARDIOVASCULAR: Continue Lopressor 25 b.i.d. Of note, she was on amiodarone for over 24 hours. Aspirin has been held as well. Continue statin. She may benefit from an BRITTANY inhibitor, now that her blood pressure is improved. PULMONARY: Continue bronchodilators, chest PT, and Levaquin. She is on her baseline oxygen at 4 liters nasal cannula. Encourage sputum expectoration. RENAL: Continue diuresis and watch electrolytes. HEME: SCDs for DVT prophylaxis. INFECTIOUS DISEASE: Levaquin for 5-7 days. NEURO: Home dose of Librium for anxiety. MISCELLANEOUS: Physical therapy and occupational therapy. I think she is stable for transfer to [facility]. Please call me with any questions or concerns. Dr. Hawkins and I discussed her care earlier today. YAMILET
[2017-02-17 20:03] LABS: HEMATOCRIT 34.6 % (37-47)
[2017-02-17] MEDS: LEVOFLOXACIN 750MG / D5W IV SCH (21:14)
[2017-02-18] VITALS (18 sets, daily range): BP systolic 120–129; BP diastolic 65–86; PULSE 96–122; TEMP 36.6–36.9; O2SAT 89–97
[2017-02-18] MEDS: ALBUT/IPRATROP 3MG/0.5MG NEB 3 ML VIAL INH SCH ×6 (03:06→23:12)
[2017-02-18 05:20] LABS: BASO % 0.1 %; BASO ABS # 0.01 K/uL (0-0.2); COMPLETE YES; EOS % 0.8 %; IG% 0.5 %; LYMPH % 16.3 %; LYMPH ABS # 1.88 K/uL (1.2-3.4); MEAN CELL VOLUME 93.4 fL (80-100); MEAN CORPUSCULAR HEMOGLOBIN 31.6 pg (25-34); MEAN CORPUSCULAR HGB CONC 33.9 g/dl (32-36); MEAN PLATELET VOLUME 9.6 fL (7.4-10.4); NEUT % 74.3 %; PLATELET COUNT 289 K/uL (130-400); RED BLOOD COUNT 3.32 M/uL (4.2-5.4); WHITE BLOOD COUNT 11.56 K/uL (4.8-10.8)
[2017-02-18 05:42] LABS: BUN/CREATININE RATIO 27.2 (10-20); CALCIUM 8.1 mg/dl (8.5-10.1); MAGNESIUM 1.8 mg/dl (1.8-2.4); POTASSIUM 3.9 mmol/L (3.5-5.1)
--- NOTE | 2017-02-18 07:35 | Hospitalist Progress Note ---
Hospitalist Progress Note Date of Service Feb 18, 2017. (Laura Dale PA-C) Subjective Pt evaluation today including: conversation w/ patient, physical exam, chart review, lab review, review of studies Pain: None PO Intake: Good Voiding: del castillo catheter in place The patient was seen and examined this morning. Pt reports doing well today. She did not get moved to this room (out of the IC to tele) until late last night , and didn't sleep very well, so is tired this morning. She denies any acute pain or complaints. She denies any shortness of breath or cp. Yesterday she worked with PT for 3 hours, and was up in the chair earlier today. She hopes to get back up and walk more today. Constitutional: No fever, No chills, No sweats Eyes: No redness, No diplopia ENT: No nasal symptoms, No sore throat, No trouble swallowing Respiratory: No wheezing, No shortness of breath Cardiovascular: No chest pain, No palpitations Abdomen: No pain, No nausea, No vomiting, No diarrhea Musculoskeletal: No joint pain, No muscle pain, No swelling Female : No dysuria, No hematuria Neurologic: No weakness, No numbness/tingling Psychiatric: No depression symptoms, No anxiety Endo: No fatigue Skin: No rash, No itch (Laura Dale PA-C) Objective Vital Signs Date Time Temp Pulse Resp B/P (MAP) Pulse Ox O2 Delivery O2 Flow Rate FiO2 02/18/17 07:21 111 20 93 Nasal Cannula 4.0 02/18/17 04:00 97 Nasal Cannula 4.0 02/18/17 04:00 36.8 114 22 121/65 (83) 97 Nasal Cannula 4.0 02/18/17 03:19 95 Nasal Cannula 4.0 02/18/17 03:07 96 20 95 Nasal Cannula 4.0 02/18/17 00:29 36.9 118 20 122/75 (91) 94 02/17/17 23:30 112 20 95 Nasal Cannula 4.0 02/17/17 20:11 36.7 102 25 129/76 (93) 95 Nasal Cannula 4.0 02/17/17 20:00 Nasal Cannula 4.0 02/17/17 19:28 112 20 93 Nasal Cannula 4.0 02/17/17 18:09 36.7 94 24 93 4.0 02/17/17 18:00 94 24 93 Nasal Cannula 4.0 02/17/17 16:01 36.7 110 27 120/69 (86) 91 Nasal Cannula 4.0 02/17/17 16:00 Nasal Cannula 4.0 02/17/17 15:12 93 20 94 Nasal Cannula 4.0 02/17/17 14:18 103 22 124/70 (88) 94 Nasal Cannula 4.0 02/17/17 12:01 36.5 99 23 114/82 (93) 96 Nasal Cannula 4.0 02/17/17 12:00 Nasal Cannula 4.0 02/17/17 11:17 102 20 93 Nasal Cannula 4.0 02/17/17 10:01 93 30 118/59 (78) 94 Nasal Cannula 4.0 02/17/17 08:02 36.4 104 26 126/65 (85) 92 Nasal Cannula 4.0 02/17/17 08:00 Nasal Cannula 4.0 (Laura Dale PA-C) Physical Exam General Appearance: WD/WN, no apparent distress Eyes: PERRL, EOMI ENT: hearing grossly normal, pharynx normal Neck: supple, + pertinent finding (Central line accessed, L jugular) Respiratory/Chest: chest non-tender, no respiratory distress, no accessory muscle use, + pertinent finding (On 4L via NC, + faint crackles at bases bilaterally, + expiratory wheeze) Cardiovascular: no JVD, no murmur, + tachycardia Abdomen: normal bowel sounds, non tender, soft Extremities: non-tender, no pedal edema, no calf tenderness Neurologic/Psychiatric: alert, normal mood/affect, oriented x 3 Skin: normal color, warm/dry (Laura Dale PA-C) Laboratory Results Last 24 Hours Test 02/17/17 14:17 02/17/17 19:55 02/18/17 04:55 Hemoglobin 11.5 g/dL 10.9 g/dL 10.5 g/dL Hematocrit 34.5 % 34.6 % 31.0 % White Blood Count 11.56 K/uL Red Blood Count 3.32 M/uL Mean Corpuscular Volume 93.4 fL Mean Corpuscular Hemoglobin 31.6 pg Mean Corpuscular Hemoglobin Concent 33.9 g/dl Platelet Count 289 K/uL Mean Platelet Volume 9.6 fL Neutrophils (%) (Auto) 74.3 % Lymphocytes (%) (Auto) 16.3 % Monocytes (%) (Auto) 8.0 % Eosinophils (%) (Auto) 0.8 % Basophils (%) (Auto) 0.1 % Neutrophils # (Auto) 8.60 K/uL Lymphocytes # (Auto) 1.88 K/uL Monocytes # (Auto) 0.92 K/uL Eosinophils # (Auto) 0.09 K/uL Basophils # (Auto) 0.01 K/uL RDW Standard Deviation 51.7 fL RDW Coefficient of Variation 15.2 % Immature Granulocyte % (Auto) 0.5 % Immature Granulocyte # (Auto) 0.06 K/uL Activated Partial Thromboplast Time 26.0 SECONDS Partial Thromboplastin Ratio 1.0 Sodium Level 140 mmol/L Potassium Level 3.9 mmol/L Chloride Level 101 mmol/L Carbon Dioxide Level 36 mmol/L Anion Gap 3.0 mmol/L Blood Urea Nitrogen 27 mg/dl Creatinine 1.00 mg/dl Est Creatinine Clear Calc Drug Dose 47.9 ml/min Estimated GFR () 64.3 Estimated GFR (Non- 55.5 BUN/Creatinine Ratio 27.2 Random Glucose 85 mg/dl Calcium Level 8.1 mg/dl Magnesium Level 1.8 mg/dl (Laura Dale, STEPHANIE) Assessment and Plan 71 y/o F 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 Presents following an episode of severe central CP which lasted approximately 30 min. The pain was accompanied by SOB, lightheadedness and diaphoresis. At one point she was ambulating with the ongoing pain and she became light headed, collapsed on the floor without LOC and lost control of her bowels. On arrival to the ER she is asymptomatic however her troponin is markedly elevated. NSTEMI: inital rise and fall in troponin, chest pain, EKG consistent with ischemia - treated conservatively with heparin gtt, Plavix, aspirin, statin - [facility] on 02/12, severe disease in RCA, complicated by guidewire loop becoming dislodged in RCA, stents placed suffered a second NSTEMI, troponin up to 37 and then 42, trending back down slowly, no further chest pain - heparin gtt and aspirin started, now back on hold due to repeat GI bleeding - cardiology following, will try to resume antiplatelets alone once no further signs of bleeding Acute GI bleed: melena on 02/12 with hypotension, was on aspirin and Plavix and heparin gtt which exacerbated the issue - BP improved with 2 units of PRBC, Protonix added - Hb was stable for over 72 hours - resumed heparin gtt and aspirin, unfortunately rebled on 02/17, Hb down to 10.3 yesterday, stabilized at 10.5 this morning. heparin and aspirin stopped, repeat H/H this afternoon, transfuse if <10 due to [place] New atrial fibrillation, with RVR - likely due to ischemia/W[place], HR in 90-110's, increase Metoprolol to 50 mg BID, PRN IV Lopressor - stop amiodarone per Dr. Vu, likely not helping - Will increase metoprolol to 50 mg BID with systolic in the 120s-130, and HR up 10 199 this morning. Acute diastolic HF: likely due to afib RVR, responded well to Lasix IV at the onset - Diuresing well, has slight crackles bilateral bases and expiratory wheeze on exam, per daily weight in EMR appears she is -2L from time of admission. Will continue Lasix 20mg IV q12, follow response - add KCl 20 BID with the lasix - follow I/O and UO Hypotension: was due to GI bleed, hemorrhagic shock - resolved with 2 units of PRBC Sinus pause: witnessed in the ED at time of admission, Atenolol held since admission will continue to hold, likely indefinitely d/w Dr. Mosqueda, cause of the pause was likely ischemia Non-sustained V tach: no further episodes, likely caused by the ischemia COPD - mild exacerbation with increased sputum production - cont inhalers, prednisone, 02 sat% 97 on 4LNC. Levaquin IV per ICU, cough improving, more sputum clearance but still yellow , improving from yesterday, would treat for 7 day course, last day would be 02/21 Chronic respiratory failure with hypoxia: currently stable 4L, wean as tolerated , no respiratory distress today. CODE STATUS: Full code DVT ppx: teds, scds Disposition: From home, lives alone, will need rehab at time of discharge, possible in ~2 days (Laura Dale, STEPHANIE) Attending Attestation & Admission Note: Pt seen/examined, chart reviewed, and care plan d/w ANETA Dale. I agree w/ the arevalo components of her documentation. Pt "feeling better". Denies significant dyspnea today. No further melena. Eating well. VSS except tachy O2 sats acceptable exam - gen - nad neck - right IJ in place, clean; minimal JVD heart - tachy, irregular lungs - wheezes b/l abd - soft, NT ext - no edema Hb 10.5 BMP nl A/P: 1. NSTEMI - no ischemic sx's at this time. 2. acute blood loss anemia 2nd to GI bleeding in the setting of multiple antiplatelet agents. 3. hemorrhagic shock - resolved. 4. acute diastolic CHF - improving. 5. COPD with exacerbation - resolving. recheck all labs in AM agree aspirin and/or plavix needs to be restarted soon in light of recent coronary stent placement PT, OT cont lasix IV Cody DELEON MD (Kam Deleon MD)
[2017-02-18] MEDS: BUDESONIDE/FORMOTEROL FUMARATE 80/4.5 60 PUFFS/INHALER INH SCH ×2 (08:16→21:27)
[2017-02-18] MEDS: BOOST VANILLA PUDDING CUP PO SCH ×3 (08:16→15:11)
[2017-02-18] MEDS: FLUTICASONE PROPIONATE NA SPR 16 GM BTL SCH (08:16)
[2017-02-18] MEDS: DOCUSATE SODIUM 100 MG CAP PO SCH ×2 (08:17→21:28)
[2017-02-18] MEDS: METOPROLOL TARTRATE 25 MG TAB PO SCH (08:17)
[2017-02-18] MEDS: FUROSEMIDE INJ 20 MG in SYRINGE 0 ML IV SCH ×2 (08:17→21:27)
[2017-02-18] MEDS: ATORVASTATIN 40 MG TAB PO SCH (08:17)
[2017-02-18] MEDS: PANTOprazole INJ 40 MG in SYRINGE 0 ML IV SCH ×2 (08:17→21:29)
[2017-02-18] MEDS: POTASSIUM CHLORIDE 20 MEQ TABCR PO SCH (08:18)
[2017-02-18] MEDS ORDERED: METOPROLOL TARTRATE 25 MG TAB PO SCH (13:00)
--- NOTE | 2017-02-18 15:03 | Cardiology Follow-Up ---
Subjective Subjective Date of Service: Feb 18, 2017. Pt evaluation today including: conversation w/ patient, physical exam, chart review, lab review, review of studies, review of inpatient medication list Additional Details: Breathing better today per patient No chest pain. No additional bowel movements. Tele reviewed -- remains in afib/flutter with HR up to 120s. Problem List Medical Problems: (1) Abnormal EKG Status: Acute (2) Abnormal EKG Status: Acute (3) Chest pain Status: Acute (4) COPD exacerbation Status: Acute (5) Diarrhea Status: Acute (6) Elevated troponin Status: Acute (7) Hypokalemia Status: Acute (8) Hypotension Status: Acute (9) Hypoxemia Status: Acute (10) NSTEMI (non-ST elevated myocardial infarction) Status: Acute (11) Precordial chest pain Status: Acute Review of Systems Constitutional: No fever, No chills, No sweats Eyes: No redness, No diplopia ENT: No nasal symptoms, No sore throat, No trouble swallowing Respiratory: No wheezing, No shortness of breath Cardiac: No chest pain, No palpitations Abdomen: No pain, No nausea, No vomiting, No diarrhea Musculoskeletal: No joint pain, No muscle pain, No swelling Female : No dysuria, No hematuria Neurologic: No weakness, No numbness/tingling Psychiatric: No depression symptoms, No anxiety Heme: + problem reported (Melanotic stools) Endo: No fatigue Skin: No rash, No itch Objective Vital Signs Last Vital Signs Documentation Date Time Temp Pulse Resp B/P (MAP) Pulse Ox O2 Delivery O2 Flow Rate FiO2 02/18/17 14:34 115 20 92 Nasal Cannula 3.0 02/18/17 11:57 36.6 129/66 (87) Physical Exam: General Appearance: no apparent distress ENT: hearing grossly normal, pharynx normal Neck: supple, no JVD, + pertinent finding (Central line accessed, L jugular) Respiratory/Chest: chest non-tender, no respiratory distress, no accessory muscle use, + pertinent finding (On 4L via NC, few scattered wheezes (improved from yesterday)) Cardiovascular: no JVD, no murmur, + tachycardia, + irregularly irregular Abdomen: normal bowel sounds, non tender, soft Extremities: non-tender, no pedal edema, no calf tenderness Neurologic/Psychiatric: alert, normal mood/affect, oriented x 3 Skin: normal color, warm/dry Lymphatic: no adenopathy Assessment and Plan 1. NSTEMI -- severe RCA disease 2. RCA PCI with DESx2 complicated by distal PDA/PLB dissection/no-reflow 3. AF/flutter with RVR -- HRs elevated on current dose of metoprolol 4. Acute diastolic heart failure -- improved congestion 5. Anemia/suspected GI bleed -- anticoagulation on hold; no further BMs yesterday 6. COPD on 4L baseline Well perfused with no significant congestion on exam. Remains in Afib/flutter; HRs above goal on current metoprolol Heparin/ASA now on hold after concern for recurrent GI bleed. Hb stable today. -- ASA/Heparin on hold. If blood counts stable tomorrow would resume ASA 81 mg. Ideally would get patient back on DAPT. -- Continues to diurese well. No congestion on exam --> transition to daily dosing. -- Agree with increasing metoprolol to 50 mg BID. Continue to titrate up as needed. -- continue current statin. Will continue to follow. Continued [facility] stay due to: multiple IV medications needed Discharge planning: home with home health Medications: Current Inpatient Medications Medications (Trade) Dose Ordered Sig/Jessi Route Start Time Stop Time Status Last Admin Dose Admin Aspirin (Ecotrin Tab) 81 mg QPM PO 02/09/17 21:00 03/11/17 20:59 Future Hold 02/16/17 21:16 81 MG Budesonide/ Formoterol Fumarate (Symbicort 80/ 4.5 Inh) 2 puffs BID INH 02/09/17 09:00 03/11/17 08:59 02/18/17 08:16 2 PUFFS Chlordiazepoxide (Librium Cap) 10 mg TID PRN PO 02/09/17 01:00 03/11/17 00:59 02/15/17 11:40 10 MG Clopidogrel Bisulfate (plAVix TAB) 75 mg QPM PO 02/09/17 21:00 03/11/17 20:59 Future Hold 02/11/17 20:18 75 MG Fluticasone Propionate (Flonase Nasal [place]) 2 sprays DAILY NA 02/09/17 09:00 03/11/17 08:59 02/18/17 08:16 2 SPRAYS Prednisone (PredniSONE TAB) 20 mg DAILY PO 02/09/17 09:00 03/11/17 08:59 02/18/17 08:18 20 MG Acetaminophen (Tylenol Tab) 650 mg Q4H PRN PO 02/09/17 01:30 03/11/17 01:29 02/12/17 14:34 650 MG Al Hydrox/Mg Hydrox/Simethicone (Maalox Max Susp) 15 ml Q4H PRN PO 02/09/17 01:30 03/11/17 01:29 Magnesium Hydroxide (Milk Of Magnesia Susp) 30 ml Q12H PRN PO 02/09/17 01:30 03/11/17 01:29 Ondansetron HCl (Zofran Inj) 4 mg Q6H PRN IV 02/09/17 01:30 03/11/17 01:29 02/12/17 19:31 4 MG Nitroglycerin (Nitrostat Tab) 0.4 mg UD PRN SL 02/09/17 01:30 03/11/17 01:29 Morphine Sulfate (MoRPHine SULFATE INJ) 2 mg Q30M PRN IV 02/09/17 01:30 02/23/17 01:29 02/15/17 11:41 2 MG Polyethylene (Miralax Powder Packet) 17 gm DAILY PRN PO 02/09/17 01:30 03/11/17 01:29 Atorvastatin Calcium (Lipitor Tab) 80 mg QAM PO 02/10/17 09:00 03/11/17 08:59 02/18/17 08:17 80 MG Albuterol/ Ipratropium (Duoneb) 3 ml Q4R INH 02/12/17 20:00 03/14/17 19:59 02/18/17 14:34 3 ML Calcium Carbonate (Tums Chew Tab) 500 mg PRN PRN PO 02/13/17 00:15 03/15/17 00:14 02/13/17 06:02 500 MG Heparin Sodium (Porcine) (Heparin 10 Unit/ ml 5 ml Flush) 5 ml PRN PRN FLUSH 02/13/17 01:30 03/15/17 01:29 Al Hydroxide/Mg Hydroxide/ Lidocaine HCl/ Barcode BID PRN PO 02/13/17 09:45 03/15/17 09:44 02/14/17 02:35 24 ML Labetalol HCl (Normodyne IV) 10 mg Q6H PRN IV 02/13/17 14:15 03/15/17 14:14 02/13/17 21:26 10 MG Pantoprazole Sodium 40 mg/ Syringe 10 ml @ 5 mls/min Q12@0900,2100 IV 02/15/17 21:00 03/17/17 20:59 02/18/17 08:17 5 MLS/MIN Heparin Sodium/ Dextrose 500 ml @ 19 mls/hr Q24H PRN IV 02/15/17 12:00 03/17/17 11:59 Future Hold 02/16/17 11:56 19 MLS/HR Furosemide 20 mg/ Syringe 2 ml @ 4 mls/min Q12 IV 02/16/17 09:00 03/18/17 08:59 02/18/17 08:17 4 MLS/MIN Enteral Nutritional Formula (Boost Pudding) 1 cup TIDM PO 02/16/17 16:30 03/18/17 16:29 02/18/17 08:16 1 CUP Bisacodyl (Dulcolax Supp) 10 mg DAILY PRN NM 02/16/17 16:00 03/18/17 15:59 Docusate Sodium (coLACE CAP) 100 mg BID PO 02/16/17 21:00 03/18/17 20:59 02/18/17 08:17 100 MG Potassium Chloride (Klor-Con Tab) 20 meq DAILY PO 02/18/17 09:00 03/20/17 08:59 02/18/17 08:18 20 MEQ Levofloxacin (Levaquin Tab) 750 mg DAILY@2200 PO 02/18/17 22:00 02/20/17 22:01 Metoprolol Tartrate (Lopressor Tab) 50 mg BID PO 02/18/17 21:00 03/17/17 20:59 Lab Results: 02/18/17 04:55 Red Blood Count 3.32, Mean Corpuscular Volume 93.4, Mean Corpuscular Hemoglobin 31.6, Mean Corpuscular Hemoglobin Concent 33.9, Mean Platelet Volume 9.6, Neutrophils (%) (Auto) 74.3, Lymphocytes (%) (Auto) 16.3, Monocytes (%) (Auto) 8.0, Eosinophils (%) (Auto) 0.8, Basophils (%) (Auto) 0.1, Neutrophils # (Auto) 8.60, Lymphocytes # (Auto) 1.88, Monocytes # (Auto) 0.92, Eosinophils # (Auto) 0.09, Basophils # (Auto) 0.01 02/18/17 04:55 Test 02/18/17 04:55 White Blood Count 11.56 K/uL (4.8-10.8) Red Blood Count 3.32 M/uL (4.2-5.4) Hemoglobin 10.5 g/dL (12.0-16.0) Hematocrit 31.0 % (37-47) Mean Corpuscular Volume 93.4 fL (80-100) Mean Corpuscular Hemoglobin 31.6 pg (25-34) Mean Corpuscular Hemoglobin Concent 33.9 g/dl (32-36) Platelet Count 289 K/uL (130-400) Mean Platelet Volume 9.6 fL (7.4-10.4) Neutrophils (%) (Auto) 74.3 % Lymphocytes (%) (Auto) 16.3 % Monocytes (%) (Auto) 8.0 % Eosinophils (%) (Auto) 0.8 % Basophils (%) (Auto) 0.1 % Neutrophils # (Auto) 8.60 K/uL (1.4-6.5) Lymphocytes # (Auto) 1.88 K/uL (1.2-3.4) Monocytes # (Auto) 0.92 K/uL (0.11-0.59) Eosinophils # (Auto) 0.09 K/uL (0-0.5) Basophils # (Auto) 0.01 K/uL (0-0.2) RDW Standard Deviation 51.7 fL (36.4-46.3) RDW Coefficient of Variation 15.2 % (11.5-14.5) Immature Granulocyte % (Auto) 0.5 % Immature Granulocyte # (Auto) 0.06 K/uL (0.00-0.02) Activated Partial Thromboplast Time 26.0 SECONDS (21.0-31.0) Partial Thromboplastin Ratio 1.0 Anion Gap 3.0 mmol/L (3-11) Est Creatinine Clear Calc Drug Dose 47.9 ml/min Estimated GFR () 64.3 Estimated GFR (Non- 55.5 BUN/Creatinine Ratio 27.2 (10-20) Calcium Level 8.1 mg/dl (8.5-10.1) Magnesium Level 1.8 mg/dl (1.8-2.4)
[2017-02-18] MEDS ORDERED: METOPROLOL TARTRATE 50 MG TAB PO SCH (21:00)
[2017-02-18] MEDS: LEVOFLOXACIN 750 MG TAB PO SCH (21:28)
[2017-02-19] VITALS (14 sets, daily range): BP systolic 105–124; BP diastolic 59–89; PULSE 68–120; TEMP 36.6–36.8; O2SAT 90–97
[2017-02-19] MEDS: ALBUT/IPRATROP 3MG/0.5MG NEB 3 ML VIAL INH SCH ×6 (03:29→23:06)
[2017-02-19 05:33] LABS: PARTIAL THROMBOPLASTIN RATIO 0.9
[2017-02-19 05:52] LABS: BUN/CREATININE RATIO 28.6 (10-20); CALCIUM 8.5 mg/dl (8.5-10.1); CREATININE 1.1 mg/dl (0.60-1.20)
[2017-02-19] MEDS: BUDESONIDE/FORMOTEROL FUMARATE 80/4.5 60 PUFFS/INHALER INH SCH ×2 (08:43→21:03)
[2017-02-19] MEDS: FLUTICASONE PROPIONATE NA SPR 16 GM BTL SCH (08:43)
[2017-02-19] MEDS: BOOST VANILLA PUDDING CUP PO SCH ×3 (08:43→17:34)
[2017-02-19] MEDS: FUROSEMIDE INJ 20 MG in SYRINGE 0 ML IV SCH (08:44)
[2017-02-19] MEDS: PANTOprazole SOD 40 MG TAB PO SCH ×2 (08:45→21:02)
[2017-02-19] MEDS: DOCUSATE SODIUM 100 MG CAP PO SCH ×2 (08:46→21:02)
[2017-02-19] MEDS: POTASSIUM CHLORIDE 20 MEQ TABCR PO SCH (08:46)
[2017-02-19] MEDS: ATORVASTATIN 40 MG TAB PO SCH (08:46)
[2017-02-19] MEDS ORDERED: METOPROLOL TARTRATE 50 MG TAB PO SCH (09:00)
[2017-02-19] MEDS ORDERED: NURSING VERBAL MED ORDER ONE (12:15)
[2017-02-19] MEDS ORDERED: ASPIRIN 81 MG ECTAB PO STA (16:53)
[2017-02-19] MEDS: METOPROLOL TARTRATE 50 MG TAB PO SCH (21:01)
--- NOTE | 2017-02-19 21:36 | Progress Note ---
Subjective Date of Service: Feb 19, 2017. Subjective Pt evaluation today including: conversation w/ patient, conversation w/ family (daughter by phone), physical exam, chart review, lab review, review of inpatient medication list Pain: denies any cp or abd pain PO Intake: eating "very well" Voiding: no voiding problems at 1045 this AM she converted from a. flutter to NSR and has remained in such since then she "feels the best in quite a while!" breathing is "better than normal" denies cough denies orthopnea feeling stronger each day no overt GI bleeding, melena, etc Problem List Medical Problems: (1) Abnormal EKG Status: Acute (2) Abnormal EKG Status: Acute (3) Chest pain Status: Acute (4) COPD exacerbation Status: Acute (5) Diarrhea Status: Acute (6) Elevated troponin Status: Acute (7) Hypokalemia Status: Acute (8) Hypotension Status: Acute (9) Hypoxemia Status: Acute (10) NSTEMI (non-ST elevated myocardial infarction) Status: Acute (11) Precordial chest pain Status: Acute Review of Systems Constitutional: No fever Respiratory: No cough Cardiac: No chest pain, No orthopnea Abdomen: No pain, No nausea Objective Vital Signs Date Time Temp Pulse Resp B/P (MAP) Pulse Ox O2 Delivery O2 Flow Rate FiO2 02/19/17 19:50 36.8 88 26 124/77 (93) 91 Nasal Cannula 3.0 02/19/17 19:28 68 16 94 Nasal Cannula 3.0 02/19/17 16:08 89 20 96 Nasal Cannula 3.0 02/19/17 16:00 95 Nasal Cannula 3.0 02/19/17 15:52 36.7 84 18 105/59 (74) 95 Nasal Cannula 3.0 02/19/17 12:02 36.7 82 24 115/72 (86) 93 Nasal Cannula 3.0 02/19/17 12:00 Nasal Cannula 3.0 02/19/17 11:12 88 20 96 Nasal Cannula 3.0 02/19/17 08:00 Nasal Cannula 3.0 02/19/17 07:53 36.6 120 19 123/77 (92) 97 Nasal Cannula 3.0 02/19/17 07:16 109 20 93 Nasal Cannula 3.0 02/19/17 04:00 90 Nasal Cannula 3.0 02/19/17 04:00 36.8 113 24 119/78 (92) 90 Nasal Cannula 4.0 02/19/17 03:30 111 20 94 Nasal Cannula 4.0 02/19/17 00:01 91 Nasal Cannula 4.0 02/19/17 00:00 36.6 118 23 122/89 (100) 91 Nasal Cannula 4.0 02/18/17 23:12 104 20 91 Nasal Cannula 3.0 Physical Exam General Appearance: no apparent distress ENT: pharynx normal Neck: no JVD Respiratory/Chest: no respiratory distress, no accessory muscle use, + wheezing , + pertinent finding (no rales) Cardiovascular: regular rate, rhythm, no gallop, no murmur Abdomen: normal bowel sounds, non tender, soft, no organomegaly Extremities: no pedal edema Neurologic/Psychiatric: alert, oriented x 3 Skin: no rash, + pertinent finding (right IJ CVC clean) Laboratory Results Last 24 Hours Test 02/19/17 04:45 Hemoglobin 11.1 g/dL Activated Partial Thromboplast Time 23.2 SECONDS Partial Thromboplastin Ratio 0.9 Sodium Level 141 mmol/L Potassium Level 4.0 mmol/L Chloride Level 100 mmol/L Carbon Dioxide Level 36 mmol/L Anion Gap 5.0 mmol/L Blood Urea Nitrogen 31 mg/dl Creatinine 1.10 mg/dl Est Creatinine Clear Calc Drug Dose 41.3 ml/min Estimated GFR () 57.3 Estimated GFR (Non- 49.4 BUN/Creatinine Ratio 28.6 Random Glucose 98 mg/dl Calcium Level 8.5 mg/dl Assessment and Plan 72yo female: 1. NSTEMI - s/p heart cath with placement of RCA stent. Complicated by fracture of wire and coronary dissection. No ischemic sx's at this time. Cont BB Cont high intensity statin Cautiously restarting aspirin with hopes of resuming plavix in future if H/H remain stable 2. acute blood loss anemia 2nd to GI bleeding in the setting of multiple antiplatelet agents - resolved. Stable H/H for 6+ days. Repeat CBC in am. Stopped IV ppi; changed to po PPI twice daily. Poor candidate for endoscopy unless she has life threatening bleed. Start ferrous sulfate BID in am. 3. hemorrhagic shock - resolved. 4. acute diastolic CHF - resolved. Stop IV lasix. Use lasix prn for weight gain. 5. COPD with exacerbation - resolving. Lower prednisone to 15mg daily. Finish levaquin (last dose 02/21/17). 6. a. flutter (with some a. fib) - resolved; converted to NSR today. Continue BB. Poor anticoagulation candidate at this time due to recent GI bleeding. 7. chronic resp failure 2nd to O2-dependent COPD - stable, on home O2 amount. 8. non-sustained V-tach early this admission - none since. Tele w/o ventricular dysrhythmias. 9. DVT proph - chemical means contraindicated. SCDs for now. 10. deconditioning - PT, OT; SNF for rehab ([facility]). daughter updated by phone extensively 02/19/17 to [facility] - tomorrow? ? d/c central line in am if possible abundio is already out Discharge planning: [facility] facility
[2017-02-19] MEDS: LEVOFLOXACIN 750 MG TAB PO SCH (22:03)
[2017-02-20] VITALS (9 sets, daily range): BP systolic 114–125; BP diastolic 57–70; PULSE 80–92; TEMP 36.4–36.9; O2SAT 85–97
[2017-02-20] MEDS: ALBUT/IPRATROP 3MG/0.5MG NEB 3 ML VIAL INH SCH ×5 (03:29→16:10)
[2017-02-20 04:53] LABS: HEMATOCRIT 34.5 % (37-47); MEAN CELL VOLUME 96.1 fL (80-100); MEAN CORPUSCULAR HEMOGLOBIN 30.1 pg (25-34); MEAN CORPUSCULAR HGB CONC 31.3 g/dl (32-36); MEAN PLATELET VOLUME 9.4 fL (7.4-10.4); PLATELET COUNT 327 K/uL (130-400); RED BLOOD COUNT 3.59 M/uL (4.2-5.4); WHITE BLOOD COUNT 13.41 K/uL (4.8-10.8)
[2017-02-20 05:16] LABS: BUN/CREATININE RATIO 32.8 (10-20); CALCIUM 8.9 mg/dl (8.5-10.1); CREATININE 1.3 mg/dl (0.60-1.20); MAGNESIUM 2.1 mg/dl (1.8-2.4); POTASSIUM 4.1 mmol/L (3.5-5.1)
[2017-02-20] MEDS: BOOST VANILLA PUDDING CUP PO SCH ×2 (07:30→11:30)
[2017-02-20] MEDS ORDERED: FERROUS SULFATE 325 MG TAB PO SCH (07:30)
[2017-02-20] MEDS: ATORVASTATIN 40 MG TAB PO SCH (08:16)
[2017-02-20] MEDS: DOCUSATE SODIUM 100 MG CAP PO SCH (08:16)
[2017-02-20] MEDS: BUDESONIDE/FORMOTEROL FUMARATE 80/4.5 60 PUFFS/INHALER INH SCH (08:16)
[2017-02-20] MEDS: PANTOprazole SOD 40 MG TAB PO SCH (08:16)
[2017-02-20] MEDS: METOPROLOL TARTRATE 50 MG TAB PO SCH (08:16)
[2017-02-20] MEDS: POTASSIUM CHLORIDE 20 MEQ TABCR PO SCH (08:17)
[2017-02-20] MEDS: FLUTICASONE PROPIONATE NA SPR 16 GM BTL SCH (08:17)
[2017-02-20] MEDS ORDERED: ASPIRIN 81 MG ECTAB PO SCH (09:00)
[2017-02-20] MEDS ORDERED: CLC100 PO (09:50)
[2017-02-20] MEDS ORDERED: LPT40 PO (09:50)
[2017-02-20] MEDS ORDERED: MOMLX PO (09:50)
[2017-02-20] MEDS ORDERED: PRT40 PO (09:50)
[2017-02-20] MEDS ORDERED: METO50TA16 PO (09:50)
[2017-02-20] MEDS ORDERED: MRLP17X PO (09:50)
[2017-02-20] MEDS ORDERED: ASPI81TA28 PO (09:50)
[2017-02-20] MEDS ORDERED: MCRK20 PO (09:50)
--- NOTE | 2017-02-20 10:11 | Discharge Instructions ---
Discharge Instructions Date of Service Feb 20, 2017. Admission Reason for Admission: Nstemi Discharge Discharge Diagnosis / Problem: NSTEMI - s/p heart cath with placement of RCA stent Discharge Goals Goal(s): Decrease discomfort, Improve function, Increase independence, Improve disease control Activity Recommendations Activity Limitations: per Instructions/Follow-up section Lifting Limitations: no more than 25 pounds, gradually increase as tolerated Exercise/Sports Limitations: gradually increase as tolerated May Resume Sexual Activity: after follow-up appointment Shower/Bathe: no limitations (with assistance) Driving or Machine Use: Do Not Drive until after cleared by your PCP . Instructions / Follow-Up Instructions / Follow-Up You were admitted to [facility] with NSTEMI ( heart attack). During your stay here you were found to have developed a gastrointestinal bleed secondary to multiple anti-platelet agents. You also went into an acute exacerbation of congestive heart failure with fluid overload, which caused your heart to beat irregularly ( atrial fibrillation with rapid ventricular response). - During your stay here you were treated with intravenous diuretics, intravenous antibiotics x 7 days, were transfused a total of 2 units of blood, antiplatelet agents were held, medications for heart rate were adjusted, and other supportive care was given. - You were initially in the Intensive care unit, as your status improved you were transitioned to a lower acuity of care level. Medication changes - Continue taking prednisone 15 mg x 3 more days, then take 10 mg daily from then on. - Continue taking metoprolol 50 mg twice daily - You were restarted on aspirin 81 mg and should continue taking this once daily - Plavix has been held, you need to RESTART taking this in 3 days AFTER blood work has been checked. Please discuss this with the physician at [facility], Dr. Conde. Labs: - Have a CBC and CMP drawn on Saturday, 02/23, to recheck your hemoglobin and electrolytes. Oxygen requirement: - You should continue to wear 3 L of O2 while at rest, and 4L with exertion. Follow up: Follow up with your Primary Care Provider within 1 week. Follow up with cardiology within 1-2 weeks You are being discharged to [facility], please follow up with the physician there within 24-48 hours of arrival. Current Hospital Diet Patient's current hospital diet: AHA Diet (Heart Healthy) Discharge Diet Recommended Diet: AHA Diet (Heart Healthy) Pending Studies Studies pending at discharge: no Laboratory Results Hemoglobin A1c Test 02/13/17 05:24 Range/Units Estimated Average Glucose 123 mg/dl Hemoglobin A1c 5.9 H 4.5-5.6 % Medical Emergencies . Who to Call and When: Medical Emergencies: If at any time you feel your situation is an emergency, please call 911 immediately. . Non-Emergent Contact Non-Emergency issues call your: Primary Care Provider, Hanger [facility] Call Non-Emergent contact if: you have a fever, temperature is above 100.5, your pain is not controlled, you have any medication questions You develop chest pain, shortness of breath, abdominal pain, nausea, vomiting, diarrhea, constipation, notice dark or tarry stools, bright red blood per rectum , lightheadedness or dizziness, or if you have any other concerns regarding your health. . Past History Medical & Surgical History: (1) NSTEMI (non-ST elevated myocardial infarction) (2) Acute GI bleeding (3) Atrial fibrillation with rapid ventricular response (4) Acute on chronic respiratory failure with hypoxemia (5) Chest pain (6) Hyperlipidemia (7) Anxiety (8) Pneumonia (9) Hypertension (10) Asthma (11) Bronchitis (12) Pneumonia . "Provider Documentation" section prepared by Rina Dale. Attending Attestation: Pt seen/examined on day of discharge and I agree w/ the discharge instructions as outlined by ANETA Dale. Kam Deleon MD VTE Core Measure Inpt VTE Proph given/why not?: Other Anticoagulation, T.E.D. Stockings, SCD's
[2017-02-20] MEDS ORDERED: TIOTROPIUM BROMIDE 5 PUFF/90 MCG INH INH SCH (11:30)
--- NOTE | 2017-02-20 12:52 | DIAGNOSTIC IMAGING REPORT ---
TWO VIEW CHEST CLINICAL HISTORY: Dyspnea. FINDINGS: PA and lateral chest radiographs are compared to study dated 02/17/2017 and correlated with chest CT dated 11/07/2016. The PA view is degraded by apical lordotic positioning. A right internal jugular central venous catheter is unchanged in position. The heart is enlarged and there is atherosclerotic calcification of the thoracic aorta. The pulmonary vasculature is noncongested. Emphysema and chronic interstitial thickening are similar to previous. A calcified granuloma in the right upper lobe is unchanged. No airspace consolidation or pleural effusion is seen. Right basilar opacities have cleared from 02/17/2017. There is no pneumothorax. The skeletal structures are osteopenic. Mild degenerative changes and scoliosis are noted in the thoracic spine. Surgical clips project over the left upper chest. IMPRESSION: 1. Cardiomegaly and emphysema with no acute cardiopulmonary abnormality. 2. Airspace opacities at the right lung base have cleared from 02/17/2017. Electronically signed by: Felix Davey M.D. 02/20/2017 12:51 PM Dictated Date/Time: 02/20/2017 12:44 PM
--- NOTE | 2017-02-20 13:17 | Discharge Summary ---
Discharge Summary Date of Service Feb 20, 2017. 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 Increased right infrahilar markings, likely representing a summation as no mass was identified in this area on a recent chest CT 2. No evidence of failure 3. No evidence of lobar consolidation 4. No evidence of pneumothorax ULTRASOUND OF THE CAROTID ARTERIES 02/09/17 FINDINGS: There is moderate shadowing atherosclerotic plaque present at the right carotid bulb. The peak systolic velocity within the right internal carotid artery is 107 cm/sec. The systolic velocity ratio of right internal to common carotid artery is 1.6. The peak systolic velocity within the left internal carotid artery is 129 cm/sec. The systolic velocity ratio left internal to common carotid artery is 1.2. Antegrade flow is seen in the vertebral arteries. The external carotid arteries are patent. IMPRESSION: Atheromatous changes. No evidence of hemodynamically significant carotid stenosis CXR 1 VIEW PORTABLE 02/08/17 FINDINGS: The heart remains enlarged. There is been interval insertion of a right internal jugular central venous catheter. The tip projects at superior vena cava. There is no pneumothorax. Fiducial markings are visualized in left upper lobe. There is mild central vascular prominence. There is no lobar consolidation. IMPRESSION: 1. No evidence of pneumothorax status post placement of a right internal jugular central venous catheter. The tip projects over the superior vena cava. CHEST ONE VIEW PORTABLE 02/13/17 IMPRESSION: No acute cardiopulmonary findings. No pneumothorax. CHEST ONE VIEW PORTABLE 02/14/17 IMPRESSION: No significant change compared to the prior study. No acute process. CHEST ONE VIEW PORTABLE 02/15/17 IMPRESSION: Small developing parenchymal infiltrate right base. CHEST ONE VIEW PORTABLE 02/16/17 IMPRESSION: Unchanging parenchymal infiltrate right base. Mild stable cardiomegaly. CHEST ONE VIEW PORTABLE 02/17/17 IMPRESSION: 1. Improvement in the right base airspace opacity. 2. Trace right pleural effusion. 3. Stable mild cardiomegaly. TWO VIEW CHEST 02/20/17 IMPRESSION: 1. Cardiomegaly and emphysema with no acute cardiopulmonary abnormality. 2. Airspace opacities at the right lung base have cleared from 02/17/2017. Consultations: [facility] (Laura Dale, STEPHANIE) Problems/Secondary Diagnoses: 1. acute blood loss anemia 2. acute kidney injury 3. coronary artery dissection as a complication of heart catheterization 4. hyperkalemia - resolved 5. PAD Procedures: cardiac catheterization - Ivan Mosqueda MD Coronary Anatomy Dominant: Right Left Main (% Stenosis): Normal LAD (% Stenosis): Proximal (20), Mid (30) D1 (% Stenosis): Mid (20) Circumflex (% Stenosis): Ostial (30), Proximal (30), Mid (30) OM1 (% Stenosis): Proximal (10), Mid (20) OM2 (% Stenosis): Proximal (10) RCA (% Stenosis): Mid (90,30,95-99), Distal (90) R PDA (% Stenosis): Mid (30-50) R PL1 (% Stenosis): Mid (20) s/p ANIYA to the RCA, complicated by fractured guide wire tip and dissection of RCA echocardiogram: * Normal overall left ventricular systolic function. EF 60%. * Mild concentric left ventricular hypertrophy. * Class I left ventricular diastolic dysfunction. * Mild right atrial and right ventricular dilatation. * Basal inferior hypokinesis of the left ventricle. * Right ventricular systolic dysfunction. * Trace aortic, mitral, and tricuspid regurgitation. * Compared to echo of 02/09/17 small area of basal inferior hypokinesis is now present. PRBCs x 2 units (Kam Deleon MD) Medication Reconciliation New Medications: Prednisone Tab (Prednisone) 10 Mg Tab 10 MG PO DAILY for 30 Days, #30 TAB Aspirin (Aspirin EC Low Dose) 81 Mg Ectab 81 MG PO QAM for 30 Days, #30 TAB Atorvastatin (Atorvastatin Calcium) 40 Mg Tab 80 MG PO QAM for 30 Days, #60 TAB Docusate Sodium (Docusate Sodium) 100 Mg Cap 100 MG PO BID for 30 Days, #60 CAP Magnesium Hydroxide (Milk of Magnesia) 30 Ml Susp 30 ML PO Q12H PRN for Constipation for 30 Days, #60 DOSE Metoprolol Tartrate (Lopressor) (Lopressor) 50 Mg Tab 50 MG PO BID for 30 Days, #60 TAB Pantoprazole (Pantoprazole Sodium) 40 Mg Tab 40 MG PO BID for 30 Days, #60 TAB Polyethylene (Miralax) 17 Gm Pow 17 GM PO DAILY PRN for Constipation for 30 Days, #30 DOSE Potassium Chloride (Klor-Con M20) 20 Meq Tabcr 20 MEQ PO DAILY for 30 Days, #30 TAB Prednisone (Prednisone) 10 Mg Tab 15 MG PO DAILY for 3 Days, #5 TAB Take 15 mg x 3 more days, then take 10 mg daily from then on. Changed Medications: Aspirin (Aspirin Ec) 81 Mg Tab 81 MG PO QAM for 30 Days, #30 TAB (Changed from: QPM) Continued Medications: Albuterol Hfa (Ventolin Hfa) 200 Puffs/05345 Mcg Aers 2-4 PUFFS INH Q6H, INHALER Albuterol Sulf (Albuterol Sulfate) 2.5 Mg/3 Ml Nebu 3 ML NEB QID PRN for SOB/Wheezing Alendronate Sodium (Alendronate Sodium) 70 Mg Tab 70 MG PO WK, #12 Budesonide/Formoterol Fumarate (Symbicort 80-4.5 Mcg/Act) 60 Puffs/Inhaler Aero 2 PUFFS INH BID for 30 Days, #120 PUFFS Please inhale 2 puffs twice a day Chlordiazepoxide (Librium) 10 Mg Cap 10 MG PO TID PRN for PRN, CAP Fluticasone Propionate (Fluticasone Propionate) 120 Sprays/6000 Mcg Inha 1 SPRAY NA DIRECTED, #32 Home O2 Therapy (Oxygen) Gas 3 LITER NA ALL TIME Misc. Devices (Roller Walker) 1 Mis Mis UNIT, #1 Nifedipine Ext Rel (Procardia Xl Ext Rel) 60 Mg Tabcr 60 MG PO QAM, TAB Probiotic Product (Probiotic) 1 Cap Cap 1 CAP PO QAM Ranitidine (Zantac) 150 Mg Tab 150 MG PO BID, TAB Discontinued Medications: Atenolol (Tenormin) 100 Mg Tab 100 MG PO QAM, 0 Refills Clopidogrel Bisulfate (Plavix) 75 Mg Tab 75 MG PO QPM, TAB Simvastatin (Zocor) 40 Mg Tab 40 MG PO QPM, 0 Refills Discharge Exam The patient was seen and examined this morning. Pt reports doing well today, she feels better than she has in a long time. Her breathing is better. She has no complaints. Pt is hopeful for discharge to [facility] today. PE: General Appearance: WD/WN, no apparent distress Eyes: PERRL, EOMI ENT: hearing grossly normal, pharynx normal Neck: supple, + pertinent finding (Central line accessed, L jugular) Respiratory/Chest: chest non-tender, no respiratory distress, no accessory muscle use, + pertinent finding (On 3L via NC, + faint crackles at bases bilaterally) Cardiovascular: normal rate and rhythm, no JVD, no murmur, + tachycardia Abdomen: normal bowel sounds, non tender, soft Extremities: non-tender, no pedal edema, no calf tenderness Neurologic/Psychiatric: alert, normal mood/affect, oriented x 3 Skin: normal color, warm/dry Review of Systems: Constitutional: No fever, No chills, No fatigue Eyes: No discharge, No diplopia ENT: No sore throat, No trouble swallowing Respiratory: No sputum, No shortness of breath, No dyspnea on exertion, No hemoptysis Cardiovascular: No chest pain, No edema Abdomen: No pain, No nausea, No vomiting, No diarrhea, No constipation Musculoskeletal: No joint pain, No swelling, No calf pain Genitourinary - Female: No dysuria Neurologic: No memory loss, No paralysis, No numbness/tingling Endocrine: No fatigue Integumentary: No rash, No itch Physical Exam: General Appearance: WD/WN, no apparent distress (Laura Dale, STEPHANIE) Hospital Course H&P per Ace Leong MD. 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 Presents following an episode of severe central CP which lasted approximately 30 min. The pain was accompanied by SOB, lightheadedness and diaphoresis. At one point she was ambulating with the ongoing pain and she became light headed, collapsed on the floor without LOC and lost control of her bowels. On arrival to the ER she is asymptomatic however her troponin is markedly elevated. The pt had a troponin elevation following a syncopal episode 06/17. She had borderline ST elevations at that time but did not have echo findings consistent with acute ischemia. She did not have a cardiac catheterization as the troponin elevation was presumed due to a COPD exacerbation, volume depletion and resultant demand ischemia. Her echo prior to DC showed a normal EF without significant wall motion abnormalities. Physical Exam Vital Signs Date Time Temp Pulse Resp B/P (MAP) Pulse Ox O2 Delivery O2 Flow Rate FiO2 02/09/17 00:00 67 20 106/73 96 02/08/17 22:04 73 28 91/53 96 Nasal Cannula 3.0 02/08/17 21:24 73 24 102/61 97 Nasal Cannula 3.0 02/08/17 20:36 98 Nasal Cannula 3.0 02/08/17 20:36 98 Nasal Cannula 3.0 02/08/17 20:26 71 22 112/67 99 Nasal Cannula 3.0 02/08/17 20:21 80 02/08/17 20:02 36.4 74 20 99/66 94 Room Air General Appearance: WD/WN, no apparent distress, + pertinent finding (Pleasant elderly female in good spirits - no distress) Head: normocephalic, atraumatic Eyes: normal inspection, PERRL, EOMI ENT: normal ENT inspection, pharynx normal Neck: supple, no adenopathy, thyroid normal, no JVD Respiratory/Chest: chest non-tender, + decreased breath sounds, + wheezing ( mild end expiratory) Cardiovascular: regular rate, rhythm, no edema, no gallop, no JVD, normal peripheral pulses, + systolic murmur Abdomen/GI: normal bowel sounds, non tender, soft Back: normal inspection, no CVA tenderness, no muscle spasm, normal range of motion Extremities/Musculoskelatal: normal inspection, no calf tenderness, normal capillary refill, normal range of motion, + pedal edema (minimal B/L LE edema ) Neurologic/Psych: hse advisor II-XII nml as tested, no motor/sensory deficits, alert, normal mood/affect, normal reflexes, oriented x 3 Skin: normal color, warm/dry, no rash Hospital Course: 71 y/o F 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 Presents following an episode of severe central CP which lasted approximately 30 min. The pain was accompanied by SOB, lightheadedness and diaphoresis. At one point she was ambulating with the ongoing pain and she became light headed, collapsed on the floor without LOC and lost control of her bowels. On arrival to the ER she is asymptomatic however her troponin is markedly elevated. Pt was found to have an NSTEMI. She was started on a heparin gtt, and her plavix aspirin and statin therapy was continued. On 02/12 she suffered a second NSTEMI likely due to acute blood loss from an acute GI bleed which also occured on 02/12. At that point the pt was hypotensive from hemorrhagic shock. PT was transfused 2 U PRBCs for a hgb >10 and hypotension resolved. Protonix gtt was initiated and GI bleed stopped. The heparin gtt was resumed on 02/17 however she unfortunately rebled, therefor heparin was stopped once again. Pt developed acute atrial fibrillation with RVR due to demand ischemia, it was ultimately controlled with beta blockade. The patient converted into NSR on 02/19. She developed acute on chronic diastolic failure secondary to atrial fibrillation which was managed with diuresis. NSTEMI: initial rise and fall in troponin, chest pain, EKG consistent with ischemia - treated conservatively with heparin gtt, Plavix, aspirin, statin - [facility] on 02/12, severe disease in RCA, complicated by guidewire loop becoming dislodged in RCA, stents placed suffered a second NSTEMI, troponin up to 37 and then 42, trending back down slowly, no further chest pain - heparin gtt and aspirin started, now back on hold due to repeat GI bleeding - cardiology following, will try to resume antiplatelets alone once no further signs of bleeding Acute GI bleed: melena on 02/12 with hypotension, was on aspirin and Plavix and heparin gtt which exacerbated the issue - BP improved with 2 units of PRBC, Protonix added - resumed heparin gtt and aspirin, unfortunately rebled on 02/17, Hb down to 10.3 , heparin and aspirin stopped - transfuse if <10 due to SD - Hgb was stable for over 5 days at time of discharge - Per cardiology it is ok to start plavix after CBC check on Saturday to show stable hemoglobin. New atrial fibrillation, with RVR - likely due to ischemia/SD, HR in 90-110's, increase Metoprolol to 50 mg BID, PRN IV Lopressor - stop amiodarone per Dr. Vu, likely not helping - Will increase metoprolol to 50 mg BID with systolic in the 120s-130, and HR up 10 199 this morning. Acute diastolic HF: likely due to afib RVR, responded well to Lasix IV at the onset - Diuresing well, has slight crackles bilateral bases and expiratory wheeze on exam, per daily weight in EMR appears she is -2L from time of admission. Will continue Lasix 20mg IV q12, follow response - add KCl 20 BID with the lasix - follow I/O and UO Hypotension: was due to GI bleed, hemorrhagic shock - resolved with 2 units of PRBC Sinus pause: witnessed in the ED at time of admission, Atenolol held since admission will continue to hold, likely indefinitely d/w Dr. Mosqueda, cause of the pause was likely ischemia Non-sustained V tach: no further episodes, likely caused by the ischemia COPD - mild exacerbation with increased sputum production - cont inhalers, prednisone, 02 sat% 97 on 4LNC. Levaquin IV per ICU, cough improving, more sputum clearance but still yellow , improving from yesterday, would treat for 7 day course, last day would be 02/21 Chronic respiratory failure with hypoxia: currently stable 4L, wean as tolerated , no respiratory distress today. CODE STATUS: Full code DVT ppx: teds, scds Disposition: From home, lives alone, planned for SNF placement to [facility] Total Time Spent: Greater than 30 minutes This includes examination of the patient, discharge planning, medication reconciliation, and communication with other providers. (Laura Dale PA-C) Attending Discharge Note & Attestation: Pt seen/examined, chart reviewed, and care plan d/w ANETA Dale. I agree w/ the arevalo components of her discharge summary. 72yo female with chronic respiratory failure 2nd to O2-dependent COPD along with multiple CAD risk factors who presented with recent central chest pain. At time of admission she had evidence of NSTEMI with positive cardiac biomarkers. She was seen by cardiology and ultimately taken to the blood bank laboratory technician. She underwent left heart catheterization by Dr. Ivan Mosqueda. The culprit lesion was an RCA occlusion. The cath was complicated by coronary dissection of the RCA as well as a fractured guide wire. However, drug-eluting stent was successfully deployed to the RCA. About 24 hours post-catheterization she suffered a 2nd NSTEMI. Her hospital course was complicated by multiple other issues including acute blood loss anemia 2nd to presumed GI bleeding, acute kidney injury, a fib/ flutter, and acute/chronic diastolic CHF. She also may have had a mild COPD exacerbation. She received 2 units PRBCs, IV diuretics, and other supportive care measures. Fortunately she converted back to NSR from a. flutter about 24 hours prior to hospital discharge. Aspirin was resumed prior to transfer to [facility]. A repeat CBC will be checked about 2-3 days after discharge. If found to be stable then plavix will be cautiously resumed at that time. Discharge hemoglobin was 10.8. Discharge exam - gen - nad neck - no JVD heart - RRR, s1, s2 lungs - mild end-exp wheezing, no rales abd - soft, NT ext - no edema Kam Deleon MD Total Time Spent: Greater than 30 minutes (Kam Deleon MD) Discharge Instructions Please refer to the electronic Patient Visit Report (Discharge Instructions) for additional information. (Laura Dale PA-C) Follow-Up Follow up with your Primary Care Provider within 1 week. Follow up with cardiology within 1-2 weeks. (Laura Dale PA-C) Additional Copies To [facility]; Marcello Conde M.D.; Ivan Mosqueda M.D.
[2017-02-20] MEDS ORDERED: ASPEC81 PO (13:42)
[2017-02-20] MEDS ORDERED: PRD10 PO ×2 (13:42→14:14)
[2017-02-20] MEDS ORDERED: PRED10TA PO (14:14)
--- NOTE | 2017-02-20 17:55 | Cardiology Follow-Up ---
Subjective Subjective Date of Service: Feb 20, 2017. Pt evaluation today including: conversation w/ patient, physical exam, chart review, review of studies, review of inpatient medication list Additional Details: Feeling well. No chest pain. Tele reviewed -- remains in sinus Problem List Medical Problems: (1) Abnormal EKG Status: Acute (2) Abnormal EKG Status: Acute (3) Chest pain Status: Acute (4) COPD exacerbation Status: Acute (5) Diarrhea Status: Acute (6) Elevated troponin Status: Acute (7) Hypokalemia Status: Acute (8) Hypotension Status: Acute (9) Hypoxemia Status: Acute (10) NSTEMI (non-ST elevated myocardial infarction) Status: Acute (11) Precordial chest pain Status: Acute Review of Systems Constitutional: No fever Eyes: No redness, No diplopia ENT: No nasal symptoms, No sore throat, No trouble swallowing Respiratory: No cough Cardiac: No chest pain, No orthopnea Abdomen: No pain, No nausea Musculoskeletal: No joint pain, No muscle pain, No swelling Female : No dysuria, No hematuria Neurologic: No weakness, No numbness/tingling Psychiatric: No depression symptoms, No anxiety Heme: + problem reported (Melanotic stools) Endo: No fatigue Skin: No rash, No itch Objective Vital Signs Last Vital Signs Documentation Date Time Temp Pulse Resp B/P (MAP) Pulse Ox O2 Delivery O2 Flow Rate FiO2 02/20/17 15:14 36.4 81 22 95 Nasal Cannula 02/20/17 12:00 116/57 (76) 3.0 Physical Exam: General Appearance: no apparent distress ENT: pharynx normal Neck: no JVD Respiratory/Chest: no respiratory distress, no accessory muscle use, + wheezing , + pertinent finding (no rales) Cardiovascular: regular rate, rhythm, no gallop, no murmur Abdomen: normal bowel sounds, non tender, soft, no organomegaly Extremities: no pedal edema Neurologic/Psychiatric: alert, oriented x 3 Skin: no rash, + pertinent finding (right IJ CVC clean) Lymphatic: no adenopathy Assessment and Plan 1. NSTEMI -- severe RCA disease 2. RCA PCI with DESx2 complicated by distal PDA/PLB dissection/no-reflow 3. AF/flutter with RVR -- HRs elevated on current dose of metoprolol 4. Acute diastolic heart failure -- improved congestion 5. Anemia/suspected GI bleed -- anticoagulation on hold; no further BMs yesterday 6. COPD on 4L baseline Well perfused with no significant congestion on exam. Remains in NSR after converting yesterday On ASA -- H/H remains stable -- Agree with plan to re start plavix on Saturday in 2 days at SNF if H/H remains stable. -- Continue ASA -- Continue metoprolol -- continue current statin. Follow-up with cardiology in 2-3 weeks. Discharge planning: senior care facility Medications: 02/20/17 04:30 02/20/17 04:30 Test 02/20/17 04:30 Red Blood Count 3.59 M/uL (4.2-5.4) Mean Corpuscular Volume 96.1 fL (80-100) Mean Corpuscular Hemoglobin 30.1 pg (25-34) Mean Corpuscular Hemoglobin Concent 31.3 g/dl (32-36) RDW Standard Deviation 53.4 fL (36.4-46.3) RDW Coefficient of Variation 15.4 % (11.5-14.5) Mean Platelet Volume 9.4 fL (7.4-10.4) Anion Gap 5.0 mmol/L (3-11) Est Creatinine Clear Calc Drug Dose 34.8 ml/min Estimated GFR () 46.8 Estimated GFR (Non- 40.4 BUN/Creatinine Ratio 32.8 (10-20) Calcium Level 8.9 mg/dl (8.5-10.1) Magnesium Level 2.1 mg/dl (1.8-2.4)
[2017-02-20] MEDS ORDERED: BUDESONIDE/FORMOTEROL FUMARATE 160/4.5 60 PUFFS/INHALER INH SCH (21:00)
[2017-05-21] MEDS ORDERED: ZNTT/150 PO (07:47)
[2017-05-21] MEDS ORDERED: MISCCAP80 PO (14:21)
== END 2017-02-20 16:11 | DRG 246 ==
LOC: C.EDB 19:59 → CANRESERV 02-09 01:05 → ENRESERV 02-09 01:05 → C.2T 02-09 01:19 → OBSVTOIN 02-09 01:19 → CANBEDREQ 02-09 01:29 → ENRESERV 02-09 01:43 → C.MSICU 02-12 14:26 → C.2E 02-17 21:46
PROVIDERS: ADMIT Internal Medicine; ATTEND Internal Medicine
PROC: 05HM33Z Insertion of Infusion Device into Right Internal Jugular Vein, Percutaneous Approach (ICD-10-PCS; 2017-02-12)
PROC: B211YZZ Fluoroscopy of Multiple Coronary Arteries using Other Contrast (ICD-10-PCS; principal; 2017-02-12 11:00)
PROC: 027034Z Dilation of Coronary Artery, One Artery with Drug-eluting Intraluminal Device, Percutaneous Approach (ICD-10-PCS; principal; 2017-02-12 11:00)
PROC: 4A023N7 Measurement of Cardiac Sampling and Pressure, Left Heart, Percutaneous Approach (ICD-10-PCS; principal; 2017-02-12 11:00)
DX: I21.4 Non-ST elevation (NSTEMI) myocardial infarction (principal); I25.42 Coronary artery dissection; I50.31 Acute diastolic (congestive) heart failure; J96.22 Acute and chronic respiratory failure with hypercapnia; J18.9 Pneumonia, unspecified organism; T82.897A Other specified complication of cardiac prosthetic devices, implants and grafts, initial encounter; D62 Acute posthemorrhagic anemia; I47.1 Supraventricular tachycardia; K92.2 Gastrointestinal hemorrhage, unspecified; I48.92 Unspecified atrial flutter; I97.89 Other postprocedural complications and disorders of the circulatory system, not elsewhere classified; E78.5 Hyperlipidemia, unspecified; J44.9 Chronic obstructive pulmonary disease, unspecified; I25.10 Atherosclerotic heart disease of native coronary artery without angina pectoris; T45.515A Adverse effect of anticoagulants, initial encounter; R23.3 Spontaneous ecchymoses; F41.9 Anxiety disorder, unspecified; I73.9 Peripheral vascular disease, unspecified; I10 Essential (primary) hypertension; Z87.891 Personal history of nicotine dependence; Z83.3 Family history of diabetes mellitus; Z79.02 Long term (current) use of antithrombotics/antiplatelets; Z82.49 Family history of ischemic heart disease and other diseases of the circulatory system; Z79.82 Long term (current) use of aspirin; Z99.81 Dependence on supplemental oxygen; I48.91 Unspecified atrial fibrillation; I95.81 Postprocedural hypotension; Y84.0 Cardiac catheterization as the cause of abnormal reaction of the patient, or of later complication, without mention of misadventure at the time of the procedure

== ENCOUNTER → 2017-02-22 | Outpatient (CLI) | payer BC ==
[~2017-02-22] MED LIST changes: -ALBU1AER9 INH; +ASPEC81 PO; -ATEN-175 PO; +ATOR-26 PO; +CALC500C73 PO; -CHN/1 PO; +CHOL1000 PO; +CLC100 PO; -CLOP1TAB54 PO; +DOCU100C31 PO; +FLNIN/; +FSM70 PO; +FURO-85 PO; +IPRA0.03 ND; +IPRASOL4 INH; +LISI-725 PO; +LPT40 PO; +LVQ750 PO; +MCRK20 PO; +METO50TA16 PO; +MISCCAP80 PO; +MOMLX PO; +MRLP17X PO; +NIFE1TAB55 PO; +PANT40TA PO; +PLV75 PO; +POTA20TA16 PO; +PRD10 PO; +PRED10TA PO; +PRT40 PO; -SIMV40TA2 PO; +SYMIN/8045 INH; +VNTHFA/IN INH; +ZNTT/150 PO
[2017-02-22 08:38] LABS: HEMATOCRIT 33.8 % (37-47); MEAN CELL VOLUME 98.3 fL (80-100); MEAN CORPUSCULAR HEMOGLOBIN 30.8 pg (25-34); MEAN CORPUSCULAR HGB CONC 31.4 g/dl (32-36); MEAN PLATELET VOLUME 9.7 fL (7.4-10.4); PLATELET COUNT 362 K/uL (130-400); RED BLOOD COUNT 3.44 M/uL (4.2-5.4); WHITE BLOOD COUNT 12.91 K/uL (4.8-10.8)
[2017-02-22 08:53] LABS: ALT/SGPT 75 U/L (12-78); BLOOD UREA NITROGEN 29 mg/dl (7-18); BUN/CREATININE RATIO 33.9 (10-20); CALCIUM 8.5 mg/dl (8.5-10.1); CARBON DIOXIDE 32 mmol/L (21-32); CHLORIDE 102 mmol/L (98-107); CREATININE 0.84 mg/dl (0.60-1.20); GLUCOSE 91 mg/dl (70-99); POTASSIUM 4.4 mmol/L (3.5-5.1); SODIUM 140 mmol/L (136-145)
[2017-02-22 08:56] LABS: ALB/GLOB RATIO 0.8 (0.9-2); ALKALINE PHOSPHATASE 67 U/L (45-117); AST/SGOT 32 U/L (15-37); FERRITIN 277.7 ng/ml (8.0-388.0)
== END ==
LOC: C.LABCC 07:54
PROVIDERS: ATTEND Internal Medicine
DX: D64.9 Anemia, unspecified (principal)

== ENCOUNTER → 2017-02-25 | Outpatient (CLI) | payer BC ==
[2017-02-25 10:55] LABS: BASO % 0.4 %; BASO ABS # 0.04 K/uL (0-0.2); COMPLETE YES; EOS % 1.3 %; HEMATOCRIT 35.4 % (37-47); IG% 0.6 %; LYMPH % 18.2 %; LYMPH ABS # 1.98 K/uL (1.2-3.4); MEAN CELL VOLUME 99.2 fL (80-100); MEAN CORPUSCULAR HEMOGLOBIN 30.8 pg (25-34); MEAN CORPUSCULAR HGB CONC 31.1 g/dl (32-36); MEAN PLATELET VOLUME 9.7 fL (7.4-10.4); MONO % 6.9 %; NEUT % 72.6 %; PLATELET COUNT 381 K/uL (130-400); RED BLOOD COUNT 3.57 M/uL (4.2-5.4)
== END ==
LOC: C.LABCC 08:37
PROVIDERS: ATTEND Internal Medicine
DX: D64.9 Anemia, unspecified (principal); I21.3 ST elevation (STEMI) myocardial infarction of unspecified site

== ENCOUNTER → 2017-02-26 | Outpatient (CLI) | payer BC ==
[~2017-02-26] MED LIST changes: -ATOR-26 PO; -CALC500C73 PO; -CHOL1000 PO; -DOCU100C31 PO; -FURO-85 PO; -IPRA0.03 ND; -IPRASOL4 INH; -LISI-725 PO; -LVQ750 PO; -NIFE1TAB55 PO; -PANT40TA PO; -PLV75 PO; -POTA20TA16 PO; -SYMIN/8045 INH
== END ==
LOC: C.LABCC 07:42
PROVIDERS: ATTEND Internal Medicine
DX: D64.9 Anemia, unspecified (principal)

== ENCOUNTER → 2017-02-27 | Outpatient (CLI) | payer BC ==
[~2017-02-27] MED LIST changes: +ATOR-26 PO; +CALC500C73 PO; +CHOL1000 PO; +DOCU100C31 PO; +FURO-85 PO; +IPRA0.03 ND; +IPRASOL4 INH; +LISI-725 PO; +LVQ750 PO; +NIFE1TAB55 PO; +PANT40TA PO; +PLV75 PO; +POTA20TA16 PO; +SYMIN/8045 INH
[2017-02-27 10:41] LABS: HEMATOCRIT 35.2 % (37-47); MEAN CELL VOLUME 98.6 fL (80-100); MEAN CORPUSCULAR HEMOGLOBIN 30.3 pg (25-34); MEAN CORPUSCULAR HGB CONC 30.7 g/dl (32-36); MEAN PLATELET VOLUME 9.9 fL (7.4-10.4); PLATELET COUNT 396 K/uL (130-400); RED BLOOD COUNT 3.57 M/uL (4.2-5.4); WHITE BLOOD COUNT 10.33 K/uL (4.8-10.8)
== END | disposition home or self-care (01) ==
LOC: C.LABCC 08:18
PROVIDERS: ATTEND Internal Medicine
DX: I25.10 Atherosclerotic heart disease of native coronary artery without angina pectoris (principal); D64.9 Anemia, unspecified

== ENCOUNTER → 2017-03-06 | Outpatient (CLI) | payer BC ==
[2017-03-06 14:36] LABS: MEAN CELL VOLUME 97.6 fL (80-100); MEAN CORPUSCULAR HEMOGLOBIN 31.4 pg (25-34); MEAN CORPUSCULAR HGB CONC 32.2 g/dl (32-36); MEAN PLATELET VOLUME 10.3 fL (7.4-10.4); PLATELET COUNT 323 K/uL (130-400); WHITE BLOOD COUNT 7.44 K/uL (4.8-10.8)
== END | disposition home or self-care (01) ==
LOC: C.LABSPEC 13:25
PROVIDERS: ATTEND Internal Medicine
DX: K92.2 Gastrointestinal hemorrhage, unspecified (principal)

== ENCOUNTER → 2017-03-14 | Outpatient (CLI) | payer BC ==
[2017-03-14 11:33] LABS: HEMATOCRIT 39.9 % (37-47); MEAN CORPUSCULAR HEMOGLOBIN 31.2 pg (25-34); MEAN CORPUSCULAR HGB CONC 31.8 g/dl (32-36); MEAN PLATELET VOLUME 10.6 fL (7.4-10.4); PLATELET COUNT 201 K/uL (130-400); RED BLOOD COUNT 4.07 M/uL (4.2-5.4); WHITE BLOOD COUNT 8.35 K/uL (4.8-10.8)
--- NOTE | 2017-03-19 12:56 | CODING QUERY NO DIAGNOSIS ---
Valid Physician Order Needed A valid physician order must be submitted in order to properly bill for the service(s) provided, including date of service(s), valid diagnosis, and physician signature. If these tests are done on a recurring basis the original physican order must be submitted in order to code and bill for the service(s) provided. Please fax us the original, signed physician order so that we may expedite billing to [phone] DOS 03/14/17 * CBC Thank you Valerie Ross [facility] Information Management
== END | disposition home or self-care (01) ==
LOC: C.LABSPEC 11:22
PROVIDERS: ATTEND Internal Medicine
DX: K92.2 Gastrointestinal hemorrhage, unspecified (principal)

== ENCOUNTER → 2017-03-20 | Outpatient (CLI) | payer BC ==
[2017-03-20 13:18] LABS: HEMATOCRIT 39.1 % (37-47); MEAN CELL VOLUME 97.8 fL (80-100); MEAN CORPUSCULAR HEMOGLOBIN 30.5 pg (25-34); MEAN CORPUSCULAR HGB CONC 31.2 g/dl (32-36); MEAN PLATELET VOLUME 10.2 fL (7.4-10.4); PLATELET COUNT 242 K/uL (130-400); WHITE BLOOD COUNT 6.67 K/uL (4.8-10.8)
[2017-03-20 13:32] LABS: ALT/SGPT 29 U/L (12-78); BLOOD UREA NITROGEN 34 mg/dl (7-18); BUN/CREATININE RATIO 36.4 (10-20); CALCIUM 8.9 mg/dl (8.5-10.1); CARBON DIOXIDE 30 mmol/L (21-32); CHLORIDE 108 mmol/L (98-107); CREATININE 0.92 mg/dl (0.60-1.20); GLUCOSE 88 mg/dl (70-99); POTASSIUM 3.8 mmol/L (3.5-5.1); SODIUM 143 mmol/L (136-145)
[2017-03-20 13:35] LABS: ALKALINE PHOSPHATASE 66 U/L (45-117); AST/SGOT 14 U/L (15-37)
--- NOTE | 2017-04-02 07:16 | CODING QUERY NO DIAGNOSIS ---
Valid Physician Order Needed A valid physician order must be submitted in order to properly bill for the service(s) provided, including date of service(s), valid diagnosis, and physician signature. If these tests are done on a recurring basis the original physican order must be submitted in order to code and bill for the service(s) provided. Please fax us the original, signed physician order so that we may expedite billing to [phone] DOS 03/20/17 * CMP * CBC W/O DIFF Thank you [employer] Information Management
== END | disposition home or self-care (01) ==
LOC: C.LABSPEC 12:19
PROVIDERS: ATTEND Internal Medicine
DX: K92.2 Gastrointestinal hemorrhage, unspecified (principal)

== ENCOUNTER 2017-05-21 14:32 | Observation (INO) | payer BC ==
[~2017-05-21] VITALS: Ht 154.9 cm; Wt 68.3 kg
[~2017-05-21 14:32] MED LIST changes: -ATOR-26 PO; -CALC500C73 PO; -CHOL1000 PO; -DOCU100C31 PO; -FLNIN/; -FSM70 PO; -FURO-85 PO; -IPRA0.03 ND; -IPRASOL4 INH; -LISI-725 PO; -LVQ750 PO; -NIFE1TAB55 PO; -PANT40TA PO; -PLV75 PO; -POTA20TA16 PO; -PRED10TA PO; -SYMIN/8045 INH
[2017-05-21 15:36] LABS: BASO % 0.4 %; BASO ABS # 0.05 K/uL (0-0.2); COMPLETE YES; EOS % 1.8 %; HEMATOCRIT 42.3 % (37-47); IG% 0.4 %; LYMPH % 10.4 %; MEAN CELL VOLUME 96.8 fL (80-100); MEAN CORPUSCULAR HEMOGLOBIN 32.3 pg (25-34); MEAN CORPUSCULAR HGB CONC 33.3 g/dl (32-36); MEAN PLATELET VOLUME 10.2 fL (7.4-10.4); MONO % 5.2 %; NEUT % 81.8 %; PLATELET COUNT 225 K/uL (130-400); RED BLOOD COUNT 4.37 M/uL (4.2-5.4); WHITE BLOOD COUNT 11.52 K/uL (4.8-10.8)
--- NOTE | 2017-05-21 15:48 | DIAGNOSTIC IMAGING REPORT ---
ABD/PELVIS NO IV OR ORAL CONT CLINICAL HISTORY: 72 years-old Female presenting with back pain. TECHNIQUE: Multidetector CT of the abdomen and pelvis was performed without the use of intravenous contrast. IV contrast: None. A dose lowering technique was used consistent with the principles of ALARA (as low as reasonably achievable). COMPARISON: None. CT DOSE (mGy.cm): The estimated cumulative dose is 315.44 mGy.cm. FINDINGS: Program Scheduler topogram: Unremarkable. Lung bases: Lung bases clear. Coronary artery calcification. Normal heart size. No pericardial or pleural effusion. Liver: Normal morphology. Normal density. Scattered parenchymal calcifications. Biliary: No gross biliary ductal dilatation allowing for noncontrast technique. Normal gallbladder. Pancreas: Moderate parenchymal atrophy. Spleen: Parenchymal calcifications suggest prior granulomatous infection. Adrenal glands: Ovoid 13 mm nodule in the lateral limb of the left adrenal gland, which is consistent with a benign adenoma by density. Right adrenal gland normal. Kidneys and ureters: No nephrolithiasis. Renal vascular calcification. No hydronephrosis. Ureters normal. Multiple pelvic phleboliths. Bladder: Normal. Pelvic organs: Uterus surgically absent. No adnexal masses. Bowel: Normal. No bowel obstruction. Small hiatal hernia. Peritoneal cavity: No free fluid or intraperitoneal gas. Vasculature: Dense atherosclerotic plaque throughout the aortobiiliac arteries. Aneurysmal dilatation of the infrarenal abdominal aorta with a maximal transverse diameter of 2.7 cm. Prominent peripheral calcification could suggest chronic dissection versus dense atherosclerotic calcified plaque. This extends into the bilateral common iliac arteries, which are overall normal in caliber. Lymph nodes: No enlarged lymph nodes in the abdomen or pelvis. Abdominal wall: Normal. Musculoskeletal: Degenerative changes of the spine. Scoliotic curvature of the lumbar spine. No evidence of a compression deformity. Osteopenia. IMPRESSION: 1. Osteopenia without evidence of a compression deformity in the lumbar spine. 2. No evidence of nephrolithiasis. Prominent renal vascular calcification. 3. Infrarenal abdominal aortic aneurysm measuring 2.7 cm. 4. Benign left adrenal adenoma. 5. Scattered parenchymal calcification in the liver and spleen suggest prior granulomatous infection. Electronically signed by: Reilly Riggins M.D. 05/21/2017 3:47 PM Dictated Date/Time: 05/21/2017 3:41 PM
--- NOTE | 2017-05-21 15:49 | DIAGNOSTIC IMAGING REPORT ---
SINGLE VIEW CHEST CLINICAL HISTORY: Dyspnea. FINDINGS: An AP, portable, upright chest radiograph is compared to study dated 02/20/2017 and correlated with chest CT dated 11/07/2016. The examination is degraded by portable technique and apical lordotic positioning. The heart is enlarged and there is atherosclerotic calcification of the thoracic aorta. The pulmonary vasculature is noncongested. Emphysema and chronic interstitial thickening are similar to previous. A calcified granuloma in the right upper lobe is unchanged. Surgical clips are again noted at the left apex. No airspace consolidation or pleural effusion is identified. No pneumothorax is seen. The skeletal structures are osteopenic. The bony thorax is grossly intact. IMPRESSION: Cardiomegaly and emphysema. There is no acute cardiopulmonary abnormality. Electronically signed by: Felix Davey M.D. 05/21/2017 3:48 PM Dictated Date/Time: 05/21/2017 3:47 PM
[2017-05-21 16:08] LABS: BLOOD UREA NITROGEN 18 mg/dl (7-18); BUN/CREATININE RATIO 21.1 (10-20); CALCIUM 8.9 mg/dl (8.5-10.1); CARBON DIOXIDE 30 mmol/L (21-32); CHLORIDE 103 mmol/L (98-107); CREATININE 0.85 mg/dl (0.60-1.20); GLUCOSE 91 mg/dl (70-99); POTASSIUM 4.2 mmol/L (3.5-5.1); SODIUM 140 mmol/L (136-145)
[2017-05-21 16:15] LABS: INR 0.9 (0.9-1.1); PROTHROMBIN TIME (PATIENT) 10.1 SECONDS (9.0-12.0)
[2017-05-21 16:22] LABS: ALKALINE PHOSPHATASE 76 U/L (45-117); ALT/SGPT 29 U/L (12-78); AST/SGOT 24 U/L (15-37)
[2017-05-21] MEDS ORDERED: CHLO10CA7 PO (16:40)
[2017-05-21] MEDS ORDERED: PANT40TA PO (16:40)
[2017-05-21] MEDS ORDERED: METO50TA16 PO (16:40)
[2017-05-21] MEDS ORDERED: CALC500C73 PO (16:40)
[2017-05-21] MEDS ORDERED: PRED10TA PO (16:40)
[2017-05-21] MEDS ORDERED: LISI-725 PO (16:40)
[2017-05-21] MEDS ORDERED: DOCU100C31 PO (16:40)
[2017-05-21] MEDS ORDERED: IPRA0.03 ND (16:40)
[2017-05-21] MEDS ORDERED: FURO-85 PO (16:40)
[2017-05-21] MEDS ORDERED: CHOL1000 PO (16:40)
[2017-05-21] MEDS ORDERED: IPRASOL4 INH (16:40)
[2017-05-21] MEDS ORDERED: SYMIN/8045 INH (16:40)
[2017-05-21] MEDS ORDERED: PLV75 PO (16:40)
[2017-05-21] MEDS ORDERED: POTA20TA16 PO (16:40)
[2017-05-21] MEDS ORDERED: ASPI81TA28 PO (16:40)
[2017-05-21] MEDS ORDERED: ATOR-26 PO (16:40)
[2017-05-21] MEDS ORDERED: NIFE1TAB55 PO (16:40)
[2017-05-21 16:43] LABS: URINE APPEARANCE CLEAR (CLEAR); URINE BILIRUBIN NEG (NEG); URINE COLOR DK YELLOW; URINE EPITHELIAL CELL AUTO >30 /lpf (0-5); URINE NITRITE NEG (NEG); URINE SPECIFIC GRAVITY 1.018 (1.000-1.030); UROBILINOGEN NEG (NEG); ZZUR CULT IF INDIC CLEAN CATCH NO
--- NOTE | 2017-05-21 16:43 | EMERGENCY ROOM VISIT NOTE ---
History Report prepared by Roseline: Kristofer Curran Under the Supervision of: Dr. Olga Hameed D.O. First contact with patient: 14:49 Chief Complaint: RESPIRATORY PROBLEMS Stated Complaint: BREATHING DIFFICULTY, BACK PAIN History of Present Illness The patient is a 72 year old female who presents to the Emergency Room with complaints of worsening shortness of breath beginning a week ago. The patient states that she has a history of COPD, and she quit smoking two year ago. She reports that a few months ago she had an [place], was admitted, had three stents placed, and was placed in a rehabilitation program. The patient notes that for the past week, she has been experiencing worsening shortness of breath upon exertion. She states she is on 3L of oxygen at home, and this week she had to increase it a few times. She notes that breathing treatments help alleviate her shortness of breath. The patient states that last evening she was diaphoretic, and now, she has the chills. She reports that she has intermittent edema to her feet, and it has worsened today. The patient notes that she has worsening, bilateral, lower back pain for the past week and has never felt this before. She states that she is experiencing yellow discharge after defecation. The patient reports that she has a decreased appetite which is not normal. She notes that she was seen by her PCP today, received a breathing treatment, and was sent to the ED directly. The patient notes that she takes prednisone, aspirin, and Plavix daily. She denies chest pressure, chest pain, fevers, dizziness, lightheadedness, nausea, changes in diet, numbness or tingling to legs, and incontinence of stool or urine. Source of History: patient Onset: a week ago Position: chest Quality: other (SOB) Timing: worsening Modifying Factors (Worsening): movement Modifying Factors (Relieving): other (breathing treatments) Associated Symptoms: + chills, + diaphoresis, + back pain, No fevers, No chest pain, No nausea, No numbness Note: Associated symptoms: decreased appetite, yellow discharge after defecation, edema to her feet Denies: dizziness, lightheadedness, changes in diet, tingling to legs, incontinence of stool or urine, chest pressure Review of Systems See HPI for pertinent positives & negatives. A total of 10 systems reviewed and were otherwise negative. Past Medical & Surgical Medical Problems: (1) Acute GI bleeding (2) Acute on chronic respiratory failure with hypoxemia (3) Anxiety (4) Asthma (5) Atrial fibrillation with rapid ventricular response (6) Bronchitis (7) Chronic use of steroids (8) COPD (chronic obstructive pulmonary disease) (9) COPD exacerbation (10) Coronary artery disease (11) Hyperlipidemia (12) Hypertension (13) Hypoxia (14) Pneumonia (15) Pneumonia (16) Sinus pause (17) STEMI (ST elevation myocardial infarction) (18) Syncope (19) Unresponsive episode Family History Cancer Diabetes mellitus FHx: gallbladder disease Heart disease Hypertension Kidney disease Kidney stones Lung disease Social History Smoking Status: Former Smoker Alcohol Use: none Drug Use: none Marital Status: Housing Status: lives alone Occupation Status: retired Current/Historical Medications Scheduled Alendronate Sodium (Alendronate Sodium), 70 MG PO WK Aspirin (Aspirin Ec), 81 MG PO QAM Atorvastatin (Lipitor), 80 MG PO DAILY Budesonide/Formoterol Fumarate (Symbicort 80/4.5 Inhaler), 2 PUFF INH BID Calcium Carbonate (Calcium), 1,500 MG PO DAILY Cholecalciferol (Vitamin D3), 1 TAB PO DAILY Clopidogrel Bisulfate (Clopidogrel), 75 MG PO DAILY Docusate Sodium (Docusate Sodium), 1 CAP PO BID Fluticasone Propionate (Fluticasone Propionate), 1 SPRAY NA DIRECTED Furosemide (Lasix), 20 MG PO DAILY Ipratropium [place] (Nasal) (Ipratropium [place]), 2 SPRAYS ND TID Ipratropium-Albuterol (Duoneb), 1 TREATMENT INH QID Levofloxacin (Levofloxacin), 750 MG PO DAILY@11 Lisinopril (Zestril), 20 MG PO DAILY Metoprolol Tartrate (Lopressor) (Lopressor), 50 MG PO DAILY Nifedipine (Nifedipine Er), 60 MG PO DAILY Pantoprazole (Protonix), 40 MG PO BID Potassium Ext Rel (Klor-Con), 20 MEQ PO DAILY Prednisone (Prednisone), 10 MG PO DAILY Prednisone (Prednisone), 10 MG PO DAILY Probiotic Product (Probiotic), 1 CAP PO QAM Ranitidine (Zantac), 150 MG PO BID Scheduled PRN Albuterol Sulf (Albuterol Sulfate), 3 ML NEB Q4 PRN for SOB/Wheezing Chlordiazepoxide (Librium), 10 MG PO TID PRN for Allergies Coded Allergies: Penicillins (Verified Allergy, Unknown, ANCEF OK PER DR RENDON, 02/08/17) Physical Exam Vital Signs Date Time Temp Pulse Resp B/P (MAP) Pulse Ox O2 Delivery O2 Flow Rate FiO2 05/21/17 16:10 79 26 126/68 99 Room Air 05/21/17 15:07 80 05/21/17 14:50 100 Nasal Cannula 4.0 05/21/17 14:45 98 Nasal Cannula 4.0 05/21/17 14:45 98 Nasal Cannula 4.0 05/21/17 14:35 36.7 100 24 124/74 99 Room Air Physical Exam GENERAL: alert, well appearing, well nourished, no distress, non-toxic EYE EXAM: normal conjunctiva, PERRL and EOM's grossly intact OROPHARYNX: no exudate, no erythema, lips, buccal mucosa, and tongue normal and mucous membranes are moist NECK: supple, no nuchal rigidity, no adenopathy, non-tender LUNGS: Diminished breath sounds bilaterally, scattered expiatory wheezing. Normal chest wall mechanics HEART: no murmurs, S1 normal and S2 normal ABDOMEN: abdomen soft, non-tender, normo-active bowel sounds, no masses, no rebound or guarding. BACK: Back is symmetrical on inspection and there is no deformity. No step-off, entire lower back is tender to palpation. SKIN: no rashes and no bruising UPPER EXTREMITIES: upper extremities are grossly normal. LOWER EXTREMITIES: Trace bilateral pitting edema. Pulses intact. NEURO EXAM: Normal sensorium, cranial nerves II-XII grossly intact, normal speech, no gross weakness of arms, no gross weakness of legs. Medical Decision & Procedures ER Provider Diagnostic Interpretation: Radiology results have been interpreted by the radiologist and reviewed by me. SINGLE VIEW CHEST CLINICAL HISTORY: Dyspnea. FINDINGS: An AP, portable, upright chest radiograph is compared to study dated 02/20/2017 and correlated with chest CT dated 11/07/2016. The examination is degraded by portable technique and apical lordotic positioning. The heart is enlarged and there is atherosclerotic calcification of the thoracic aorta. The pulmonary vasculature is noncongested. Emphysema and chronic interstitial thickening are similar to previous. A calcified granuloma in the right upper lobe is unchanged. Surgical clips are again noted at the left apex. No airspace consolidation or pleural effusion is identified. No pneumothorax is seen. The skeletal structures are osteopenic. The bony thorax is grossly intact. IMPRESSION: Cardiomegaly and emphysema. There is no acute cardiopulmonary abnormality. Electronically signed by: Felix Davey M.D. 05/21/2017 3:48 PM Dictated Date/Time: 05/21/2017 3:47 PM ABD/PELVIS NO IV OR ORAL CONT CLINICAL HISTORY: 72 years-old Female presenting with back pain. TECHNIQUE: Multidetector CT of the abdomen and pelvis was performed without the use of intravenous contrast. IV contrast: None. A dose lowering technique was used consistent with the principles of ALARA (as low as reasonably achievable). COMPARISON: None. CT DOSE (mGy.cm): The estimated cumulative dose is 315.44 mGy.cm. FINDINGS: Limnologist topogram: Unremarkable. Lung bases: Lung bases clear. Coronary artery calcification. Normal heart size. No pericardial or pleural effusion. Liver: Normal morphology. Normal density. Scattered parenchymal calcifications. Biliary: No gross biliary ductal dilatation allowing for noncontrast technique. Normal gallbladder. Pancreas: Moderate parenchymal atrophy. Spleen: Parenchymal calcifications suggest prior granulomatous infection. Adrenal glands: Ovoid 13 mm nodule in the lateral limb of the left adrenal gland, which is consistent with a benign adenoma by density. Right adrenal gland normal. Kidneys and ureters: No nephrolithiasis. Renal vascular calcification. No hydronephrosis. Ureters normal. Multiple pelvic phleboliths. Bladder: Normal. Pelvic organs: Uterus surgically absent. No adnexal masses. Bowel: Normal. No bowel obstruction. Small hiatal hernia. Peritoneal cavity: No free fluid or intraperitoneal gas. Vasculature: Dense atherosclerotic plaque throughout the aortobiiliac arteries. Aneurysmal dilatation of the infrarenal abdominal aorta with a maximal transverse diameter of 2.7 cm. Prominent peripheral calcification could suggest chronic dissection versus dense atherosclerotic calcified plaque. This extends into the bilateral common iliac arteries, which are overall normal in caliber. Lymph nodes: No enlarged lymph nodes in the abdomen or pelvis. Abdominal wall: Normal. Musculoskeletal: Degenerative changes of the spine. Scoliotic curvature of the lumbar spine. No evidence of a compression deformity. Osteopenia. IMPRESSION: 1. Osteopenia without evidence of a compression deformity in the lumbar spine. 2. No evidence of nephrolithiasis. Prominent renal vascular calcification. 3. Infrarenal abdominal aortic aneurysm measuring 2.7 cm. 4. Benign left adrenal adenoma. 5. Scattered parenchymal calcification in the liver and spleen suggest prior granulomatous infection. Electronically signed by: Reilly Riggins M.D. 05/21/2017 3:47 PM Dictated Date/Time: 05/21/2017 3:41 PM Laboratory Results Test 05/21/17 15:18 05/21/17 16:25 Prothrombin Time 10.1 SECONDS (9.0-12.0) Prothromb Time International Ratio 0.9 (0.9-1.1) Total Bilirubin 0.6 mg/dl (0.2-1) Aspartate Amino Transf (AST/SGOT) 24 U/L (15-37) Alanine Aminotransferase (ALT/SGPT) 29 U/L (12-78) Alkaline Phosphatase 76 U/L (45-117) Pro-B-Type Natriuretic Peptide 851 pg/ml (0-900) Total Protein 6.9 gm/dl (6.4-8.2) Albumin 3.5 gm/dl (3.4-5.0) Globulin 3.4 gm/dl (2.5-4.0) Albumin/Globulin Ratio 1.0 (0.9-2) Urine Color DK YELLOW Urine Appearance CLEAR (CLEAR) Urine pH 7.0 (4.5-7.5) Urine Specific [place] 1.018 (1.000-1.030) Urine Protein NEG (NEG) Urine Glucose (UA) NEG (NEG) Urine Ketones TRACE (NEG) Urine Occult Blood NEG (NEG) Urine Nitrite NEG (NEG) Urine Bilirubin NEG (NEG) Urine Urobilinogen NEG (NEG) Urine Leukocyte Esterase TRACE (NEG) Urine WBC (Auto) 1-5 /hpf (0-5) Urine RBC (Auto) 0-4 /hpf (0-4) Urine Hyaline Casts (Auto) 5-10 /lpf (0-5) Urine Epithelial Cells (Auto) >30 /lpf (0-5) Urine Bacteria (Auto) NEG (NEG) Laboratory results per my review. ECG Indication: SOB/dyspnea Rate (beats per minute): 76 Rhythm: normal sinus Findings: RBBB, no acute ischemic change, other (Normal axis) Comparison ECG Date: 02/19/17 Change: Subtle t-wave differences ED Course 1451: The patient was evaluated in room A10. A complete history and physical exam was performed. 1625: Upon reevaluation, the patient is resting. I discussed the findings and the treatment plan with the patient, especially her elevated troponin. She expresses agreement and understanding. 1633: I spoke with Dr. Sanchez of the [facility] Hospitalist Service. The patient will be evaluated for further management. Medical Decision Differential diagnoses includes but is not limited to pneumonia, bronchitis, COPD/Asthma exacerbation, pneumothorax, pulmonary embolism, congestive heart failure, acute coronary syndrome Pt with hx of CAD s/p stenting this summer who present with worsening shortness of breath. Pt with severe COPD at baseline. No evidence of acute CHF. Possible given hx elevated trop likely secondary to stress from copd exacerbation. Doubt primary ACS but needs additional evaluation. Pt states has been compliant with meds including asa/plavix. wears home oxygen and uses nebs and chronic steroids. No active sx on my exam while in bed, but states sob worse with exertion. Hospitalist will evaluate for further mgmt/treatment. Doubt dissection, tamponade, effusion, bacteremia/sepsis, no evidence of infiltrate. AAA likely chronic related to other vascular conditions, no acute changes. Medication Reconcilliation Current Medication List: was personally reviewed by me Blood Pressure Screening Patient's blood pressure: Normal blood pressure Consults Time Called: 1627 Consulting Physician: Dr. Sanchez, [facility] Hospitalist Returned Call: [address] Sanchez of the [facility] Hospitalist Service. The patient will be evaluated for further management. Impression Primary Impression: SOB (shortness of breath) Additional Impressions: Elevated troponin I level COPD (chronic obstructive pulmonary disease) Low back pain Scribe Attestation The scribe's documentation has been prepared under my direction and personally reviewed by me in its entirety. I confirm that the note above accurately reflects all work, treatment, procedures, and medical decision making performed by me. Departure Information Dispostion Being Evaluated By Hospitalist Prescriptions Prednisone (Prednisone) 10 Mg Tab 10 MG PO DAILY, #30 TAB Starting 05/23 take 40 mg x 3 day then 30 mg x 3 days then 20 mg x 3 days, then 10 mg x 3 days Prov: Valentina Allen, STEPHANIE 05/22/17 Levofloxacin (Levofloxacin) 750 Mg Tab 750 MG PO DAILY@11 for 3 Days, #3 TAB Take one tablet daily starting 05/23 Prov: Valentina Allen PA-C 05/22/17 Referrals Marcello Conde M.D. (PCP) Patient Instructions [facility] Problem Qualifiers Additional Impressions: COPD (chronic obstructive pulmonary disease) COPD type: COPD with acute exacerbation Qualified Codes: J44.1 - Chronic obstructive pulmonary disease with (acute) exacerbation Low back pain Chronicity: acute Back pain laterality: bilateral Sciatica presence: without sciatica Qualified Codes: M54.5 - Low back pain
[2017-05-21 16:51] LABS: MANUAL MICROSCOPIC REQUIRED? NO; REVIEW REQ? NO
[2017-05-21] MEDS ORDERED: ACETAMINOPHEN 325 MG TAB PO PRN (17:15)
[2017-05-21] MEDS ORDERED: ONDANSETRON INJ 2 MG/ML 2 ML VIAL IV PRN (17:15)
[2017-05-21] MEDS ORDERED: CHLORDIAZEPOXIDE 10 MG CAP PO PRN (17:15)
--- NOTE | 2017-05-21 17:34 | History and Physical ---
History & Physical Date & Time of Service: May 21, 2017 at 17:21 Chief Complaint: Breathing Difficulty, Back Pain Primary Care Physician: Marcello Conde M.D. History of Present Illness Source: patient Pt is a 72 yo female who presents to the ER with complaints of worsening shortness of breath x 2 days Pt reports chronic O2 use at home at 3 liters in which she states she had to bump up for her worsening sob. Pt also reports using her nebulizer up to 4x a day. She denies chest pressure, chest pain, fevers, dizziness, lightheadedness, nausea, changes in diet, numbness or tingling to legs, and incontinence of stool or urine. The patient states that she has a history of COPD in which she follows up with Dr Escudero. Pt reports seeing him last week in which she had PFTS completed but unsure of results. Pt has a recent notable cardiac hx of 2 stents in RCA.. Past Medical/Surgical History Medical Problems: (1) Asthma Status: Chronic (2) Bronchitis Status: Resolved (3) COPD (chronic obstructive pulmonary disease) Status: Chronic (4) Hypertension Status: Chronic (5) Pneumonia Status: Resolved Family History Cancer Diabetes mellitus FHx: gallbladder disease Heart disease Hypertension Kidney disease Kidney stones Lung disease Social History Smoking Status: Former Smoker (1 ppd x 20 yrs, quit 2 yrs ago) Smokeless Tobacco Use: No Alcohol Use: none Drug Use: none Marital Status: Housing status: lives alone Occupational Status: retired Immunizations History of Influenza Vaccine: Yes Influenza Vaccine Date: Aug 17, 2008 History of Tetanus Vaccine?: Unknown History of Pneumococcal: Yes Pneumococcal Date: Nov 20, 2009 History of Hepatitis B Vaccine: Unknown Multi-Drug Resistant Organisms History of MDRO: No Allergies Coded Allergies: Penicillins (Verified Allergy, Unknown, ANCEF OK PER DR RENDON, 02/08/17) Home Medications Scheduled Alendronate Sodium (Alendronate Sodium), 70 MG PO WK Aspirin (Aspirin Ec), 81 MG PO QAM Atorvastatin (Lipitor), 80 MG PO DAILY Budesonide/Formoterol Fumarate (Symbicort 80/4.5 Inhaler), 2 PUFF INH BID Calcium Carbonate (Calcium), 1,500 MG PO DAILY Cholecalciferol (Vitamin D3), 1 TAB PO DAILY Clopidogrel Bisulfate (Clopidogrel), 75 MG PO DAILY Docusate Sodium (Docusate Sodium), 1 CAP PO BID Fluticasone Propionate (Fluticasone Propionate), 1 SPRAY NA DIRECTED Furosemide (Lasix), 20 MG PO DAILY Ipratropium [place] (Nasal) (Ipratropium [place]), 2 SPRAYS ND TID Ipratropium-Albuterol (Duoneb), 1 TREATMENT INH QID Lisinopril (Zestril), 20 MG PO DAILY Metoprolol Tartrate (Lopressor) (Lopressor), 50 MG PO DAILY Nifedipine (Nifedipine Er), 60 MG PO DAILY Pantoprazole (Protonix), 40 MG PO BID Potassium Ext Rel (Klor-Con), 20 MEQ PO DAILY Prednisone (Prednisone), 10 MG PO DAILY Probiotic Product (Probiotic), 1 CAP PO QAM Ranitidine (Zantac), 150 MG PO BID Scheduled PRN Albuterol Sulf (Albuterol Sulfate), 3 ML NEB Q4 PRN for SOB/Wheezing Chlordiazepoxide (Librium), 10 MG PO TID PRN for Review of Systems Constitutional: No fever, No chills, No sweats, No weight loss, No weakness Respiratory: + shortness of breath, + dyspnea on exertion, No cough, No sputum , No wheezing Cardiovascular: No chest pain, No orthopnea, No PND, No edema, No claudication Abdomen: No pain, No nausea, No vomiting, No diarrhea Musculoskeletal: No joint pain, No muscle pain, No swelling, No calf pain Genitourinary - Female: No dysuria, No urinary frequency, No urinary urgency, No urinary incontinence Neurologic: No memory loss, No paralysis, No weakness, No numbness/tingling, No vertigo Psychiatric: No depression symptoms, No anhedonism, No anxiety, No insomnia Hematologic / Lymphatic: No abnormal bleeding/bruising, No clotting problems, No swollen lymph nodes Integumentary: No rash, No itch Physical Exam Vital Signs Date Time Temp Pulse Resp B/P (MAP) Pulse Ox O2 Delivery O2 Flow Rate FiO2 05/21/17 16:10 79 26 126/68 99 Room Air 05/21/17 15:07 80 05/21/17 14:50 100 Nasal Cannula 4.0 05/21/17 14:45 98 Nasal Cannula 4.0 05/21/17 14:45 98 Nasal Cannula 4.0 05/21/17 14:35 36.7 100 24 124/74 99 Room Air General Appearance: WD/WN, no apparent distress Eyes: normal inspection, PERRL, EOMI, sclerae normal ENT: normal ENT inspection, hearing grossly normal, TMs normal, pharynx normal Neck: supple, no adenopathy, thyroid normal, no JVD Respiratory/Chest: chest non-tender, no accessory muscle use, + decreased breath sounds, + wheezing Cardiovascular: no edema, no gallop, no JVD, + tachycardia Abdomen/GI: normal bowel sounds, non tender, soft Back: normal inspection, no CVA tenderness, no muscle spasm, normal range of motion Extremities/Musculoskelatal: normal inspection, no calf tenderness, normal capillary refill, no pedal edema Neurologic/Psych: alert, normal mood/affect, normal reflexes, oriented x 3 Skin: normal color, warm/dry, no rash Lymphatic: no adenopathy Diagnostics Laboratory Results Results Past 24 Hours Test 05/21/17 15:18 05/21/17 16:25 Range/Units White Blood Count 11.52 4.8-10.8 K/uL Red Blood Count 4.37 4.2-5.4 M/uL Hemoglobin 14.1 12.0-16.0 g/dL Hematocrit 42.3 37-47 % Mean Corpuscular Volume 96.8 80-100 fL Mean Corpuscular Hemoglobin 32.3 25-34 pg Mean Corpuscular Hemoglobin Concent 33.3 32-36 g/dl Platelet Count 225 130-400 K/uL Mean Platelet Volume 10.2 7.4-10.4 fL Neutrophils (%) (Auto) 81.8 % Lymphocytes (%) (Auto) 10.4 % Monocytes (%) (Auto) 5.2 % Eosinophils (%) (Auto) 1.8 % Basophils (%) (Auto) 0.4 % Neutrophils # (Auto) 9.41 1.4-6.5 K/uL Lymphocytes # (Auto) 1.20 1.2-3.4 K/uL Monocytes # (Auto) 0.60 0.11-0.59 K/uL Eosinophils # (Auto) 0.21 0-0.5 K/uL Basophils # (Auto) 0.05 0-0.2 K/uL RDW Standard Deviation 55.1 36.4-46.3 fL RDW Coefficient of Variation 15.5 11.5-14.5 % Immature Granulocyte % (Auto) 0.4 % Immature Granulocyte # (Auto) 0.05 0.00-0.02 K/uL Prothrombin Time 10.1 9.0-12.0 SECONDS Prothromb Time International Ratio 0.9 0.9-1.1 Sodium Level 140 136-145 mmol/L Potassium Level 4.2 3.5-5.1 mmol/L Chloride Level 103 98-107 mmol/L Carbon Dioxide Level 30 21-32 mmol/L Anion Gap 7.0 3-11 mmol/L Blood Urea Nitrogen 18 7-18 mg/dl Creatinine 0.85 0.60-1.20 mg/dl Estimated GFR () 78.2 Estimated GFR (Non- 67.5 BUN/Creatinine Ratio 21.1 10-20 Random Glucose 91 70-99 mg/dl Calcium Level 8.9 8.5-10.1 mg/dl Total Bilirubin 0.6 0.2-1 mg/dl Aspartate Amino Transf (AST/SGOT) 24 15-37 U/L Alanine Aminotransferase (ALT/SGPT) 29 12-78 U/L Alkaline Phosphatase 76 45-117 U/L Troponin I 0.288 0-0.045 ng/ml Pro-B-Type Natriuretic Peptide 851 0-900 pg/ml Total Protein 6.9 6.4-8.2 gm/dl Albumin 3.5 3.4-5.0 gm/dl Globulin 3.4 2.5-4.0 gm/dl Albumin/Globulin Ratio 1.0 0.9-2 Urine Color DK YELLOW Urine Appearance CLEAR CLEAR Urine pH 7.0 4.5-7.5 Urine Specific [place] 1.018 1.000-1.030 Urine Protein NEG NEG Urine Glucose (UA) NEG NEG Urine Ketones TRACE NEG Urine Occult Blood NEG NEG Urine Nitrite NEG NEG Urine Bilirubin NEG NEG Urine Urobilinogen NEG NEG Urine Leukocyte Esterase TRACE NEG Urine WBC (Auto) 1-5 0-5 /hpf Urine RBC (Auto) 0-4 0-4 /hpf Urine Hyaline Casts (Auto) 5-10 0-5 /lpf Urine Epithelial Cells (Auto) >30 0-5 /lpf Urine Bacteria (Auto) NEG NEG Impression Assessment and Plan 71 yo female who presents with worsening shortness of breath x 2 days Acute on chronic respiratory failure in setting of COPD exacerbation. Will place on observation telemetry at this time. CXR negative for any acute cardiopulmonary process. Start pt on duonebs q 4 hr PRN SOB, levaquin 750 mg IV q daily, solumedrol 60 mg IV BID. Cont home med of symbicort. NSTEMI/CAD pt noted to have recents cardiac catherization with 2 stents placed in RCA. EKG no worsening changes noted. No active chest pain. Cont on ASA, plavix, BB, lisinopril, statin. Cont to trend trops x 3 sets as first set elevated. Could likely be due to demand ischemia as noted tachycardia in ER. History of atrial fibrillation, currently in NSR, cont BB Chronic diastolic HF, not noted to be in exacerbation, cont lasix PO at this time CODE STATUS: Full code VTE Prophylaxis VTE Risk Assessment Done? Y/N: Yes Risk Level: Moderate
[2017-05-21 18:27] VITALS: BP 158/68; PULSE 91; TEMP 36.4; O2SAT 95; Ht 154.9 cm; Wt 68.3 kg
[2017-05-21] MEDS ORDERED: IV FLUIDS COMPLETED PRN (19:45)
[2017-05-21] MEDS: METHYLPREDNISOLONE IV 60 MG in SYRINGE 0 ML IV SCH (19:45)
[2017-05-21] MEDS ORDERED: FSM70 PO (19:52)
[2017-05-21] MEDS ORDERED: FLNIN/ (19:52)
[2017-05-21 19:56] VITALS: PULSE 80; O2SAT 98
[2017-05-21] MEDS: ALBUT/IPRATROP 3MG/0.5MG NEB 3 ML VIAL INH SCH (19:56)
[2017-05-21 20:00] VITALS: BP 90/49; PULSE 77; TEMP 36.9; O2SAT 95
[2017-05-21] MEDS ORDERED: LEVOFLOXACIN / D5W 750 MG in PREMIXED IN D5W 150 ML IV SCH (20:00)
[2017-05-21 20:19] VITALS: O2SAT 93
[2017-05-21] MEDS: PANTOprazole SOD 40 MG TAB PO SCH (21:14)
[2017-05-21] MEDS: BUDESONIDE/FORMOTEROL FUMARATE 80/4.5 60 PUFFS/INHALER INH SCH (21:14)
[2017-05-21] MEDS: DOCUSATE SODIUM 100 MG CAP PO SCH (21:14)
[2017-05-21] MEDS: HEPARIN SOD 5000 UNIT/0.5 ML CARP SQ SCH (21:15)
[2017-05-21] MEDS: RANITIDINE HCL 150 MG TAB PO SCH (21:15)
[2017-05-21 23:00] VITALS: BP 128/78; PULSE 92; TEMP 37; O2SAT 97
[2017-05-22] VITALS (8 sets, daily range): BP systolic 116–139; BP diastolic 65–83; PULSE 88–90; TEMP 36.6–37; O2SAT 93–98
[2017-05-22] MEDS: HEPARIN SOD 5000 UNIT/0.5 ML CARP SQ SCH ×2 (05:48→13:40)
[2017-05-22 06:45] LABS: COMPLETE YES; HEMATOCRIT 38.1 % (37-47); IG% 0.2 %; LYMPH % 9.4 %; LYMPH ABS # 0.55 K/uL (1.2-3.4); MEAN CELL VOLUME 96.2 fL (80-100); MEAN CORPUSCULAR HEMOGLOBIN 31.8 pg (25-34); MEAN CORPUSCULAR HGB CONC 33.1 g/dl (32-36); MEAN PLATELET VOLUME 10.5 fL (7.4-10.4); MONO % 1.5 %; NEUT % 88.9 %; PLATELET COUNT 201 K/uL (130-400); RED BLOOD COUNT 3.96 M/uL (4.2-5.4); WHITE BLOOD COUNT 5.86 K/uL (4.8-10.8)
[2017-05-22] MEDS: ALBUT/IPRATROP 3MG/0.5MG NEB 3 ML VIAL INH SCH ×3 (07:13→14:29)
[2017-05-22 07:21] LABS: BUN/CREATININE RATIO 26.8 (10-20); CALCIUM 8.7 mg/dl (8.5-10.1); CREATININE 0.83 mg/dl (0.60-1.20); POTASSIUM 4.5 mmol/L (3.5-5.1)
[2017-05-22] MEDS: BUDESONIDE/FORMOTEROL FUMARATE 80/4.5 60 PUFFS/INHALER INH SCH (08:01)
[2017-05-22] MEDS: METHYLPREDNISOLONE IV 60 MG in SYRINGE 0 ML IV SCH (08:01)
[2017-05-22] MEDS: RANITIDINE HCL 150 MG TAB PO SCH (08:01)
[2017-05-22] MEDS: DOCUSATE SODIUM 100 MG CAP PO SCH (08:01)
[2017-05-22] MEDS: PANTOprazole SOD 40 MG TAB PO SCH (08:03)
[2017-05-22] MEDS ORDERED: NURSING DECISION MEDICATION ORDER SCH (08:15)
[2017-05-22] MEDS ORDERED: ASPIRIN 81 MG ECTAB PO SCH (09:00)
[2017-05-22] MEDS ORDERED: NIFEdipine 30 MG CR TAB PO SCH (09:00)
[2017-05-22] MEDS ORDERED: CLOPIDOGREL BISULFATE 75 MG TAB PO SCH ×2 (09:00→21:00)
[2017-05-22] MEDS ORDERED: ATORVASTATIN 40 MG TAB PO SCH (09:00)
[2017-05-22] MEDS ORDERED: FUROSEMIDE 20 MG TAB PO SCH (09:00)
[2017-05-22] MEDS ORDERED: METOPROLOL TARTRATE 50 MG TAB PO SCH (09:00)
[2017-05-22] MEDS ORDERED: LISINOPRIL 20 MG TAB PO SCH (09:00)
[2017-05-22] MEDS ORDERED: LVQ750 PO (11:55)
[2017-05-22] MEDS ORDERED: PRD10 PO (11:55)
--- NOTE | 2017-05-22 12:00 | Discharge Instructions ---
Discharge Instructions Date of Service May 22, 2017. Admission Reason for Admission: Copd, Elevated Troponin I Level Discharge Discharge Diagnosis / Problem: COPD Exacerbation Discharge Goals Goal(s): Decrease discomfort, Improve function, Increase independence Activity Recommendations Activity Limitations: resume your previous activity . Instructions / Follow-Up Instructions / Follow-Up COPD Exacerbation: - You will be provided a prescription for Levaquin (antibiotic), take this once daily starting on 05/23 to finish a 5 day course (you had 2 doses in the hospital ) - You will be placed on a steroid taper. Hold your daily Prednisone at this time until you finish the taper. When the taper is complete then you may continue your daily dose -- Take Prednisone 40 mg daily (4 tabs) for 3 days - start this tomorrow on as you had steroids here in the hospital -- Then take 30 mg daily (3 tabs) for 3 days -- Then 20 mg daily x 3 days -- Then 10 mg daily as this is your daily dose - Continue your home medications and nebulizer treatments as previously prescribed - Recommend follow-up with your family doctor in 7-10 days - Keep your routine appointment with your lung doctor - Dr. Escudero Current Hospital Diet Patient's current hospital diet: AHA Diet (Heart Healthy) Discharge Diet Recommended Diet: AHA Diet (Heart Healthy) Pending Studies Studies pending at discharge: no Medical Emergencies . Who to Call and When: Medical Emergencies: If at any time you feel your situation is an emergency, please call 911 immediately. . Non-Emergent Contact Non-Emergency issues call your: Primary Care Provider Call Non-Emergent contact if: you have a fever, your pain is concerning you, you have any medication questions . . "Provider Documentation" section prepared by Valentina Allen. . VTE Core Measure Inpt VTE Proph given/why not?: Unfractionated heparin SQ
--- NOTE | 2017-05-22 13:33 | Discharge Summary ---
Discharge Summary Date of Service May 22, 2017. Discharge Summary Admission Date: May 21, 2017 at 17:12 Discharge Date: May 22, 2017 Discharge Disposition: Home Principal Diagnosis: Acute on Chronic Respiratory Failure 2/2 COPD Exacerbation Problems/Secondary Diagnoses: (1) COPD (chronic obstructive pulmonary disease) Status: Chronic Immunizations: Have You Had Influenza Vaccine: No History of Tetanus Vaccine?: Unknown History of Pneumococcal: Yes Pneumococcal Date: Nov 20, 2009 History of Hepatitis B Vaccine: Unknown Procedures: ABD/PELVIS NO IV OR ORAL CONT FINDINGS: [employer] Supervisor topogram: Unremarkable. Lung bases: Lung bases clear. Coronary artery calcification. Normal heart size. No pericardial or pleural effusion. Liver: Normal morphology. Normal density. Scattered parenchymal calcifications. Biliary: No gross biliary ductal dilatation allowing for noncontrast technique. Normal gallbladder. Pancreas: Moderate parenchymal atrophy. Spleen: Parenchymal calcifications suggest prior granulomatous infection. Adrenal glands: Ovoid 13 mm nodule in the lateral limb of the left adrenal gland, which is consistent with a benign adenoma by density. Right adrenal gland normal. Kidneys and ureters: No nephrolithiasis. Renal vascular calcification. No hydronephrosis. Ureters normal. Multiple pelvic phleboliths. Bladder: Normal. Pelvic organs: Uterus surgically absent. No adnexal masses. Bowel: Normal. No bowel obstruction. Small hiatal hernia. Peritoneal cavity: No free fluid or intraperitoneal gas. Vasculature: Dense atherosclerotic plaque throughout the aortobiiliac arteries. Aneurysmal dilatation of the infrarenal abdominal aorta with a maximal transverse diameter of 2.7 cm. Prominent peripheral calcification could suggest chronic dissection versus dense atherosclerotic calcified plaque. This extends into the bilateral common iliac arteries, which are overall normal in caliber. Lymph nodes: No enlarged lymph nodes in the abdomen or pelvis. Abdominal wall: Normal. Musculoskeletal: Degenerative changes of the spine. Scoliotic curvature of the lumbar spine. No evidence of a compression deformity. Osteopenia. IMPRESSION: 1. Osteopenia without evidence of a compression deformity in the lumbar spine. 2. No evidence of nephrolithiasis. Prominent renal vascular calcification. 3. Infrarenal abdominal aortic aneurysm measuring 2.7 cm. 4. Benign left adrenal adenoma. 5. Scattered parenchymal calcification in the liver and spleen suggest prior granulomatous infection. SINGLE VIEW CHEST FINDINGS: An AP, portable, upright chest radiograph is compared to study dated 02/20/2017 and correlated with chest CT dated 11/07/2016. The examination is degraded by portable technique and apical lordotic positioning. The heart is enlarged and there is atherosclerotic calcification of the thoracic aorta. The pulmonary vasculature is noncongested. Emphysema and chronic interstitial thickening are similar to previous. A calcified granuloma in the right upper lobe is unchanged. Surgical clips are again noted at the left apex. No airspace consolidation or pleural effusion is identified. No pneumothorax is seen. The skeletal structures are osteopenic. The bony thorax is grossly intact. IMPRESSION: Cardiomegaly and emphysema. There is no acute cardiopulmonary abnormality. Medication Reconciliation New Medications: Levofloxacin (Levofloxacin) 750 Mg Tab 750 MG PO DAILY@11 for 3 Days, #3 TAB Take one tablet daily starting 05/23 Prednisone (Prednisone) 10 Mg Tab 10 MG PO DAILY, #30 TAB Starting 05/23 take 40 mg x 3 day then 30 mg x 3 days then 20 mg x 3 days, then 10 mg x 3 days Continued Medications: Albuterol Sulf (Albuterol Sulfate) 2.5 Mg/3 Ml Nebu 3 ML NEB Q4 PRN for SOB/Wheezing Alendronate Sodium (Alendronate Sodium) 70 Mg Tab 70 MG PO WK, #12 DO NOT LIE DOWN, EAT, DRINK, OR TAKE OTHER MEDS FOR 30 MIN. Aspirin (Aspirin Ec) 81 Mg Tab 81 MG PO QAM Atorvastatin (Lipitor) 80 Mg Tab 80 MG PO DAILY, TAB Budesonide/Formoterol Fumarate (Symbicort 80/4.5 Inhaler) 120 Puffs/ Aero 2 PUFF INH BID, #30 Calcium Carbonate (Calcium) 500 Mg Chw 1500 MG PO DAILY Chlordiazepoxide (Librium) 10 Mg Cap 10 MG PO TID PRN for , CAP Cholecalciferol (Vitamin D3) 1,000 Unit Tab 1 TAB PO DAILY for 90 Days, #90 TAB 3 Refills Clopidogrel Bisulfate (Clopidogrel) 75 Mg Tab 75 MG PO DAILY, #90 Docusate Sodium (Docusate Sodium) 100 Mg Cap 1 CAP PO BID for 7 Days, #14 CAP Fluticasone Propionate (Fluticasone Propionate) 120 Sprays/6000 Mcg [place] 1 SPRAY NA DIRECTED, #32 Furosemide (Lasix) 20 Mg Tab 20 MG PO DAILY, TAB Ipratropium [place] (Nasal) (Ipratropium [place]) 0.03 % Spr 2 SPRAYS ND TID Ipratropium-Albuterol (Duoneb) 3 Ml Nebu 1 TREATMENT INH QID, INHA Lisinopril (Zestril) 20 Mg Tab 20 MG PO DAILY, TAB Metoprolol Tartrate (Lopressor) (Lopressor) 50 Mg Tab 50 MG PO DAILY, TAB Nifedipine (Nifedipine Er) 60 Mg Tab 60 MG PO DAILY, #90 Pantoprazole (Protonix) 40 Mg Tab 40 MG PO BID, #30 TAB Potassium Ext Rel (Klor-Con) 20 Meq Tabcr 20 MEQ PO DAILY, TAB Prednisone (Prednisone) 10 Mg Tab 10 MG PO DAILY, #90 Hold daily dose until taper in finished then resume. Probiotic Product (Probiotic) 1 Cap Cap 1 CAP PO QAM Ranitidine (Zantac) 150 Mg Tab 150 MG PO BID, TAB Discharge Exam Review of Systems: Constitutional: No fever, No chills ENT: No nasal symptoms, No sore throat Respiratory: No cough, No wheezing, No shortness of breath Cardiovascular: No chest pain, No palpitations Abdomen: + constipation (intermittent), No pain, No nausea, No vomiting, No diarrhea Musculoskeletal: No swelling, No calf pain Genitourinary - Female: No dysuria Hematologic / Lymphatic: No abnormal bleeding/bruising Physical Exam: General Appearance: WD/WN, no apparent distress Eyes: sclerae normal ENT: hearing grossly normal Neck: supple, no JVD, trachea midline Respiratory/Chest: lungs clear, no respiratory distress, no accessory muscle use, + pertinent finding (diminished breath sounds throughout) Cardiovascular: regular rate, rhythm, no gallop, no murmur Abdomen / GI: normal bowel sounds, non tender, soft Extremities: no calf tenderness, no pedal edema Neurologic/Psychiatric: alert, oriented x 3 Skin: normal color, warm/dry Hospital Course ADMISSION: Pt is a 72 yo female who presents to the ER with complaints of worsening shortness of breath x 2 days. Pt reports chronic O2 use at home at 3 liters in which she states she had to bump up for her worsening sob. Pt also reports using her nebulizer up to 4x a day. She denies chest pressure, chest pain, fevers, dizziness, lightheadedness, nausea, changes in diet, numbness or tingling to legs, and incontinence of stool or urine. The patient states that she has a history of COPD in which she follows up with Dr Escudero. Pt reports seeing him last week in which she had PFTS completed but unsure of results. Pt has a recent notable cardiac hx of 2 stents in RCA.. HOSPITAL COURSE: Ms. Rawls was admitted for Acute on Chronic Respiratory Failure 2/2 COPD Exacerbation. Patient was placed on Solu-Medrol 60 mg IV BID, Levaquin 750 mg daily, and Duoneb treatments. Patient responded well to treatment and reporting baseline respiratory status and is currently on home baseline O2 of 3L. She did have a mild elevation in troponins that are trending down. EKG without acute findings but changes related to previous NSTEMI and no complaints of CP. She was discharged with Levaquin to complete a 5 day course and a prednisone taper to get her on her chronic dose. Total Time Spent: Greater than 30 minutes This includes examination of the patient, discharge planning, medication reconciliation, and communication with other providers. Discharge Instructions Please refer to the electronic Patient Visit Report (Discharge Instructions) for additional information. Additional Copies To Marcello Conde M.D.
[2017-05-22] MEDS ORDERED: NURSING VERBAL MED ORDER ONE (13:45)
[2017-05-22] MEDS ORDERED: INFLUENZA VACCINE HIGH DOSE 65+ 0.5 ML SYR IM. ONE (13:45)
[2017-05-22] MEDS ORDERED: INFLUENZA ADMINISTRATION CHARGE ONE (13:45)
[2017-05-22] MEDS ORDERED: LEVOFLOXACIN 750 MG TAB PO ONE ×2 (15:00→20:00)
[2017-05-23] MEDS ORDERED: LEVOFLOXACIN 750 MG TAB PO SCH (11:00)
== END 2017-05-22 15:00 | disposition home or self-care (01) ==
LOC: C.EDB 14:33 → C.2T 17:12 → ENRESERV 17:30
PROVIDERS: ADMIT Hospitalist; ATTEND Internal Medicine
DX: J44.1 Chronic obstructive pulmonary disease with (acute) exacerbation (principal); J96.20 Acute and chronic respiratory failure, unspecified whether with hypoxia or hypercapnia; I50.32 Chronic diastolic (congestive) heart failure; I11.0 Hypertensive heart disease with heart failure; M54.5 Low back pain; I25.10 Atherosclerotic heart disease of native coronary artery without angina pectoris; E78.5 Hyperlipidemia, unspecified; I10 Essential (primary) hypertension; I25.2 Old myocardial infarction; Z87.891 Personal history of nicotine dependence; Z99.81 Dependence on supplemental oxygen; Z79.52 Long term (current) use of systemic steroids; Z79.82 Long term (current) use of aspirin; Z79.02 Long term (current) use of antithrombotics/antiplatelets; Z79.899 Other long term (current) drug therapy; I48.91 Unspecified atrial fibrillation

== ENCOUNTER → 2017-06-19 | Outpatient (CLI) | payer BC ==
[~2017-06-19] MED LIST changes: -ASPEC81 PO; +ATOR-26 PO; +CALC500C73 PO; +CHOL1000 PO; -CLC100 PO; +DOCU100C31 PO; +FLNIN/; +FSM70 PO; +FURO-85 PO; +IPRA0.03 ND; +IPRASOL4 INH; +LISI-725 PO; -LPT40 PO; +LVQ750 PO; -MCRK20 PO; -MISC-573; -MOMLX PO; -MRLP17X PO; +NIFE1TAB55 PO; -NIFE60TA57 PO; -OXGN; +PANT40TA PO; +PLV75 PO; +POTA20TA16 PO; +PRED10TA PO; -PRT40 PO; +SYMIN/8045 INH; -SYMIN8045 INH; -VNTHFA/IN INH
--- NOTE | 2017-06-19 16:11 | DIAGNOSTIC IMAGING REPORT ---
CT SCAN OF THE CHEST WITHOUT IV CONTRAST CLINICAL HISTORY: Pulmonary nodule follow-up COMPARISON STUDY: Chest x-ray dated 05/21/2017. Chest CT scans dated 11/07/2016, 12/05/2015, and 09/05/2011. PET/CT dated 08/06/2016. TECHNIQUE: CT scan of the thorax was performed from the thoracic inlet to the upper abdomen. Images are reviewed in the axial, sagittal, and coronal planes. IV contrast was not administered for this examination. A dose lowering technique was utilized adhering to the principles of ALARA. CT DOSE: 209.27 mGy.cm FINDINGS: Thyroid: Imaged portions of the thyroid gland are normal in size and attenuation. Thoracic aorta: There is atherosclerotic calcification of the thoracic aorta, with is normal in caliber and demonstrates standard 3-vessel arch anatomy. Heart: The heart is mildly enlarged and without pericardial effusion. The coronary arteries are densely calcified. Lungs and pleural spaces: Mild emphysema is observed. There is no airspace consolidation or pleural effusion. No airspace consolidation is identified typical for pneumonia. No pleural effusion is seen. Scattered calcified granulomas are observed. Linear atelectasis versus scarring is present in the left upper lobe, lingula, and right upper lobe. The trachea and central airways are clear. There is a 1.2 cm spiculated nodule in the left lower lobe seen on image #205. The left upper lobe groundglass opacities seen on image #52 is unchanged. This measures up to 1.5 cm. Mediastinum: There is no mediastinal lymphadenopathy. Minna: Not well assessed without IV contrast. Axillae: There is no axillary lymphadenopathy. Upper abdomen: There are calcified hepatic and splenic granulomas. A tiny hiatal hernia is observed. A 1.6 cm cyst is noted in the upper pole of the right kidney. A 1.6 cm left adrenal adenoma is similar to previous. Skeletal structures: The skeletal structures are osteopenic. There are healed left-sided rib fractures. A hemangioma is noted in the body of T6. No lytic or blastic bony lesions are seen. Soft tissues: There is asymmetric dermal thickening in the left breast as compared to the right. There is an asymmetric focus in the left breast seen on image #113 measuring 1.7 cm. IMPRESSION: 1. Cardiomegaly and emphysema. 2. There is a 12 mm spiculated nodule in the left lower lobe. This has somewhat increased in confluence as compared to 11/07/2016 and has significantly increased in size as compared to older prior examinations. This should be considered lung cancer until proven otherwise. 3. There is a 1.5 cm groundglass focus in the left upper lobe. This is unchanged and is also concerning for low-grade neoplasm. 4. There is no airspace consolidation or pleural effusion. 5. No mediastinal or hilar adenopathy is seen. 6. There is asymmetric dermal thickening in the left breast as well as an asymmetric density in the left breast measuring 1.7 cm. This is not well assessed by CT. Further assessment with mammography of the breast center is recommended for further assessment. Electronically signed by: Felix Davey M.D. 06/19/2017 4:09 PM Dictated Date/Time: 06/19/2017 3:58 PM
== END | disposition home or self-care (01) ==
LOC: C.CTS 15:29
PROVIDERS: ATTEND Surgery
DX: R91.8 Other nonspecific abnormal finding of lung field (principal); I51.7 Cardiomegaly; J43.9 Emphysema, unspecified; N64.89 Other specified disorders of breast

== ENCOUNTER 2017-06-26 13:22 | Inpatient (IN) | payer BC, OTHER ==
[~2017-06-26] VITALS: Ht 154.9 cm; Wt 66.2 kg
[2017-06-26] MEDS ORDERED: SODIUM CHLORIDE 0.9% 1000ML 250 ML IV STA ×2 (13:50→15:36)
--- NOTE | 2017-06-26 13:55 | EMERGENCY ROOM VISIT NOTE ---
History Report prepared by Poojaibtisha: Josefina Wilkins Under the Supervision of: Dr. Nestor Gregory M.D. First contact with patient: 13:44 Chief Complaint: WEAKNESS Stated Complaint: WEAKNESS, NEAR SYNCOPE, TROUBLE BREATHING History of Present Illness The patient is a 72 year old female who presents to the Emergency Room with complaints of intermittent weakness beginning 3 days ago. Per the patient's son , she has symptoms like this every 3-6 months. She notes cough, near-syncope, swelling in her feet, back pain, and shortness of breath which is more than baseline. When she stands up and moves around she feels dizzy and lightheaded. She denies any recent falls. The patient wear 3 L of oxygen at home. She denies any abdominal pain or urinary symptoms. The patient is on Plavix. Source of History: patient, family Onset: 3 days ago Position: other (generalized) Quality: other (weakness) Timing: intermittent Associated Symptoms: + cough, + SOB, No urinary symptoms Note: Pt notes lightheadedness and syncope. Review of Systems See HPI for pertinent positives & negatives. A total of 10 systems reviewed and were otherwise negative. Past Medical & Surgical Medical Problems: (1) Acute GI bleeding (2) Acute on chronic respiratory failure with hypoxemia (3) Anxiety (4) Asthma (5) Atrial fibrillation with rapid ventricular response (6) Bronchitis (7) Chronic use of steroids (8) COPD (chronic obstructive pulmonary disease) (9) COPD exacerbation (10) Coronary artery disease (11) Hyperlipidemia (12) Hypertension (13) Hypoxia (14) Pneumonia (15) Pneumonia (16) Sinus pause (17) STEMI (ST elevation myocardial infarction) (18) Syncope (19) Unresponsive episode (20) Weakness Old medical records were reviewed. Nurse's notes were reviewed and I agree with. Family History Cancer Diabetes mellitus FHx: gallbladder disease Heart disease Hypertension Kidney disease Kidney stones Lung disease Social History Smoking Status: Former Smoker Alcohol Use: none Drug Use: none Marital Status: Housing Status: lives alone Occupation Status: retired Current/Historical Medications Scheduled Alendronate Sodium (Alendronate Sodium), 70 MG PO WK Aspirin (Aspirin Ec), 81 MG PO QAM Atorvastatin (Lipitor), 80 MG PO DAILY Budesonide/Formoterol Fumarate (Symbicort 80/4.5 Inhaler), 2 PUFF INH BID Calcium Carbonate (Calcium), 1,500 MG PO DAILY Cholecalciferol (Vitamin D3), 1 TAB PO DAILY Clopidogrel Bisulfate (Clopidogrel), 75 MG PO DAILY Docusate Sodium (Docusate Sodium), 1 CAP PO BID Fluticasone Propionate (Fluticasone Propionate), 1 SPRAY NA DIRECTED Furosemide (Lasix), 20 MG PO DAILY Ipratropium [place] (Nasal) (Ipratropium [place]), 2 SPRAYS ND TID Ipratropium-Albuterol (Duoneb), 1 TREATMENT INH QID Lisinopril (Zestril), 20 MG PO DAILY Metoprolol Tartrate (Lopressor) (Lopressor), 50 MG PO DAILY Nifedipine (Nifedipine Er), 60 MG PO DAILY Pantoprazole (Protonix), 40 MG PO BID Potassium Ext Rel (Klor-Con), 20 MEQ PO DAILY Prednisone (Prednisone), 10 MG PO DAILY Probiotic Product (Probiotic), 1 CAP PO QAM Ranitidine (Zantac), 150 MG PO BID Scheduled PRN Albuterol Sulf (Albuterol Sulfate), 3 ML NEB Q4 PRN for SOB/Wheezing Chlordiazepoxide (Librium), 10 MG PO TID PRN for Allergies Coded Allergies: Penicillins (Verified Allergy, Unknown, ANCEF OK PER DR RENDON, 02/08/17) Physical Exam Vital Signs Date Time Temp Pulse Resp B/P (MAP) Pulse Ox O2 Delivery O2 Flow Rate FiO2 06/26/17 16:35 93 16 116/58 97 06/26/17 15:46 93 16 116/58 97 Nasal Cannula 3.0 06/26/17 15:09 103 06/26/17 13:25 36.4 93 24 94/60 96 Nasal Cannula 3.0 Physical Exam General: Non-acutely ill appearing older female in no acute distress. Wearing baseline oxygen nasal cannula. HEENT: Normal cephalic atraumatic. Pupils are equal round and reactive to light. Extraocular movements are intact. Oropharynx is pink with moist mucous membranes. No swelling of the mouth lips or tongue. Neck: Supple with a midline trachea. No meningeal signs or stiffness, no JVD or bruits. No Stridor. Chest: Clear to auscultation bilaterally. No wheezes or rhonchi. No increased work of breathing. Heart: regular rate and rhythm. Abdomen: Soft nontender, nondistended without rebound guarding or rigidity. Extremities: No cyanosis clubbing or edema. No calf tenderness or assymetry Spine/Back. Non tender to palpation. No CVA tenderness Skin: Good turgor without rashes. Neurologic exam: Cranial nerves two through 12 are intact. Motor and sensation are intact and symmetrical throughout. Medical Decision & Procedures ER Provider Diagnostic Interpretation: Radiology results as stated below per my review and radiologist interpretation: CHEST ONE VIEW PORTABLE FINDINGS: The heart remains mildly enlarged. No new focal lung consolidations to suggest pneumonia. No evidence for pulmonary edema. The lungs remain hyperexpanded. Calcified granuloma within the right upper lobe. Metallic fiducial markers within the left lung apex. IMPRESSION: No significant change compared to the prior study. No acute process. Cardiomegaly and emphysema persist. Electronically signed by: Bernard Griffith M.D. Laboratory Results 06/26/17 14:00 Red Blood Count 4.41, Mean Corpuscular Volume 93.7, Mean Corpuscular Hemoglobin 31.1, Mean Corpuscular Hemoglobin Concent 33.2, Mean Platelet Volume 10.6, Neutrophils (%) (Auto) 75.6, Lymphocytes (%) (Auto) 15.5, Monocytes (%) (Auto) 7.4, Eosinophils (%) (Auto) 0.4, Basophils (%) (Auto) 0.2, Neutrophils # (Auto) 10.49, Lymphocytes # (Auto) 2.15, Monocytes # (Auto) 1.03, Eosinophils # (Auto) 0.06, Basophils # (Auto) 0.03 06/26/17 14:00 Test 06/26/17 14:00 06/26/17 14:24 06/26/17 14:25 White Blood Count 13.89 K/uL (4.8-10.8) Red Blood Count 4.41 M/uL (4.2-5.4) Hemoglobin 13.7 g/dL (12.0-16.0) Hematocrit 41.3 % (37-47) Mean Corpuscular Volume 93.7 fL (80-100) Mean Corpuscular Hemoglobin 31.1 pg (25-34) Mean Corpuscular Hemoglobin Concent 33.2 g/dl (32-36) Platelet Count 271 K/uL (130-400) Mean Platelet Volume 10.6 fL (7.4-10.4) Neutrophils (%) (Auto) 75.6 % Lymphocytes (%) (Auto) 15.5 % Monocytes (%) (Auto) 7.4 % Eosinophils (%) (Auto) 0.4 % Basophils (%) (Auto) 0.2 % Neutrophils # (Auto) 10.49 K/uL (1.4-6.5) Lymphocytes # (Auto) 2.15 K/uL (1.2-3.4) Monocytes # (Auto) 1.03 K/uL (0.11-0.59) Eosinophils # (Auto) 0.06 K/uL (0-0.5) Basophils # (Auto) 0.03 K/uL (0-0.2) RDW Standard Deviation 54.2 fL (36.4-46.3) RDW Coefficient of Variation 15.7 % (11.5-14.5) Immature Granulocyte % (Auto) 0.9 % Immature Granulocyte # (Auto) 0.13 K/uL (0.00-0.02) Prothrombin Time 10.0 SECONDS (9.0-12.0) Prothromb Time International Ratio 0.9 (0.9-1.1) Activated Partial Thromboplast Time 21.2 SECONDS (21.0-31.0) Partial Thromboplastin Ratio 0.8 Anion Gap 11.0 mmol/L (3-11) Est Creatinine Clear Calc Drug Dose 24.6 ml/min Estimated GFR () 33.1 Estimated GFR (Non- 28.6 BUN/Creatinine Ratio 40.5 (10-20) Calcium Level 8.7 mg/dl (8.5-10.1) Total Bilirubin 0.4 mg/dl (0.2-1) Direct Bilirubin < 0.1 mg/dl (0-0.2) Aspartate Amino Transf (AST/SGOT) 25 U/L (15-37) Alanine Aminotransferase (ALT/SGPT) 39 U/L (12-78) Alkaline Phosphatase 60 U/L (45-117) Total Creatine Kinase 126 U/L (26-192) Creatine Kinase MB 5.1 ng/ml (0.5-3.6) Creatine Kinase MB Ratio 4.0 (0-3.0) Total Protein 6.3 gm/dl (6.4-8.2) Albumin 3.3 gm/dl (3.4-5.0) Lipase 209 U/L (73-393) Bedside Lactic Acid Venous 2.82 mmol/L (0.90-1.70) Bedside Troponin I 0.090 ng/ml (0-0.045) Laboratory studies as stated above per my review. Medications Administered Medications (Trade) Dose Ordered Sig/Jessi Route Start Time Stop Time Status Last Admin Dose Admin Sodium Chloride 250 ml @ 999 mls/hr Q16M STAT IV 06/26/17 13:50 06/26/17 14:05 DC 06/26/17 13:50 999 MLS/HR Sodium Chloride 250 ml @ 999 mls/hr Q16M STAT IV 06/26/17 15:36 06/26/17 15:51 DC 06/26/17 15:36 999 MLS/HR ECG Indication: weakness Rate (beats per minute): 88 Rhythm: normal sinus Findings: PVC (occasional), RBBB (incomplete), other (old inferior infarct changes, nonspecific ST abnormality) Comparison ECG Date: 05/22/17 Change: no significant change ED Course 1345: Past medical records reviewed. The patient was evaluated in room B9, and a complete history and physical examination were performed. 1350: Sodium Chloride 250 ml @ 999 mls/hr IV 1515: The patient is feeling better. 1517: Discussed the patient's case with Dr. Smith [facility]. The patient will be evaluated for further management. 1536: Sodium Chloride 250 ml @ 999 mls/hr IV Medical Decision Differential diagnoses include: dehydration, infection, anemia, arrhythmia, cardiac disease, COPD exacerbation, electrolyte metabolic abnormality This patient comes in as described above she's felt dizzy and had near syncope when standing over the last couple days she had one episode of brief chest pain about 3 days ago. She's been a symptom back at present she has a history of COPD but feels very comfortable at present she's been using her nebs. She feels that she has been keeping up with her fluids. She's had no definite fever. She has no cough or urinary symptoms. She's had no fall or trauma. No focal numbness or weakness. IV access was established was hydrated with a 250 mL normal saline bolus which she tolerated well received a second one. Chest x- ray was unremarkable for any acute process. EKG shows no acute findings compared to old. Her BUN and creatinine are significantly elevated compared to old and I think this may be most likely prerenal and she is likely dehydrated. She is on a diuretic and it's is possible she is overdiuresed. Her cardiac enzymes are borderline elevated as well. She has no chest pain at this point. Her lactic acid is also moderately elevated. I think at this point is may be more from the albuterol and the dehydration rather than sepsis. She'shad no evidence suggest infection otherwise at this point cultures of been obtained a do think she needs be admitted for further treatment and observation and workup. I have consulted with Dr. Smith and the patient was seen in the ER and will be hospitalized for these measures. Medication Reconcilliation Current Medication List: was personally reviewed by me Blood Pressure Screening Patient's blood pressure: Normal blood pressure Consults Time Called: 1515 Consulting Physician: Dr. Smith-[facility] Returned Call: [id number] Discussed the patient's case. The patient will be evaluated for further management. Impression Primary Impression: Near syncope Additional Impressions: Dehydration Elevated troponin Scribe Attestation The scribe's documentation has been prepared under my direction and personally reviewed by me in its entirety. I confirm that the note above accurately reflects all work, treatment, procedures, and medical decision making performed by me. Departure Information Dispostion Being Evaluated By Hospitalist Referrals Marcello Conde M.D. (PCP) Patient Instructions My [facility] Problem Qualifiers
--- NOTE | 2017-06-26 14:23 | DIAGNOSTIC IMAGING REPORT ---
CHEST ONE VIEW PORTABLE HISTORY: Atypical CHEST PAIN COMPARISON: Chest 05/21/2017. FINDINGS: The heart remains mildly enlarged. No new focal lung consolidations to suggest pneumonia. No evidence for pulmonary edema. The lungs remain hyperexpanded. Calcified granuloma within the right upper lobe. Metallic fiducial markers within the left lung apex. IMPRESSION: No significant change compared to the prior study. No acute process. Cardiomegaly and emphysema persist. Electronically signed by: Bernard Griffith M.D. 06/26/2017 2:22 PM Dictated Date/Time: 06/26/2017 2:18 PM
[2017-06-26 14:37] LABS: BASO % 0.2 %; BASO ABS # 0.03 K/uL (0-0.2); COMPLETE YES; EOS % 0.4 %; HEMATOCRIT 41.3 % (37-47); IG% 0.9 %; LYMPH % 15.5 %; LYMPH ABS # 2.15 K/uL (1.2-3.4); MEAN CELL VOLUME 93.7 fL (80-100); MEAN CORPUSCULAR HEMOGLOBIN 31.1 pg (25-34); MEAN CORPUSCULAR HGB CONC 33.2 g/dl (32-36); MEAN PLATELET VOLUME 10.6 fL (7.4-10.4); MONO % 7.4 %; NEUT % 75.6 %; PLATELET COUNT 271 K/uL (130-400); RED BLOOD COUNT 4.41 M/uL (4.2-5.4); WHITE BLOOD COUNT 13.89 K/uL (4.8-10.8)
[2017-06-26 14:47] LABS: INR 0.9 (0.9-1.1); PARTIAL THROMBOPLASTIN RATIO 0.8
[2017-06-26 15:02] LABS: BLOOD UREA NITROGEN 70 mg/dl (7-18); BUN/CREATININE RATIO 40.5 (10-20); CALCIUM 8.7 mg/dl (8.5-10.1); CARBON DIOXIDE 28 mmol/L (21-32); CHLORIDE 102 mmol/L (98-107); CREATININE 1.73 mg/dl (0.60-1.20); GLUCOSE 118 mg/dl (70-99); SODIUM 140 mmol/L (136-145)
[2017-06-26 15:07] LABS: ALKALINE PHOSPHATASE 60 U/L (45-117); ALT/SGPT 39 U/L (12-78); AST/SGOT 25 U/L (15-37)
[2017-06-26] MEDS ORDERED: SODIUM CHLORIDE 0.9% 1000ML 1,000 ML IV SCH (15:49)
[2017-06-26] MEDS ORDERED: ONDANSETRON INJ 2 MG/ML 2 ML VIAL IV PRN (16:00)
[2017-06-26] MEDS ORDERED: ACETAMINOPHEN 325 MG TAB PO PRN (16:00)
[2017-06-26] MEDS ORDERED: CHLORDIAZEPOXIDE 10 MG CAP PO PRN (16:00)
[2017-06-26] MEDS ORDERED: MAGNESIUM HYDROXIDE SUSP 30 ML UDC PO PRN (16:00)
[2017-06-26] MEDS ORDERED: ALBUTEROL 0.083% NEBU SOLN 3 ML VIAL INH PRN (16:00)
--- NOTE | 2017-06-26 16:33 | History and Physical ---
History & Physical Date & Time of Service: Jun 26, 2017 at 15:59 Chief Complaint: Weakness, Near Syncope, Trouble Breathing Primary Care Physician: Marcello Conde M.D. History of Present Illness Source: patient 72 y/o F c/o feeling dizzy and weak. Pt states that this started on Saturday morning. She states she had a small amount of chest pain at that time. She noted palpitations and SOB. She was dizzy, which is actual more of a lightheaded feeling, not room spinning. She had been up and moving around for some time when this happened. Since that time, she has had multiple episode of lightheadedness and palpitations with a bit of SOB, but no further chest pain. She feels generally weak since Saturday as well and her appetite has been down which is usually not an issue for her. Upon further questioning, pt does remember that she was started on some sort of new medication to add to her nebulizer by Dr. Escudero. This was added last week. She had the first episode that included chest pain just after she finished her nebulizer and she does think that her episodes have been related to use of this medication. She decided to not use it yesterday or this morning and does feel a bit better today than she did yesterday or the day prior. Pharmacy was contacted to determine this new medication and it was noted that pt saw Dr. Escudero approximately 2 months ago and was started on the nebs at that time. This was a stronger dose than she had been taking prior. She notes that it took about a month or so for her to receive the new medication via mail, so she has only been using it since that time. She is able to use it up to 4x/day, but she now notes that she thinks she was taking it more than that, so she cut back over the last few days and feels improved. Pt states she has been losing track of how often she is using the nebs. Pt denies fever, abd pain, n/v/c/d, LE swelling. Past Medical/Surgical History Medical Problems: (1) Asthma Status: Chronic (2) Bronchitis Status: Resolved (3) COPD (chronic obstructive pulmonary disease) Status: Chronic (4) Hypertension Status: Chronic (5) Pneumonia Status: Resolved Afib COPD on 3L continuous O2 STEMI 01/2017 s/p stenting GERD Recent admission for COPD with d/c 05/22/17 Family History Cancer Diabetes mellitus FHx: gallbladder disease Heart disease Hypertension Kidney disease Kidney stones Lung disease Father with hx of MS Social History Smoking Status: Former Smoker (quit x 2 years) Alcohol Use: none Drug Use: none Marital Status: Housing status: lives alone Occupational Status: retired Immunizations History of Influenza Vaccine: No History of Tetanus Vaccine?: Unknown History of Pneumococcal: Yes Pneumococcal Date: Nov 20, 2009 History of Hepatitis B Vaccine: Unknown Multi-Drug Resistant Organisms History of MDRO: No Allergies Coded Allergies: Penicillins (Verified Allergy, Unknown, ANCEF OK PER DR RENDON, 02/08/17) Home Medications Scheduled Alendronate Sodium (Alendronate Sodium), 70 MG PO WK Aspirin (Aspirin Ec), 81 MG PO QAM Atorvastatin (Lipitor), 80 MG PO DAILY Budesonide/Formoterol Fumarate (Symbicort 80/4.5 Inhaler), 2 PUFF INH BID Calcium Carbonate (Calcium), 1,500 MG PO DAILY Cholecalciferol (Vitamin D3), 1 TAB PO DAILY Clopidogrel Bisulfate (Clopidogrel), 75 MG PO DAILY Docusate Sodium (Docusate Sodium), 1 CAP PO BID Fluticasone Propionate (Fluticasone Propionate), 1 SPRAY NA DIRECTED Furosemide (Lasix), 20 MG PO DAILY Ipratropium [place] (Nasal) (Ipratropium [place]), 2 SPRAYS ND TID Ipratropium-Albuterol (Duoneb), 1 TREATMENT INH QID Lisinopril (Zestril), 20 MG PO DAILY Metoprolol Tartrate (Lopressor) (Lopressor), 50 MG PO DAILY Nifedipine (Nifedipine Er), 60 MG PO DAILY Pantoprazole (Protonix), 40 MG PO BID Potassium Ext Rel (Klor-Con), 20 MEQ PO DAILY Prednisone (Prednisone), 10 MG PO DAILY Probiotic Product (Probiotic), 1 CAP PO QAM Ranitidine (Zantac), 150 MG PO BID Scheduled PRN Albuterol Sulf (Albuterol Sulfate), 3 ML NEB Q4 PRN for SOB/Wheezing Chlordiazepoxide (Librium), 10 MG PO TID PRN for Review of Systems Pertinent positives and negatives reviewed in HPI--all others negative Physical Exam Vital Signs Date Time Temp Pulse Resp B/P (MAP) Pulse Ox O2 Delivery O2 Flow Rate FiO2 06/26/17 15:46 93 16 116/58 97 Nasal Cannula 3.0 06/26/17 15:09 103 06/26/17 13:25 36.4 93 24 94/60 96 Nasal Cannula 3.0 General Appearance: WD/WN, no apparent distress Head: normocephalic, atraumatic Eyes: normal inspection, EOMI ENT: hearing grossly normal Respiratory/Chest: no respiratory distress, + wheezing (scant) Cardiovascular: regular rate, rhythm, no edema Abdomen/GI: non tender, soft Extremities/Musculoskelatal: no pedal edema, + calf tenderness (L sided, pt states is not new) Neurologic/Psych: alert, normal mood/affect, oriented x 3 Skin: normal color, warm/dry Diagnostics Laboratory Results Results Past 24 Hours Test 06/26/17 14:00 06/26/17 14:24 06/26/17 14:25 Range/Units White Blood Count 13.89 4.8-10.8 K/uL Red Blood Count 4.41 4.2-5.4 M/uL Hemoglobin 13.7 12.0-16.0 g/dL Hematocrit 41.3 37-47 % Mean Corpuscular Volume 93.7 80-100 fL Mean Corpuscular Hemoglobin 31.1 25-34 pg Mean Corpuscular Hemoglobin Concent 33.2 32-36 g/dl Platelet Count 271 130-400 K/uL Mean Platelet Volume 10.6 7.4-10.4 fL Neutrophils (%) (Auto) 75.6 % Lymphocytes (%) (Auto) 15.5 % Monocytes (%) (Auto) 7.4 % Eosinophils (%) (Auto) 0.4 % Basophils (%) (Auto) 0.2 % Neutrophils # (Auto) 10.49 1.4-6.5 K/uL Lymphocytes # (Auto) 2.15 1.2-3.4 K/uL Monocytes # (Auto) 1.03 0.11-0.59 K/uL Eosinophils # (Auto) 0.06 0-0.5 K/uL Basophils # (Auto) 0.03 0-0.2 K/uL RDW Standard Deviation 54.2 36.4-46.3 fL RDW Coefficient of Variation 15.7 11.5-14.5 % Immature Granulocyte % (Auto) 0.9 % Immature Granulocyte # (Auto) 0.13 0.00-0.02 K/uL Prothrombin Time 10.0 9.0-12.0 SECONDS Prothromb Time International Ratio 0.9 0.9-1.1 Activated Partial Thromboplast Time 21.2 21.0-31.0 SECONDS Partial Thromboplastin Ratio 0.8 Sodium Level 140 136-145 mmol/L Potassium Level 3.0 3.5-5.1 mmol/L Chloride Level 102 98-107 mmol/L Carbon Dioxide Level 28 21-32 mmol/L Anion Gap 11.0 3-11 mmol/L Blood Urea Nitrogen 70 7-18 mg/dl Creatinine 1.73 0.60-1.20 mg/dl Est Creatinine Clear Calc Drug Dose 24.6 ml/min Estimated GFR () 33.1 Estimated GFR (Non- 28.6 BUN/Creatinine Ratio 40.5 10-20 Random Glucose 118 70-99 mg/dl Calcium Level 8.7 8.5-10.1 mg/dl Total Bilirubin 0.4 0.2-1 mg/dl Direct Bilirubin < 0.1 0-0.2 mg/dl Aspartate Amino Transf (AST/SGOT) 25 15-37 U/L Alanine Aminotransferase (ALT/SGPT) 39 12-78 U/L Alkaline Phosphatase 60 45-117 U/L Total Creatine Kinase 126 26-192 U/L Creatine Kinase MB 5.1 0.5-3.6 ng/ml Creatine Kinase MB Ratio 4.0 0-3.0 Total Protein 6.3 6.4-8.2 gm/dl Albumin 3.3 3.4-5.0 gm/dl Lipase 209 73-393 U/L Bedside Lactic Acid Venous 2.82 0.90-1.70 mmol/L Bedside Troponin I 0.090 0-0.045 ng/ml Microbiology Results 06/26/17 Blood Culture, Received Pending 06/26/17 Blood Culture, Received Pending Diagnostic Radiology CXR neg for acute Impression Assessment and Plan 72 y/o F who was admitted on 06/26 for lightheadedness and weakness Lightheadedness/weakness: uncertain etiology although possibly related to overuse of duonebs Sx started just after use and have improved since she has stopped using nebs Trop neg x1, serials pending given hx CXR neg for acute HypoK: can be seen with use of duonebs Replace and monitor ARF: likely related to dehydration stemming from decreased PO intake with loss of appetite due to above Monitor Leukocytosis: in the setting of chronic steroid use Monitor Blood cx pending COPD: unfortunately, pt has wheezing on exam without nebs, use will need continued Advised to start marking date and time on the box to keep track Baseline O2 is 3L CAD: hx of MS, s/p stenting continue home meds including plavix HTN/afib: hypoTN noted in the ED, likely related to dehydration and improving s/ p IVF Hold if BP below parameters, but will not empirically hold due to afib hx Other: Full code, however is very clear that she would not want prolonged mechanical life support or feeding tubes. Son is present and agrees SCDs for DVT proph AHA diet Level of Care Telemetry Resuscitation Status FULL RESUSCITATION VTE Prophylaxis VTE Risk Assessment Done? Y/N: Yes Risk Level: Low
[2017-06-26] MEDS: POTASSIUM CHLR 10 MEQ / WTR 10 MEQ in PREMIXED WATER 100 ML IV SCH ×2 (18:08→18:45)
[2017-06-26 18:13] VITALS: BP 137/76; PULSE 72; TEMP 36.6; O2SAT 96; Ht 154.9 cm; Wt 66.2 kg
[2017-06-26] MEDS: ALBUT/IPRATROP 3MG/0.5MG NEB 3 ML VIAL INH SCH (19:05)
[2017-06-26 19:08] VITALS: PULSE 88; O2SAT 98
[2017-06-26] MEDS ORDERED: NURSING VERBAL MED ORDER ONE ×2 (19:15)
[2017-06-26 19:29] VITALS: BP 94/53; PULSE 78; TEMP 36.8; O2SAT 96
[2017-06-26 20:00] VITALS: O2SAT 96
[2017-06-26] MEDS: POTASSIUM CHLORIDE 20 MEQ TABCR PO SCH (20:05)
[2017-06-26] MEDS: PANTOprazole SOD 40 MG TAB PO SCH (20:10)
[2017-06-26] MEDS: DOCUSATE SODIUM 100 MG CAP PO SCH (20:10)
[2017-06-26] MEDS: RANITIDINE HCL 150 MG TAB PO SCH (20:11)
[2017-06-26] MEDS: BUDESONIDE/FORMOTEROL FUMARATE 80/4.5 60 PUFFS/INHALER INH SCH (20:11)
[2017-06-26 21:15] LABS: URINE APPEARANCE CLEAR (CLEAR); URINE BILIRUBIN NEG (NEG); URINE COLOR YELLOW; URINE NITRITE NEG (NEG); URINE PH 5.5 (4.5-7.5); URINE SPECIFIC GRAVITY 1.016 (1.000-1.030); UROBILINOGEN NEG (NEG)
[2017-06-26 21:20] LABS: MANUAL MICROSCOPIC REQUIRED? NO; REVIEW REQ? NO
[2017-06-27] VITALS (11 sets, daily range): BP systolic 103–166; BP diastolic 64–85; PULSE 76–105; TEMP 36.6–36.9; O2SAT 95–98
[2017-06-27] MEDS: ALBUT/IPRATROP 3MG/0.5MG NEB 3 ML VIAL INH SCH ×2 (07:23→11:21)
[2017-06-27 07:35] LABS: HEMATOCRIT 38.1 % (37-47); MEAN CELL VOLUME 96.5 fL (80-100); MEAN CORPUSCULAR HEMOGLOBIN 31.4 pg (25-34); MEAN CORPUSCULAR HGB CONC 32.5 g/dl (32-36); PLATELET COUNT 227 K/uL (130-400); RED BLOOD COUNT 3.95 M/uL (4.2-5.4); WHITE BLOOD COUNT 12.34 K/uL (4.8-10.8)
[2017-06-27 07:45] LABS: BUN/CREATININE RATIO 37.8 (10-20); CALCIUM 8.1 mg/dl (8.5-10.1); CREATININE 1.26 mg/dl (0.60-1.20); POTASSIUM 3.9 mmol/L (3.5-5.1)
[2017-06-27] MEDS: BUDESONIDE/FORMOTEROL FUMARATE 80/4.5 60 PUFFS/INHALER INH SCH (08:28)
[2017-06-27] MEDS: DOCUSATE SODIUM 100 MG CAP PO SCH (08:30)
[2017-06-27] MEDS: PANTOprazole SOD 40 MG TAB PO SCH (08:38)
[2017-06-27] MEDS: RANITIDINE HCL 150 MG TAB PO SCH (08:39)
[2017-06-27] MEDS ORDERED: ASPIRIN 81 MG ECTAB PO SCH (09:00)
[2017-06-27] MEDS ORDERED: POTASSIUM CHLORIDE 20 MEQ TABCR PO SCH (09:00)
[2017-06-27] MEDS ORDERED: FLUTICASONE PROPIONATE NA SPR 16 GM BTL SCH (09:00)
[2017-06-27] MEDS ORDERED: LISINOPRIL 20 MG TAB PO SCH (09:00)
[2017-06-27] MEDS ORDERED: CHOLECALCIFEROL 1000 INTER.UNIT TAB PO SCH (09:00)
[2017-06-27] MEDS ORDERED: CLOPIDOGREL BISULFATE 75 MG TAB PO SCH (09:00)
[2017-06-27] MEDS ORDERED: NIFEdipine 30 MG CR TAB PO SCH (09:00)
[2017-06-27] MEDS ORDERED: ATORVASTATIN 40 MG TAB PO SCH (09:00)
[2017-06-27] MEDS ORDERED: FUROSEMIDE 20 MG TAB PO SCH (09:00)
[2017-06-27] MEDS: POTASSIUM CHLORIDE 20 MEQ TABCR PO SCH (09:00)
[2017-06-27] MEDS ORDERED: CALCIUM CARBONATE 1250MG TAB PO SCH (09:00)
[2017-06-27] MEDS ORDERED: METOPROLOL TARTRATE 50 MG TAB PO SCH (09:00)
[2017-06-27] MEDS ORDERED: NON-FORMULARY MEDICATION (Probiotic Product (Probiotic) 1 CAP) PO SCH (09:00)
--- NOTE | 2017-06-27 12:05 | Discharge Instructions ---
Discharge Instructions Date of Service Jun 27, 2017. Admission Reason for Admission: Weakness Discharge Discharge Diagnosis / Problem: lightheadedness Discharge Goals Goal(s): Decrease discomfort Activity Recommendations Activity Limitations: resume your previous activity . Instructions / Follow-Up Instructions / Follow-Up You were admitted for lightheadedness and weakness most likely because of inappropriate use of duonebs. The chest x-ray was negative and you are improved COPD: Advised to start marking date and time on the box to keep track Continue to use oxygen as scheduled Continue to use Symbicort 2 puffs twice a day, prednisone 10 g daily, Duonebs 4 times a day, albuterol every 4 hours as needed and Flonase as directed. CAD: Continue aspirin, Plavix, and Lipitor, lisinopril and metoprolol Hypertension /atrial fibrillation : Continue to use metoprolol and lisinopril as prescribed and continue to use Lasix on Klor-Con Please follow-up with the PCP in about a week Current Hospital Diet Patient's current hospital diet: Regular Diet Discharge Diet Recommended Diet: Regular Diet Pending Studies Studies pending at discharge: no Medical Emergencies . Who to Call and When: Medical Emergencies: If at any time you feel your situation is an emergency, please call 911 immediately. . Non-Emergent Contact Non-Emergency issues call your: Primary Care Provider . . "Provider Documentation" section prepared by Cece Montalvo. . VTE Core Measure Inpt VTE Proph given/why not?: SCD's Resident Tracking Resident Involvement: Resident Care Provided Care Provided: Adult Hospital Medicine
--- NOTE | 2017-06-27 12:06 | Discharge Summary ---
Discharge Summary Date of Service Jun 27, 2017. Discharge Summary Admission Date: Jun 26, 2017 at 15:58 Discharge Date: Jun 27, 2017 Discharge Disposition: Home Principal Diagnosis: weakness, lightheadedness Problems/Secondary Diagnoses: Palpitations Immunizations: Have You Had Influenza Vaccine: No History of Tetanus Vaccine?: Unknown History of Pneumococcal: Yes Pneumococcal Date: Nov 20, 2009 History of Hepatitis B Vaccine: Unknown Medication Reconciliation Continued Medications: Albuterol Sulf (Albuterol Sulfate) 2.5 Mg/3 Ml Nebu 3 ML NEB Q4 PRN for SOB/Wheezing Alendronate Sodium (Alendronate Sodium) 70 Mg Tab 70 MG PO WK, #12 DO NOT LIE DOWN, EAT, DRINK, OR TAKE OTHER MEDS FOR 30 MIN. Aspirin (Aspirin Ec) 81 Mg Tab 81 MG PO QAM Atorvastatin (Lipitor) 80 Mg Tab 80 MG PO DAILY, TAB Budesonide/Formoterol Fumarate (Symbicort 80/4.5 Inhaler) 120 Puffs/ Aero 2 PUFF INH BID, #30 Calcium Carbonate (Calcium) 500 Mg Chw 1500 MG PO DAILY Chlordiazepoxide (Librium) 10 Mg Cap 10 MG PO TID PRN for , CAP Cholecalciferol (Vitamin D3) 1,000 Unit Tab 1 TAB PO DAILY for 90 Days, #90 TAB 3 Refills Clopidogrel Bisulfate (Clopidogrel) 75 Mg Tab 75 MG PO DAILY, #90 Docusate Sodium (Docusate Sodium) 100 Mg Cap 1 CAP PO BID for 7 Days, #14 CAP Fluticasone Propionate (Fluticasone Propionate) 120 Sprays/6000 Mcg Inha 1 SPRAY NA DIRECTED, #32 Furosemide (Lasix) 20 Mg Tab 20 MG PO DAILY, TAB Ipratropium [place] (Nasal) (Ipratropium [place]) 0.03 % Spr 2 SPRAYS ND TID Ipratropium-Albuterol (Duoneb) 3 Ml Nebu 1 TREATMENT INH QID, INHA Lisinopril (Zestril) 20 Mg Tab 20 MG PO DAILY, TAB Metoprolol Tartrate (Lopressor) (Lopressor) 50 Mg Tab 50 MG PO DAILY, TAB Nifedipine (Nifedipine Er) 60 Mg Tab 60 MG PO DAILY, #90 Pantoprazole (Protonix) 40 Mg Tab 40 MG PO BID, #30 TAB Potassium Ext Rel (Klor-Con) 20 Meq Tabcr 20 MEQ PO DAILY, TAB Prednisone (Prednisone) 10 Mg Tab 10 MG PO DAILY, #90 Probiotic Product (Probiotic) 1 Cap Cap 1 CAP PO QAM Ranitidine (Zantac) 150 Mg Tab 150 MG PO BID, TAB Discharge Exam Feeling better. Denied any shortness of breath, palpitations, lightheadedness or dizziness. She has been getting her scheduled nebulizers which she tolerated without any side effects. She even walked the hallways with the help of RN and tolerated it well Review of Systems: Constitutional: No fever, No chills Eyes: No worsening of vision ENT: No hearing loss Respiratory: No cough, No sputum, No shortness of breath Cardiovascular: No chest pain, No orthopnea, No palpitations Abdomen: No pain, No nausea Musculoskeletal: No joint pain Genitourinary - Female: No dysuria, No urinary frequency Neurologic: No memory loss Psychiatric: No depression symptoms Physical Exam: General Appearance: WD/WN, no apparent distress Eyes: normal inspection ENT: normal ENT inspection, hearing grossly normal Neck: supple Respiratory/Chest: chest non-tender, no respiratory distress, no accessory muscle use, + decreased breath sounds Cardiovascular: regular rate, rhythm Abdomen / GI: normal bowel sounds, non tender, soft Extremities: normal inspection Neurologic/Psychiatric: alert, normal mood/affect, oriented x 3 Skin: normal color Hospital Course 72-year-old female with a past medical history of COPD on 3 L of oxygen continuously, hypertension, atrial fibrillation, STEMI status post stenting in January 2017 presented to the ER with complaints of dizziness and weakness which started a few days ago. She had noted palpitations and shortness of breath and was dizzy and lightheaded. Upon further questioning, pt does remember that she was started on some sort of new medication to add to her nebulizer by Dr. Escudero. This was added last week. She had the first episode that included chest pain just after she finished her nebulizer and she does think that her episodes have been related to use of this medication. She decided to not use it yesterday or this morning and does feel a bit better today than she did yesterday or the day prior. Pharmacy was contacted to determine this new medication and it was noted that pt saw Dr. Escudero approximately 2 months ago and was started on the nebs at that time. This was a stronger dose than she had been taking prior. She notes that it took about a month or so for her to receive the new medication via mail, so she has only been using it since that time. She is able to use it up to 4x/day, but she now notes that she thinks she was taking it more than that, so she cut back over the last few days and feels improved. Pt states she has been losing track of how often she is using the nebs. Hospital course: She was admitted and monitored in telemetry and her lightheadedness and weakness was thought to be secondary due to overuse of DuoNeb's. Her troponins were trended and were negative. Chest x-ray was negative. She was also hypokalemic on arrival but her potassium was within normal limits today. She was continued on 3 L of oxygen and her DuoNeb's were continued as she was still found to be wheezing. She was discharged with counseling about proper use of her medication and recommended to start marking date and time on the box to keep track of the medication that she is taking. Her regular home medications were continued and she was recommended to follow-up with her PCP. Total Time Spent: Less than 30 minutes This includes examination of the patient, discharge planning, medication reconciliation, and communication with other providers. Discharge Instructions Please refer to the electronic Patient Visit Report (Discharge Instructions) for additional information. Follow-Up Follow-up with PCP within one week
== END 2017-06-27 14:06 | disposition home health service (06) | DRG 149 ==
LOC: C.EDB 13:23 → C.2T 15:58 → ENRESERV 16:14 → C.2T 06-27 01:35
PROVIDERS: ADMIT Family Medicine; ATTEND Hospitalist
DX: R42 Dizziness and giddiness (principal); N17.9 Acute kidney failure, unspecified; R53.1 Weakness; R00.2 Palpitations; T48.6X5A Adverse effect of antiasthmatics, initial encounter; E87.6 Hypokalemia; D72.829 Elevated white blood cell count, unspecified; J44.9 Chronic obstructive pulmonary disease, unspecified; I25.10 Atherosclerotic heart disease of native coronary artery without angina pectoris; I10 Essential (primary) hypertension; I48.91 Unspecified atrial fibrillation; I25.2 Old myocardial infarction; Z95.5 Presence of coronary angioplasty implant and graft; Z87.891 Personal history of nicotine dependence; Z99.81 Dependence on supplemental oxygen; Z79.02 Long term (current) use of antithrombotics/antiplatelets; Z79.51 Long term (current) use of inhaled steroids; Z79.52 Long term (current) use of systemic steroids; Z79.82 Long term (current) use of aspirin; Z79.83 Long term (current) use of bisphosphonates; Z79.899 Other long term (current) drug therapy; Z88.0 Allergy status to penicillin; Z83.3 Family history of diabetes mellitus; Z82.49 Family history of ischemic heart disease and other diseases of the circulatory system; Z83.6 Family history of other diseases of the respiratory system; Z84.1 Family history of disorders of kidney and ureter

== ENCOUNTER → 2017-07-19 | Outpatient (CLI) | payer BC ==
[~2017-07-19] MED LIST changes: -LVQ750 PO; -PRD10 PO
[2017-07-19 16:34] LABS: BASO % 0.1 %; BASO ABS # 0.01 K/uL (0-0.2); COMPLETE YES; EOS % 0.1 %; HEMATOCRIT 39.3 % (37-47); IG% 0.3 %; LYMPH % 6.4 %; MEAN CELL VOLUME 97.5 fL (80-100); MEAN CORPUSCULAR HEMOGLOBIN 31.8 pg (25-34); MEAN CORPUSCULAR HGB CONC 32.6 g/dl (32-36); MEAN PLATELET VOLUME 10.1 fL (7.4-10.4); MONO % 4.8 %; NEUT % 88.3 %; PLATELET COUNT 292 K/uL (130-400); RED BLOOD COUNT 4.03 M/uL (4.2-5.4)
[2017-07-19 16:57] LABS: ALT/SGPT 34 U/L (12-78); AST/SGOT 17 U/L (15-37); BLOOD UREA NITROGEN 32 mg/dl (7-18); BUN/CREATININE RATIO 20.1 (10-20); CALCIUM 10.5 mg/dl (8.5-10.1); CARBON DIOXIDE 26 mmol/L (21-32); CHLORIDE 104 mmol/L (98-107); CREATININE 1.59 mg/dl (0.60-1.20); GLUCOSE 91 mg/dl (70-99); POTASSIUM 5.2 mmol/L (3.5-5.1); SODIUM 140 mmol/L (136-145)
[2017-07-19 17:07] LABS: ALKALINE PHOSPHATASE 73 U/L (45-117); THYROID STIMULATING HORMONE 0.496 uIu/ml (0.300-4.500)
== END | disposition home or self-care (01) ==
LOC: C.LAB1850 15:41
PROVIDERS: ATTEND Internal Medicine Pulmonary Disease
DX: R00.0 Tachycardia, unspecified (principal)

== ENCOUNTER → 2017-07-23 | Outpatient (CLI) | payer BC ==
[2017-07-23 16:58] LABS: ALT/SGPT 33 U/L (12-78); BLOOD UREA NITROGEN 33 mg/dl (7-18); BUN/CREATININE RATIO 23.7 (10-20); CALCIUM 9.1 mg/dl (8.5-10.1); CARBON DIOXIDE 26 mmol/L (21-32); CHLORIDE 102 mmol/L (98-107); CREATININE 1.39 mg/dl (0.60-1.20); GLUCOSE 103 mg/dl (70-99); POTASSIUM 3.4 mmol/L (3.5-5.1); SODIUM 138 mmol/L (136-145)
[2017-07-23 17:01] LABS: ALKALINE PHOSPHATASE 76 U/L (45-117); AST/SGOT 19 U/L (15-37)
== END | disposition home or self-care (01) ==
LOC: C.LABBFT 14:00
PROVIDERS: ATTEND Internal Medicine
DX: I21.4 Non-ST elevation (NSTEMI) myocardial infarction (principal); N28.9 Disorder of kidney and ureter, unspecified

== ENCOUNTER → 2017-08-02 | Outpatient (CLI) | payer BC ==
--- NOTE | 2017-08-02 10:56 | DIAGNOSTIC IMAGING REPORT ---
R PELVIS/UNILATERAL HIP 2-3VIEWS HISTORY: 72 years-old Female M25.551 acute right-sided hip pain COMPARISON: CT abdomen and pelvis 05/21/2017 TECHNIQUE: AP view of the pelvis with 2 views of the right hip FINDINGS: No pelvic ring fracture identified. Degenerative changes are seen within the pelvis, and lower lumbar spine with moderate bilateral femoral acetabular osteoarthritis. Vascular calcifications are noted. Renal vascular calcifications also present. Imaged right femur appears intact. IMPRESSION: 1. No acute fracture or dislocation. 2. Moderate degenerative changes of the bilateral hips. The above report was generated using voice recognition software. It may contain grammatical, syntax or spelling errors. Electronically signed by: Endy Zheng M.D. 08/02/2017 10:55 AM Dictated Date/Time: 08/02/2017 10:54 AM
== END | disposition home or self-care (01) ==
LOC: C.RAD1850 10:25
PROVIDERS: ATTEND Internal Medicine
DX: M25.551 Pain in right hip (principal); M89.8X5 Other specified disorders of bone, thigh

== ENCOUNTER → 2017-08-08 | Outpatient (CLI) | payer BC ==
[2017-08-08 17:37] LABS: BLOOD UREA NITROGEN 26 mg/dl (7-18); BUN/CREATININE RATIO 19.8 (10-20); CALCIUM 8.3 mg/dl (8.5-10.1); CARBON DIOXIDE 25 mmol/L (21-32); CHLORIDE 106 mmol/L (98-107); CREATININE 1.32 mg/dl (0.60-1.20); GLUCOSE 93 mg/dl (70-99); POTASSIUM 4.3 mmol/L (3.5-5.1); SODIUM 138 mmol/L (136-145)
== END | disposition home or self-care (01) ==
LOC: C.LABBFT 12:16
PROVIDERS: ATTEND Internal Medicine
DX: N17.9 Acute kidney failure, unspecified (principal)

== ENCOUNTER 2017-08-15 13:05 | Inpatient (IN) | payer BC, OTHER ==
[~2017-08-15] VITALS: Ht 154.9 cm; Wt 77.0 kg
[~2017-08-15 13:05] MED LIST changes: -FLNIN/; +FLNIN/ NAE; -NIFE1TAB55 PO; +NIFE1TAB56 PO
[2017-08-15] MEDS ORDERED: SODIUM CHLORIDE 0.9% 1000ML 1,000 ML IV STA (13:18)
[2017-08-15] MEDS ORDERED: METHYLPREDNISOLONE 125 MG VIAL IV STA (13:27)
[2017-08-15] MEDS ORDERED: ALBUT/IPRATROP 3MG/0.5MG NEB 3 ML VIAL INH STA (13:27)
--- NOTE | 2017-08-15 13:45 | DIAGNOSTIC IMAGING REPORT ---
CHEST ONE VIEW PORTABLE HISTORY: 72 years-old Female EVALUATE WEAKNESS acute weakness COMPARISON: Chest radiograph 06/26/2017 TECHNIQUE: Portable AP view of the chest FINDINGS: Cardiac silhouette is again enlarged. Atherosclerosis of the aorta. Costophrenic granuloma of the right upper lobe. Fiducial markers project of the left lung apex. No pneumothorax, pleural effusion or focal airspace consolidation. No overt pulmonary edema. Emphysema. Degenerative changes of the shoulders and spine. IMPRESSION: 1. Cardiomegaly without acute process. 2. Emphysema. The above report was generated using voice recognition software. It may contain grammatical, syntax or spelling errors. Electronically signed by: Endy Zheng M.D. 08/15/2017 1:43 PM Dictated Date/Time: 08/15/2017 1:41 PM
[2017-08-15 13:59] LABS: VEN BLD GAS O2 SATURATION 68.8 %; VEN BLOOD GAS BASE EXCESS 4.2 mEq/L
[2017-08-15 14:01] LABS: BASO % 0.1 %; BASO ABS # 0.01 K/uL (0-0.2); COMPLETE YES; EOS % 0.2 %; HEMATOCRIT 37.8 % (37-47); IG% 0.6 %; LYMPH % 4.8 %; LYMPH ABS # 0.66 K/uL (1.2-3.4); MEAN CELL VOLUME 97.7 fL (80-100); MEAN CORPUSCULAR HEMOGLOBIN 32.6 pg (25-34); MEAN CORPUSCULAR HGB CONC 33.3 g/dl (32-36); MEAN PLATELET VOLUME 9.7 fL (7.4-10.4); MONO % 3.3 %; PLATELET COUNT 274 K/uL (130-400); RED BLOOD COUNT 3.87 M/uL (4.2-5.4); WHITE BLOOD COUNT 13.64 K/uL (4.8-10.8)
[2017-08-15 14:13] LABS: INR 0.9 (0.9-1.1); PARTIAL THROMBOPLASTIN RATIO 0.8; PROTHROMBIN TIME (PATIENT) 9.6 SECONDS (9.0-12.0)
[2017-08-15 14:20] LABS: ALT/SGPT 86 U/L (12-78); AST/SGOT 30 U/L (15-37); BLOOD UREA NITROGEN 34 mg/dl (7-18); BUN/CREATININE RATIO 32.5 (10-20); CALCIUM 8.4 mg/dl (8.5-10.1); CARBON DIOXIDE 29 mmol/L (21-32); CHLORIDE 105 mmol/L (98-107); CREATININE 1.05 mg/dl (0.60-1.20); GLUCOSE 132 mg/dl (70-99); MAGNESIUM 1.9 mg/dl (1.8-2.4); POTASSIUM 3.4 mmol/L (3.5-5.1); SODIUM 140 mmol/L (136-145)
[2017-08-15 14:41] LABS: ALKALINE PHOSPHATASE 58 U/L (45-117); CKMB/CK RATIO 6.3 (0-3.0); THYROID STIMULATING HORMONE 0.471 uIu/ml (0.300-4.500)
[2017-08-15] MEDS ORDERED: XPNINS INH (14:51)
[2017-08-15] MEDS ORDERED: ALBU18002 INH (14:53)
--- NOTE | 2017-08-15 14:54 | DIAGNOSTIC IMAGING REPORT ---
HEAD WITHOUT CONTRAST (CT) CT DOSE: 679.75 mGycm HISTORY: Mental status change EVALUATE WEAKNESS TECHNIQUE: Multiaxial CT images of the head were performed without the use of intravenous contrast. A dose lowering technique was utilized adhering to the principles of ALARA. Comparison: None. Findings: The paranasal sinuses and mastoid air cells are clear. The calvarium and skull base are intact. The ventricles and sulci are within normal limits. There is no mass, hematoma, midline shift, or acute infarct. There are findings of considerable chronic small vessel change throughout the periventricular and deep white matter regions. Multiple areas of cortical encephalomalacia are present. There is slight compensatory prominence of the ventricular system. There is no acute intracranial hemorrhage. Impression: Considerable age-related and chronic small vessel change. No acute process. The above report was generated using voice recognition software. It may contain grammatical, syntax or spelling errors. Electronically signed by: Kirt Wade M.D. 08/15/2017 2:53 PM Dictated Date/Time: 08/15/2017 2:51 PM
--- NOTE | 2017-08-15 15:01 | DIAGNOSTIC IMAGING REPORT ---
SINGLE VIEW PELVIS CLINICAL HISTORY: Left pelvic pain. Fall. FINDINGS: An AP pelvic radiograph is compared to study dated 10/05/2015. The skeletal structures are osteopenic. There is no radiographic evidence of acute fracture involving the hips or bony pelvis. Mild arthritic change is seen in the hips and sacroiliac joints. Lumbosacral spondylosis is partially imaged. There is advanced atherosclerotic calcification of the femoral arteries. Numerous pelvic phleboliths are observed. No bowel obstruction is seen. IMPRESSION: Osteopenia with no radiographic evidence of acute fracture involving the hips or bony pelvis. Electronically signed by: Felix Davey M.D. 08/15/2017 3:00 PM Dictated Date/Time: 08/15/2017 2:59 PM
[2017-08-15] MEDS ORDERED: SODIUM CHLORIDE 0.9% 500ML 500 ML IV STA (15:15)
[2017-08-15] MEDS ORDERED: ASPIRIN 81 MG CHEW PO STA (15:15)
[2017-08-15 15:20] LABS: URINE APPEARANCE CLEAR (CLEAR); URINE BILIRUBIN NEG (NEG); URINE COLOR YELLOW; URINE NITRITE NEG (NEG); URINE SPECIFIC GRAVITY 1.029 (1.000-1.030); UROBILINOGEN NEG (NEG)
[2017-08-15 15:31] LABS: MANUAL MICROSCOPIC REQUIRED? NO; REVIEW REQ? NO
[2017-08-15] MEDS ORDERED: ONDANSETRON INJ 2 MG/ML 2 ML VIAL IV PRN (17:15)
[2017-08-15] MEDS ORDERED: CHLORDIAZEPOXIDE 10 MG CAP PO PRN (17:15)
[2017-08-15] MEDS ORDERED: FUROSEMIDE 40 MG TAB PO ONE (17:15)
[2017-08-15] MEDS ORDERED: AZITHROMYCIN 250 MG TAB PO ONE (17:15)
[2017-08-15] MEDS ORDERED: ACETAMINOPHEN 325 MG TAB PO PRN (17:15)
[2017-08-15 18:45] VITALS: BP 151/72; PULSE 105; TEMP 37; O2SAT 97
[2017-08-15 18:47] VITALS: BP 151/72; PULSE 105; TEMP 37; O2SAT 95; Ht 154.9 cm; Wt 77.0 kg
[2017-08-15] MEDS ORDERED: ALBUT/IPRATROP 3MG/0.5MG NEB 3 ML VIAL INH SCH (20:00)
--- NOTE | 2017-08-15 20:22 | EMERGENCY ROOM VISIT NOTE ---
History Report prepared by Roseline: Codie Friedman Under the Supervision of: Dr. Terence Aragon M.D. First contact with patient: 13:14 Chief Complaint: FALL Stated Complaint: FELL X3, SWELLED LEGS, HARD TO CATCH BREATH History of Present Illness The patient is a 72 year old female who presents to the Emergency Room with complaints of an episode of a fall beginning just [employer]. The patient states that she has been feeling very weak over the last few days. She reports that she has fallen 3 times in the last 4 days and had an episode of a head injury in one of her falls. She complains of some shortness of breath, leg swelling, buttock pain from falling, constipation, tremors, and head injury. The patient notes that she has a history of COPD, heart stents, and a heart attack in January. Pt denies LOC, fevers, chills, diaphoresis, visual changes, headache neck pain, chest pain, nausea, vomiting, abdominal pain, back pain, melena, hematochezia, urinary symptoms, numbness, lymphadenopathy, rash, or other complaints. The patient takes Plavix but has not taken it yet today. She notes that she is on 3L of oxygen at home. The patient's daughter reports that after one of her falls she had an x-ray that was normal. Source of History: patient Onset: just [employer] Position: other (global) Quality: other (fall) Timing: other (episode) Associated Symptoms: + SOB Note: Pt complains of leg swelling, tremor, and head injury. Review of Systems See HPI for pertinent positives and negatives. A total of ten systems were reviewed and were otherwise negative. Past Medical & Surgical Medical Problems: (1) Acute GI bleeding (2) Acute on chronic respiratory failure with hypoxemia (3) Anxiety (4) Asthma (5) Atrial fibrillation with rapid ventricular response (6) Bronchitis (7) Chronic use of steroids (8) COPD (chronic obstructive pulmonary disease) (9) COPD exacerbation (10) Coronary artery disease (11) Hyperlipidemia (12) Hypertension (13) Hypoxia (14) Lower extremity edema (15) Pneumonia (16) Pneumonia (17) Sinus pause (18) STEMI (ST elevation myocardial infarction) (19) Syncope (20) Unresponsive episode (21) Weakness Family History Cancer Diabetes mellitus FHx: gallbladder disease Heart disease Hypertension Kidney disease Kidney stones Lung disease Social History Smoking Status: Never Smoker Alcohol Use: none Drug Use: none Marital Status: Housing Status: lives alone Occupation Status: retired Current/Historical Medications Scheduled Alendronate Sodium (Alendronate Sodium), 70 MG PO WK Aspirin (Aspirin Ec), 81 MG PO QAM Atorvastatin (Lipitor), 80 MG PO QAM Budesonide/Formoterol Fumarate (Symbicort 80/4.5 Inhaler), 2 PUFF INH BID Cholecalciferol (Vitamin D3), 1 TAB PO QAM Clopidogrel Bisulfate (Clopidogrel), 75 MG PO HS Docusate Sodium (Docusate Sodium), 1 CAP PO BID Fluticasone Propionate (Fluticasone Propionate), 1 SPRAY [place] QAM Ipratropium [place] (Nasal) (Ipratropium [place]), 2 SPRAYS ND TID Levalbuterol (Levalbuterol HCl), 0.63 MG INH QID Metoprolol Tartrate (Lopressor) (Lopressor), 50 MG PO BID Nifedipine (Nifedipine Er), 60 MG PO QAM Prednisone (Prednisone), 10 MG PO HS Probiotic Product (Probiotic), 1 CAP PO QAM Ranitidine (Zantac), 150 MG PO BID Scheduled PRN Albuterol Sulfate (Proair [place]), 2 PUFFS INH Q4-6HRS PRN for SOB/Wheezing Chlordiazepoxide (Librium), 10 MG PO TID PRN for Furosemide (Lasix), 20 MG PO DAILY PRN for EDEMA Allergies Coded Allergies: Penicillins (Verified Allergy, Unknown, ANCEF OK PER DR RENDON, 08/15/17 ) Physical Exam Vital Signs Date Time Temp Pulse Resp B/P (MAP) Pulse Ox O2 Delivery O2 Flow Rate FiO2 08/15/17 16:28 101 20 137/78 97 Nasal Cannula 3.0 08/15/17 15:40 20 137/101 98 Nasal Cannula 08/15/17 15:31 105 08/15/17 14:09 102 134/64 104 139/80 08/15/17 14:01 94 3.0 08/15/17 14:00 94 Nasal Cannula 3.0 08/15/17 13:12 36.5 71 18 128/83 97 Nasal Cannula 3.0 Physical Exam GENERAL: Awake, alert, well-appearing, in no distress HENT: Normocephalic, atraumatic. Oropharynx unremarkable. EYES: Normal conjunctiva. Sclera non-icteric. NECK: Supple. No nuchal rigidity. FROM. No JVD. RESPIRATORY: Wheezing bilaterally, dyspneic appearing CARDIAC: Borderline tachycardic rate, normal rhythm. Extremities warm and well perfused. Pulses equal. ABDOMEN: Soft, non-distended. No tenderness to palpation. No rebound or guarding. No masses. RECTAL: Deferred. MUSCULOSKELETAL: Chest examination reveals no tenderness. The back is symmetrical on inspection without obvious abnormality. There is no CVA tenderness to palpation. No joint edema. Tenderness over left superior gluteus. LOWER EXTREMITIES: Calves are equal size, 1+ edema bilaterally. NEURO: Normal sensorium. No sensory or motor deficits noted. SKIN: No rash or jaundice noted. Scattered bruising on UE, LE, trunk. Medical Decision & Procedures ER Provider Diagnostic Interpretation: Radiology results as stated below per my review and radiologist interpretation: HEAD WITHOUT CONTRAST (CT) Comparison: None. Findings: The paranasal sinuses and mastoid air cells are clear. The calvarium and skull base are intact. The ventricles and sulci are within normal limits. There is no mass, hematoma, midline shift, or acute infarct. There are findings of considerable chronic small vessel change throughout the periventricular and deep white matter regions. Multiple areas of cortical encephalomalacia are present. There is slight compensatory prominence of the ventricular system. There is no acute intracranial hemorrhage. Impression: Considerable age-related and chronic small vessel change. No acute process. The above report was generated using voice recognition software. It may contain grammatical, syntax or spelling errors. Electronically signed by: Kirt Wade M.D. 08/15/2017 2:53 PM Dictated Date/Time: 08/15/2017 2:51 PM CHEST ONE VIEW PORTABLE FINDINGS: Cardiac silhouette is again enlarged. Atherosclerosis of the aorta. Costophrenic granuloma of the right upper lobe. Fiducial markers project of the left lung apex. No pneumothorax, pleural effusion or focal airspace consolidation. No overt pulmonary edema. Emphysema. Degenerative changes of the shoulders and spine. IMPRESSION: 1. Cardiomegaly without acute process. 2. Emphysema. The above report was generated using voice recognition software. It may contain grammatical, syntax or spelling errors. Electronically signed by: Endy Zheng M.D. 08/15/2017 1:43 PM Dictated Date/Time: 08/15/2017 1:41 PM SINGLE VIEW PELVIS FINDINGS: An AP pelvic radiograph is compared to study dated 10/05/2015. The skeletal structures are osteopenic. There is no radiographic evidence of acute fracture involving the hips or bony pelvis. Mild arthritic change is seen in the hips and sacroiliac joints. Lumbosacral spondylosis is partially imaged. There is advanced atherosclerotic calcification of the femoral arteries. Numerous pelvic phleboliths are observed. No bowel obstruction is seen. IMPRESSION: Osteopenia with no radiographic evidence of acute fracture involving the hips or bony pelvis. Electronically signed by: Felix Davey M.D. 08/15/2017 3:00 PM Dictated Date/Time: 08/15/2017 2:59 PM Laboratory Results 08/15/17 13:36 Red Blood Count 3.87, Mean Corpuscular Volume 97.7, Mean Corpuscular Hemoglobin 32.6, Mean Corpuscular Hemoglobin Concent 33.3, Mean Platelet Volume 9.7, Neutrophils (%) (Auto) 91.0, Lymphocytes (%) (Auto) 4.8, Monocytes (%) (Auto) 3.3, Eosinophils (%) (Auto) 0.2, Basophils (%) (Auto) 0.1, Neutrophils # (Auto) 12.41, Lymphocytes # (Auto) 0.66, Monocytes # (Auto) 0.45, Eosinophils # (Auto) 0.03, Basophils # (Auto) 0.01 08/15/17 13:36 Test 08/15/17 13:36 08/15/17 13:45 08/15/17 14:05 08/15/17 15:05 White Blood Count 13.64 K/uL (4.8-10.8) Red Blood Count 3.87 M/uL (4.2-5.4) Hemoglobin 12.6 g/dL (12.0-16.0) Hematocrit 37.8 % (37-47) Mean Corpuscular Volume 97.7 fL (80-100) Mean Corpuscular Hemoglobin 32.6 pg (25-34) Mean Corpuscular Hemoglobin Concent 33.3 g/dl (32-36) Platelet Count 274 K/uL (130-400) Mean Platelet Volume 9.7 fL (7.4-10.4) Neutrophils (%) (Auto) 91.0 % Lymphocytes (%) (Auto) 4.8 % Monocytes (%) (Auto) 3.3 % Eosinophils (%) (Auto) 0.2 % Basophils (%) (Auto) 0.1 % Neutrophils # (Auto) 12.41 K/uL (1.4-6.5) Lymphocytes # (Auto) 0.66 K/uL (1.2-3.4) Monocytes # (Auto) 0.45 K/uL (0.11-0.59) Eosinophils # (Auto) 0.03 K/uL (0-0.5) Basophils # (Auto) 0.01 K/uL (0-0.2) RDW Standard Deviation 59.8 fL (36.4-46.3) RDW Coefficient of Variation 17.0 % (11.5-14.5) Immature Granulocyte % (Auto) 0.6 % Immature Granulocyte # (Auto) 0.08 K/uL (0.00-0.02) Prothrombin Time 9.6 SECONDS (9.0-12.0) Prothromb Time International Ratio 0.9 (0.9-1.1) Activated Partial Thromboplast Time 20.3 SECONDS (21.0-31.0) Partial Thromboplastin Ratio 0.8 Anion Gap 6.0 mmol/L (3-11) Est Creatinine Clear Calc Drug Dose 44.1 ml/min Estimated GFR () 60.6 Estimated GFR (Non- 52.3 BUN/Creatinine Ratio 32.5 (10-20) Calcium Level 8.4 mg/dl (8.5-10.1) Magnesium Level 1.9 mg/dl (1.8-2.4) Total Bilirubin 0.3 mg/dl (0.2-1) Direct Bilirubin < 0.1 mg/dl (0-0.2) Aspartate Amino Transf (AST/SGOT) 30 U/L (15-37) Alanine Aminotransferase (ALT/SGPT) 86 U/L (12-78) Alkaline Phosphatase 58 U/L (45-117) Total Creatine Kinase 93 U/L (26-192) Creatine Kinase MB 5.9 ng/ml (0.5-3.6) Creatine Kinase MB Ratio 6.3 (0-3.0) Troponin I 0.072 ng/ml (0-0.045) Pro-B-Type Natriuretic Peptide 2077 pg/ml (0-900) Total Protein 6.3 gm/dl (6.4-8.2) Albumin 2.9 gm/dl (3.4-5.0) Lipase 151 U/L (73-393) Thyroid Stimulating Hormone (TSH) 0.471 uIu/ml (0.300-4.500) Venous Blood pH 7.40 (7.36-7.41) Venous Blood Partial Pressure CO2 49 mmHg (38.0-50.0) Venous Blood Partial Pressure O2 38 mmHg Venous Blood HCO3 30 mmol/L Venous Blood Oxygen Saturation 68.8 % Venous Blood Base Excess 4.2 mEq/L Bedside Lactic Acid Venous 2.07 mmol/L (0.90-1.70) Urine Color YELLOW Urine Appearance CLEAR (CLEAR) Urine pH 5.0 (4.5-7.5) Urine Specific [place] 1.029 (1.000-1.030) Urine Protein NEG (NEG) Urine Glucose (UA) TRACE (NEG) Urine Ketones NEG (NEG) Urine Occult Blood NEG (NEG) Urine Nitrite NEG (NEG) Urine Bilirubin NEG (NEG) Urine Urobilinogen NEG (NEG) Urine Leukocyte Esterase NEG (NEG) Laboratory results reviewed by me Medications Administered Medications (Trade) Dose Ordered Sig/Jessi Route Start Time Stop Time Status Last Admin Dose Admin Sodium Chloride 1,000 ml @ 125 mls/hr Q8H STAT IV 08/15/17 13:18 08/15/17 19:00 DC 08/15/17 13:18 125 MLS/HR Methylprednisolone Sodium Succinate (Solu-Medrol IV) 125 mg NOW STAT IV 08/15/17 13:27 08/15/17 13:29 DC 08/15/17 13:27 125 MG Albuterol/ Ipratropium (Duoneb) 3 ml NOW STAT INH 08/15/17 13:27 08/15/17 13:29 DC 08/15/17 13:27 3 ML Aspirin (Aspirin Chew) 324 mg NOW STAT PO 08/15/17 15:15 08/15/17 15:16 DC 08/15/17 15:32 324 MG Sodium Chloride 500 ml @ 999 mls/hr Q31M STAT IV 08/15/17 15:15 08/15/17 15:45 DC 08/15/17 15:15 999 MLS/HR Azithromycin (Zithromax Tab) 500 mg NOW ONCE PO 08/15/17 17:15 08/15/17 17:41 DC 08/15/17 18:23 500 MG Furosemide (Lasix Tab) 40 mg NOW ONCE PO 08/15/17 17:15 08/15/17 17:42 DC 08/15/17 18:22 40 MG ECG Indication: other (fall) Rate (beats per minute): 101 Rhythm: sinus tachycardia Findings: LBBB (incomplete), nonspecific-ST abn, PAC ED Course 1314: The patient was evaluated in room B5. A complete history and physical exam was performed. 1318: Sodium Chloride 1000 ml @ 125 mls/hr IV. 1327: Duoneb 3ml INH, Solu-Medrol IV 125mg IV. 1515: Sodium Chloride 500 ml @ 999 mls/hr IV, Aspirin Chew 324mg PO. 1528: I reevaluated and updated the patient. 1554: Discussed the patient's case with Dr. Hawkins of [facility] [place]. The patient will be evaluated for further treatment and disposition. 1604: Upon reexamination, the patient was doing well. I discussed the test results and treatment plan with her. The patient will be evaluated for further management. Medical Decision Triage Nursing notes reviewed. The patient's presentation and history were concerning for SOB, weakness, falls and head injury. Etiologies such as pneumonia, COPD, reactive airway disease, CHF, cardiac ischemia, pulmonary embolism, pneumothorax, musculoskeletal, infections, gastrointestinal, as well as others were entertained. The patient was evaluated. She was wheezing. She was dizzy. She was given a DuoNeb and Solu-Medrol. On reassessment she was feeling better. Blood work revealed mild leukocytosis. Chest x-ray did not show any evidence of pneumonia. The patient did have elevated cardiac markers concerning for non-ST elevation CT or possible rate-related ischemia. She did have some tachycardia. The patient was given aspirin. She had no chest pain. The patient had an unremarkable urinalysis. Her lactate was minimally elevated. Further evaluation and management will be necessary in the hospital. Consultation was made with internal medicine. The patient's daughter and patient were updated. I gave my usual and customary discussion regarding this issue. The patient was evaluated by internal medicine and admitted for further treatment. Medication Reconcilliation Current Medication List: was personally reviewed by me Blood Pressure Screening Patient's blood pressure: Normal blood pressure Blood pressure disposition: Did not require urgent referral Consults Time Called: [phone] Consulting Physician: Dr. Hawkins of [facility] [place] Returned Call: [phone] Discussed the patient's case. The patient will be evaluated for further treatment and disposition. Impression Primary Impression: Elevated troponin Additional Impression: COPD exacerbation Scribe Attestation The scribe's documentation has been prepared under my direction and personally reviewed by me in its entirety. I confirm that the note above accurately reflects all work, treatment, procedures, and medical decision making performed by me. Departure Information Dispostion Being Evaluated By Hospitalist Referrals Marcello Conde M.D. (PCP) Patient Instructions My [facility] Problem Qualifiers
[2017-08-15] MEDS: LEVALBUTEROL 0.63MG/3 ML NEB INH SCH (20:41)
[2017-08-15] MEDS: IPRATROPIUM BROMIDE NEB SOLN 0.02% 2.5 ML VIAL INH SCH (20:41)
[2017-08-15 20:43] VITALS: PULSE 96; O2SAT 97
[2017-08-15] MEDS: DOCUSATE SODIUM 100 MG CAP PO SCH (20:46)
[2017-08-15] MEDS: BUDESONIDE/FORMOTEROL FUMARATE 80/4.5 60 PUFFS/INHALER INH SCH (20:46)
[2017-08-15] MEDS: METOPROLOL TARTRATE 50 MG TAB PO SCH (20:46)
[2017-08-15] MEDS: METHYLPREDNISOLONE IV 40 MG in SYRINGE 0 ML IV SCH (20:46)
[2017-08-15] MEDS: RANITIDINE HCL 150 MG TAB PO SCH (20:47)
[2017-08-15] MEDS: HEPARIN SOD 5000 UNIT/0.5 ML CARP SQ SCH ×2 (20:48→20:55)
[2017-08-15] MEDS ORDERED: LEVALBUTEROL/IPRATROPIUM NEB INH SCH (21:00)
[2017-08-15] MEDS ORDERED: CLOPIDOGREL BISULFATE 75 MG TAB PO SCH (21:00)
[2017-08-15 23:10] VITALS: BP 125/77; PULSE 92; TEMP 36.4; O2SAT 97
[2017-08-16] VITALS: O2SAT 97
--- NOTE | 2017-08-16 00:32 | History and Physical ---
History & Physical Date & Time of Service: Aug 15, 2017 at 23:37 Chief Complaint: Copd Exacerbation, Lower Extremity Edema Primary Care Physician: Marcello Conde M.D. History of Present Illness Source: patient, family, hospital records 72 yo female with h/o COPD/emphysema, CAD with NSTEMI in January 2017 and stenting complicated by coronary dissection, complicated further by GI bleed, presented today due to ongoing dyspnea that is getting worse. Symptoms have been present for 2 weeks. Patient is always short of breath on exertion but more recently her symptoms have been worse. She is chronically hypoxic, wears 3L continuously. Typically has a dry cough, now her cough is productive of yellow sputum, no blood seen. No fever but she has had chills. She saw her PCP, prescribed Prednisone but symptoms continued to get worse so she failed outpatient treatment. Also, her ankles are more swollen than normal despite taking the Lasix 20mg as needed that she is prescribed. No chest pain. Her appetite is intact, actually really good due to Prednisone. She was convinced to come to the hospital by her family due to 3 falls at home. No loss of consciousness, all the falls were mechanical, loss of balance. The first time she did strike the back of her head. The other two falls she fell on her buttocks. No severe pain as a result of the falls. Asked to admit the patient for COPD exacerbation due to increased dyspnea, purulent sputum and failure of outpatient Prednisone therapy. Past Medical/Surgical History CAD with NSTEMI, coronary dissection GI bleed Peripheral vascular disease, stenting Medical Problems: (1) Asthma Status: Chronic (2) Bronchitis Status: Resolved (3) COPD (chronic obstructive pulmonary disease) Status: Chronic (4) Hypertension Status: Chronic (5) Pneumonia Status: Resolved Family History Cancer Diabetes mellitus FHx: gallbladder disease Heart disease Hypertension Kidney disease Kidney stones Lung disease Social History Smoking Status: Never Smoker Alcohol Use: none Drug Use: none Marital Status: Housing status: lives alone Occupational Status: retired Immunizations History of Influenza Vaccine: No History of Tetanus Vaccine?: Unknown History of Pneumococcal: Yes Pneumococcal Date: Nov 20, 2009 History of Hepatitis B Vaccine: Unknown Multi-Drug Resistant Organisms History of MDRO: No Allergies Coded Allergies: Penicillins (Verified Allergy, Unknown, ANCEF OK PER DR RENDON, 08/15/17 ) Home Medications Scheduled Alendronate Sodium (Alendronate Sodium), 70 MG PO WK Aspirin (Aspirin Ec), 81 MG PO QAM Atorvastatin (Lipitor), 80 MG PO QAM Budesonide/Formoterol Fumarate (Symbicort 80/4.5 Inhaler), 2 PUFF INH BID Cholecalciferol (Vitamin D3), 1 TAB PO QAM Clopidogrel Bisulfate (Clopidogrel), 75 MG PO HS Docusate Sodium (Docusate Sodium), 1 CAP PO BID Fluticasone Propionate (Fluticasone Propionate), 1 SPRAY BRODERICK QAM Ipratropium [place] (Nasal) (Ipratropium [place]), 2 SPRAYS ND TID Levalbuterol (Levalbuterol HCl), 0.63 MG INH QID Metoprolol Tartrate (Lopressor) (Lopressor), 50 MG PO BID Nifedipine (Nifedipine Er), 60 MG PO QAM Prednisone (Prednisone), 10 MG PO HS Probiotic Product (Probiotic), 1 CAP PO QAM Ranitidine (Zantac), 150 MG PO BID Scheduled PRN Albuterol Sulfate (Proair Respiclick), 2 PUFFS INH Q4-6HRS PRN for SOB/Wheezing Chlordiazepoxide (Librium), 10 MG PO TID PRN for Furosemide (Lasix), 20 MG PO DAILY PRN for EDEMA Review of Systems Constitutional: + chills, + weakness, + fatigue, No fever, No sweats, No weight loss, No problem reported Eyes: No worsening of vision, No eye pain, No redness, No discharge, No diplopia, No problem reported ENT: No hearing loss, No unusual epistaxis, No nasal symptoms, No sore throat, No tinnitus, No dental problems, No trouble swallowing, No problem reported Respiratory: + cough, + sputum, + dyspnea on exertion, + dyspnea at rest, No wheezing, No shortness of breath, No hemoptysis Cardiovascular: + edema (ankles), No chest pain, No orthopnea, No PND, No claudication, No palpitations, No problem reported Abdomen: + constipation (three days, hard stools), No pain, No nausea, No vomiting, No diarrhea, No GI bleeding, No problem reported Musculoskeletal: + joint pain (low back), No muscle pain, No swelling, No calf pain, No problem reported Genitourinary - Female: No dysuria, No urinary frequency, No urinary urgency, No urinary incontinence, No urinary retention, No hematuria Neurologic: + weakness, + balance problems, No memory loss, No paralysis, No numbness/tingling, No vertigo Psychiatric: No depression symptoms, No anhedonism, No anxiety, No insomnia, No substance abuse, No problem reported Endocrine: + fatigue, No excessive thirst, No excessive urination, No problem reported Hematologic / Lymphatic: No abnormal bleeding/bruising, No clotting problems, No swollen lymph nodes, No night sweats, No problem reported Integumentary: No rash, No itch, No new/changing skin lesions, No color change , No bleeding, No problem reported Allergic / Immunologic: No environmental allergies, No seasonal allergies, No pet sensitivities, No food allergies, No hives, No frequent infections, No poor healing, No prolonged convalescence, No problem reported Physical Exam Vital Signs Date Time Temp Pulse Resp B/P (MAP) Pulse Ox O2 Delivery O2 Flow Rate FiO2 08/15/17 23:10 36.4 92 18 125/77 (93) 97 Nasal Cannula 2.0 08/15/17 20:43 96 18 97 Nasal Cannula 3.0 08/15/17 18:47 37.0 105 18 151/72 95 Nasal Cannula 3.0 08/15/17 18:45 37.0 105 18 151/72 (98) 97 Nasal Cannula 3.0 08/15/17 18:36 108 20 124/68 98 Nasal Cannula 3.0 08/15/17 18:12 112 20 151/97 96 08/15/17 16:28 101 20 137/78 97 Nasal Cannula 3.0 08/15/17 15:40 20 137/101 98 Nasal Cannula 08/15/17 15:31 105 08/15/17 14:09 102 134/64 104 139/80 08/15/17 14:01 94 3.0 08/15/17 14:00 94 Nasal Cannula 3.0 08/15/17 13:12 36.5 71 18 128/83 97 Nasal Cannula 3.0 General Appearance: WD/WN, no apparent distress Head: normocephalic, atraumatic Eyes: normal inspection, EOMI, sclerae normal ENT: normal ENT inspection, hearing grossly normal, pharynx normal Neck: supple, no adenopathy, no JVD, trachea midline Respiratory/Chest: chest non-tender, no respiratory distress, no accessory muscle use, + decreased breath sounds (in all bishop), + wheezing (anteriorly) Cardiovascular: no gallop, no JVD, no murmur, normal peripheral pulses, + tachycardia Abdomen/GI: normal bowel sounds, non tender, soft, no organomegaly Back: normal inspection, no CVA tenderness, no muscle spasm, normal range of motion Extremities/Musculoskelatal: normal inspection, no calf tenderness, normal capillary refill, normal range of motion, pelvis stable, + pedal edema (ankles, pitting, bilaterally) Neurologic/Psych: 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 tested, no motor/sensory deficits, alert, normal mood/affect, oriented x 3 Skin: + pertinent finding (multiple bruises on legs and arms from falls, bumping into furniture) Diagnostics Laboratory Results Results Past 24 Hours Test 08/15/17 13:36 08/15/17 13:45 08/15/17 14:05 08/15/17 15:05 Range/Units White Blood Count 13.64 4.8-10.8 K/uL Red Blood Count 3.87 4.2-5.4 M/uL Hemoglobin 12.6 12.0-16.0 g/dL Hematocrit 37.8 37-47 % Mean Corpuscular Volume 97.7 80-100 fL Mean Corpuscular Hemoglobin 32.6 25-34 pg Mean Corpuscular Hemoglobin Concent 33.3 32-36 g/dl Platelet Count 274 130-400 K/uL Mean Platelet Volume 9.7 7.4-10.4 fL Neutrophils (%) (Auto) 91.0 % Lymphocytes (%) (Auto) 4.8 % Monocytes (%) (Auto) 3.3 % Eosinophils (%) (Auto) 0.2 % Basophils (%) (Auto) 0.1 % Neutrophils # (Auto) 12.41 1.4-6.5 K/uL Lymphocytes # (Auto) 0.66 1.2-3.4 K/uL Monocytes # (Auto) 0.45 0.11-0.59 K/uL Eosinophils # (Auto) 0.03 0-0.5 K/uL Basophils # (Auto) 0.01 0-0.2 K/uL RDW Standard Deviation 59.8 36.4-46.3 fL RDW Coefficient of Variation 17.0 11.5-14.5 % Immature Granulocyte % (Auto) 0.6 % Immature Granulocyte # (Auto) 0.08 0.00-0.02 K/uL Prothrombin Time 9.6 9.0-12.0 SECONDS Prothromb Time International Ratio 0.9 0.9-1.1 Activated Partial Thromboplast Time 20.3 21.0-31.0 SECONDS Partial Thromboplastin Ratio 0.8 Sodium Level 140 136-145 mmol/L Potassium Level 3.4 3.5-5.1 mmol/L Chloride Level 105 98-107 mmol/L Carbon Dioxide Level 29 21-32 mmol/L Anion Gap 6.0 3-11 mmol/L Blood Urea Nitrogen 34 7-18 mg/dl Creatinine 1.05 0.60-1.20 mg/dl Est Creatinine Clear Calc Drug Dose 44.1 ml/min Estimated GFR () 60.6 Estimated GFR (Non- 52.3 BUN/Creatinine Ratio 32.5 10-20 Random Glucose 132 70-99 mg/dl Calcium Level 8.4 8.5-10.1 mg/dl Magnesium Level 1.9 1.8-2.4 mg/dl Total Bilirubin 0.3 0.2-1 mg/dl Direct Bilirubin < 0.1 0-0.2 mg/dl Aspartate Amino Transf (AST/SGOT) 30 15-37 U/L Alanine Aminotransferase (ALT/SGPT) 86 12-78 U/L Alkaline Phosphatase 58 45-117 U/L Total Creatine Kinase 93 26-192 U/L Creatine Kinase MB 5.9 0.5-3.6 ng/ml Creatine Kinase MB Ratio 6.3 0-3.0 Troponin I 0.072 0-0.045 ng/ml Pro-B-Type Natriuretic Peptide 2077 0-900 pg/ml Total Protein 6.3 6.4-8.2 gm/dl Albumin 2.9 3.4-5.0 gm/dl Lipase 151 73-393 U/L Thyroid Stimulating Hormone (TSH) 0.471 0.300-4.500 uIu/ml Venous Blood pH 7.40 7.36-7.41 Venous Blood Partial Pressure CO2 49 38.0-50.0 mmHg Venous Blood Partial Pressure O2 38 mmHg Venous Blood HCO3 30 mmol/L Venous Blood Oxygen Saturation 68.8 % Venous Blood Base Excess 4.2 mEq/L Bedside Lactic Acid Venous 2.07 0.90-1.70 mmol/L Urine Color YELLOW Urine Appearance CLEAR CLEAR Urine pH 5.0 4.5-7.5 Urine Specific [place] 1.029 1.000-1.030 Urine Protein NEG NEG Urine Glucose (UA) TRACE NEG Urine Ketones NEG NEG Urine Occult Blood NEG NEG Urine Nitrite NEG NEG Urine Bilirubin NEG NEG Urine Urobilinogen NEG NEG Urine Leukocyte Esterase NEG NEG Microbiology Results 08/15/17 Blood Culture, Received Pending 08/15/17 Blood Culture, Received Pending 08/15/17 Urine Culture, Received Pending Diagnostic Radiology CT head: no bleeding Pelvic x-ray: osteopenia, no fractures of pelvis or hips CHEST ONE VIEW PORTABLE IMPRESSION: 1. Cardiomegaly without acute process. 2. Emphysema. EKG sinus tachycardia, PAC's, RBB, left atrial enlargement Impression Assessment and Plan 72 yo female with history of COPD, here with signs and symptoms of exacerbation , failed outpatient therapy - COPD exacerbation: signs of purulence with increased sputum production, yellow discoloration Solu Medrol 40mg IV q12, Zithromax 500mg daily, Levalbuterol nebulizers stable on 3L which is baseline - Acute on chronic diastolic heart failure increased edema in legs, typically on Lasix 20mg daily will increase to 40mg BID and follow response - CAD: no chest pain, no ischemia on EKG, continue aspirin and Plavix - Mild elevation in troponin: no chest pain, no EKG changes, likely just chronic elevation or demand - Constipation: takes Colace BID, will add Miralax daily until moves bowels - HTN: BP stable, continue Lopressor and Nifedipine - DVT prophylaxis: heparin Level of Care Med/Surg Advanced Directives Existing Living Will: No 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 Y/N: Yes Risk Level: High Given or contraindicated: Unfractionated heparin SQ Additional Copies To Marcello Conde M.D.
[2017-08-16 01:53] VITALS: PULSE 88; O2SAT 94
[2017-08-16] MEDS: IPRATROPIUM BROMIDE NEB SOLN 0.02% 2.5 ML VIAL INH SCH ×2 (01:53→07:09)
[2017-08-16] MEDS: LEVALBUTEROL 0.63MG/3 ML NEB INH SCH ×2 (01:53→07:09)
[2017-08-16] MEDS: HEPARIN SOD 5000 UNIT/0.5 ML CARP SQ SCH (05:39)
[2017-08-16] MEDS ORDERED: ALBUT/IPRATROP 3MG/0.5MG NEB 3 ML VIAL INH PRN (06:15)
[2017-08-16 06:19] VITALS: PULSE 80; O2SAT 97
[2017-08-16 06:43] LABS: COMPLETE YES; IG% 0.4 %; LYMPH % 3.6 %; MEAN CELL VOLUME 98.4 fL (80-100); MEAN CORPUSCULAR HEMOGLOBIN 32.2 pg (25-34); MEAN CORPUSCULAR HGB CONC 32.8 g/dl (32-36); MEAN PLATELET VOLUME 9.8 fL (7.4-10.4); MONO % 3.6 %; NEUT % 92.4 %; PLATELET COUNT 264 K/uL (130-400); RED BLOOD COUNT 3.66 M/uL (4.2-5.4); WHITE BLOOD COUNT 14.01 K/uL (4.8-10.8)
[2017-08-16 07:10] VITALS: PULSE 89; O2SAT 98
[2017-08-16 07:20] LABS: BUN/CREATININE RATIO 41.4 (10-20); CALCIUM 8.3 mg/dl (8.5-10.1); CREATININE 0.98 mg/dl (0.60-1.20); MAGNESIUM 2.1 mg/dl (1.8-2.4); POTASSIUM 4.1 mmol/L (3.5-5.1)
[2017-08-16 07:52] VITALS: BP 129/74; PULSE 85; O2SAT 90
[2017-08-16] MEDS: BUDESONIDE/FORMOTEROL FUMARATE 80/4.5 60 PUFFS/INHALER INH SCH (07:56)
[2017-08-16] MEDS: METHYLPREDNISOLONE IV 40 MG in SYRINGE 0 ML IV SCH (07:56)
[2017-08-16] MEDS: METOPROLOL TARTRATE 50 MG TAB PO SCH (07:58)
[2017-08-16] MEDS: RANITIDINE HCL 150 MG TAB PO SCH (07:58)
[2017-08-16] MEDS: DOCUSATE SODIUM 100 MG CAP PO SCH (07:58)
[2017-08-16] MEDS ORDERED: ASPIRIN 81 MG ECTAB PO SCH (09:00)
[2017-08-16] MEDS ORDERED: NIFEdipine 30 MG CR TAB PO SCH (09:00)
[2017-08-16] MEDS ORDERED: POLYETHYLENE (MIRALAX) 17 GM PACK PO SCH (09:00)
[2017-08-16] MEDS ORDERED: ATORVASTATIN 40 MG TAB PO SCH (09:00)
[2017-08-16] MEDS ORDERED: FUROSEMIDE 40 MG TAB PO SCH (09:00)
[2017-08-16] MEDS ORDERED: AZITHROMYCIN 250 MG TAB PO SCH (09:00)
[2017-08-16] MEDS ORDERED: SPRIN/30 INH (10:22)
[2017-08-16] MEDS ORDERED: PRED10TA PO (10:22)
[2017-08-16] MEDS ORDERED: AZIT-57 PO (10:22)
--- NOTE | 2017-08-16 10:26 | Discharge Instructions ---
Discharge Instructions Date of Service Aug 16, 2017. Admission Reason for Admission: Copd Exacerbation, Lower Extremity Edema Discharge Discharge Diagnosis / Problem: COPD exacerbation (severe bronchitis) Discharge Goals Goal(s): Improve disease control, Diagnostic testing, Therapeutic intervention Activity Recommendations Activity Limitations: resume your previous activity . Instructions / Follow-Up Instructions / Follow-Up COPD exacerbation -think of this like a bad bronchitis, and because of your compromised lung function from COPD you get sicker than an average person would -fortunately you're getting better quickly and it is safe to let you go home -we'll finish out a course of antibiotics with zithromax (azithromycin) tomorrow, saturday, and saturday. it actually stays in your system for a while after you take it, so a five day course is kind of like being on an antibiotic for 10 days -we'll use a tapering course of prednisone starting at 60mg (6 pills) for 2 days, then 50mg for 2 days then 40mg for 2 days then 30mg for 2 days then 20mg for 2 days then 10mg for 2 days then resume your prior prednisone dosing -we added a regular inhaler to the mix - spiriva (tiotropium) -- spiriva and medications in it's class (anticholinergics) have been proven to reduce severity of exacerbations when they happen and keep you out of the hospital more reliably when you get an exacerbation. it's not really an inhaler you'll feel when you take it, but the research would show that if you take it every day it should go a good way to "keep you out of trouble" Current Hospital Diet Patient's current hospital diet: AHA Diet (Heart Healthy) Discharge Diet Recommended Diet: AHA Diet (Heart Healthy) Pending Studies Studies pending at discharge: no Medical Emergencies . Who to Call and When: Medical Emergencies: If at any time you feel your situation is an emergency, please call 911 immediately. . Non-Emergent Contact Non-Emergency issues call your: Primary Care Provider . . "Provider Documentation" section prepared by Yury Magallanes. . VTE Core Measure Inpt VTE Proph given/why not?: Unfractionated heparin SQ
[2017-08-16 10:34] VITALS: BP 129/74; PULSE 85; TEMP 36.4; O2SAT 90
--- NOTE | 2017-08-16 17:48 | Discharge Summary ---
Discharge Summary Date of Service Aug 16, 2017. Discharge Summary Admission Date: Aug 15, 2017 at 17:15 Discharge Date: Aug 16, 2017 Discharge Disposition: Home Principal Diagnosis: COPD exacerbation Immunizations: Have You Had Influenza Vaccine: No History of Tetanus Vaccine?: Unknown History of Pneumococcal: Yes Pneumococcal Date: Nov 20, 2009 History of Hepatitis B Vaccine: Unknown Procedures: [~ rep ct add3]] HEAD WITHOUT CONTRAST (CT) CT DOSE: 679.75 mGycm HISTORY: Mental status change EVALUATE WEAKNESS TECHNIQUE: Multiaxial CT images of the head were performed without the use of intravenous contrast. A dose lowering technique was utilized adhering to the principles of ALARA. Comparison: None. Findings: The paranasal sinuses and mastoid air cells are clear. The calvarium and skull base are intact. The ventricles and sulci are within normal limits. There is no mass, hematoma, midline shift, or acute infarct. There are findings of considerable chronic small vessel change throughout the periventricular and deep white matter regions. Multiple areas of cortical encephalomalacia are present. There is slight compensatory prominence of the ventricular system. There is no acute intracranial hemorrhage. Impression: Considerable age-related and chronic small vessel change. No acute process. The above report was generated using voice recognition software. It may contain grammatical, syntax or spelling errors. Electronically signed by: Kirt Wade M.D. 08/15/2017 2:53 PM [~ rep ct add3]] CHEST ONE VIEW PORTABLE HISTORY: 72 years-old Female EVALUATE WEAKNESS acute weakness COMPARISON: Chest radiograph 06/26/2017 TECHNIQUE: Portable AP view of the chest FINDINGS: Cardiac silhouette is again enlarged. Atherosclerosis of the aorta. Costophrenic granuloma of the right upper lobe. Fiducial markers project of the left lung apex. No pneumothorax, pleural effusion or focal airspace consolidation. No overt pulmonary edema. Emphysema. Degenerative changes of the shoulders and spine. IMPRESSION: 1. Cardiomegaly without acute process. 2. Emphysema. The above report was generated using voice recognition software. It may contain grammatical, syntax or spelling errors. Electronically signed by: Endy Zheng M.D. 08/15/2017 1:43 PM SINGLE VIEW PELVIS CLINICAL HISTORY: Left pelvic pain. Fall. FINDINGS: An AP pelvic radiograph is compared to study dated 10/05/2015. The skeletal structures are osteopenic. There is no radiographic evidence of acute fracture involving the hips or bony pelvis. Mild arthritic change is seen in the hips and sacroiliac joints. Lumbosacral spondylosis is partially imaged. There is advanced atherosclerotic calcification of the femoral arteries. Numerous pelvic phleboliths are observed. No bowel obstruction is seen. IMPRESSION: Osteopenia with no radiographic evidence of acute fracture involving the hips or bony pelvis. Electronically signed by: Felix Davey M.D. 08/15/2017 3:00 PM Dictated Date/Time: 08/15/2017 2:59 PM Medication Reconciliation New Medications: Prednisone Tab (Prednisone) 10 Mg Tab 10 MG PO UD, #42 TAB 6 po x2days 5 po x2days 4 po x2days 3 po x2days 2 po x2days 1 po x2days then resume prior dosing Tiotropium [place] (Spiriva [place]) 30 Puff/540 Mcg Aerp 1 CAP INH DAILY, #1 INHALER Azithromycin (Azithromycin) 250 Mg Tab 250 MG PO QAM, #3 TAB Continued Medications: Albuterol Sulfate (Proair Respiclick) 108 Mcg/Act Aer 2 PUFFS INH Q4-6HRS PRN for SOB/Wheezing Alendronate Sodium (Alendronate Sodium) 70 Mg Tab 70 MG PO WK DO NOT LIE DOWN, EAT, DRINK, OR TAKE OTHER MEDS FOR 30 MIN. TAKE ON TUESDAYS Aspirin (Aspirin Ec) 81 Mg Tab 81 MG PO QAM Atorvastatin (Lipitor) 80 Mg Tab 80 MG PO QAM Budesonide/Formoterol Fumarate (Symbicort 80/4.5 Inhaler) 120 Puffs/ Aero 2 PUFF INH BID Chlordiazepoxide (Librium) 10 Mg Cap 10 MG PO TID PRN for , CAP Cholecalciferol (Vitamin D3) 1,000 Unit Tab 1 TAB PO QAM Clopidogrel Bisulfate (Clopidogrel) 75 Mg Tab 75 MG PO HS Docusate Sodium (Docusate Sodium) 100 Mg Cap 1 CAP PO BID Fluticasone Propionate (Fluticasone Propionate) 120 Sprays/6000 Mcg Inha 1 SPRAY [place] QAM Furosemide (Lasix) 20 Mg Tab 20 MG PO DAILY PRN for EDEMA Ipratropium [place] (Nasal) (Ipratropium [place]) 0.03 % Spr 2 SPRAYS ND TID Levalbuterol (Levalbuterol HCl) 0.63 Mg/3 Ml Nebu 0.63 MG INH QID Metoprolol Tartrate (Lopressor) (Lopressor) 50 Mg Tab 50 MG PO BID Nifedipine (Nifedipine Er) 60 Mg Tab 60 MG PO QAM Prednisone (Prednisone) 10 Mg Tab 10 MG PO HS Probiotic Product (Probiotic) 1 Cap Cap 1 CAP PO QAM Ranitidine (Zantac) 150 Mg Tab 150 MG PO BID, TAB Discharge Exam Physical Exam: General Appearance: no apparent distress Eyes: EOMI ENT: hearing grossly normal Neck: trachea midline Respiratory/Chest: no respiratory distress, no accessory muscle use Extremities: normal inspection Neurologic/Psychiatric: 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 Discharge Instructions Please refer to the electronic Patient Visit Report (Discharge Instructions) for additional information.
== END 2017-08-16 12:45 | disposition home health service (06) | DRG 190 ==
LOC: C.EDB 13:06 → C.MS2W 17:15 → ENRESERV 17:49 → CANRESERV 17:49 → ENRESERV 17:53
PROVIDERS: ADMIT Internal Medicine; ATTEND Family Medicine
DX: J44.1 Chronic obstructive pulmonary disease with (acute) exacerbation (principal); I50.33 Acute on chronic diastolic (congestive) heart failure; R29.6 Repeated falls; E78.5 Hyperlipidemia, unspecified; I11.0 Hypertensive heart disease with heart failure; R79.89 Other specified abnormal findings of blood chemistry; I25.10 Atherosclerotic heart disease of native coronary artery without angina pectoris; I25.2 Old myocardial infarction; Z79.52 Long term (current) use of systemic steroids; Z79.82 Long term (current) use of aspirin; Z79.899 Other long term (current) drug therapy; Z91.81 History of falling; Z88.0 Allergy status to penicillin; Z99.81 Dependence on supplemental oxygen